=== PATIENT | male | born 1960 | race Caucasian/White ===

== ENCOUNTER 2017-08-15 22:07 | Inpatient (IN) | payer OTHER ==
[~2017-08-15 22:07] MED LIST: ISOVUE-370 76%-LOCM 1 ML ONE
[2017-08-15 22:38] LABS: INR-International Normal Ratio 1.1; PTT 28.3 SEC (22.9-36.1); Prothrombin Time 13.8 SEC (12.0-14.7)
[2017-08-15] MEDS ORDERED: Acetaminophen 500 MG TAB ONE (22:44)
[2017-08-15 22:47] LABS: ALT (SGPT) 49 U/L (8-55); AST (SGOT) 135 U/L (5-34); Albumin 3.3 g/dL (3.5-5.0); Alkaline Phosphatase 126 U/L (40-150); Anion Gap 22 mmol/L (10-20); BUN (Urea Nitrogen) 12 mg/dL (8.4-25.7); Bilirubin, Total 0.9 mg/dL (0.2-1.2); Calc. Creatinine Clearance 0 mL/min (70-130); Calcium 9.4 mg/dL (7.8-10.44); Carbon Dioxide 14 mmol/L (22-29); Chloride 101 mmol/L (98-107); Estimated GFR-MDRD 74; Globulin 3.9 g/dL (2.4-3.5); Glucose 159 mg/dL (70-105); Potassium 3.7 mmol/L (3.5-5.1); Protein, Total 7.2 g/dL (6.0-8.3); Sodium 133 mmol/L (136-145)
[2017-08-15 22:48] LABS: Acetaminophen Less than 6.0 mcg/mL (10.0-30.0); Alcohol 69 mg/dL (Less than 10); CK (CPK) 3646 U/L (30-200); Lipase 37 U/L (8-78); Salicylate Less than 8.0 mg/dL (15.0-30.0)
[2017-08-15 22:50] LABS: Troponin I 0.029 ng/mL (< 0.028)
[2017-08-15 22:57] LABS: CKMB 31.9 ng/mL (0-6.6)
[2017-08-15 22:58] LABS: Band 11 % (5-11); Hemoglobin 13.1 g/dL (14.0-18.0); Lymphocytes 7 % (21-51); MDiff Complete? YES; Mean Corpuscular HGB CONC 32.3 g/dL (32.0-36.0); Mean Corpuscular Hemoglobin 28.6 pg (27.0-31.0); Mean Corpuscular Volume 88.6 fl (80.0-94.0); Mean Platelet Volume 6.9 fL (7.4-10.4); Metamyelocyte 2 % (0-0); Monocytes 8 % (0-10); Neutrophil 71 % (42-75); PLT Morphology Comment Appears Increased; Platelet Count 451 thou/uL (130-400); RBC Morphology Normal; Reactive Lymphocytes 1 % (0-10); Red Blood Cell (RBC) Count 4.59 mill/uL (4.70-6.10); Small Platelets SLIGHT; White Blood Cell (WBC) Count 29.1 thou/uL (4.8-10.8)
--- NOTE | 2017-08-15 23:17 | CT ---
CT HEAD WITHOUT CONTRAST: 08/15/17 Multiple tomograms obtained through the head without IV enhancement. HISTORY: Fall from bridge during suicide attempt. Patient is awake and alert at time of the exam according to technologist. Comparison made to CT of 01/03/17. The ventricles are upper normal size but stable. No evidence of intracranial hemorrhage. No mass, inf arct, or other acute process. No evidence of skull fracture. The sinuses and mastoids are well aerate d. IMPRESSION: No acute findings. POS: [facility]
--- NOTE | 2017-08-15 23:28 | CT ---
CHEST CT SCAN WITH IV CONTRAST ABDOMEN AND PELVIC CT SCAN WITH IV CONTRAST THORACIC SPINE CT SCAN WITH IV CONTRAST LIMITED LUMBAR SPINE CT SCAN WITH IV CONTRAST LIMITED 08/15/17 HISTORY: 57-year-old male with history of fall from trauma. Chest, abdomen and pelvic CT scan demonstrates left pleural effusion. There is no mediastinal hematom a. The aorta is unremarkable. No pericardial effusion. No pneumothorax. In the abdomen, there is evidence for ascites. Comparison is made to a prior 01/09/17 exam which demonstrates left pleural effusion and ascites at th at time. There is a large perisplenic fluid collection measuring approximately 4.4 x 11 cm. Although this was present on the prior 01/09/17 study. There appear to be some vascular coils in the splenic ar halima indicating that he probably had an extensive splenic injury previously which was embolized. The perisplenic region is somewhat more indistinct than on the prior study but the overall size of the co nfined perisplenic or subcapsular fluid collection is not significantly changed. Gallstones are noted in the gallbladder. Liver is intact. Pancreas and adrenal glands and kidneys are unremarkable other than some renal cysts. There is evidence for a comminuted left ilium fracture with associated widenin g of the left SI joint with some hematoma in the left iliopsoas musculature. There are also displaced right and left superior and inferior ischiopubic rami fractures. There is some minimal left sided pe lvic hematoma changes. IMPRESSION: Extensive pelvic fractures including left SI joint dislocation/marked abnormal widening with some hem atoma changes in the left pelvis as well as the left iliopsoas musculature. Markedly abnormal appeari ng spleen with what appears to be a large perisplenic fluid collection although this does not appear to be significantly changed from the 01/09/17 study. Evidence of ascites and left pleural effusion whi ch were present at the time of the prior study as well. I cannot totally exclude the possibility of s ome acute splenic injury in addition to the extensive old splenic injury, particularly given the some what indistinct appearance in the perisplenic area. Correlation with followup H&H levels. If there is clinical concern for acute blood loss or acute splenic injury on top of chronic splenic injury, then a followup CT scan might be of benefit in that regard. Other findings as above. THORACIC SPINE CT SCAN WITH IV CONTRAST LIMITED: IMPRESSION: Thoracic spine spondylosis without acute fracture. LUMBAR SPINE CT SCAN WITH IV CONTRAST LIMITED: IMPRESSION: Multilevel spondylosis. No evidence for acute fracture. Findings were discussed in regards to the chest, abdomen and pelvis CT scan as well as the brain CT s can and the cervical spine CT scan with Dr. Carrillo by phone at 2300 hours. Code CR POS: [facility]
--- NOTE | 2017-08-15 23:30 | CT ---
CERVICAL SPINE CT SCAN WITHOUT IV CONTRAST: 08/15/17 HISTORY: 57-year-old male with history of a fall. Jumped off bridge in a suicide attempt. There are generalized changes of spondylosis with prominent disc osteophytosis particularly at C5-C6. These spondylosis changes have progressed when compared to the prior 01/08/14 study. No evidence for acute fracture or facet dislocation. IMPRESSION: Significant spondylosis most marked at C5-C6. No acute fracture or facet dislocation. POS: [facility]
[2017-08-16] MEDS ORDERED: Morphine 4 MG/ML VIAL ONE (00:15)
[2017-08-16] MEDS ORDERED: Ondansetron HCl/PF 4 MG/2 ML Vial ONE (00:16)
[2017-08-16] MEDS ORDERED: Ondansetron HCl/PF 4 MG/2 ML Vial IVP PRN (00:41)
[2017-08-16] MEDS ORDERED: Ondansetron ODT 4 MG TAB PO PRN (00:41)
[2017-08-16] MEDS ORDERED: Dextrose 5% in Water 1,000 ML IV PRN (00:41)
[2017-08-16] MEDS ORDERED: Dextrose 50% Abboject 50 ML SYRINGE SLOW IVP PRN (00:41)
[2017-08-16 00:55] LABS: Bilirubin Negative (Negative); Blood, Urine Large (Negative); Clarity CLEAR (Clear); Glucose, Urine (Dipstick) Negative (Negative); Leukocyte Negative (Negative); Nitrite Negative (Negative); Protein, Urine (Dipstick) 30 mg/dL (Neg-Trace); pH, Urine 6.5 (5.0-9.0)
[2017-08-16 00:58] LABS: Pathc Cast-AUWi Flag 0.14 (0-2.49)
[2017-08-16 01:00] LABS: Sperm-AUWi Flag 107.7 (0-9.9)
[2017-08-16 01:14] LABS: Squamous Epithelial 0-3 HPF (0-3); WBC/HPF 0-3 HPF (0-3)
[2017-08-16 01:15] LABS: Bacteria/HPF None Seen HPF (None Seen); Hyaline Casts/LPF 0-3 HYALINE CAST LPF (0-3 Hyaline); Sperm/HPF 1+ HPF (None Seen)
[2017-08-16] MEDS: Sodium Chloride 0.9% 1,000 ML IV SCH ×4 (01:58→22:14)
[2017-08-16 02:22] LABS: CKMB 31.9 ng/mL (0-6.6)
[2017-08-16 02:50] LABS: Amphetamine Not Detected (NotDetected); Barbiturates Screen Not Detected (NotDetected); Benzodiazepine Screen Not Detected (NotDetected); Cocaine Metabolite Screen Not Detected (NotDetected); Medtox Control Line Valid? VALID (VALID); Medtox Reader # READER 4; Methadone Not Detected (NotDetected); Methamphetamine Not Detected (NotDetected); Opiate Screen Not Detected (NotDetected); Oxycodone Screen Not Detected (NotDetected); Phencyclidine (PCP) Not Detected (NotDetected); THC/Cannabinoid Screen Not Detected (NotDetected); Tricyclic Screen Not Detected (NotDetected)
[2017-08-16 03:00] VITALS: BMI 20.3
[2017-08-16] MEDS: Acetaminophen 1,000 MG in Premix Bag 1 BAG IVPB SCH ×4 (05:21→23:56)
[2017-08-16] MEDS: Ketorolac Tromethamine 30 MG/ML VIAL IVP SCH ×4 (05:22→23:55)
[2017-08-16] MEDS: Oxazepam 10 MG CAP PO SCH ×3 (05:22→22:14)
[2017-08-16] MEDS: Morphine 4 MG/ML VIAL SLOW IVP PRN ×3 (05:26→18:34)
[2017-08-16 05:33] LABS: Anion Gap 9 mmol/L (10-20); BUN (Urea Nitrogen) 11 mg/dL (8.4-25.7); Calc. Creatinine Clearance 103 mL/min (70-130); Calcium 8.6 mg/dL (7.8-10.44); Carbon Dioxide 24 mmol/L (22-29); Chloride 106 mmol/L (98-107); Estimated GFR-MDRD Greater than 90; Glucose 129 mg/dL (70-105); Potassium 4.1 mmol/L (3.5-5.1); Sodium 135 mmol/L (136-145)
[2017-08-16 05:34] LABS: Troponin I 0.038 ng/mL (< 0.028)
[2017-08-16 05:37] LABS: CKMB 31.4 ng/mL (0-6.6); Critical Call CKMBM RESULT DECREASING
--- NOTE | 2017-08-16 06:23 | HP ---
DATE OF ADMISSION: 08/16/2017 ATTENDING PHYSICIAN: Dr. Castro Richards TRAUMA ACTIVATION: Level 2. HISTORY OF PRESENT ILLNESS: Lamont Welch is a 57-year-old male who presented to [facility] status p ost jumping from a bridge. Per patient, he was feeling above average levels of life stress and decid ed to jump from a bridge after drinking alcohol earlier this evening. The patient has a history of m ultiple suicide attempts in the past and suicidal ideations. Per EMS, the bridge is approximately 50 -60 feet. He underwent evaluation in the emergency room and was found to have multiple pelvic fractu res and a left talar fracture. Upon my evaluation, the patient has a chief complaint of pelvic and l ower back pain. He rates his pain as a 10/10. ALLERGIES: None. HOME MEDICATIONS: The patient is supposed to be taking an unknown antihypertensive, but states he fenton s been able to afford it, so has not been taking it. PAST MEDICAL HISTORY: Hypertension, hepatitis C, glaucoma, chronic alcohol abuse, chronic anemia, to bacco abuse, history of polysubstance abuse, history of hepatic encephalopathy, history of multiple s uicide attempts. PAST SURGICAL HISTORY: Splenic embolization in 04/2016. SOCIAL HISTORY: The patient states he lives alone. He has 2 children. He is currently not employed . He endorses daily alcohol use, approximately 4-5 beers daily. He is a current tobacco user, smoki ng both cigarettes and cigars. He is a half pack per day smoker x40 years. He has a history of hero in use, but denies recent illicit drug use. FAMILY HISTORY: Significant for father and mother who are both from cancer, details unknown . Patient reports having a sister with a history of cancer, details unknown. REVIEW OF SYSTEMS: Ten point review of systems was negative except as indicated in the HPI. PHYSICAL EXAMINATION: VITAL SIGNS: Blood pressure 145/87, pulse 120, respiration 26, temperature 99.6, O2 sat 96% on room air. GENERAL: Well-developed male in no acute distress, resting in bed. HEENT: Head is normocephalic. There are small left frontal hematoma, right periorbital hematoma. E yes; pupils are PERRL. Extraocular movements are intact. NECK: Supple. Trachea is midline. C-collar is in place. There was no reported midline tenderness. CHEST: Chest is atraumatic. There is no tenderness to palpation. Normal work of breathing, symmetr ic rise. LUNGS: Clear to auscultation bilaterally. CARDIOVASCULAR: Tachycardic, no obvious murmurs, rubs or gallops. GASTROINTESTINAL: The abdomen appears atraumatic, is soft. He has tenderness to palpation of the ri ght lower and left lower quadrants, but no guarding, no signs of peritonitis. No rigidity. BACK: Reported as having diffuse tenderness along the spine without any step-offs or deformities. MUSCULOSKELETAL: Bilateral upper extremities within normal limits. Right lower extremity within nor mal limits. Left lower extremity, left ankle appears swollen and range of motion is limited secondar y to pain. Pulses are 2+ bilaterally. NEUROLOGIC: GCS is 15. No focal deficit is noted. Strength 5/5 in all 4 extremities. LABORATORY DATA: WBC 29.1, hemoglobin 13.1, hematocrit 40.7, platelet count 451, 11% bandemia. INR is 1.1. Sodium 133, potassium 3.7, chloride 101, carbon dioxide 14, BUN 12, creatinine 1.03, glucose 159. AST 135, ALT 49. CK 3646, CK-MB 31.9, troponin 0.029. Urinalysis with proteinuria and some h ematuria. Blood alcohol level 69. RADIOGRAPHIC FINDINGS: EKG with sinus tachycardia, no evidence of acute myocardial infarction. CT of the C-spine was negative for acute fracture or dislocation, but did have some cervical spondylo sis at C5 and C6. CT of the brain was negative for acute intracranial abnormality. CT of the chest, abdomen, and pelvis per radiology read showed a left ilium fracture associated with widening and dis location of the SI joint as well as displaced right and left superior and inferior pubic rami fractur es with left iliopsoas hematoma and left-sided pelvic hematoma. There was also evidence of a perispl enic fluid collection which is stable from a previous study in 12/2016. There was evidence of some a scites. T-spine and L-spine were without acute fracture, but did show evidence of spondylosis per ra diology. X-ray of the pelvis, official read is pending, but has been evaluated by Orthopedic Surgery . X-ray of the left foot showed a left talar fracture. X-ray of the left knee, official read is pen ding, but is negative for acute fracture or dislocation per Orthopedic Surgery. X-ray of the right f oot, official read is pending. Negative for acute fracture per radiology read. X-ray of the right k nee is negative for acute fracture per Orthopedic Surgery. Official read is pending. ASSESSMENT: 1. Status post jump from a bridge approximately 50 feet, suicide attempt. 2. Left ilium fracture. 3. Left SI joint dislocation. 4. Bilateral superior and inferior pubic rami fractures. 5. Left pelvic hematoma. 6. Left iliopsoas hematoma. 7. Acute traumatic pain. 8. Hypertension. 9. Left talar fracture. 10. Perisplenic fluid collection, stable, history of splenic rupture, status post splenic artery emb olization. 11. Alcohol abuse with acute ETOH intoxication. 12. History of hepatitis C, cirrhosis, and ascites. 13. Current tobacco user. 14. History of polysubstance abuse. 15. History of multiple suicide attempts. 16. Rhabdomyolysis. 17. Indeterminate range troponin without chest pain or acute EKG changes. PLAN: Admit to Trauma Services. The case has been discussed with ER physician and Orthopedic Surger y. Orthopedic Surgery has seen and evaluated the patient and plan for operative intervention later t yfn. The patient should be n.p.o. IV fluid hydration. Recheck labs in a.m. Follow troponin and CK levels. Withdrawal prophylaxis wit h Serax, IV analgesics at this time. Postoperative PT, OT. Plans for admission were discussed with the patient, who vocalized his understanding. All questions were answered at the time of this dictat ion. Dr. Richards has been notified of admission. Assessment and plan has been discussed with him.
--- NOTE | 2017-08-16 06:43 | RAD ---
AP PELVIS ONE VIEW: HISTORY: A 57-year-old male with a history of trauma, fall. FINDINGS: There are comminuted, markedly displaced fractured of the right and left pubis regions, including the superior and inferior ischiopubic rami and the pubic bones themselves. There is also dislocation of the left SI joint, which extends into the left ilium bone, as a comminuted fracture. There is some left-sided pelvic hematoma, minimally displacing the bladder to the right. IMPRESSION: 1. Very markedly displaced, comminuted right and left pubis and ischiopubic rami fractures, as well as a markedly displaced fracture-dislocation involving the left sacroiliac joint and extending into t he left ilium and iliac crest. 2. Some left-sided pelvic hematoma, displacing the bladder to the right. POS: [facility]
--- NOTE | 2017-08-16 07:47 | HP ---
CHIEF COMPLAINT: Suicide attempt, jumping off a bridge. HISTORY OF PRESENT ILLNESS: The patient is a 57-year-old male who has a history of prior multiple robledo icide attempts and depression who last night jumped off a 50-60 foot bridge in an attempt to commit s uicide. He was found by EMS and brought in. He was awake and alert at the scene. He claims he has been depressed. He is an alcoholic, drinks a lot of beer. He complains of groin pain, leg pain, low er back and sacrum pain. Denies dyspnea, change in vision, numbness or tingling. PAST MEDICAL HISTORY: Hypertension, hepatitis C, alcoholism, hepatic encephalopathy, multiple suicid e attempts, history of DTs, history of glaucoma. PAST SURGICAL HISTORY: He has had a splenic embolization. MEDICATIONS: He takes a medication for hypertension, hepatitis C and anxiety. ALLERGIES: No known drug allergies. SOCIAL HISTORY: He is single. He smokes 1 pack per day. He drinks 4-5 quarts of beer daily. 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 He also reports prior heroin use, but he says he stopped that. FAMILY HISTORY: Noncontributory. PHYSICAL EXAMINATION: VITAL SIGNS: Temperature 98.1, pulse 106, blood pressure 133/80. GENERAL: He is awake, alert, very ill-kempt man. HEENT: He has got some ecchymosis about his right eye. There is no trauma to his scalp or skull. N o soft tissue swelling. NECK: His neck is in a C-collar. It is nontender. Trachea is midline. LUNGS: Clear. HEART: Regular rate and rhythm. ABDOMEN: Soft, nondistended, nontender. Pelvis is angulated. EXTREMITIES: Externally rotated. Sensation intact. LABORATORY AND X-RAY FINDINGS: White count 29.1, H&H 13 and 40, platelet count 451. Electrolytes ar e fine, but elevated glucose of 129, CK-MB elevated at 31, coags are fine. Urinalysis clear. Toxico logy: Alcohol is 69. CT of the cervical spine shows spondylosis at C5-6, no fractures. CT of the b rain is unremarkable. CT chest, abdomen, and pelvis shows extensive pelvic fractures including left SI joint dislocation with abnormal widening and hematoma in the left pelvis, left iliopsoas musculatu re, markedly abnormal spleen with some perisplenic fluid. This has not changed since 12/2016. There is ascites, left pleural effusion. ASSESSMENT: Significant fall with significant pelvic fracture, left ilium fracture, left SI joint di slocation, superior and inferior pubic rami fracture, bilateral pelvic hematoma, hypertension, perisp lenic fluid collection, alcohol abuse with history of hepatitis C, probable cirrhosis. PLAN: Admit on suicide precautions, precautions for delirium tremens with orthopedic consultation.
--- NOTE | 2017-08-16 08:59 | CT ---
PRELIMINARY REPORT/[facility]/EMERGENTY AFTER-HOURS PROCEDURE CT Left Lower Extremity Without Intravenous Contrast, Foot CLINICAL HISTORY: 57 years old, male; Injury or trauma; Fall; Initial encounter; Fracture, traumatic; Closed fracture; Foot; Left; Patient HX: 57 y/o m with presentation of fall. Ems reports that bystanders found him lay ing on the dirt road at the bottom of the bridge and pt informed them that pt had jumped off the bridge (marquita roximately 50-60ft) TECHNIQUE: Axial computed tomography images of the left foot without intravenous contrast. COMPARISON: No relevant prior studies available. FINDINGS: Bones/joints: Acute comminuted fractures of the talus and calcaneus. No dislocation. Soft tissues: Diffuse soft tissue edema. No radiopaque foreign body. IMPRESSION: Acute comminuted fractures of the talus and calcaneus. Thank you for allowing us to participate in the care of your patient. Dictated and Authenticated by: Rj Flores MD 08/16/2017 2:32 AM Central Time ([place] & [place]) FINAL REPORT CT RIGHT ANKLE: FINDINGS/IMPRESSION: I agree with the above-provided preliminary interpretation. There is a heavily comminuted minimally displaced fracture deformity of the talus. There is also fra cture involvement of the lateral aspect of the calcaneus and extending posteriorly. There is associa malorie soft tissue hematoma. POS: [facility]
--- NOTE | 2017-08-16 09:22 | RAD ---
3 VIEW LEFT KNEE: Date: 08/16/17 INDICATION: Jumping injury, pain. FINDINGS: No fracture, dislocation, or joint capsular distention. Enthesophyte formation seen in patella. There are minute osteophytes and vascular calcification present. IMPRESSION: No acute osseous abnormality of the knee. POS: [facility]
--- NOTE | 2017-08-16 09:24 | RAD ---
THREE VIEWS OF THE LEFT ANKLE: COMPARISON: None. HISTORY: Jumped from 50 feet with feet trauma and pain. FINDINGS: Three vies of the left foot show a comminuted fracture of the talus. This appears to extend to the p osterior facet. No calcaneal fracture is seen. Surrounding soft tissue swelling is seen. IMPRESSION: Comminuted fracture of the left talus. POS: OFF
--- NOTE | 2017-08-16 09:28 | RAD ---
4 VIEWS RIGHT KNEE: Date: 08/16/17 COMPARISON: None. HISTORY: Jumped from 50-ft with right knee pain/trauma. FINDINGS: Four views of the right knee show no evidence of acute fracture or dislocation. No knee effusion is s een. No soft tissue swelling is present. IMPRESSION: Unremarkable exam. POS: OFF
[2017-08-16] MEDS ORDERED: CEFAZOLIN/Water 2 GM/20 ML SYRINGE SLOW IVP SCH (09:30)
[2017-08-16] MEDS: Senokot S 8.6-50 MG TAB PO SCH ×2 (09:36→22:15)
[2017-08-16] MEDS: Folic Acid 1 MG TAB PO SCH (09:36)
[2017-08-16] MEDS: Famotidine/PF 20 mg/2ml Vial SLOW IVP SCH (09:37)
[2017-08-16] MEDS: Multivit, Therapeutic 1 TAB PO SCH (09:37)
--- NOTE | 2017-08-16 10:22 | RAD ---
LEFT ANKLE TWO VIEWS: INDICATIONS: Posttraumatic pain related to fall. FINDINGS: The three view series of the left foot and the two view series of the left ankle were concurrently pe rformed, which revealed subtle fracture lucencies and cortical irregularity involving the talus. The re is subtle cortical irregularity seen at the mid to posterior aspect of the calcaneus. There is sl ight asymmetry of the ankle mortise with medial widening. Soft tissue swelling is present. IMPRESSION: Fractures of the hindfoot. Recommend dedicated CT to further evaluate. POS: [facility]
[2017-08-16] MEDS ORDERED: Famotidine 20 MG TAB PO SCH (22:15)
[2017-08-17] MEDS: Sodium Chloride 0.9% 1,000 ML IV SCH ×3 (04:37→17:31)
[2017-08-17] MEDS: Ketorolac Tromethamine 30 MG/ML VIAL IVP SCH ×3 (05:42→17:33)
[2017-08-17] MEDS: Acetaminophen 1,000 MG in Premix Bag 1 BAG IVPB SCH (05:42)
[2017-08-17] MEDS: Oxazepam 10 MG CAP PO SCH ×3 (05:49→22:02)
[2017-08-17 05:52] LABS: #Eosinphils 0.1 thou/uL (0.0-0.7); #Monocytes 0.9 thou/uL (0.11-0.59); #Neutrophils 10.3 thou/uL (1.40-6.50); %Eosinophils 0.6 % (0.0-10.0); %Lymphocytes 14.9 % (21.0-51.0); %Monocytes 6.9 % (0.0-10.0); %Neutrophils 77.5 % (42.0-75.0); Hemoglobin 10.3 g/dL (14.0-18.0); Mean Corpuscular Hemoglobin 28.8 pg (27.0-31.0); Platelet Count 336 thou/uL (130-400); RBC Distribution Width 14.1 % (11.5-14.5); Red Blood Cell (RBC) Count 3.58 mill/uL (4.70-6.10); White Blood Cell (WBC) Count 13.3 thou/uL (4.8-10.8)
[2017-08-17 06:08] LABS: Anion Gap 10 mmol/L (10-20); BUN (Urea Nitrogen) 18 mg/dL (8.4-25.7); Calc. Creatinine Clearance 88 mL/min (70-130); Calcium 8.5 mg/dL (7.8-10.44); Carbon Dioxide 21 mmol/L (22-29); Chloride 111 mmol/L (98-107); Estimated GFR-MDRD 90; Glucose 80 mg/dL (70-105); Magnesium 1.8 mg/dL (1.6-2.6); Potassium 4.5 mmol/L (3.5-5.1); Sodium 137 mmol/L (136-145)
[2017-08-17] MEDS: Morphine 4 MG/ML VIAL SLOW IVP PRN ×2 (06:39→20:11)
[2017-08-17] MEDS ORDERED: CEFAZOLIN/Water 2 GM/20 ML SYRINGE ONE (07:47)
[2017-08-17] MEDS ORDERED: Fentanyl 100 MCG/2 ML VIAL ONE (07:47)
[2017-08-17] MEDS: Famotidine/PF 20 mg/2ml Vial SLOW IVP SCH (07:51)
[2017-08-17] MEDS ORDERED: Fentanyl 250 MCG/5 ML VIAL ONE (08:18)
[2017-08-17] MEDS ORDERED: HYDROmorphone 2 MG/ML VIAL SLOW IVP PRN (10:44)
[2017-08-17] MEDS ORDERED: Promethazine HCl 25 MG/ML VIAL SLOW IVP PRN (10:44)
[2017-08-17] MEDS ORDERED: Promethazine HCl 25 MG/ML VIAL IM PRN (10:44)
[2017-08-17] MEDS ORDERED: Ondansetron HCl/PF 4 MG/2 ML Vial IVP PRN (10:44)
[2017-08-17] MEDS ORDERED: Labetalol HCl 100 MG/20 ML VIAL ONE (10:47)
--- NOTE | 2017-08-17 11:34 | RAD ---
AP PELVIS INTRAOPERATIVE FLUOROSCOPY: Date: 08/17/17 HISTORY: Fracture. FINDINGS/IMPRESSION: Intraoperative fluoroscopy was provided for internal fixation as performed by Dr. Mccullough. Spot flu oroscopic images show long screws transfixing the left sacroiliac joint and sacrum. Fluoro Time: 149 seconds. POS: [facility]
--- NOTE | 2017-08-17 11:38 | RAD ---
RADIOGRAPH LEFT ANKLE 2 VIEWS: Date: 08/17/17 Time: 1014 hours HISTORY: 57-year-old male with left talar fracture. COMPARISON: 08/16/17. FINDINGS: Two small field of view fluoroscopic spot images obtained in OR. Two lag screws have been placed, ent ering from the posterior aspect of the talus, with distal tip embedded within the anterior process of the talus. IMPRESSION: Status post screw fixation of talar fracture. POS: [facility]
--- NOTE | 2017-08-17 12:01 | CON ---
DATE OF CONSULTATION: 08/16/2017 REQUESTING PHYSICIAN: Dr. Castro Richards. HISTORY OF PRESENT ILLNESS: Mr. Welch is a 57-year-old gentleman, who presented to the emergency room after an apparent suicide, jumping from a bridge. By report, it was a height of approximately 50 fe et. The patient presents with complaints of low back pain, sacral pain, and left ankle pain. Workup included CT scan of pelvis as well as plain x-rays of bilateral feet, bilateral knees, and subsequen t CT scan of left ankle. These studies have revealed a vertical shear pelvis fracture with fractures of both left and right rami as well as a fracture of the posterior iliac wing on the left side and c omplete disruption of the sacroiliac joint. The left foot remarkable for a minimally displaced talar body and neck fracture. The patient now admitted to the Trauma Service. PAST MEDICAL HISTORY: Remarkable for hepatitis C, hypertension, chronic alcohol abuse, chronic anemi a, polysubstance abuse, hepatic encephalopathy, and prior suicide attempts. PAST SURGICAL HISTORY: Includes splenic embolization in 04/2016. MEDICATIONS: Patient states that he has not been able to afford his normal medications that include antihypertensive medications. ALLERGIES: None. SOCIAL HISTORY: The patient lives alone. He is unemployed. He uses alcohol approximately 4-5 beers daily and is a smoker of both cigarettes and cigars and has done so for 40 years. He has a past his tory of heroin abuse. FAMILY HISTORY: Noncontributory. REVIEW OF SYSTEMS: Patient denies recent fevers, chills, or sweats. Denies chest pain or shortness of breath. Denies numbness or tingling in lower extremity. PHYSICAL EXAMINATION: VITAL SIGNS: He is found to have a blood pressure of 145/87, pulse 120, respiratory rate of 26, and O2 saturations 96% on room air. GENERAL: He is awake and alert and complaining of pain. HEENT: Atraumatic, normocephalic. HEART: Shows a regular rate and rhythm without murmur. LUNGS: Clear to auscultation bilaterally. CHEST: Chest wall remarkable for no chest wall pain to palpation. BACK: Remarkable for pain at the lumbosacral region and along the sacrum slightly to the left side. PELVIS: He is found to have pain with compression and pain with push pull of the lower legs with thi s pain felt at the left SI region as well as the groin region. EXTREMITIES: Bilateral upper extremities appear atraumatic with supple range of motion of shoulder, elbow, wrist, and hand. He has intact sensation in the radial, median, and ulnar distributions. Low er extremities remarkable for an atraumatic right lower extremity with supple range of motion of hip, knee, and ankle. He has intact subjective sensation distally and is wiggling his toes normally. Wi th hip range of motion, he does feel deep pain in the groin. The left lower extremity is remarkable for again groin pain with hip range of motion consistent with his pelvis injury, but otherwise no fem ur, knee, or foot pain except for pain posteriorly at the talocalcaneal region. With dorsi and plant ar flexion of the foot, he does feel pain in this area, although no crepitation is elicited. He does have swelling. He has a 2+ dorsalis pedis pulse and intact subjective sensation. RADIOGRAPHIC FINDINGS: For pertinent studies, I will refer you to the history and physical. LABORATORY DATA: He was found to have a white count of 29, hematocrit of 40.7, and 450,000 platelets . ASSESSMENT: A 57-year-old gentleman status post suicide attempt by jumping, sustaining a left talar body and neck fracture with minimal displacement and a vertical shear fracture of the pelvis with com plete disruption of left SI joint. By report, the patient had a normal rectal exam with normal recta l tone and normal perianal sensation and he does have a normal distal neurovascular exam today, so I do not believe a lumbosacral plexus is involved, but clearly has an unstable vertical shift of the le ft hemipelvis. PLAN: At this time, patient will be admitted to Trauma Service. We will proceed with a stabilizatio n procedure of the pelvis as soon as patient is felt to be stable and ready for surgery. At the same time, we will proceed with a percutaneous stabilization of the talus. We will discuss with the kourtney ent the risks and benefits of this procedure. Once he is out of the resuscitation room and better ab le to comprehend our discussion.
[2017-08-17] MEDS: Senokot S 8.6-50 MG TAB PO SCH ×2 (12:02→22:03)
[2017-08-17] MEDS: Folic Acid 1 MG TAB PO SCH (12:02)
[2017-08-17] MEDS: Famotidine 20 MG TAB PO SCH ×2 (12:02→22:03)
[2017-08-17] MEDS: Multivit, Therapeutic 1 TAB PO SCH (12:02)
--- NOTE | 2017-08-17 15:02 | CT ---
CT PELVIS NONCONTRAST: Date: 08/17/17 HISTORY: Pelvic fracture with surgery. COMPARISON: 08/15/17. FINDINGS: There has been near complete interval reduction of the posterior displacement of the left iliac bone fracture, now held in place by two long screws. The more inferior screw crosses both SI joints. The m ore superior screw extends to the right side of the sacrum. Less than 1.0 cm posterior displacement o f the lateral left iliac bone fragment remains on the axial images. Comminuted, mildly displaced frac ture of the pubic rami are similar in alignment to the previous exam. Valle catheter decompresses the urinary bladder. Hematoma expansion of the left iliacus muscle has decreased somewhat since the prev ious study. There is stranding throughout the fat of the pelvis. Calcification in the arterial struct ures. IMPRESSION: 1. Interval operative fixation and improved alignment of the left sacroiliac fractures. Pubic rami f ractures are not significantly changed in alignment. 2. Interval decrease in hematoma mass effect of the left pelvic side wall. POS: [facility]
--- NOTE | 2017-08-17 16:08 | OP ---
DATE OF SURGERY: 08/17/2017 PREOPERATIVE DIAGNOSIS: Left talar neck and body fracture, closed. POSTOPERATIVE DIAGNOSIS: Left talar neck and body fracture, closed. SURGICAL PROCEDURE: Open reduction and internal fixation, left talus. ANESTHESIA: General. SURGEON: Munir Zaldivar M.D. PHOTO LAB MANAGER: Chalo Mccullough M.D. TOURNIQUET TIME: Zero. BLOOD LOSS: Less than 20 mL. IMPLANTS: 4.0 mm cannulated screws x2. COMPLICATIONS: None. DRAINS: None. SPECIMEN: None. OUTCOME: Satisfactory. INDICATIONS: The patient is a 57-year-old gentleman status post jump from a bridge landing approxima tely 50 feet below sustaining a vertical shear fracture of the left SI joint with pubic rami and chip c wing fractures in addition to a minimally displaced left talus fracture. This fracture involves th e body as well as neck. After discussion with patient including risks and benefits, we decided to pr oceed with open reduction and internal fixation. Informed consent obtained, all questions answered. PROCEDURE IN DETAIL: After the induction of general anesthesia, the patient had just completed the c losed reduction and percutaneous screw fixation of his SI joint. Patient was repositioned in a right lateral decubitus position and then a sterile prep and drape performed of the left lower extremity. A posterior lateral skin incision was made just to the lateral border of the Achilles tendon at abou t the level of the tip of the lateral malleolus. After a vertical incision was made, dissection was carried down bluntly so as not to harm the sural nerve. The fascial layer was bluntly dissected and then a probe was able to be placed on the posterior aspect of the talus. Next, a 1.25 mm terminally threaded guidewire was passed from the posterior talus at about the level of the posterior process ac ross the body and neck fracture into the talar head. A second wire was then passed in a similar fash ion just slightly lateral to the first. Once the wires were appropriately positioned, two 4.0 mm par tially threaded cancellous screws were passed over these guidewires spanning the fractures and gettin g compression across the fractures. The K-wires were removed and then final AP, lateral C-arm images were obtained that showed acceptable alignment of hardware and fracture. The wound was then irrigat ed and closed in layers with 0 Vicryl deep, 2-0 Vicryl and estevan for the skin. A Xeroform gauze, W ebril, and posterior fiberglass splint was applied to the ankle and then patient was transferred to r ecovery room in stable condition. There were no complications. He tolerated the procedure well.
--- NOTE | 2017-08-17 16:47 | OP ---
DATE OF PROCEDURE: 08/17/2017 OPERATION: Open reduction and internal fixation of unstable vertical shear pelvic fracture. PREOPERATIVE DIAGNOSES: Left-sided vertical shear pelvic fracture with anterior rami fractures bilat erally as well as left sacroiliac dislocation and posterior iliac wing fracture. POSTOPERATIVE DIAGNOSES: Left-sided vertical shear pelvic fracture with anterior rami fractures bila terally as well as left sacroiliac dislocation and posterior iliac wing fracture. COMPLICATIONS: None. ESTIMATED BLOOD LOSS: 100 mL. SURGEON: Chalo Mccullough M.D. PRECISE WINDER: Munir Zaldivar M.D. INDICATIONS: Mr. Welch is a 57-year-old male, who jumped from a bridge. He had multiple injuries inc luding a left talus fracture and an unstable vertical shear pattern pelvic fracture. He was indicate d for reduction and fixation of the pelvis as well as the talus to restore anatomic function and reli cassie pain as well as provide the ability to mobilize and heel with anatomic alignment. Risks have bee n reviewed. These are extensive and do include nerve injury, vascular injury, hardware failure, loos ening, nonunion, malunion, DVT, PE, and others. He is at risk for avascular necrosis of the talus. DESCRIPTION OF PROCEDURE: Mr. Welch was identified in the preoperative holding area. His correct ext remity was marked. He was carried to the operating room. He was positioned supine. General anesthe lon was induced. A multidisciplinary timeout was performed. The left leg and left hip as well as an terior abdomen was prepped and draped in sterile fashion. At this point, we proceeded with intraoperative evaluation using x-ray. We pulled traction on the le ft leg and manipulated the left hip. We were able to reduce the sacroiliac joint vertical shear comp onent with traction. We then compressed the sacroiliac joint using a ball-spike pusher from the late ral side and a small incision. At this point, we placed a K-wire across the sacroiliac joint tempora rily holding our fixation. Next, we used intraoperative x-ray obtained perfect inlet and outlet view s. We then passed a guidewire for a 7.3 screws across the ilium into the sacrum. This was in a safe zone on both views. We overdrilled this. We then placed a 7.3 mm partially threaded cannulated scr ew. This was used with a washer to compress the sacroiliac joint further enhancing our reduction. A gain, x-ray images were taken. Next, we placed a second screw in the S2 segment. A guidewire was pl aced through the ilium into the S2 sacral body. Again, we used inlet and outlet x-rays as well as la teral views to guide this. We overdrilled the wire and placed our 7.3 fully threaded screw. At this point, we evaluated the general stability of the pelvis. The anterior pelvis was well reduced. All x-rays showed reduction and a stable pelvis. We decided to stop at this point on our fixation. We did not proceed with anterior fixation. We took final images. We thoroughly irrigated our wounds. We then closed appropriately and placed a sterile dressing. The talus was then fixed, this was dictated in a separate operative note. IMPLANTS: Two 7.3 mm Synthes screws cannulated were used.
[2017-08-17] MEDS ORDERED: HYDROcodone/Acetaminophen 5/325 mg Tablet PO PRN ×2 (16:54)
[2017-08-17] MEDS: CEFAZOLIN/Water 2 GM/20 ML SYRINGE SLOW IVP SCH (17:02)
[2017-08-17] MEDS ORDERED: Lidocaine 1% PF 5 ML VIAL ONE (17:03)
[2017-08-17] MEDS ORDERED: PROPOFOL 200 MG/20 ML VIAL ONE (17:03)
[2017-08-17] MEDS ORDERED: Succinylcholine Chloride 20 MG/ML 10 ml SYRINGE FS ONE (17:03)
[2017-08-17] MEDS ORDERED: Glycopyrrolate 0.2 MG/ML 5 ML SYRINGE ONE (17:03)
[2017-08-17] MEDS ORDERED: PHENYLEPHRINE-NS 100 MCG/ML 10 ML SYRINGE ONE (17:03)
[2017-08-17] MEDS ORDERED: HYDROcodone/Acetaminophen 7.5/325 mg Tablet PO PRN (20:38)
--- NOTE | 2017-08-17 20:46 | PRG ---
DATE OF SERVICE: 08/17/2017 ATTENDING PHYSICIAN: Dr. Franco. SUBJECTIVE: Mr. Welch is a 57-year-old male who jumped off of a 50-feet bridge, 2 days ago. He was f ound by EMS and brought into the emergency department. He was identified as having a left talar frac ture and pelvic fracture. He was admitted to the surgical floor by Trauma services. Orthopedic cons ult was made. He has remained stable on the surgical floor. He has been to the operating room for f ixation of his pelvis and talar fracture this morning. He is now seen postoperatively. OBJECTIVE: VITAL SIGNS: Temperature 97.8, pulse 90, respirations 22, O2 sat 95% on room air, blood pressure 163 /99. GENERAL: Well-developed male, lying in bed, no acute distress. NECK: Sigourney cervical collar in place. The patient denies neck tenderness; however, wishes to keep c ervical collar in place. CHEST: Bilateral breath sounds, clear to auscultation. Chest movement symmetrical. CARDIOVASCULAR: Regular rate and rhythm. Heart sounds normal. ABDOMEN: Soft, nontender, nondistended. Pelvis surgical dressing in place left side. Pelvis clean, dry, and intact. Pain with palpation to left side pelvis. EXTREMITIES: Moves all extremities well. Splint in place, left lower extremity. Cap refill brisk a ll extremities. NEUROLOGIC: Awake, alert, oriented x3. GCS 15. ASSESSMENT: 1. Status post jump from a bridge and suicide attempt. 2. Pelvic fracture. 3. Left talar fracture. 4. Status post open reduction internal fixation left talar and pelvis. 5. History of alcoholism. 6. History of depression. 7. History of hepatitis C. PLAN: 1. Begin regular diet. 2. Discontinue IV fluids. 3. Continue bedside sitter and suicide precautions. 4. Mobilization with orthopedic restrictions. 5. PT, OT consult. 6. Serax continued. Monitor for alcohol withdrawal. 7. Transition from IV to oral pain medications. 8. Deep venous thrombosis prophylaxis when okay with Orthopedics. 9. Pepcid for gastritis prophylaxis. The patient was reviewed with Dr. Franco who agrees with plan.
--- NOTE | 2017-08-17 23:06 | PRG ---
DATE OF SERVICE: 08/16/2017 SUBJECTIVE: The patient is 2 days status post jump from a 50-foot bridge in which he sustained multi ple pelvic fractures and talar fracture. The patient underwent his orthopedic procedures today, whic h he reportedly tolerated these well. The patient still has a Valle in place, which has pink tinge t o it, otherwise appears to be functioning properly. The patient's chief complaint is pelvis pain at this time. PHYSICAL EXAMINATION: VITAL SIGNS: Temperature is 98.5, heart rate 109, blood pressure 118/69, respirations 18, oxygen sat uration 94% on room air. GENERAL: He is resting in bed. He does appear to be in some discomfort. Otherwise, he is alert and oriented x3 and is appropriate. CHEST: His clear to auscultation bilaterally. HEART: Regular rate and rhythm. ABDOMEN: Soft, flat, nontender with hypoactive bowel sounds. EXTREMITIES: His postop dressings are clean, dry, and intact. ASSESSMENT AND PLAN: 1. Status post suicide attempt, jumped from 50-foot bridge. 2. Multiple pelvic fractures. 3. Status post open reduction internal fixation of unstable vertical shear pelvic fracture. 4. Status post open reduction internal fixation of left talus. Plan will be to continue supportive care. We will adjust his pain medications and hopefully, the patient will begin physical and occupat ional therapy shortly and then placement will have to be discussed.
[2017-08-18] MEDS: Ketorolac Tromethamine 30 MG/ML VIAL IVP SCH ×5 (00:11→23:28)
[2017-08-18] MEDS: HYDROcodone/Acetaminophen 7.5/325 mg Tablet PO PRN ×3 (00:11→23:28)
[2017-08-18] MEDS: CEFAZOLIN/Water 2 GM/20 ML SYRINGE SLOW IVP SCH (00:12)
--- NOTE | 2017-08-18 00:27 | EKG ---
Test Reason : Blood Pressure : / mmHG Vent. Rate : 106 BPM Atrial Rate : 106 BPM P-R Int : 130 ms QRS Dur : 072 ms QT Int : 358 ms P-R-T Axes : 073 068 059 degrees QTc Int : 475 ms Undetermined rhythm Otherwise normal ECG Confirmed by RHEA MARQUEZ ([id number]), publishing editor KYLEE HASSAN ([id number]) on 08/18/2017 12:25:38 AM Referred By: Confirmed By:RHEA MARQUEZ
[2017-08-18] MEDS: Morphine 4 MG/ML VIAL SLOW IVP PRN ×2 (01:51→05:39)
[2017-08-18] MEDS: Oxazepam 10 MG CAP PO SCH ×3 (05:38→21:19)
[2017-08-18] MEDS ORDERED: Sodium Chloride 0.9% 1,000 ML IV SCH (08:45)
[2017-08-18] MEDS: Enoxaparin Sodium 40 MG/0.4 ML SYRINGE SC SCH (09:20)
[2017-08-18] MEDS: Folic Acid 1 MG TAB PO SCH (09:26)
[2017-08-18] MEDS: Senokot S 8.6-50 MG TAB PO SCH ×2 (09:26→21:18)
[2017-08-18] MEDS: Multivit, Therapeutic 1 TAB PO SCH (09:26)
[2017-08-18] MEDS: Famotidine 20 MG TAB PO SCH ×2 (09:26→21:18)
--- NOTE | 2017-08-18 10:20 | PRG ---
DATE OF SERVICE: 08/18/2017 SUBJECTIVE: Mr. Welch is more difficult to arouse this morning and snoring. His pulse is up. He had pelvic repair yesterday by [facility] and Dr. Mccullough. He moans at times, not answering questions. PHYSICAL EXAMINATION: VITAL SIGNS: He is afebrile, pulse is 123, respirations 18, temperature is 92%, blood pressure 130/6 7. Urine output is 450 overnight. GENERAL: He opens eyes to voice and to his name, but not really following commands. ABDOMEN: Soft. HEART: Increased rate. CHEST: Clear. LABORATORY DATA: White cell count is 13, hemoglobin 10, platelet count is 336. Sodium 137, potassiu m 4.5, creatinine 0.87. ASSESSMENT: 1. Postoperative repair of pelvis. 2. More difficult to arouse this morning with tachycardia. PLAN: Hemoglobin normal, creatinine normal. Blood pressure okay. Plan is check a 12-lead EKG hold pain medicine for now.
[2017-08-18] MEDS ORDERED: HYDROcodone/Acetaminophen 10/325 mg Tablet PO SCH (19:45)
[2017-08-18] MEDS ORDERED: traMADol HCl 50 MG TAB PO PRN (20:05)
[2017-08-18] MEDS: traMADol HCl 50 MG TAB PO PRN (21:19)
[2017-08-19] MEDS: Oxazepam 10 MG CAP PO SCH ×4 (07:08→21:53)
[2017-08-19] MEDS: Ketorolac Tromethamine 30 MG/ML VIAL IVP SCH ×3 (07:08→14:33)
[2017-08-19] MEDS: Polyethylene Glycol 3350 17 GM Packet PO SCH (08:52)
[2017-08-19] MEDS: Senokot S 8.6-50 MG TAB PO SCH ×3 (08:54→21:25)
[2017-08-19] MEDS: Folic Acid 1 MG TAB PO SCH (08:54)
[2017-08-19] MEDS: Multivit, Therapeutic 1 TAB PO SCH (08:54)
[2017-08-19] MEDS: Famotidine 20 MG TAB PO SCH ×3 (08:54→21:25)
[2017-08-19] MEDS: Enoxaparin Sodium 40 MG/0.4 ML SYRINGE SC SCH (08:54)
[2017-08-19] MEDS: HYDROcodone/Acetaminophen 7.5/325 mg Tablet PO PRN (13:47)
--- NOTE | 2017-08-19 13:48 | PRG ---
DATE OF SERVICE: 08/19/2017 ATTENDING PHYSICIAN: Sunday Franco M.D. SUBJECTIVE: Mr. Welch is a 57-year-old male who is hospital day #3 status post jump from bridge in [place] icide attempt. He is postoperative day #2, status post repair of pelvis and left talus fracture. He has been stable on the floor. He had episode of tachycardia yesterday which responded to fluid bolu s. Due to his extreme sleepiness yesterday, pain medicines were discontinued during the day. He did have some oral analgesia added back last night when he was awake and requesting analgesia. He was s een this morning. He is noncooperative. He does reports he is not in pain, but states that he wants everyone to leave him alone. OBJECTIVE: VITAL SIGNS: Temperature 97.5, pulse 105, respirations 16, O2 sat 90% room air, blood pressure 121/7 6. HEENT: Atraumatic, normocephalic. PULMONARY: Bilateral breath sounds clear. No respiratory distress. CARDIOVASCULAR: Heart sounds normal, tachycardic at 105. ABDOMEN: Soft, nontender, nondistended. Pain to the left pelvis with palpation and movement. Surgi jerzy dressing in place. Left pelvis is clean, dry, and intact. EXTREMITIES: Cap refill brisk in all extremities. Neurovascularly intact. Splint in place to left lower extremity. NEUROLOGIC: GCS 15. Awake, alert, and oriented x3. ASSESSMENT: 1. Status post jump from bridge. 2. Multiple pelvic fractures. 3. Left talar fracture. 4. Acute traumatic pain. PLAN: 1. Continue physical and occupational therapy. 2. Encourage incentive spirometry and pulmonary toilet. 3. Hydrocodone for oral analgesia. 4. Monitor for alcohol withdrawal. The patient was seen and examined with Dr. Franco who agrees with plan.
[2017-08-20] MEDS: Ketorolac Tromethamine 30 MG/ML VIAL IVP SCH (00:13)
[2017-08-20] MEDS: Oxazepam 10 MG CAP PO SCH ×3 (06:26→22:14)
[2017-08-20] MEDS ORDERED: hydrALAZINE 20 MG/ML VIAL SLOW IVP PRN (07:40)
--- NOTE | 2017-08-20 07:48 | PRG ---
DATE OF SERVICE: 08/19/2017 SUBJECTIVE: The patient is hospital day #3, postop day #2, status post jumping from a bridge in a [place] icide attempt. The patient underwent open reduction and internal fixation of his pelvis and left stephane us fractures. The patient has been on the surgical floor since his procedures. He has begun working with physical and occupational therapy. He had some pain control issues today at the time of my exa mination seemed to be much better. The patient has a history of drug and alcohol abuse, which probab ly compounds getting a good pain control regimen on this gentleman. By report, he is tolerating a di et, but has not had a bowel movement yet. OBJECTIVE: VITAL SIGNS: Temperature is 98.5, heart rate 110, blood pressure 145/88, respirations 16, oxygen sat uration 94% on room air. At the time of my visit, the patient was sleeping and I did not disturb him. By report, the nurse ates that he has been more cooperative this evening than he was this afternoon. By report, he refuse d to allow them to start an IV on him and he was refusing some of his medications, specifically his S erax for alcohol withdrawal prophylaxis. Notify the nurses that if the patient awakens, they should let me know, so I can come up and discuss this with him. ASSESSMENT AND PLAN: 1. Status post suicide attempt by jumping off bridge. 2. Status post open reduction and internal fixation of pelvis fractures. 3. Open reduction and internal fixation of left talus fracture. Plan will be to continue physical and occupational therapy, pain control, and placement.
[2017-08-20] MEDS: Enoxaparin Sodium 40 MG/0.4 ML SYRINGE SC SCH (09:31)
[2017-08-20] MEDS: Polyethylene Glycol 3350 17 GM Packet PO SCH (09:31)
[2017-08-20] MEDS: Senokot S 8.6-50 MG TAB PO SCH ×2 (09:31→22:14)
[2017-08-20] MEDS: Folic Acid 1 MG TAB PO SCH (09:31)
[2017-08-20] MEDS: Multivit, Therapeutic 1 TAB PO SCH (09:31)
[2017-08-20] MEDS: Famotidine 20 MG TAB PO SCH ×2 (09:31→22:17)
--- NOTE | 2017-08-20 11:49 | PRG ---
DATE OF SERVICE: 08/20/2017 Mr. Welch was seen on rounds today. He is hemodynamically stable. He is refusing most medicines. He is refusing to work with physical therapy. I did explain at the bedside today that he needs to part icipate in physical therapy in order to be a candidate for rehab. However, his mental state, does no t appear to be sound and he does not appear to be able to make any decisions and on his own behalf no w. We will have [facility] evaluate him. He certainly likely has a history of some psychiatric disease, b ut we are unsure of any home meds or anything that was taking before.
--- NOTE | 2017-08-20 12:28 | PRG ---
DATE OF SERVICE: 08/20/2017 ATTENDING PHYSICIAN: Dr. Franco. SUBJECTIVE: Mr. Welch is a 57-year-old male who is now hospital day #4 after jumping from a bridge in a suicide attempt. This is reportedly not his first suicide attempt. He is now postop day #3 statu s post repair of his pelvic fracture and left talus fracture. He has been stable on the surgical delon or, but has been uncooperative and frequently agitated and combative. This morning on exam, he was i nitially unwilling to be seen. He was telling providers and staff to "get out." Dr. Franco spoke w ith the patient at bedside and explained that the quickest way to get out was to get to rehab to [facility] the patient responded okay. Patient then continued to say okay over and over and over again and di d not appear to want to continue the conversation. He has reportedly been refusing all of his medica tions today. OBJECTIVE: VITAL SIGNS: Not obtained. The patient refused to have his vital signs checked. GENERAL APPEARANCE: The patient is a middle-aged adult male lying in bed. He is agitated and combat cynthia. HEENT: Normocephalic and atraumatic. PULMONARY: Not obtained. CARDIOVASCULAR: Not obtained. ABDOMEN: Not obtained. EXTREMITIES: The patient was able to move all of his extremities. NEUROLOGIC: GCS 15. The patient is grossly alert and oriented. He has no focal deficits. LABORATORY DATA: Not available for today. Labs were ordered. The patient refused to have them draw n. IMAGING: There are no images to review today. ASSESSMENT: 1. Status post suicide attempt. 2. Unstable pelvic fracture, status post open reduction and internal fixation. 3. Left talar fracture status post open reduction and internal fixation. 4. Acute traumatic pain. 5. Agitation and combativeness. PLAN: 1. Patient has agreed to work with PT and OT today. We will have them work with him to try and mobi lize and get out of bed. 2. [facility] to evaluate. Patient is a good candidate for rehabilitation, but in all likelihood not be a ble to get a rehab until he is cleared by [facility]. 3. We will continue to provide pain control and supportive care measures as needed and as we are abl e. 4. Continue to monitor for signs and symptoms of alcohol withdrawal. This patient was seen and examined along with Dr. Franco who agrees with the assessment and plan.
--- NOTE | 2017-08-20 12:52 | RAD ---
THREE VIEWS OF THE RIGHT FOOT: INDICATION: History of jumping approximately 50 feet with right foot pain. FINDINGS: There is accessory ossicle seen adjacent to cuboid and navicular. No definite acute fracture or subl uxation is evident. There is mild metatarsal primum varus and hallux valgus deformity. Lisfranc ali gnment appears preserved. No radiopaque foreign body is noted. IMPRESSION: No acute osseous abnormality. POS: ARMAAN
[2017-08-20] MEDS: HYDROcodone/Acetaminophen 7.5/325 mg Tablet PO PRN ×2 (13:41→22:14)
[2017-08-20] MEDS: traMADol HCl 50 MG TAB PO PRN (16:22)
[2017-08-21] MEDS: HYDROcodone/Acetaminophen 7.5/325 mg Tablet PO PRN ×4 (05:10→22:41)
[2017-08-21] MEDS: Oxazepam 10 MG CAP PO SCH ×3 (05:11→22:41)
[2017-08-21] MEDS: Multivit, Therapeutic 1 TAB PO SCH (09:34)
[2017-08-21] MEDS: Folic Acid 1 MG TAB PO SCH (09:34)
[2017-08-21] MEDS: Enoxaparin Sodium 40 MG/0.4 ML SYRINGE SC SCH (09:34)
[2017-08-21] MEDS: Famotidine 20 MG TAB PO SCH ×2 (09:34→22:40)
[2017-08-21] MEDS: Senokot S 8.6-50 MG TAB PO SCH ×2 (09:35→22:40)
[2017-08-21] MEDS: Polyethylene Glycol 3350 17 GM Packet PO SCH (09:35)
--- NOTE | 2017-08-21 13:56 | PRG ---
DATE OF SERVICE: 08/21/2017 ATTENDING PHYSICIAN: Sunday Franco M.D. SUBJECTIVE: Mr. Welch is a 57-year-old male who is now hospital day #5 after jumping off of a bridge in a suicide attempt. He is now postop day #4 status post repair of his pelvic fracture and left stephane us fracture. He has been stable, but uncooperative on the floor and unwilling to take most medicatio ns. This morning, he has taken pain control medications and did allow his vital signs to be collecte d, but would not allow labs to be drawn. OBJECTIVE: VITAL SIGNS: BP 171/90, pulse 94, temperature 97.9, respirations 14, O2 sat 94% on room air. GENERAL: Patient is a middle-aged adult male lying in bed. He is in no acute distress. HEENT: Normocephalic and atraumatic. PULMONARY: Not obtained. CARDIOVASCULAR: Not obtained. ABDOMEN: Not obtained. EXTREMITIES: The patient is moving all extremities. NEUROLOGIC: The patient has a GCS of 15. He has no focal deficits. LABORATORY DATA: Not available. Labs were ordered, but the patient refused to have them drawn. IMAGING: There are no images to review today. ASSESSMENT: 1. Status post suicide attempt. 2. Unstable pelvic fracture, status post open reduction and internal fixation. 3. Left patellar fracture status post open reduction and internal fixation. 4. Acute traumatic pain. 5. Agitation and combativeness. PLAN: 1. Patient will again attempt to work with PT and OT today. He was able to get to the edge of the ed yesterday, but then refused to do any further work. 2. Case management is following for help with discharge planning. Patient management reports that [facility] in [place] has on-staff psychiatrist, so this may be a good option. A referra l was sent today. 3. Continue pain control and supportive care measures as needed and is able. This patient was seen along with Dr. Franco who agrees with the assessment and plan.
[2017-08-22] MEDS: HYDROcodone/Acetaminophen 7.5/325 mg Tablet PO PRN ×2 (06:23→10:36)
[2017-08-22] MEDS: Oxazepam 10 MG CAP PO SCH (06:24)
[2017-08-22] MEDS: Enoxaparin Sodium 40 MG/0.4 ML SYRINGE SC SCH ×2 (08:48→11:00)
[2017-08-22] MEDS: Famotidine 20 MG TAB PO SCH ×3 (08:48→21:51)
[2017-08-22] MEDS: Polyethylene Glycol 3350 17 GM Packet PO SCH ×2 (08:48→11:47)
[2017-08-22] MEDS: Multivit, Therapeutic 1 TAB PO SCH ×2 (08:48→11:00)
[2017-08-22] MEDS: Senokot S 8.6-50 MG TAB PO SCH ×3 (08:48→21:51)
[2017-08-22] MEDS: Folic Acid 1 MG TAB PO SCH ×2 (08:48→11:00)
[2017-08-22] MEDS ORDERED: HYDROcodone/Acetaminophen 7.5/325 mg Tablet PO PRN (10:54)
[2017-08-22] MEDS: Acetaminophen 500 MG TAB PO SCH ×2 (11:46→17:35)
[2017-08-22] MEDS: traMADol HCl 50 MG TAB PO SCH ×2 (11:46→17:35)
[2017-08-22] MEDS: cloNIDine 0.2 MG TAB PO SCH ×2 (11:46→17:36)
[2017-08-22] MEDS ORDERED: Acetaminophen 325 MG TAB PO SCH (12:00)
[2017-08-22] MEDS: Ibuprofen 800 MG TAB PO SCH ×2 (14:02→21:56)
--- NOTE | 2017-08-22 15:19 | PRG ---
DATE OF SERVICE: 08/22/2017 SUBJECTIVE: Mr. Welch is a 57-year-old man who is post-injury day #6 today, status post jumped from a 50 foot bridge, sustaining multiple traumas. He reports adequate pain control. He is tolerating general diet, having normal bowel and urinary function. Nursing reports, patient has refused working with physical and occupational therapy. In fact, he is refusing some of his medications including his VTE prophylaxis. The patient was falling asleep during this visit even while talking. He otherwise moves all extremities and follows commands. OBJECTIVE: VITAL SIGNS: Today includes blood pressure 159/100, pulse is 83, respiratory rate is 20. Maximum te mperature in the last 24 hours is 98.2 degrees Fahrenheit. Oxygen saturation is 95%. HEENT: Reveals normocephalic and atraumatic. Pupils are equally round and reactive to light and acc ommodation. Extraocular muscles are intact bilaterally. No scleral icterus present. HEART: Reveals regular rate and rhythm. No murmurs or gallops auscultated. LUNGS: Clear to auscultation bilaterally. Breathing is regular and unlabored. ABDOMEN: Soft, nontender and nondistended. Bowel sounds in all four quadrants appear normoactive. EXTREMITIES: Reveals 2+ radial and pedal pulses bilaterally. No ankle edema is present. NEUROLOGIC: Reveals no focal deficits present. IMPRESSION: 1. Postoperative day #6, status post jumped from a 50 foot bridge. 2. Multiple pelvic fractures. The patient is otherwise hemodynamically stable. PLAN: We will optimize pain management to minimize sedation. We will initiate chemical VTE prophylaxis as the patient is at high risk for VTE. He has agreed to participate with physical and occupational therapy and to work with his nurses with his therapeutic interventions. The patient has expressed gratitude for the care and rendered to him thus far.
[2017-08-22] MEDS: Tamsulosin HCl 0.4 MG CAP PO SCH (21:51)
[2017-08-23] MEDS: Acetaminophen 500 MG TAB PO SCH ×4 (00:08→17:44)
[2017-08-23] MEDS: traMADol HCl 50 MG TAB PO SCH ×4 (00:08→17:42)
[2017-08-23] MEDS: cloNIDine 0.2 MG TAB PO SCH ×4 (00:08→17:45)
[2017-08-23] MEDS: Ibuprofen 800 MG TAB PO SCH ×3 (06:18→21:42)
[2017-08-23] MEDS: Polyethylene Glycol 3350 17 GM Packet PO SCH (09:37)
[2017-08-23] MEDS: Multivit, Therapeutic 1 TAB PO SCH (09:38)
[2017-08-23] MEDS: Folic Acid 1 MG TAB PO SCH (09:38)
[2017-08-23] MEDS: Senokot S 8.6-50 MG TAB PO SCH ×2 (09:38→21:06)
[2017-08-23] MEDS: Famotidine 20 MG TAB PO SCH ×2 (09:38→21:41)
[2017-08-23] MEDS: Enoxaparin Sodium 40 MG/0.4 ML SYRINGE SC SCH (09:41)
--- NOTE | 2017-08-23 11:57 | PRG ---
DATE OF SERVICE: 08/23/2017 SUBJECTIVE: Mr. Welch is a 57-year-old man post-injury day 7 status post a jump from a 50 foot bridge . The patient is awake and alert. The patient has been refusing physical and occupational therapy. In fact, he has refused some of his medications including the chemical VTE prophylaxis. He tolerates diet; however, passing flatus, but has not had any bowel movement in the last 3 days. OBJECTIVE: VITAL SIGNS: Currently includes blood pressure 126/80, pulse 64, respiratory rate is 18, temperature is 97.5 degrees Fahrenheit, oxygen saturation is 98% on room air. HEENT: Reveals normocephalic and atraumatic. The pupils equal, round, reactive to light and accommo dation. HEART: Reveals regular rate and rhythm, no murmurs or gallops auscultated. CHEST: Lungs clear to auscultation bilaterally. Breathing regular and unlabored. EXTREMITIES: Reveals 2+ radial and pedal pulses bilaterally. No ankle edema is present. NEUROLOGIC: Reveals no focal deficits present. IMPRESSION: 1. Postop day #7 status post jump from a bridge with multiple trauma including bilateral pelvic frac tures. 2. The patient is otherwise hemodynamically stable. PLAN: 1. Continue physical and occupational therapy as tolerated. 2. I have discussed with the patient regarding the need to continue with chemical VTE prophylaxis as he is at significant risk for bilateral VTE given his polytrauma. DISPOSITION: Disposition is to [facility] for inpatient rehabilitation with Psychiatry.
[2017-08-23] MEDS: traMADol HCl 50 MG TAB PO PRN ×2 (15:04→21:42)
[2017-08-23] MEDS: Tamsulosin HCl 0.4 MG CAP PO SCH (21:41)
[2017-08-24] MEDS: Acetaminophen 500 MG TAB PO SCH ×4 (00:19→15:50)
[2017-08-24] MEDS: cloNIDine 0.2 MG TAB PO SCH ×4 (00:19→15:52)
[2017-08-24] MEDS: traMADol HCl 50 MG TAB PO SCH ×4 (00:19→15:51)
[2017-08-24] MEDS: traMADol HCl 50 MG TAB PO PRN ×3 (03:17→15:51)
[2017-08-24] MEDS: Ibuprofen 800 MG TAB PO SCH ×3 (05:03→21:47)
[2017-08-24] MEDS: Senokot S 8.6-50 MG TAB PO SCH ×2 (10:08→21:47)
[2017-08-24] MEDS: Multivit, Therapeutic 1 TAB PO SCH (10:09)
[2017-08-24] MEDS: Folic Acid 1 MG TAB PO SCH (10:09)
[2017-08-24] MEDS: Famotidine 20 MG TAB PO SCH ×2 (10:09→21:47)
[2017-08-24] MEDS: Polyethylene Glycol 3350 17 GM Packet PO SCH (10:10)
[2017-08-24] MEDS: Enoxaparin Sodium 40 MG/0.4 ML SYRINGE SC SCH (10:10)
[2017-08-24] MEDS: Bisacodyl 10 MG SUPP PR SCH (10:10)
[2017-08-24] MEDS ORDERED: Nicotine 21 MG PATCH TD SCH (13:15)
[2017-08-24] MEDS ORDERED: Oxazepam 10 MG CAP PO SCH (13:15)
[2017-08-24] MEDS: Oxazepam 10 MG CAP PO SCH (21:47)
[2017-08-24] MEDS: Tamsulosin HCl 0.4 MG CAP PO SCH (21:47)
--- NOTE | 2017-08-24 23:03 | PRG ---
DATE OF SERVICE: 08/24/2017 SUBJECTIVE: Mr. Welch is currently on the surgical floor. He is hospital day #8 status post jump fro m a 50-foot bridge. Patient this morning was working with physical and occupational therapy. He had made probably about 50 feet when he became very agitated and wanted to return to his bed. He was fa iling to follow instructions and became belligerent with the nurses, he was assisted back to his bed where he calmed down after discussion by myself. OBJECTIVE: VITAL SIGNS: Temperature is 97.6, heart rate 62, respirations 16, blood pressure 108/70, oxygen satu ration 97% on room air. GENERAL: The patient is awake and alert. He will respond and follow commands, albeit he is demandin g a cigarette and wants to leave. The patient is very resistant to allow me to examine him, but he d oes not appear to be in any respiratory distress and I witnessed him ambulating. He was against the advice of the therapists and the nurse putting weight on his lower extremity which should not have we ight on it. ASSESSMENT AND PLAN: 1. Status post jump from 50 foot bridge. 2. Status post open reduction internal fixation of sacral fracture. 3. Open reduction internal fixation of right talus fracture. PLAN: Plan will be to continue supportive care. Await placement. From nursing report, we were told that he had been denied tear placement. We will work with the briefcase sewer on Saturday to see if we c an find him another place that has been made difficult due to his suicide attempt, but we will contin ue working on this.
[2017-08-25] MEDS: traMADol HCl 50 MG TAB PO SCH ×5 (01:37→23:49)
[2017-08-25] MEDS: cloNIDine 0.2 MG TAB PO SCH ×5 (01:37→23:50)
[2017-08-25] MEDS: Acetaminophen 500 MG TAB PO SCH ×5 (01:37→23:50)
[2017-08-25] MEDS: traMADol HCl 50 MG TAB PO PRN ×2 (01:38→15:51)
[2017-08-25] MEDS: Ibuprofen 800 MG TAB PO SCH ×3 (05:50→20:40)
[2017-08-25] MEDS: Nicotine 21 MG PATCH TD SCH (09:27)
[2017-08-25] MEDS: Oxazepam 10 MG CAP PO SCH ×2 (09:27→20:36)
[2017-08-25] MEDS: Famotidine 20 MG TAB PO SCH ×2 (09:27→20:40)
[2017-08-25] MEDS: Folic Acid 1 MG TAB PO SCH (09:28)
[2017-08-25] MEDS: Senokot S 8.6-50 MG TAB PO SCH ×2 (09:28→20:36)
[2017-08-25] MEDS: Multivit, Therapeutic 1 TAB PO SCH (09:28)
[2017-08-25] MEDS: Enoxaparin Sodium 40 MG/0.4 ML SYRINGE SC SCH (09:32)
[2017-08-25] MEDS: Bisacodyl 10 MG SUPP PR SCH (09:32)
[2017-08-25] MEDS: Polyethylene Glycol 3350 17 GM Packet PO SCH (09:33)
--- NOTE | 2017-08-25 17:25 | PRG ---
DATE OF SERVICE: 08/25/2017 SUBJECTIVE: Mr. Welch reportedly did better overnight and was more cooperative this morning. He did allow them to fix his splint, though he still has his periods of outbursts and also will refuse vario us medications for various reasons. At the time of my examination, it was reported by the nurses merrick t he is tolerating his diet and has no new issues. OBJECTIVE: VITAL SIGNS: Temperature is 97.7, heart rate 97, respirations 16, blood pressure 109/67 and oxygen s aturation is 98% on room air. GENERAL: The patient is resting comfortably in bed. He is sleeping. Does not appear to be in any d istress. His splint is clean, dry and intact. LABORATORY DATA AND IMAGING DATA: There are no labs or radiographs to review. ASSESSMENT: 1. Status post suicide attempt by jumping from approximately 30-feet bridge. 2. Multiple pelvis fractures. 3. Right talus fracture. 4. Status post open reduction and internal fixation of the pelvis fracture and open reduction and in ternal fixation of talus fracture. PLAN: Will be to continue supportive care. Encourage his medications in cooperation with therapy an d await final placement.
[2017-08-25] MEDS: Tamsulosin HCl 0.4 MG CAP PO SCH (20:36)
[2017-08-26] MEDS: Ibuprofen 800 MG TAB PO SCH ×3 (05:47→21:00)
[2017-08-26] MEDS: Acetaminophen 500 MG TAB PO SCH ×3 (05:47→18:09)
[2017-08-26] MEDS: cloNIDine 0.2 MG TAB PO SCH ×3 (05:48→18:09)
[2017-08-26] MEDS: traMADol HCl 50 MG TAB PO SCH ×3 (05:53→18:09)
[2017-08-26] MEDS: Bisacodyl 10 MG SUPP PR SCH (08:32)
[2017-08-26] MEDS: Senokot S 8.6-50 MG TAB PO SCH ×2 (08:32→19:51)
[2017-08-26] MEDS: Enoxaparin Sodium 40 MG/0.4 ML SYRINGE SC SCH (08:32)
[2017-08-26] MEDS: Nicotine 21 MG PATCH TD SCH (08:34)
[2017-08-26] MEDS: Multivit, Therapeutic 1 TAB PO SCH (08:35)
[2017-08-26] MEDS: Oxazepam 10 MG CAP PO SCH (08:35)
[2017-08-26] MEDS: Folic Acid 1 MG TAB PO SCH (08:35)
[2017-08-26] MEDS: Famotidine 20 MG TAB PO SCH ×2 (08:36→19:51)
[2017-08-26] MEDS: Polyethylene Glycol 3350 17 GM Packet PO SCH (08:37)
--- NOTE | 2017-08-26 08:55 | RAD ---
AP PELVIS 1 VIEW: HISTORY: A 57-year-old male with a history of followup pelvic fracture and internal fixation. COMPARISON: 08/15/17. FINDINGS: Two transverse fixation pins stabilize the left sacroiliac fractures. Again noted are comminuted dis placed right and left superior and inferior ischiopubic rami fractures without significant change in alignment from the prior study. The previously noted dislocated SI joint has been reduced with the p in fixation. IMPRESSION: Pin fixation stabilizing primarily the left sacroiliac joint and left comminuted iliac fractures. St able bilateral pubic fractures. POS: [facility]
--- NOTE | 2017-08-26 12:46 | PRG ---
DATE OF SERVICE: 08/26/2017 SUBJECTIVE: Mr. Welch is a 57-year-old male who has been hospitalized with an unstable pelvic fractur e and left talus fracture that he sustained after jumping off a bridge in a suicide attempt. These i njuries have been fixed surgically. He is stable on the floor, but remains intermittently uncooperat cynthia. He is reportedly tolerating a general diet, but has been refusing his medications this morning. OBJECTIVE: VITAL SIGNS: BP 115/71, pulse 104, temperature 97.7, respirations 16, and O2 sat 97% on room air. GENERAL APPEARANCE: The patient is a middle-aged adult male lying in bed. He is somnolent this morn ing. He does not appear to be in any acute distress. HEENT: Normocephalic and atraumatic. PULMONARY: Breath sounds are clear to auscultation bilaterally. CARDIOVASCULAR: Regular rate and rhythm. No murmurs, gallops or rubs. ABDOMEN: He has positive bowel sounds. His abdomen is soft, nontender, nondistended. EXTREMITIES: Patient is moving all extremities. NEUROLOGIC: The patient was arousable to verbal commands this morning. He has no focal deficits. LABORATORY DATA: None. IMAGING: Pelvis x-ray. Impression: Pin fixation stabilizing primarily to left sacroiliac joint and left comminuted iliac fractures. Stable bilateral pubic fractures. ASSESSMENT AND PLAN: 1. Status post suicide attempt. 2. Unstable pelvic fracture, status post open reduction and internal fixation. 3. Left talar fracture, status post open reduction and internal fixation. 4. Acute traumatic pain. 5. Agitation and combativeness. 6. Tachycardia. PLAN: 1. Continue PT and OT as able. 2. Case management following for discharge planning. The patient was reportedly denied admission to [facility] rehab. Case management working on alternative placement. 3. Patient's tachycardia possibly due to inadequate pain control as the patient has refused his medi cations this morning including pain medications. The patient also recently had his [place] discontinue d, which may be contributing. However, given that the patient has had a high risk for DVT and has on ly taken Lovenox on couple of times over the last several days, this is concerning for possible PE. We will consider lower extremity ultrasound in order to rule out DVT if the patient will tolerate. This patient was seen and examined along with Dr. Paul Betts who agrees with the assessment and pl an.
[2017-08-26] MEDS: traMADol HCl 50 MG TAB PO PRN (19:50)
[2017-08-26] MEDS: Tamsulosin HCl 0.4 MG CAP PO SCH (19:51)
[2017-08-27] MEDS: traMADol HCl 50 MG TAB PO SCH ×5 (00:26→23:21)
[2017-08-27] MEDS: Acetaminophen 500 MG TAB PO SCH ×5 (00:27→23:21)
[2017-08-27] MEDS: cloNIDine 0.2 MG TAB PO SCH ×5 (00:30→23:21)
--- NOTE | 2017-08-27 00:44 | PRG ---
DATE OF SERVICE: 08/26/2017 SUBJECTIVE: The patient is hospital day #16 status post jumping from a bridge in which he sustained multiple pelvic fractures, which have undergone surgical repair and a left talar fracture that has un dergone surgical repair also. The patient currently on the surgical floor. Today, he was noted to b e a very drowsy again and this was presumed to be attributed to his Serax, which has been discontinue d again. Otherwise, the patient is tolerating a diet and will intermittently and reluctantly work [facility] physical and occupational therapy. The patient is currently awaiting placement which has been mad e difficult due to his suicide attempt in the requirement of needing a sitter. OBJECTIVE: VITAL SIGNS: Temperature is 97.6, heart rate 118, blood pressure 110/56, respirations 20, oxygen sat uration 95% on room air. GENERAL: The patient is resting in bed. He is awake and conversant, although sometimes he is bellig erent, which have grown accustomed to. LUNGS: Clear to auscultation. HEART: Regular rate and rhythm. ABDOMEN: Soft with active bowel sounds. EXTREMITIES: Neurovascularly intact and his splint is clean, dry, and intact. ASSESSMENT AND PLAN: 1. Status post suicide attempt by jumping from a bridge. 2. Multiple pelvis fracture, status post open reduction internal fixation. 3. Left talus fracture, status post open reduction internal fixation. Plan will be to continue supportive care and await placement. We will check labs in the morning. Be cause of the patient's intermittent tachycardia, this may just be from his agitation, but we will juventino e sure that it is not from anemia or if he has got electrolyte issues.
[2017-08-27] MEDS: Ibuprofen 800 MG TAB PO SCH ×3 (05:09→21:02)
[2017-08-27 05:57] LABS: Anion Gap 16 mmol/L (10-20); BUN (Urea Nitrogen) 24 mg/dL (8.4-25.7); Calc. Creatinine Clearance 75 mL/min (70-130); Carbon Dioxide 22 mmol/L (22-29); Chloride 105 mmol/L (98-107); Estimated GFR-MDRD 75; Magnesium 1.7 mg/dL (1.6-2.6); Phosphorus 4.4 mg/dL (2.3-4.7); Potassium 3.9 mmol/L (3.5-5.1); Sodium 139 mmol/L (136-145)
[2017-08-27 06:13] LABS: Band 19 % (5-11); Eosinophils 1 % (0-10); Lymphocytes 3 % (21-51); MDiff Complete? YES; Mean Corpuscular HGB CONC 31.6 g/dL (32.0-36.0); Mean Corpuscular Hemoglobin 29.3 pg (27.0-31.0); Mean Corpuscular Volume 92.6 fl (80.0-94.0); Mean Platelet Volume 8.4 fL (7.4-10.4); Monocytes 1 % (0-10); Neutrophil 76 % (42-75); Platelet Count 357 thou/uL (130-400); RBC Distribution Width 17.9 % (11.5-14.5); Red Blood Cell (RBC) Count 3.06 mill/uL (4.70-6.10); White Blood Cell (WBC) Count 30.6 thou/uL (4.8-10.8)
[2017-08-27 06:40] LABS: Calcium 8.8 mg/dL (7.8-10.44)
[2017-08-27 06:44] LABS: Glucose 47 mg/dL (70-105)
[2017-08-27] MEDS: traMADol HCl 50 MG TAB PO PRN ×2 (09:34→18:02)
[2017-08-27] MEDS: Tamsulosin HCl 0.4 MG CAP PO SCH ×2 (09:34→21:02)
[2017-08-27] MEDS: Bisacodyl 10 MG SUPP PR SCH (09:36)
[2017-08-27] MEDS: Famotidine 20 MG TAB PO SCH ×2 (09:37→21:07)
[2017-08-27] MEDS: Enoxaparin Sodium 40 MG/0.4 ML SYRINGE SC SCH (09:37)
[2017-08-27] MEDS: Nicotine 21 MG PATCH TD SCH (09:37)
[2017-08-27] MEDS: Senokot S 8.6-50 MG TAB PO SCH ×2 (09:40→21:02)
[2017-08-27] MEDS: Folic Acid 1 MG TAB PO SCH (09:40)
[2017-08-27] MEDS: Polyethylene Glycol 3350 17 GM Packet PO SCH (09:40)
[2017-08-27] MEDS: Multivit, Therapeutic 1 TAB PO SCH (09:40)
[2017-08-27] MEDS: cefTRIAXone\\ROCEPHIN 2 GM in Sodium Chloride 0.9% 100 ML IVPB SCH (11:18)
--- NOTE | 2017-08-27 12:42 | RAD ---
CHEST ONE VIEW: HISTORY: Pneumonia. COMPARISON: Chest radiograph from 01/03/2017. FINDINGS: Left basilar air space opacity. Layering effusion. Prominence of the right hilum. No pneumothorax. Leftward patient rotation. IMPRESSION: Left basilar opacity and layering effusion, concerning for infection. Follow up recommended. POS: [facility]
--- NOTE | 2017-08-27 16:56 | PRG ---
DATE OF SERVICE: 08/27/2017 SUBJECTIVE: I saw Mr. Welch this morning. He was sleepy but easily awakened. He was intermittently agitated, but easily reoriented. He is tolerating modest amount of oral intake and has had a bowel m ovement this morning. [place] coma scale is noted that E3 M6 V4. He moves all extremities. OBJECTIVE: VITAL SIGNS: This morning includes blood pressure 95/54, pulse is 111, respiratory rate is 22, maxim um temperature in the last 24 hours is 97.7 degrees Fahrenheit, oxygen saturation 96% on room air. HEENT: Reveals normocephalic and atraumatic. Pupils are equal, round, reactive to light and accommo dation. NECK: Supple. No palpable lymphadenopathy or thyromegaly present. He has no jugular venous distent ion noted. HEART: Reveals regular rate with sinus tachycardia. No murmurs or gallops auscultated. LUNGS: Reveals diminished breath sound in the left lung samson. Breathing is tachypneic, otherwise unlabored. ABDOMEN: Soft, nontender, nondistended. Liver and spleen remain nonpalpable below costal margins. EXTREMITIES: Reveals 2+ radial and pedal pulses bilaterally. No ankle edema is present. NEUROLOGIC: Reveals no focal deficits present. LABORATORY DATA: Today includes CBC with rising white blood cell count now at 30,600, hemoglobin and hematocrit stable at 9.0 and 28.3 respectively. Platelet count is also stable at 157,000. Metaboli c profile: Sodium 139, potassium is 3.9, chloride is 105, bicarbonate 22, BUN is 24, creatinine is 1 .02, glucose is 47, received some dextrose and improved to 74. Magnesium 1.7, phosphorus is 4.4. Chest x-ray today is remarkable for left lower lobe pulmonary infiltrates with small left pleural eff usion. No pneumothorax is noted. IMPRESSION: 1. Post-injury day #10, status post jumped from a bridge with bilateral pelvic fractures. 2. Acute metabolic encephalopathy. 3. Acute left lower lobe pneumonia. 4. Acute hypomagnesemia. 5. Acute hypokalemia. PLAN: 1. Correct abnormal electrolytes. 2. Initiate septic workup including a urinalysis and blood cultures. 3. We will initiate empiric antibiotic treatment pending results of the cultures. Continue with [facility] sical and occupational therapy. 4. technical services librarian in the pursuit of rehabilitation transfer post-discharge.
--- NOTE | 2017-08-27 23:19 | PRG ---
DATE OF SERVICE: 08/27/2017 ATTENDING PHYSICIAN: Paul Betts DO SUBJECTIVE: The patient is hospital day #17 status post jumping from a bridge in which he sustained multiple pelvic fractures which have undergone surgical repair and a left talar fracture that has als o undergone surgical repair. He is currently managed on the surgical floor. This morning, he had a white blood cell count of 30.6. He was started on Rocephin IV. Chest x-ray today showed left lower lobe pulmonary infiltrate. OBJECTIVE: VITAL SIGNS: Temperature 97.5, pulse 109, respirations 17, O2 sat 96% room air, blood pressure 111/7 0. GENERAL: Sitting up in chair, in no acute distress. EXTREMITIES: Splint in place in left lower extremity. Cap refill brisk moves all digits. ASSESSMENT: 1. Status post jump from a bridge with bilateral pelvic fractures that have undergone repair and lef t talar fracture that has also undergone repair. 2. Leukocytosis. 3. Left lower lobe pneumonia. PLAN: 1. Continue supportive care and await placement. 2. Continue empiric antibiotics until results of blood cultures are obtained. 3. Continue oral analgesia.
[2017-08-28 00:24] VITALS: TEMP 97.6
[2017-08-28] MEDS: traMADol HCl 50 MG TAB PO PRN ×2 (01:22→08:10)
[2017-08-28] MEDS: traMADol HCl 50 MG TAB PO SCH ×2 (06:47→12:33)
[2017-08-28] MEDS: cloNIDine 0.2 MG TAB PO SCH ×2 (06:47→12:33)
[2017-08-28] MEDS: Acetaminophen 500 MG TAB PO SCH ×2 (06:47→12:33)
[2017-08-28] MEDS: Ibuprofen 800 MG TAB PO SCH ×2 (06:47→15:02)
[2017-08-28 08:05] LABS: Hemoglobin 8.9 g/dL (14.0-18.0); Mean Corpuscular HGB CONC 30.6 g/dL (32.0-36.0); Mean Corpuscular Hemoglobin 28.8 pg (27.0-31.0); Mean Corpuscular Volume 93.9 fl (80.0-94.0); Mean Platelet Volume 8.7 fL (7.4-10.4); Platelet Count 328 thou/uL (130-400); RBC Distribution Width 17.6 % (11.5-14.5); Red Blood Cell (RBC) Count 3.08 mill/uL (4.70-6.10); White Blood Cell (WBC) Count 24.4 thou/uL (4.8-10.8)
[2017-08-28] MEDS: Enoxaparin Sodium 40 MG/0.4 ML SYRINGE SC SCH (08:10)
[2017-08-28] MEDS: Polyethylene Glycol 3350 17 GM Packet PO SCH (08:10)
[2017-08-28] MEDS: Senokot S 8.6-50 MG TAB PO SCH (08:10)
[2017-08-28] MEDS: Tamsulosin HCl 0.4 MG CAP PO SCH (08:11)
[2017-08-28] MEDS: Folic Acid 1 MG TAB PO SCH (08:11)
[2017-08-28] MEDS: Nicotine 21 MG PATCH TD SCH (08:11)
[2017-08-28] MEDS: Multivit, Therapeutic 1 TAB PO SCH (08:11)
[2017-08-28] MEDS: Bisacodyl 10 MG SUPP PR SCH (08:12)
[2017-08-28] MEDS: Famotidine 20 MG TAB PO SCH (08:12)
[2017-08-28 08:23] LABS: Anion Gap 15 mmol/L (10-20); BUN (Urea Nitrogen) 28 mg/dL (8.4-25.7); Calc. Creatinine Clearance 75 mL/min (70-130); Calcium 8.9 mg/dL (7.8-10.44); Carbon Dioxide 22 mmol/L (22-29); Chloride 108 mmol/L (98-107); Estimated GFR-MDRD 75; Phosphorus 4.4 mg/dL (2.3-4.7); Potassium 3.7 mmol/L (3.5-5.1); Sodium 141 mmol/L (136-145)
[2017-08-28 08:27] LABS: Band 16 % (5-11); Crenated RBC SLIGHT = 1-5 cells (100X) (None Seen); Eosinophils 1 % (0-10); Lymphocytes 8 % (21-51); MDiff Complete? YES; Monocytes 12 % (0-10); Neutrophil 63 % (42-75); PLT Morphology Comment Appears Adequate; Target Cells SLIGHT = 2-5 cells (100X) (0-1/hpf); Vacuoles SLIGHT
[2017-08-28 08:28] LABS: Glucose 58 mg/dL (70-105)
[2017-08-28] MEDS: Megestrol Acetate 800 MG/20 ML UDCUP PO ONE ×2 (10:23→10:30)
[2017-08-28] MEDS: cefTRIAXone\\ROCEPHIN 2 GM in Sodium Chloride 0.9% 100 ML IVPB SCH (10:23)
[2017-08-28 12:34] VITALS: BP 128/75
--- NOTE | 2017-08-28 13:11 | PRG ---
DATE OF SERVICE: 08/28/2017 ATTENDING PHYSICIAN: Dr. Betts. SUBJECTIVE: Mr. Welch is a 57-year-old male who was hospitalized with an unstable pelvic fracture and left talus fracture that he sustained after jumping off a bridge in a suicide attempt. He has recen tly begun having episodes of tachycardia and low blood pressure. A chest x-ray was performed yesterd ay, which was suspicious for left lower lobe pneumonia. The patient was started on Rocephin. Blood cultures were drawn, which returned a methicillin susceptible Staph aureus. The patient continues to be agitated and combative. His urine cultures drawn yesterday have so far returned no growth at 24 hours. OBJECTIVE: VITAL SIGNS: Blood pressure 126/75, pulse 118, temperature 97.6, respirations 22, O2 sat 93% on room air. GENERAL APPEARANCE: The patient is a middle-aged adult male lying in bed. He is agitated and combat cynthia. He does not appear to be in any acute distress. HEENT: Normocephalic, atraumatic. PULMONARY: Breath sounds are clear to auscultation bilaterally with normal effort. CARDIOVASCULAR: He has a regular rate and rhythm. No murmurs, gallops or rubs. ABDOMEN: Soft, nontender, nondistended. He has positive bowel sounds. EXTREMITIES: The patient moves all extremities. NEUROLOGIC: The patient has GCS of 15. He has no focal deficits. LABORATORY DATA: Hematology: WBCs 24.4, hemoglobin 8.9, hematocrit 28.9, platelets 328. Chemistry: Sodium 141, potassium 3.7, chloride 108, bicarbonate 22, BUN 28, creatinine 1.02, glucose 58, calci um 8.9, phosphorus 4.4, magnesium 2.0. Microbiology: Blood cultures drawn on 08/27/2017, significan t for methicillin susceptible Staphylococcus aureus. Negative for methicillin-resistant Staphylococc us aureus. Urine cultures no growth to date. IMAGING: There are no images to review this morning. ASSESSMENT: 1. Status post suicide attempt. 2. Unstable pelvic fracture, status post open reduction internal fixation. 3. Left talar fracture status post open reduction internal fixation. 4. Methicillin- susceptible Staphylococcus aureus bacteremia. 5. Left lower lobe pneumonia. 6. Agitation and combativeness. PLAN: 1. Continue IV Rocephin. The patient reportedly pulled his IV out yesterday. This was successfully replaced; however, if he pulls it out again, we will switch to IM Rocephin. 2. Continue PT and OT as able. 3. Case management following for discharge planning. The patient has been medically approved to dis charge to [facility], currently just pending insurance approval. This patient was seen and examined along with Dr. Paul Betts on rounds, who agrees with the assess ment and plan.
[2017-08-29] MEDS ORDERED: Megestrol Acetate 800 MG/20 ML UDCUP PO SCH (09:00)
--- NOTE | 2017-08-29 13:59 | DIS ---
DATE OF ADMISSION: 08/16/2017 DATE OF DISCHARGE: 08/28/2017 ADMITTING PHYSICIAN: Castro Richards M.D. DISCHARGING PHYSICIAN: Paul Betts DO ADMISSION DIAGNOSES: 1. Status post suicide attempt involving fall from approximately 50 feet off of a bridge. 2. Left ilium fracture. 3. Left sacroiliac joint dislocation. 4. Bilateral superior and inferior pubic rami fractures. 5. Left pelvic hematoma. 6. Left iliopsoas hematoma. 7. Acute traumatic pain. 8. Hypertension. 9. Left talar fracture. 10. Perisplenic fluid collection. 11. Alcohol abuse with acute alcohol intoxication. 12. Rhabdomyolysis. DISCHARGE DIAGNOSES: 1. Status post suicide attempt involving fall from approximately 50 feet off a bridge. 2. Left ilium fracture. 3. Left sacroiliac joint dislocation. 4. Bilateral superior and inferior pubic rami fractures. 5. Left pelvic hematoma. 6. Left iliopsoas hematoma. 7. Acute traumatic pain. 8. Hypertension. 9. Left talar fracture. 10. Perisplenic fluid collection. 11. Alcohol abuse with acute alcohol intoxication. 12. Rhabdomyolysis. PROCEDURES PERFORMED: 1. Open reduction and internal fixation of unstable vertical shear pelvic fracture. 2. Open reduction and internal fixation of left talus fracture. HOSPITAL COURSE: Mr. Welch is a 57-year-old male, who presented to the [facility], status post jum ping off of a bridge of approximately 50-60 feet in height. He underwent evaluation in the emergency room and was found to have multiple pelvic fractures and a left talar fracture. He went to the OR o n 08/17/2017 for surgical repair of these fractures. Postoperatively, he was transferred to the [facility] floor where he remained until he discharged on 08/28/2017. In the interim, the patient was ofte n combative and uncooperative. He often refused to have labs drawn, vitals taken. He also refused m ost medications. The patient became tachycardic and began having low blood pressure. A chest x-ray was performed on 08/27/2017, which was suspicious for left lower lobe pneumonia. The patient was sta rted on Rocephin empirically. Blood cultures were drawn, which returned methicillin-susceptible Stap h aureus. The patient was treated with antibiotics for his bacteremia and pneumonia. He continued t o remain somewhat combative and uncooperative with procedures, medications and labs. He was accepted to [facility] and discharged in stable condition on 08/28/2017. DISCHARGE MEDICATIONS: The patient was discharged with all of his inpatient medications. Please see electronic medical record for details. ACTIVITY INSTRUCTIONS: The patient has orthopedic limitations including nonweightbearing on left leg . NOURISHMENT INSTRUCTIONS: Regular diet with supplemental Ensure Enlive 3 times a day. THERAPY INSTRUCTIONS: Physical and occupational therapy. FOLLOWUP INSTRUCTIONS: The patient is to follow up with his primary care doctor in 7 days after disc harge from rehabilitation. The patient also instructed to follow up with Dr. Munir Zaldivar in 4 w eeks.
== END 2017-08-28 15:39 | DRG 503 ==
LOC: ERS 22:07 → SURG A 08-16 01:10
PROVIDERS: ADMIT Surgery; ATTEND Surgery
PROC: 0QS304Z Reposition Left Pelvic Bone with Internal Fixation Device, Open Approach (ICD-10-PCS; principal; 2017-08-19)
PROC: 0QSM04Z Reposition Left Tarsal with Internal Fixation Device, Open Approach (ICD-10-PCS; 2017-08-19)
DX: S32.811A Multiple fractures of pelvis with unstable disruption of pelvic ring, initial encounter for closed fracture (principal); J18.9 Pneumonia, unspecified organism; G93.41 Metabolic encephalopathy; M62.82 Rhabdomyolysis; R78.81 Bacteremia; F10.129 Alcohol abuse with intoxication, unspecified; I10 Essential (primary) hypertension; S33.2XXA Dislocation of sacroiliac and sacrococcygeal joint, initial encounter; S92.122A Displaced fracture of body of left talus, initial encounter for closed fracture; S92.112A Displaced fracture of neck of left talus, initial encounter for closed fracture; B95.61 Methicillin susceptible Staphylococcus aureus infection as the cause of diseases classified elsewhere; E83.42 Hypomagnesemia; E87.6 Hypokalemia; G89.11 Acute pain due to trauma; F17.210 Nicotine dependence, cigarettes, uncomplicated; Y92.89 Other specified places as the place of occurrence of the external cause
CPT/HCPCS: 28430; 36415; 36416; 51702; 70450; 71045; 71260; 72125; 72170; 72192; 74177; 76001; 80048; 80053; 80306; 80307; 81003; 81015; 82550; 82553; 83690; 83735; 83880; 84100; 84443; 84484; 85025; 85610; 85730; 86850; 86900; 86901; 87040; 87077; 87086; 87149; 87186; 93005; 93010; 96361; 96374; 96375; C1713; C1769; G0390; G8978-GP-CM; G8979-GP-CK; G8987-GO-CM; G8988-GO-CJ; J0131; J0696; J1650; J1885; J2001; J2270; J2405; J2704; J3010; J7050; S0028

== ENCOUNTER 2017-09-11 17:04 | Inpatient (IN) | payer OTHER ==
[2017-09-11] MEDS ORDERED: traMADol HCl 50 MG TAB PO PRN ×2 (17:10)
[2017-09-11] MEDS ORDERED: Ondansetron HCl/PF 4 MG/2 ML Vial IVP PRN (17:11)
[2017-09-11] MEDS ORDERED: Ondansetron ODT 4 MG TAB PO PRN (17:11)
[2017-09-11] MEDS ORDERED: Dextrose 5% in Water 1,000 ML IV PRN (17:11)
[2017-09-11] MEDS ORDERED: Dextrose 50% Abboject 50 ML SYRINGE SLOW IVP PRN (17:11)
[2017-09-11] MEDS ORDERED: hydrALAZINE 20 MG/ML VIAL SLOW IVP PRN (17:23)
[2017-09-11 17:39] LABS: #Basophils 0.1 thou/uL (0.0-0.2); #Eosinphils 0.1 thou/uL (0.0-0.7); #Lymphocytes 3.9 thou/uL (1.20-3.40); #Monocytes 1.6 thou/uL (0.11-0.59); #Neutrophils 12.8 thou/uL (1.40-6.50); %Basophils 0.7 % (0.0-1.0); %Eosinophils 0.6 % (0.0-10.0); %Monocytes 8.5 % (0.0-10.0); %Neutrophils 69.2 % (42.0-75.0); Hemoglobin 8.5 g/dL (14.0-18.0); Mean Corpuscular HGB CONC 31.9 g/dL (32.0-36.0); Mean Corpuscular Hemoglobin 30.6 pg (27.0-31.0); Mean Corpuscular Volume 95.9 fl (80.0-94.0); Mean Platelet Volume 8.1 fL (7.4-10.4); Platelet Count 611 thou/uL (130-400); Red Blood Cell (RBC) Count 2.78 mill/uL (4.70-6.10); White Blood Cell (WBC) Count 18.5 thou/uL (4.8-10.8)
[2017-09-11] MEDS ORDERED: Morphine 4 MG/ML VIAL SLOW IVP PRN (17:45)
[2017-09-11 17:48] LABS: Anion Gap 10 mmol/L (10-20); BUN (Urea Nitrogen) 34 mg/dL (8.4-25.7); Calc. Creatinine Clearance 0 mL/min (70-130); Calcium 10.3 mg/dL (7.8-10.44); Carbon Dioxide 20 mmol/L (22-29); Chloride 110 mmol/L (98-107); Estimated GFR-MDRD 80; Glucose 98 mg/dL (70-105); Magnesium 1.8 mg/dL (1.6-2.6); Potassium 4.9 mmol/L (3.5-5.1); Sodium 135 mmol/L (136-145)
[2017-09-11] MEDS: cloNIDine 0.2 MG TAB PO SCH (18:30)
[2017-09-11] MEDS: Sodium Chloride 0.9% 1,000 ML IV SCH (18:31)
[2017-09-11 18:56] LABS: Bilirubin Negative (Negative); Blood, Urine Small (Negative); Clarity CLOUDY (Clear); Glucose, Urine (Dipstick) Negative (Negative); Leukocyte Negative (Negative); Nitrite Negative (Negative); Protein, Urine (Dipstick) 30 mg/dL (Neg-Trace); Specific Gravity, Urine 1.016 (1.002-1.036); pH, Urine 7.5 (5.0-9.0)
[2017-09-11 18:58] LABS: Bacteria/HPF None Seen HPF (None Seen); Hyaline Casts/LPF 0-3 HYALINE CAST LPF (0-3 Hyaline); Pathc Cast-AUWi Flag 0.58 (0-2.49); Squamous Epithelial 0-3 HPF (0-3); WBC/HPF 0-3 HPF (0-3)
--- NOTE | 2017-09-11 19:19 | RAD ---
PORTABLE UPRIGHT FRONTAL CHEST RADIOGRAPH 09/11/17 COMPARISON: 08/27/17 HISTORY: Pneumonia. FINDINGS: There is dense opacity in the medial left lung base with obscuration of the left hemidiaphragm as wel l as blunting of the left costophrenic angle suggesting nonspecific left lower lobe consolidation/col lapse and left pleural fluid. There is a right sided PICC, distal tip overlying the region of the cav oatrial junction. There is a mildly displaced lateral left 7th rib fracture. IMPRESSION: Dense pleural and parenchymal opacity in the left base suggest pleural fluid and infectious pneumonit is/aspiration. Followup to resolution advised. There is a fracture involving the 7th rib laterally on the left. POS: [facility]
--- NOTE | 2017-09-11 19:25 | RAD ---
THREE VIEWS OF THE PELVIS 09/11/17 COMPARISON: 08/26/17 HISTORY: Evaluate pelvis following surgery. FINDINGS: Cutaneous estevan are seen lateral to the left iliac wing. There is a left iliac wing fracture which appears distracted slightly on image 1 of 3. There are two screws traversing the left sacroiliac join t. The inferior screw has extended laterally to the left since the prior examination, no longer trave rsing the right SI joint. There is comminuted fracture deformity involving the bilateral pubic bones extending into the inferior and superior pubic rami. Fracture deformities were better assessed on 08/17/17 CT examination. There is multifocal comminution and displacement of the fracture fragments invol ving the pubic bones bilaterally. On inlet views, there is displacement anteriorly of fractures of th e right superior and inferior pubic rami. There is also bone loss on the left since the prior examin ation, which may signify osteomyelitis. IMPRESSION: Numerous pelvic fractures, which would be better assessed via CT. POS: [facility]
--- NOTE | 2017-09-11 20:23 | CT ---
CT PELVIS 09/11/17 COMPARISON: 08/17/17 HISTORY: Evaluate for abscess, evaluate fractures of the pelvis following surgery. TECHNIQUE: Serial axial CT imaging is obtained at 5 mm intervals from the axial level of the mid poles of the ki dneys through the proximal femora. Coronal and sagittal reformatted imaging obtained. FINDINGS: Bilateral hydroceles are noted, incompletely imaged. There is scrotal wall thickening as well. There is diffuse stranding of the subcutaneous fat suggesting anasarca. The imaged pelvis demonstrates sign ificant new diffuse free fluid within the imaged lower abdomen, the mesentery, and within the pelvis. There is a comminuted and distracted fracture of the left iliac bone, demonstrating significant wors ening in fracture displacement when compared to the 08/17/17 CT examination, especially along the poste rior and superior aspects of the left iliac bone fracture. There are two screws which traverse the sa croiliac joint on the left. Of note, the lateral aspect of the more superior and anterior screw is no t definitely seated within the bone, and may be located between fracture fragments. The location of t his screw appears more medial and anterior than on the prior exam. In addition, the posterior screw h as backed away significantly from the lateral cortex of the left iliac bone. It previously traversed the right sacroiliac joint and now does not traverse the right sacroiliac joint, terminating over the mid portion of the right sacral ala. Prior examination demonstrated comminuted fractures of the pubi c bones, extending into bilateral superior and inferior pubic rami. These fractures are much more dis placed and distracted when compared to the prior examination. There appears to be interval bone loss involving the region of the inferior and superior pubic rami on the left. Insinuating between this ar ea of bone loss is an ill-defined lobulated fluid collection, which extends superior and posterior to the fracture, abutting the inferior aspect of the urinary bladder and then extends inferior to the f racture into the upper adductor musculature. This ill-defined lobulated fluid collection measures at least 7.7 cm in greatest transverse dimension and approximately 7.5 cm in greatest craniocaudal dimen osmar. It insinuates within multiple muscles within the medial upper left thigh and is incompletely im aged. There is an incompletely imaged fluid collection within the gracilis muscle on the left measuri ng up to 2.1 cm. This fluid collection appears to involve the inferior most aspect of the rectus abdo minis muscle anteriorly to the left of midline on image 46 measuring 1.6 cm and there are multiple po ckets of fluid within the region of the left obturator external muscle and pectineus muscle. There is a small fluid collection within the paraspinal musculature posteriorly on the left just infe rior and posterior to the left spinous transverse process of L3 measuring 1.9 cm, which may represent abscess. There is thickening and increased density involving the musculature anterior and posterior to the left iliac bone including the gluteus and iliopsoas musculature on the left suggesting edema w hich could be on the basis of prior trauma and/or infection. IMPRESSION: 1. New diffuse free fluid within the imaged abdomen and pelvis with evidence of anasarca and emiliano ateral hydroceles. 2. The two screws traversing the pelvis have changed in orientation, the posterior most screw ba cking away from the left lateral cortex and the anterior screw not associated with bone anteriorly. T here is resultant marked new distraction of fracture fragments in the region of the left iliac bone a nd there is new widening of the left sacroiliac joint. 3. Ill-defined fluid collection centered at the level of the fractures involving the superior a nd inferior pubic rami on the left extending into the adjacent musculature, incompletely assessed, [place] ggesting abscess. Areas of bone loss suggests associated osteomyelitis. Additional fluid collections are seen in the region of the gracilis muscle on the left, the obturator externa, the pectineus, and possibly the gluteal musculature and iliopsoas musculature on the left. Perhaps pelvic MRI would be b torin suited to evaluate the full extent of infectious change within the pelvic musculature. There is also a probable small abscess within the posterior paraspinal musculature at the L3 level. Code T-Results called to Dr. Zaldivar at the time of interpretation. POS: [facility]
[2017-09-11] MEDS ORDERED: Cefepime 1 GM in Sodium Chloride 0.9% 100 ML IVPB SCH (21:00)
[2017-09-11] MEDS ORDERED: Senokot S 8.6-50 MG TAB PO SCH (21:00)
[2017-09-11] MEDS ORDERED: Famotidine/PF 20 mg/2ml Vial SLOW IVP SCH (21:00)
[2017-09-11] MEDS: Ibuprofen 800 MG TAB PO SCH (21:24)
[2017-09-11] MEDS: Vancomycin HCl 1 GM in Premix Bag 1 BAG IVPB SCH (21:24)
[2017-09-11] MEDS: Tamsulosin HCl 0.4 MG CAP PO SCH (21:25)
[2017-09-11] MEDS: Pantoprazole 40 MG VIAL IVP SCH (21:25)
[2017-09-11] MEDS: Cefepime 1 GM, Admixture Fee 1 EACH in Sterile Water 10 ML SLOW IVP SCH (21:25)
[2017-09-11] MEDS: Senokot S 8.6-50 MG TAB PO SCH (21:25)
--- NOTE | 2017-09-12 00:09 | HP ---
DATE OF ADMISSION: 09/11/2017 ATTENDING PHYSICIAN: Paul Betts D.O. TRAUMA ACTIVATION: Not applicable. HISTORY OF PRESENT ILLNESS: Lamont Welch is a 57-year-old male who presented to [facility] as a dir ect admit from [facility]. Per documentation, patient has been having 2-3 days of sero sanguineous fluid and old blood and clots draining from his left hip wound. Mr. Welch was admitted to us on 08/16/2017 after a suicide attempt that resulted in multiple pelvic fractures. He underwent o perative fixation of those fractures on 08/17/2017. During that hospitalization, he had an episode o f bacteremia and MSSA pneumonia. Since his discharge from the hospital, the patient has had a persis tent elevated white blood cell count per [facility] documentation, but no documented fe vers. His most recent white count was improved to 19,000 after being started on vancomycin and cefep pradeep at the outside facility. Upon arrival here, he has a chief complaint of "pain all over." He is somewhat combative and agitated, oriented to self and place, but not situation or time. ALLERGIES: None. MEDICATIONS FROM THE OUTSIDE FACILITY: Include Tylenol 1 gram q.8 hours, clonidine 0.2 mg q.6 hours, Pepcid 20 mg p.o. b.i.d., folic acid 1 mg p.o. daily, lactulose 30 mL t.i.d., Synthroid 50 mcg p.o. daily, Megace 400 mg b.i.d., melatonin 6 mg at bedtime, multivitamin daily, nicotine patch, Seroquel 100 mg p.o. at bedtime, Flomax 0.8 mg daily, Ultram 50 mg at bedtime, thiamine 100 mg p.o. daily, cef epime 1 gram q.8 hours, Zyprexa 10 mg IM q.8 hours p.r.n., Zofran 4 mg q.6 hours p.r.n., Seroquel 25 mg q.6 hours p.r.n., and vancomycin 1 gram q.24 hours. PAST MEDICAL HISTORY: Multiple suicide attempts, hypertension, hepatitis C, glaucoma, chronic alcoho l abuse, chronic anemia, tobacco abuse, history of polysubstance abuse, and history of hepatic enceph alopathy. PAST SURGICAL HISTORY: Splenic embolization in 04/2016, ORIF of pelvic fractures in 08/2017. SOCIAL HISTORY: The patient reportedly lived alone prior to his previous hospitalization. He does h ave some estranged family members. He is unable to provide the rest of his history at this time. FAMILY HISTORY: Unable to obtain secondary to patient's mental status. REVIEW OF SYSTEMS: Unobtainable. PHYSICAL EXAMINATION: VITAL SIGNS: Blood pressure 164/68, heart rate 107, temperature 98, respirations 18, O2 sat 99% on r oom air. GENERAL: Well-nourished, somewhat disheveled-appearing male in no acute distress, resting in bed. HEAD: Normocephalic, atraumatic. EYES: PERRL. Extraocular movements are intact. NECK: Supple. Trachea is midline. CHEST/PULMONARY: Normal work of breathing, symmetric rise. LUNGS: Clear to auscultation bilaterally. CARDIOVASCULAR: Tachycardic, no obvious murmur, rubs, or gallops. GASTROINTESTINAL: Abdomen is soft, nontender, nondistended. MUSCULOSKELETAL/BACK: Upper back within normal limits. There is some serosanguineous drainage from his incisional wounds on the left. EXTREMITIES: Bilateral upper extremities within normal limits. Left lower extremity has a healed in cisional wound with an ulcer on the left heel. LABORATORY FINDINGS: WBC 18.5, hemoglobin 8.5, hematocrit 26.7, platelet count is 611, there were no bands reported at this time. Sodium 135, potassium 4.9, chloride 110, carbon dioxide 20, BUN 34, cr eatinine 0.96, glucose 98. Ammonia 17. Urinalysis pending. RADIOGRAPHIC FINDINGS: X-ray of the chest shows a persistent left lower lobe haziness/infiltrate sim ilar to previous chest x-ray approximately [address] of the pelvis has been ordered by Ortho pedics and is pending. ASSESSMENT: 1. Serosanguineous wound drainage from status post open reduction and internal fixation in 7. 2. Acute pain. 3. Leukocytosis. 4. Left lower lobe infiltrate, persistent. 5. History of recent suicide attempt. 6. Metabolic encephalopathy. 7. History of hepatitis C with cirrhosis and hepatic encephalopathy. 8. Urinary retention, on Flomax. 9. History of polysubstance abuse. PLAN: Admit to Trauma Services. The patient has been seen and evaluated by Orthopedic Surgery. The y plan for washout of his wound in the morning. We will follow up remaining laboratory studies. IV fluid hydration. Empiric antibiotics. Urine culture, blood cultures, follow up official read on [facility] st x-ray. The patient has been discussed with trauma attending at the time of this dictation.
[2017-09-12] MEDS: cloNIDine 0.2 MG TAB PO SCH ×5 (00:49→23:59)
[2017-09-12] MEDS: Sodium Chloride 0.9% 1,000 ML IV SCH ×4 (01:40→21:09)
[2017-09-12 05:28] LABS: #Basophils 0.1 thou/uL (0.0-0.2); #Eosinphils 0.1 thou/uL (0.0-0.7); #Lymphocytes 3.4 thou/uL (1.20-3.40); #Monocytes 1.2 thou/uL (0.11-0.59); #Neutrophils 7.2 thou/uL (1.40-6.50); %Basophils 0.8 % (0.0-1.0); %Eosinophils 1.2 % (0.0-10.0); %Lymphocytes 28.4 % (21.0-51.0); %Monocytes 9.9 % (0.0-10.0); %Neutrophils 59.7 % (42.0-75.0); Hemoglobin 7.5 g/dL (14.0-18.0); Mean Corpuscular Hemoglobin 29.7 pg (27.0-31.0); Mean Corpuscular Volume 95.9 fl (80.0-94.0); Platelet Count 520 thou/uL (130-400); Red Blood Cell (RBC) Count 2.53 mill/uL (4.70-6.10)
[2017-09-12 05:46] LABS: Anion Gap 9 mmol/L (10-20); BUN (Urea Nitrogen) 35 mg/dL (8.4-25.7); Calc. Creatinine Clearance 86 mL/min (70-130); Calcium 9.6 mg/dL (7.8-10.44); Carbon Dioxide 18 mmol/L (22-29); Chloride 114 mmol/L (98-107); Estimated GFR-MDRD 82; Glucose 85 mg/dL (70-105); Phosphorus 3.7 mg/dL (2.3-4.7); Potassium 4.8 mmol/L (3.5-5.1); Sodium 136 mmol/L (136-145)
[2017-09-12] MEDS: Ibuprofen 800 MG TAB PO SCH ×2 (06:05→15:47)
[2017-09-12] MEDS: Levothyroxine Sodium 50 MCG TAB PO SCH (06:05)
[2017-09-12] MEDS: Cefepime 1 GM, Admixture Fee 1 EACH in Sterile Water 10 ML SLOW IVP SCH (08:17)
[2017-09-12] MEDS: Megestrol Acetate 800 MG/20 ML UDCUP PO SCH (08:18)
[2017-09-12] MEDS: Vancomycin HCl 1 GM in Premix Bag 1 BAG IVPB SCH (08:18)
[2017-09-12] MEDS: Tamsulosin HCl 0.4 MG CAP PO SCH (08:18)
[2017-09-12] MEDS: Polyethylene Glycol 3350 17 GM Packet PO SCH (08:18)
[2017-09-12] MEDS: Folic Acid 1 MG TAB PO SCH (08:18)
[2017-09-12] MEDS: Senokot S 8.6-50 MG TAB PO SCH (08:18)
[2017-09-12] MEDS: Bisacodyl 10 MG SUPP PR SCH (08:18)
[2017-09-12] MEDS: Multivit, Therapeutic 1 TAB PO SCH (08:18)
--- NOTE | 2017-09-12 08:40 | CON ---
DATE OF CONSULTATION: 09/11/2017 REQUESTING PHYSICIAN: Dr. Paul Betts HISTORY OF PRESENT ILLNESS: Mr. Welch is a 57-year-old gentleman who returns to [facility] f or evaluation of serosanguineous drainage from his left sacroiliac screw placement incision. The juhi jiménez was initially admitted on 08/16/2017 following a suicide attempt with a jump from a bridge. The patient had a vertically unstable fracture of his left SI joint as well as multiple rami fractures a nteriorly with some diastasis. The patient underwent stabilization procedure with posterior sacroili ac screws; however, the iliac wing was still mildly posteriorly subluxed following this procedure. T he patient did well following this surgery and then was subsequently transferred to the [facility]. Apparently, approximately 3-4 days ago, the patient began to develop some mild drainage from his SI screw placement site. He was started on antibiotics for this. However, the dr rosa has persisted and he now returns for reevaluation. His most recent white blood cell count is 19,000 and [facility]. Upon arrival at [facility], he is found to be somewhat combative and complains of pain all over. PAST MEDICAL HISTORY: Remarkable for multiple suicide attempts, hypertension, alcohol abuse, tobacco use, and a history of hepatic encephalopathy, and hepatitis C. PAST SURGICAL HISTORY: Includes splenic embolization and open reduction internal fixation of the SI joint, left and open reduction internal fixation of left talar neck fracture. MEDICATIONS: Pepcid, Tylenol, lactulose, Synthroid, melatonin, Seroquel, Flomax, Ultram, and more re cently cefepime and vancomycin. ALLERGIES: None known. SOCIAL HISTORY: The patient does not have family members in the area or any that we have been able t o speak with. He does have a history of alcohol abuse, tobacco use and polysubstance abuse. FAMILY HISTORY: Unable to obtain. REVIEW OF SYSTEMS: Review of systems also unable to obtain due to the patient's mental state at this time and agitation. PHYSICAL EXAMINATION: VITAL SIGNS: Temperature of 98, heart rate of 107, respiratory rate of 18, and blood pressure 164/68 . HEENT: Atraumatic, normocephalic. HEART: Shows a tachycardic rate, but with regular rhythm and no murmurs. LUNGS: Clear to auscultation bilaterally. CHEST: His chest wall is nontender. ABDOMEN: Soft and nontender. PELVIS: His pelvis is remarkable for instability and extreme pain with any type of compression or pu sh/pull. He feels the pain both at the posterior sacroiliac region as well as anteriorly in the groi n. EXTREMITIES: Remarkable for bilateral upper extremities that are atraumatic with intact sensation robledo bjectively. The right lower extremity also without deformity of the hip, knee, ankle or foot. He fenton s intact subjective sensation within the limits of this exam today. The left lower extremity is brenda rkable for pain with any type of hip motion. The knee appears atraumatic. He does have a well heali ng posterior ankle incision from his prior open reduction internal fixation of the talus procedure. LABORATORY: White count of 18.5, hematocrit 26.7 and 611,000 platelets. X-RAYS: CT scan of pelvis and AP pelvis and inlet outlet views are remarkable for complete loss of s tabilization of the posterior ilium and SI joint with screw cut out and now further fracture propagat ion of the iliac wing. There is also a return of diastasis at the anterior pelvis with the left iliu m vertically displaced as well as posteriorly displaced. There was also some fluid both around the S I joint as well as around the symphysis fracture at the right side and tracking down some of the abdu ctor muscles. This is unclear whether this represents infection or just a seroma from this unstable fracture. ASSESSMENT: A 57-year-old gentleman now 1 month posterior pelvis stabilization with SI screws with failed stabilization and a very significant pelvic deformity with gross instability and now with evid ence for at least superficial infection at the left SI region, if not more extensive intrapelvic infe ction. PLAN: At this time, the patient does need to return to the operating room for anticipated removal of hardware and irrigation and debridement. The patient also requires some pelvic stabilization. This cannot be accomplished with external fixation given the fact we have instability, both anteriorly an d posteriorly. As such, we will plan on proceeding with a stabilization procedure at the time of irr igation and debridement in the form of posterior plating and either application of external fixator a nteriorly or proceeding with an anterior plating procedure through a STOPA approach. We will try and attempt to get an informed consent. I do not believe the patient can give an informed consent and w e have had difficulty in the past to finally finding family members. I believe this surgery is absol utely indicated for stabilization of the pelvis and to control his infection which could be life thre atening.
[2017-09-12] MEDS ORDERED: Iopamidol 370 76% 100 ML VIAL ONE (09:58)
[2017-09-12] MEDS ORDERED: Fentanyl 250 MCG/5 ML VIAL ONE (10:33)
[2017-09-12] MEDS ORDERED: Promethazine HCl 25 MG/ML VIAL ONE (10:33)
[2017-09-12] MEDS ORDERED: HYDROmorphone 0.5 MG/0.5 ML SYRINGE ONE ×2 (10:57→12:19)
[2017-09-12] MEDS ORDERED: Ketamine 50 MG/ML VIAL ONE (12:18)
[2017-09-12] MEDS ORDERED: Midazolam HCl 5 mg/5 ml Vial ONE (12:18)
[2017-09-12] MEDS ORDERED: PROPOFOL 200 MG/20 ML VIAL ONE (12:26)
[2017-09-12] MEDS ORDERED: PHENYLEPHRINE-NS 100 MCG/ML 10 ML SYRINGE ONE ×2 (12:26→13:35)
[2017-09-12] MEDS ORDERED: ePHEDrine/0.9% NaCl/PF SYRINGE 50 mg/10 ml ONE (12:26)
[2017-09-12] MEDS ORDERED: Calcium Chloride 1 GM/10 ML Abboject SYRINGE ONE (12:26)
[2017-09-12] MEDS ORDERED: Lidocaine 1% PF 5 ML VIAL ONE (12:26)
[2017-09-12] MEDS ORDERED: Labetalol 100 MG/20 ML MDV ONE (12:26)
[2017-09-12] MEDS ORDERED: Dexamethasone 20 MG/5 ML VIAL ONE (12:26)
[2017-09-12] MEDS ORDERED: EPINEPHrine 1 MG/10 ML Abboject SYRINGE ONE (12:26)
[2017-09-12] MEDS ORDERED: Hydrocortisone Sod Succ/PF 100 mg/2 ml Vial ONE (12:26)
[2017-09-12] MEDS ORDERED: Sodium Bicarb 50 MEQ/50 ML Abboject 8.4% SYRINGE ONE ×5 (12:26→16:22)
--- NOTE | 2017-09-12 13:13 | PQF ---
CLINICAL DOCUMENTATION IMPROVEMENT CLARIFICATION FORM: ICD-10 Updated PLEASE DO AN ADDENDUM TO THE PROGRESS NOTE WITH ANY DOCUMENTATION UPDATES OR ADDITIONS AND CARRY THROUGH TO DC SUMMARY. THANK YOU. DATE: 09/12/17 ATTN: DR. BONILLA Please exercise your independent, professional judgment in responding to the clarification form. Clinical indicators are provided on the bottom of this form for your review Please check appropriate box(s): [ x] Acute blood loss anemia [ ] Post-op anemia related to acute blood loss [ ] Anemia: [ ] Aplastic [ ] Nutritional [ ] Drug induced (specify) ___ [ ] Hemolytic [ ] Hereditary [ ] Acquired [ ] Autoimmune [ ] Non-autoimmune [ ] Enzyme disorder [ ] Chronic Anemia: [ ] Blood loss [ ] Hemolytic [ ] Simple [ ] Due to Vitamin B12 Deficiency [ ] Other [ ] Anemia of Chronic Disease (please specify) [ ] Other diagnosis [ ] Unable to determine In addition, please specify: Present on Admission (POA): [ x ] Yes [ ] No [ ] Unable to determine For continuity of documentation, please document condition throughout progress notes and discharge summary. Thank You. CLINICAL INDICATORS - SIGNS / SYMPTOMS / LABS HGN 09/11: 8.5 HGN 09/12: 7.5 RISKS: RECENT HIP SURGERY WITH DRAINAGE AND BLOOD CLOTS FROM WOUND TREATMENT: PACKED CELLS AND PLATELETS ORDERED SERIAL LABS (This form is maintained as a part of the permanent medical record) 2014 [employer]. All Rights Reserved KATERINA [email or web address] Office: [phone] [facility]PITAL[facility]
[2017-09-12] MEDS ORDERED: ISOVUE-370 76%-LOCM 1 ML ONE (13:28)
[2017-09-12] MEDS ORDERED: Albumin 5% 500 ML ONE (15:19)
[2017-09-12] MEDS ORDERED: Rocuronium Bromide 50 MG/5 ML VIAL ONE (15:23)
[2017-09-12] MEDS ORDERED: Norepinephrine 4 MG/4 ML VIAL ONE (15:23)
[2017-09-12] MEDS ORDERED: Sodium Bicarbonate 2.5 MEQ/5 ML VIAL ONE (16:22)
--- NOTE | 2017-09-12 16:29 | RAD ---
PELVIS MINIMUM 3 VIEWS: Date: 09/12/17 HISTORY: 57-year-old male with history of hardware removal and open reduction and internal fixation pelvis. FINDINGS: Multiple (5) portable fluoroscopic spot films are done intraoperatively. The two previously noted int ernal fixation screws noted through the pelvis have been removed and replaced with a longer fixation screw extending into the right ilium from the left side. There are metal plate and screws stabilizing the left ilium, as well as the right and left superior ischiopubic rami. IMPRESSION: Placement of two internal fixation screws, as well as multiple plate and screws stabilizing comminute d displaced pelvic fractures with improved position and alignment from the prereduction study. POS: OFF
[2017-09-12] MEDS ORDERED: Lidocaine 1% (PF) 30 ML VIAL ONE (16:57)
[2017-09-12] MEDS ORDERED: Midazolam HCl 2 mg/2 ml Vial ONE (17:43)
[2017-09-12] MEDS ORDERED: Fentanyl CADD 250 ML IVPB SCH (19:15)
[2017-09-12 19:44] LABS: #Eosinphils 0.1 thou/uL (0.0-0.7); #Monocytes 0.9 thou/uL (0.11-0.59); #Neutrophils 10.7 thou/uL (1.40-6.50); %Basophils 0.1 % (0.0-1.0); %Eosinophils 0.7 % (0.0-10.0); %Lymphocytes 7.8 % (21.0-51.0); %Monocytes 7.4 % (0.0-10.0); Hemoglobin 11.3 g/dL (14.0-18.0); Mean Corpuscular HGB CONC 34.9 g/dL (32.0-36.0); Mean Corpuscular Hemoglobin 31.5 pg (27.0-31.0); Mean Corpuscular Volume 90.2 fl (80.0-94.0); Mean Platelet Volume 8.1 fL (7.4-10.4); Platelet Count 100 thou/uL (130-400); RBC Distribution Width 13.8 % (11.5-14.5); Red Blood Cell (RBC) Count 3.59 mill/uL (4.70-6.10); White Blood Cell (WBC) Count 12.8 thou/uL (4.8-10.8)
[2017-09-12] MEDS ORDERED: Propofol 1,000 MG/100 ML VIAL IV ONE (19:48)
[2017-09-12 19:50] LABS: INR-International Normal Ratio 1.4; PTT 39.8 SEC (22.9-36.1); Prothrombin Time 17.1 SEC (12.0-14.7)
[2017-09-12] MEDS ORDERED: Vancomycin HCl 1 GM in Premix Bag 1 BAG IVPB SCH (20:00)
[2017-09-12 20:09] LABS: CO2 Tension 28.5 mmHg (35.0-45.0); pH, Arterial 7.47 (7.35-7.45)
[2017-09-12 20:10] LABS: Actual Bicarbonate (HCO3a) 20.2 mEq/L (22-26); Base Excess (BEa) -2.7 mEq/L (0 (+/-) 2.5); Hematocrit-ABG 28.7 % (42.0-52.0); O2 Tension (PaO2) 186.5 mmHg (80.0-100.0)
[2017-09-12 20:11] LABS: Hemoglobin (Hb) 10.4 g/dL (14.0-18.0)
[2017-09-12 20:12] LABS: Calcium, Ionized 1.4 mmol/L (1.12-1.30); Puncture Site ART LINE
--- NOTE | 2017-09-12 20:18 | RAD ---
FRONTAL RADIOGRAPH CHEST 09/12/17 COMPARISON: 09/11/17 HISTORY: Intubated patient. FINDINGS: Study is performed with the patient in the supine position, which limits assessment of the chest for pneumothorax and pleural fluid. There is dense opacity in the medial left base suggesting left lower lobe consolidation/collapse. There is hazy opacity overlying the left hemithorax suggesting left pleu ral effusion. There is a right upper extremity PICC in stable position. There is an endotracheal tube terminating at the level of the clavicles. IMPRESSION: Lines and tubes as above. Dense pleural and parenchymal opacity within the left hemithorax as detaile d above. POS: [facility]
[2017-09-12] MEDS ORDERED: Ventilator Sedation Protocol 1 EACH FS SCH (20:48)
[2017-09-12] MEDS ORDERED: Fentanyl 100 MCG/2 ML VIAL ONE (20:48)
[2017-09-12] MEDS ORDERED: Propofol BOLUS 1,000 MG/100 ML VIAL IV PRN (20:51)
[2017-09-12] MEDS ORDERED: Lorazepam 2 MG/ML VIAL SLOW IVP PRN (20:51)
[2017-09-12] MEDS ORDERED: Propofol 1,000 MG/100 ML VIAL IV PRN (20:51)
[2017-09-12] MEDS ORDERED: DISCONTINUE PREVIOUS NARCOTIC PAIN MEDICATIONS AND BENZODIAZEPINES FS SCH (20:51)
[2017-09-12] MEDS ORDERED: Fentanyl BOLUS 250 ML IVPB PRN (20:51)
[2017-09-12] MEDS ORDERED: Morphine 4 MG/ML VIAL SLOW IVP PRN (20:51)
[2017-09-12] MEDS: fentaNYL Citrate/PF 2,000 MCG in Sodium Chloride 0.9% 60 ML IV SCH (21:07)
[2017-09-12] MEDS: Fentanyl 100 MCG/2 ML VIAL SLOW IVP SCH (21:27)
[2017-09-12 22:05] LABS: Anion Gap 16 mmol/L (10-20); BUN (Urea Nitrogen) 32 mg/dL (8.4-25.7); Calc. Creatinine Clearance 77 mL/min (70-130); Calcium 9.2 mg/dL (7.8-10.44); Carbon Dioxide 19 mmol/L (22-29); Chloride 111 mmol/L (98-107); Estimated GFR-MDRD 73; Glucose 174 mg/dL (70-105); Potassium 5.3 mmol/L (3.5-5.1); Sodium 141 mmol/L (136-145)
--- NOTE | 2017-09-12 22:57 | OP ---
DATE OF OPERATION: 09/12/2017 PREOPERATIVE DIAGNOSES: 1. Unstable pelvic fracture including sacroiliac dislocation, ilium fracture, anterior disruption of the pelvic ring. 2. Wound drainage from left hip wound, possible infection. POSTOPERATIVE DIAGNOSES: 1. Unstable pelvic fracture including sacroiliac dislocation, ilium fracture, anterior disruption of the pelvic ring. 2. Wound drainage from left hip wound, possible infection. IMPLANTS: Multiple Synthes pelvic reconstruction plates were used, a total of 4 plates were used with multiple nonlocking screws as well as a 7.3-mm cannulated screw PROCEDURES: Open reduction and internal fixation of left sacroiliac joint, left ilium fracture, open reduction and internal fixation of anterior pelvic ring disruption, left sacroiliac screw placement, irrigation and debridement of left hip wounds. COSURGEONS: Chalo Mccullough M.D. and Dr. Munir Zaldivar. BLASTING ENTRY SPECIALIST: Edilia Lopez PA-C and Rodrigo Lund PA-C. ESTIMATED BLOOD LOSS: 2000 mL. INDICATIONS: Mr. Welch is a 57-year-old male who jumped from a bridge approximately one month ago. He sustained a severely comminuted and displaced vertical shear pelvic fracture. He underwent an initial pelvic fixation with sacroiliac screws. He went to a rehabilitation facility. Unfortunately, he presented again with wound drainage and increasing pain. Repeat x-rays have shown further displacement and instability of his pelvis. He was indicated for irrigation and debridement of wounds as well as revision of his pelvic fracture fixation. He was deemed to be necessary to provide anterior as well as posterior fixation to stabilize the patient's pelvis. Risks were reviewed including infection, nerve, or vascular injury, DVT, PE, hardware failure, nonunion, malunion, chronic pain, organ injury, bladder, injury, etc. DESCRIPTION OF OPERATION: Mr. Welch was identified in the preoperative holding area. His correct extremity was marked. He was carried to the operating room. He was positioned supine. General anesthesia was induced. A multidisciplinary timeout was performed. He was given intravenous antibiotics. At this point, we began the procedure with a lateral window approach over the iliac wing. An 8-cm incision was made over the iliac wing starting at the ASIS. We dissected down through the subcutaneous tissues through the fascia. We then elevated the iliacus muscle. At this point, we were able to expose the iliac bone. We encountered the posterior wing fracture. This extended from the iliac crest posteriorly down to the sacroiliac joint. We encountered the dislocated and disrupted sacroiliac joint as well. At this point, we were able to remove our sacroiliac screws sequentially. We used intraoperative x-ray to guide this. We thoroughly irrigated the wounds with copious lavage opening the lateral wounds. These were irrigated with a pulse lavage using Betadine irrigation. At this point, we placed multiple reduction clamps as well as pull longitudinal traction on the leg. We were able to reduce the sacroiliac joint back into its anatomic position. He was then held with K-wire fixation. Next, we placed further reduction clamps. Finally, at this point, we started fixation. We placed an anterior sacroiliac joint plate, this was a 5-hole plate. Two screws were placed in the sacrum and 2 screws in the ilium. This helped to reduce our sacroiliac disruption as well. At this point, we placed a more inferior plate in similar fashion. A 5-hole plate was used. Next, we used intraoperative x-ray to guide a sacroiliac screw into the body of S1. This was a fully-threaded long screw. We took inlet and outlet x-rays, multiple planes were used. We took care that we were in appropriate position. Next, after thorough imaging, we moved to the anterior pelvis. We performed a Stoppa approach. We used a midline incision, dissected down through the subcutaneous tissues to the rectus abdominis. The rectus fascia was opened. We then entered the space of Retzius. The bladder was protected with a lap sponge. At this point, we mobilized the rectus abdominis from the insertion. We then were able to work laterally on the superior aspect of the pubic ramus back near the hip joint. Once we had adequate exposure, we applied our 10-hole curved Synthes pelvic recon plate. Three screws were placed laterally on each side and then additional screws were placed in the midline. We took x-ray images confirming hardware placement. At this point, we thoroughly irrigated with copious lavage. We took final x-ray images, we felt we had a stable pelvic ring. At this point, we began wound closure. The anterior wound and lateral wounds were closed appropriately. We placed multiple sutures using PDS suture, 2-0 Vicryl, and estevan for the skin. At this point, we removed the packing from our most lateral sacroiliac wound. We have noticed bleeding from this wound previously and this was still an arterial type of bleeding. We explored this further. We did encounter a bleeding vessel and placed a Hemoclip. Unfortunately, this did not fully stop the bleeding. We at this point consulted Dr. Yoo with vascular surgery. We suspected that the superior gluteal artery was injured. At this point, we closed the wound and the patient was taken to the slab depiler operator. He underwent arterial catheterization for embolization of this vessel. At this point, the patient will be taken to the CCU. He will need ongoing critical care. He required multiple blood products through the surgery. . KAYDEN
--- NOTE | 2017-09-12 23:30 | SPC ---
CYSTOGRAM 09/12/17 COMPARISON: None. HISTORY: Evaluate for bladder leak, gross hematuria following trauma and surgery. FINDINGS: Clinical Audiologist imaging demonstrates extensive postoperative hardware within the pelvis, including hardware ass ociated with the pubic symphysis and bilateral superior pubic rami, the left iliac wing, the left sac roiliac joint, the sacrum, and the right sacroiliac joint. Embolization coils overlie the left hemipe lvis and cutaneous estevan are seen in the lateral left pelvis in the midline frontal pelvis. Contras t media was then instilled in a retrograde fashion through the patient's pre-existing Valle catheter. Once approximately 300 mL of contrast media was in the urinary bladder, there is abnormal extension of contrast outside the urinary bladder on the left. On lateral imaging, this area of leak appears to be located anteriorly and extends into the region of the superior pubic ramus on the left. The patie nt's bladder was then drained and small volume residual contrast media secondary to leak is seen. IMPRESSION: Evidence of bladder leak along the anterior inferior aspect of the urinary bladder on the left. These findings were discussed with Dr. Leonardo and Dr. Zaldivar who were both present during the procedure. POS: [facility]
[2017-09-12] MEDS ORDERED: Sodium Bicarbonate 100 MEQ in Dextrose 5% in Water 1,000 ML IV ONE (23:59)
--- NOTE | 2017-09-13 00:18 | PRG ---
DATE OF SERVICE: 09/12/2017 SUBJECTIVE: Lamont Welch is a 57-year-old gentleman who is hospital day 2, postop day 0 status post re do of complex pelvic fracture repair. Patient was admitted yesterday after his orthopedic wounds wer e noted to be draining serosanguineous fluids. A CT of the pelvis at that time demonstrated multiple fluid collections within the pelvis and evidence of failure of the original repair to his multiple o rthopedic injuries. During his OR course this afternoon, the patient became acutely hypotensive requ iring transfusion of multiple blood products, which includes 13 units of PRBC, 8 units of FFP, 1 pack of platelets. He was taken to the asphalt plant laborer with Dr. Yoo for angio-embolization of his left pelvic artery. He was returned to the ICU, intubated and sedated. Upon my evaluation, the patient is intu bated and sedated and has a RAST of -3 to -4. OBJECTIVE: VITAL SIGNS: Heart rate 119, blood pressure 144/77, O2 sat of 100% on 50% FiO2. GENERAL: Male resting in bed in no acute distress, intubated, sedated. PULMONARY: Symmetric chest rise. LUNGS: Clear to auscultation bilaterally. CARDIOVASCULAR: Tachycardic, no obvious murmurs, rubs, or gallops. GASTROINTESTINAL: Nontender, nondistended. : Approximately 150 mL of grossly bloody urine. He is on a propofol drip and then returned back. MUSCULOSKELETAL: Unchanged from previous. NEUROLOGIC: Sedated. RAST -3 to -4. Ventilator settings, he is currently on a respiratory rate of 12, tidal volume 500, pressure support of 10, FiO2 of 50% with a PEEP of 5. LABORATORY FINDINGS: Postoperative labs include WBC 12.8, hemoglobin 11.3, hematocrit 32.4, platelet count of 100. PT 17.1, INR 1.4, PTT 39.8, fibrinogen 221. ABG: Bicarbonate 20.2, pH 7.47, pCO2 of 28.5, pO2 186.5. Basic segs negative 2.7 and ionized calcium is 1.4. RADIOGRAPHIC FINDINGS: ET tube is in place. He has left-sided haziness with blunting of the left co stophrenic angle, no acute cardiopulmonary processes noted. PICC line is in place. ASSESSMENT: 1. Status post suicide attempt by jumping from bridge. 2. Complex pelvic fractures, status post redo of pelvic fracture repair, postop day 0. 3. Hemorrhagic shock requiring transfusions of multiple blood products. 4. Acute respiratory failure secondary to above. 5. Gross hematuria. 6. Status post pelvic artery embolization. 7. Thrombocytopenia. 8. Acute traumatic pain. PLAN: Follow pending lab results at this time. Radiology has been called, plan for cystogram. Furt her plan for hematuria to be determined at that time. Wean vent as tolerated. IV fluid hydration. Follow urine output as in marker for resuscitation A.m. labs. Follow consultants' recommendations. Assessment and plan has been discussed with Dr. Betts.
[2017-09-13 00:20] LABS: Hemoglobin 9.1 g/dL (14.0-18.0); Platelet Count 111 thou/uL (130-400)
[2017-09-13] MEDS ORDERED: Senokot S 8.6-50 MG TAB PO SCH (01:15)
[2017-09-13] MEDS ORDERED: Pantoprazole 40 MG VIAL IVP SCH (01:15)
[2017-09-13] MEDS ORDERED: Tamsulosin HCl 0.4 MG CAP PO SCH (01:15)
[2017-09-13] MEDS: Ibuprofen 800 MG TAB PO SCH ×2 (01:18→06:19)
[2017-09-13] MEDS ORDERED: Cefepime 1 GM, Admixture Fee 1 EACH in Sterile Water 10 ML SLOW IVP SCH (02:00)
[2017-09-13 04:40] LABS: Anion Gap 15 mmol/L (10-20); BUN (Urea Nitrogen) 37 mg/dL (8.4-25.7); Calc. Creatinine Clearance 57 mL/min (70-130); Calcium 8.6 mg/dL (7.8-10.44); Carbon Dioxide 18 mmol/L (22-29); Chloride 112 mmol/L (98-107); Estimated GFR-MDRD 51; Glucose 189 mg/dL (70-105); Magnesium 1.9 mg/dL (1.6-2.6); Phosphorus 6.1 mg/dL (2.3-4.7); Potassium 5.2 mmol/L (3.5-5.1); Sodium 140 mmol/L (136-145)
[2017-09-13 05:06] LABS: Band 5 % (5-11); Lymphocytes 13 % (21-51); MDiff Complete? YES; Mean Corpuscular HGB CONC 35.1 g/dL (32.0-36.0); Mean Corpuscular Hemoglobin 31.7 pg (27.0-31.0); Mean Corpuscular Volume 90.2 fl (80.0-94.0); Mean Platelet Volume 8.6 fL (7.4-10.4); Metamyelocyte 1 % (0-0); Monocytes 3 % (0-10); Neutrophil 77 % (42-75); PLT Morphology Comment Appears Decreased; Platelet Count 119 thou/uL (130-400); RBC Distribution Width 14.4 % (11.5-14.5); RBC Morphology Normal; Reactive Lymphocytes 1 % (0-10); Red Blood Cell (RBC) Count 2.51 mill/uL (4.70-6.10); White Blood Cell (WBC) Count 21.1 thou/uL (4.8-10.8)
[2017-09-13] MEDS: Senokot S 8.6-50 MG TAB PO SCH ×3 (06:17→21:12)
[2017-09-13] MEDS: Pantoprazole 40 MG VIAL IVP SCH ×2 (06:17→21:17)
[2017-09-13] MEDS: Tamsulosin HCl 0.4 MG CAP PO SCH ×3 (06:17→21:13)
[2017-09-13] MEDS: Vancomycin HCl 1 GM in Premix Bag 1 BAG IVPB SCH ×2 (06:17→10:05)
[2017-09-13] MEDS: cloNIDine 0.2 MG TAB PO SCH ×3 (06:18→17:42)
[2017-09-13] MEDS: Sodium Chloride 0.9% 1,000 ML IV SCH (06:18)
[2017-09-13] MEDS: Levothyroxine Sodium 50 MCG TAB PO SCH (06:19)
[2017-09-13 07:04] LABS: Actual Bicarbonate (HCO3a) 6.9 mEq/L (22-26); Base Excess (BEa) -5.4 mEq/L (0 (+/-) 2.5); CO2 Tension 31.5 mmHg (35.0-45.0); O2 Tension (PaO2) 71.3 mmHg (80.0-100.0)
[2017-09-13 07:05] LABS: Calcium, Ionized 1.3 mmol/L (1.12-1.30); Hemoglobin (Hb) 6.9 g/dL (14.0-18.0); Puncture Site ALINE
[2017-09-13 07:06] LABS: ALV-art Gradient 38.005 (0-20)
[2017-09-13 08:25] LABS: Vancomycin, Trough 31.2 ug/mL
[2017-09-13] MEDS ORDERED: Magnesium 2 GM/NS 0.9% 100 ML 2 GM in Premix Bag 1 BAG IVPB SCH (09:15)
--- NOTE | 2017-09-13 09:43 | OP ---
DATE OF PROCEDURE: 09/12/2017 INDICATIONS: The patient is a 57-year-old gentleman with a pelvic fracture that had previously been treated and failed to heal about 1 month earlier. He required reintervention and during the interven tion, he became hypotensive and required multiple units of blood and blood products. 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 Upon arrival in the cardiac ca th lab, he had bloody urine and was requiring Levophed and tachycardic and hypotensive. PROCEDURE IN DETAIL: He did have a femoral pulse, was prepped and draped and with ultrasound guidanc e, femoral artery was punctured with calcium being visible in the posterior wall. Following this, a right 5-Kosovan sheath was placed over a wire. A Contra catheter was then advanced and contrast angio graphy obtained. There was no obvious evidence of vascular injury or leak with injection in the aort a with bilateral runoff. Catheter was then advanced into the left common iliac artery at its origin with a Bentson wire. However, the Bentson wire was repeatedly going down the internal iliac artery a nd a Glidewire was used to assist advancing into the left common femoral and profunda femoral artery. Following this, a [place]mopolis catheter 5 Kosovan was advanced over the wire and then a selective left exter nal and internal iliac artery injections were obtained. There was no obvious vascular leak; however, based on the surgical findings, it was elected to embolize selectively the left gluteal artery and t hen the internal iliac artery. The left gluteal artery was cannulated with a 0.014 Luge wire and a m icrocatheter was then advanced into the gluteal artery where the interlock 4 x 8 and 3 x 6 coils were advanced. The catheter was then withdrawn and another 3 x 6 interlock coil and then an 0.018 4 x 7 coil was deployed. The patient then had Thermopolis catheter, which was sitting in the hypogastric artery h ad deployment of 3 additional coils using a 7 x 2.3, 7 x 2.3 and 6 x 2.6. At the conclusion of the p rocedure, the gluteal artery had no flow in it. The patient had stabilized considerably and was off his Levophed infusion. Catheters and wires were removed and the sheath was secured in place. During the procedure, the patient had 16-1/2 minutes of fluoroscopy and 38 mL of contrast. He tolerated th e procedure well.
[2017-09-13] MEDS: Cefepime 1 GM, Admixture Fee 1 EACH in Sterile Water 10 ML SLOW IVP SCH (10:06)
[2017-09-13] MEDS: Bisacodyl 10 MG SUPP PR SCH (10:06)
[2017-09-13] MEDS: Multivit, Therapeutic 1 TAB PO SCH (10:08)
[2017-09-13] MEDS: Megestrol Acetate 800 MG/20 ML UDCUP PO SCH (10:08)
[2017-09-13] MEDS: Polyethylene Glycol 3350 17 GM Packet PO SCH (10:08)
[2017-09-13] MEDS: Folic Acid 1 MG TAB PO SCH (10:08)
--- NOTE | 2017-09-13 10:30 | CON ---
DATE OF CONSULTATION: 09/12/2017 HISTORY OF PRESENT ILLNESS: This is a 57-year-old male who I was asked to see this evening by the ag CHAUHAN, because of gross hematuria and concern for possible bladder injury. The patient has an unus ual history. He tried to kill himself by jumping off a bridge earlier this month; I believe on the 0 08/16/2017 and he had multiple pelvic fractures, both anterior and posterior. He had I believe soil sampler ior fixation of those fractures on the . He was in the hospital for I guess a couple of weeks and he has gone to the [facility] since. I looked at his CAT scan of his chest, abdomen, and pelvis from his initial injury, he had it looked like a small cyst in his left kidney, but no benjie dence of any renal lacerations, nothing to suggest a bladder injury or urethral injury. Apparently a t rehabilitation, he has not been always urinating and the PA said that they have been cathing him so me and I know that they have been cathing him consistently. He developed an elevated white count at rehabilitation and he also developed drainage from one of his incisions from his orthopedic procedure and was brought back here. He had a repeat CT scan done that showed fluid collection in the left si de of the pelvis and separation of some of his orthopedic repairs, enough so that he was taken back t o the OR today where he underwent an anterior fixation with screws and a plate. He had problems with bleeding during the procedure and a lot of oozing. He is a patient that has hepatitis C and liver d isease. He received platelets and plasma, as well as blood. His hemoglobin was 11, but at the end o f the case as they were closing, they noticed that his urine had become bloody. In talking with Dr. Zaldivar, they were on the anterior surface of the bladder and there was some scarring on the left si de in between the pelvic fracture and the bladder itself, but there was no obvious injury noted at th e time of the surgery. The fluid that was encountered was really more of a seroma and it was not buddy cribed as pus and cultures of that were done. He did have a urine culture set up when he got here ye sterday that so far has no growth. He did start cefepime and vancomycin before he came yesterday, so that was on board before he got here. None of the dissection during today's procedure was lateral o r posterior to the bladder, it was all anteriorly, kind of working up under the region of the symphys is. He has no known drug allergies. He has been taking some Tylenol, clonidine, Pepcid, lactulose, Synth roid, Megace, Seroquel. We have got him on 0.8 mg of Flomax. He is taking Ultram as mentioned and Z yprexa. He has been taking cefepime and vancomycin just recently. Because of the bleeding that he had intraoperative, Dr. Yoo was consulted postop and did an emboliz ation of one of his pelvic arterial vessels to help with postoperative bleeding. I went ahead and sa w this patient in the ICU. He does have some evidence for anasarca. His CAT scan did show ascites f luid. He has got edema of his lower extremities, some scrotal edema. He has got bilateral hydrocele s. He is circumcised. He has got a small caliber catheter and draining of grossly bloody urine. He does not have any scrotal or perineal hematoma. He has a Pfannenstiel type incision, which is dress ed and had some oozing on the left side. We went ahead and took him down to Interventional Radiology and Dr. Phillips did a cystogram. He will dictate those results. After he has probably 200-250 mL fu ll, there was noted to be a small area of extravasation in the left side of the anterior bladder wall and there is no bony spicule or bone fragment in that region. It did not appear that it was a porti on of the bladder that was trapped between any of the bony pieces. It was extraperitoneal and it was not a large leak at all. It was done with 500 mL and once he was drained, there was not a lot of fl uid left outside of the bladder. I would think that this is probably just a small extraperitoneal bl adder leak that may have occurred just when the bladder was dissected off of this pelvic seroma in or marie for them to get to the anterior pelvic bones to stabilize them. I think at this point, we will g o ahead and just leave a large caliber catheter in and repeat a cystogram in 10-14 days and I have re placed sterilely the catheter they had with a 22-Bulgarian three-way 30 mL with the irrigation port plug ged and we placed 20 mL in the balloon. The irrigation fluid drained was clear until maybe the last 100 mL and then it got bloody again. It would not make much sense that he would have any type of upp er tract bleeding at this point and I think with a small extraperitoneal bladder injury to explain th e gross hematuria, especially considering his liver disease. I talked with his nurse, we will be abl e go ahead and gently irrigate the catheter if it stops draining. I will check with some of the othe r urologists in the morning and if there is any consensus that it would be better to take this patien t back to the OR and close this little area, then we can look at doing that tomorrow. Although I thi nk that I would probably just treat this as an extraperitoneal bladder injury and expect that it woul d heal with catheter drainage. There is nothing to suggest that it would not. PAST MEDICAL HISTORY: Includes multiple suicide attempts, hepatitis C, history of drug use, polysubs tance abuse, glaucoma, hypertension, alcoholism, anemia, and encephalopathy related to his liver dise ase. PAST SURGICAL HISTORY: He had a splenic embolization back in 2016 and then most recently he had ORIF of the pelvic fracture.
--- NOTE | 2017-09-13 12:58 | PRG ---
DATE OF SERVICE: 09/13/2017 SUBJECTIVE: Mr. Welch is a 57-year-old man who attempted suicide by jumping off a bridge sustaining c omplex pelvic fractures, requiring operative fixations. The patient was returned to the operating ro om yesterday for revision. He received a large volume fluid resuscitation including blood and blood products. Postoperatively, hematuria was noted. Cystography revealed an extraperitoneal bladder inj ury. This requires treatment with Valle catheterization. The patient is on full mechanical ventilat or support. He is on no vasopressor or inotropic support at this time. Urinary output has been adeq uate at approximately 80 mL per hour. However, over the last 2 hours, urinary output had dropped off to now at 20 mL per hour. Urinary catheter has been flushed and does not appear to be any evidence of Valle catheter obstruction. The patient awakens with deep voice, moves all extremities and follow s commands. OBJECTIVE: VITAL SIGNS: Currently includes blood pressure 112/62, pulse is 110, respiratory rate is 18, maximum temperature in the last 24 hours is 98.5 degrees Fahrenheit, oxygen saturation currently is 100% on FiO2 of 21%. HEENT: Reveals normocephalic and atraumatic. Pupils equal, round, and reactive to light and accommo dation. HEART: Reveals regular rate with sinus tachycardia. No murmurs or gallops auscultated. LUNGS: Clear to auscultation bilaterally. Breathing regular and unlabored. ABDOMEN: Soft, nondistended. GENITOURINARY: There is an indwelling Valle catheter. There is mild scrotal edema. There is mild g ross hematuria. NEUROLOGIC: Reveals no focal deficits present. EXTREMITIES: 2+ radial and pedal pulses bilaterally. No ankle edema is present. LABORATORY DATA: Today includes a CBC with 21,100 white blood cells, hemoglobin and hematocrit was 8 .0 and 22.6 respectively. Platelet count is 119,000. Differential counts as follows, 77% segmented neutrophils, 5 bands, 13 lymphocytes, and 3 monocytes. Metabolic profile: Sodium 140, potassium is 5.2, chloride is 112, bicarbonate is 18, BUN 37, creatinine is 1.41, glucose is 189, magnesium 1.9, p hosphorus is 6.1. Arterial blood gas pH 7.40, pCO2 of is 32, pO2 of 71, oxygen saturation 98%, base excess negative 5.4, ionized calcium 1.3. IMPRESSION: 1. Postoperative day #1, status post revision, pelvic instrumentation for unstable pelvic fractures. 2. Acute blood loss anemia. 3. Resolving acute metabolic acidosis. 4. Acute kidney injury likely secondary to acute tubular necrosis. 5. Acute respiratory failure. 6. Acute hypomagnesemia. PLAN: 1. Continue with full mechanical ventilator support until the patient is hemodynamically stable. 2. Correct abnormal electrolytes. 3. Monitor urinary output as endpoint of resuscitation. 4. We will obtain bladder scan on 4 hours and exclude any bladder outlet obstruction. Total critical care time is 45 minutes.
[2017-09-13] MEDS: Nafcillin 2 GM in Sodium Chloride 0.9% 100 ML IVPB SCH ×3 (13:15→21:18)
[2017-09-13] MEDS: fentaNYL Citrate/PF 2,000 MCG in Sodium Chloride 0.9% 60 ML IV SCH (16:04)
[2017-09-13 18:28] LABS: Vancomycin, Random 26.7 ug/mL (See Comment)
[2017-09-13] MEDS ORDERED: Vancomycin HCl 1.5 GM in Sodium Chloride 0.9% 250 ML 300 ML IVPB SCH (19:00)
[2017-09-13] MEDS: Fentanyl 100 MCG/2 ML VIAL SLOW IVP SCH (20:01)
[2017-09-13] MEDS ORDERED: Fentanyl 100 MCG/2 ML VIAL SLOW IVP PRN (20:14)
[2017-09-13 20:30] LABS: CO2 Tension 34.6 mmHg (35.0-45.0); pH, Arterial 7.43 (7.35-7.45)
[2017-09-13 20:31] LABS: Actual Bicarbonate (HCO3a) 22.6 mEq/L (22-26); Base Excess (BEa) -1.5 mEq/L (0 (+/-) 2.5); Hematocrit-ABG 15.8 % (42.0-52.0); Hemoglobin (Hb) 5.3 g/dL (14.0-18.0); O2 Tension (PaO2) 311.7 mmHg (80.0-100.0)
[2017-09-13 20:32] LABS: Calcium, Ionized 1.2 mmol/L (1.12-1.30); Puncture Site ART LINE
--- NOTE | 2017-09-13 21:41 | CON ---
DATE OF CONSULTATION: 09/13/2017 REASON FOR CONSULTATION: Bacteremia, pelvic infection. HISTORY OF PRESENT ILLNESS: A 57-year-old patient, who has a history of chronic hepatitis C and alcoholism as well as end-stage liver disease, whom I had seen initially in 04/2016 when he presented after a presumed fall with trauma to the spleen and rupture, hemoperitoneum controlled with splenic artery coiling. At that time, he had a Staphylococcus aureus retrieved from peritoneal fluid aspirate and he was treated for 2 weeks. In 10/2016, he was admitted with hypertensive crisis and polysubstance abuse history including methamphetamines, amphetamines, cocaine, and cannabinoids as well as alcohol abuse. At that time, the patient signed against medical advice and was picked up by the daughter and then this time in August, he was admitted after a suicide attempt after falling from approximately 50 feet from a bridge and sustained various fractures, mostly in the pelvis, but some in the left lower extremity. At that time a perisplenic fluid collection was identified. He had evidence of rhabdomyolysis. He also had evidence of a left pelvic hematoma on the left iliopsoas hematoma. Closer to the end of this last stay, he developed signs of sepsis. Blood cultures were submitted, which revealed a 2/2 sets positive for methicillin susceptible Staphylococcus aureus. He was transferred to [facility] a few days later and it is not clear that he was continued on antimicrobial therapy there. In [facility], patient was having evidence of serosanguineous fluid drainage from his left hip wound and he had a persistently elevated WBC counts without documented fevers and had been started on vancomycin there as well as cefepime at the [facility]. PHYSICAL EXAMINATION: VITAL SIGNS: On arrival here, his BP was 160/60, heart rate 107, temperature 98 , respiratory rate 18, and O2 sat 99%. GENERAL: He appeared disheveled, but in no acute distress. HEART: Pertinent findings on the physical examination included tachycardia, but no murmurs. LUNGS: Clear to auscultation. ABDOMEN: Soft and nontender. Some serosanguineous drainage from the incisional wounds on the left side. EXTREMITIES: The extremities appear to be perfusing well. INITIAL LABORATORY DATA: White cell count of 18,000 with a left shift, hemoglobin 8.5, platelets 611, potassium 4.9, creatinine 0.96, ammonia 17. The patient had haziness in the left lower lobe and the patient had a CT of pelvis completed, which demonstrated diffuse free fluid within the image of the abdomen and pelvis. Bilateral hydroceles and this placed screws that had been placed in the pelvis fracture with change in orientation with loss of attachment to the pelvic bone and distraction of the fracture fragments in the region of the left iliac bone. There was an ill-defined fluid collection centered at the level of the fractures in the superior and inferior pubic rami extending into the adjacent musculature suggesting abscess formation. There were areas of bone loss suggestive of associated osteomyelitis. Additional fluid collection seen in the region of the gracilis muscle in the left side, obturator externus, pectineus and gluteal musculature and iliopsoas musculature on the left. A cystogram demonstrated evidence of bladder leak along the anterior inferior aspect of the urinary bladder. He had a selective embolization of the left gluteal area and internal iliac area because of concern with arterial leak due to hypotension. Yesterday, he underwent wound drainage from the left hip wound with open reduction internal fixation left sacroiliac joint, left ilium fracture, open reduction internal fixation of anterior pelvic ring disruption, left sacroiliac screw placement, irrigation and debridement of left hip wounds. Currently, Mr. Welch is intubated and sedated in the CCU, miotic eyes, the nurse says that he has had no stool output. He has not been fed yet at the moment. PAST MEDICAL HISTORY: Includes hypertension, chronic hepatitis C with end- stage renal disease with no prior treatments, episodes of pancreatitis in the past, alcoholism, chronic smoking. Polysubstance abuse, including methamphetamine and cocaine. Glaucoma, prior injuries with a splenic rupture, which required arterial embolization. Prior episode of peritonitis secondary to methicillin-susceptible Staphylococcus aureus in 2016, treated for 2 weeks, and now this recent events were he had a suicidal attempt with fall and fractures in the pelvis and left lower extremity. Patient had a Staphylococcus aureus and methicillin-sensitive staphylococcus aureus bacteremia and then was transferred to [facility] and then readmitted with this syndrome. ALLERGIES: None. CURRENT MEDICATIONS: Include Dulcolax, Catapres, dextrose, fentanyl, folic acid , glucagon, hydralazine, lactulose, levothyroxine, lorazepam, Megace, morphine sulfate, nafcillin has been started, Zofran, pantoprazole, MiraLax, Diprivan, sodium bicarbonate, tamsulosin, and thiamine. FAMILY HISTORY: Noncontributory. REVIEW OF SYSTEMS: His T-max 99, currently 98.2. Blood pressure 111/62, pulse of 111, heart rate 109, and O2 sats 98%. I believe 40 and 5 of settings. SKIN: Shows area of heel pressure injury, deep tissue injury on the right side. There is a right upper extremity PICC line in stable position. It is not clear when this PICC line was inserted. It looks like he had one done in , but this was present in the left upper extremity. It is possible that this line was inserted at the [facility] since I do not see the procedure note in reference to placement of a PICC line during this admission from [facility]. The patient has a Valle catheter. The output has been 1200 over the past 24 hours. Orotracheal tube with an oral gastric tube in place, and I do not see any drains. HEENT: His sclerae white. Pupils are equal. Maybe a little bit of icterus in the scleral area. Oral cavity dry. No jugular vein distention. LUNGS: Symmetric air entry and no obvious murmurs. ABDOMEN: Not distended, no ascites. EXTREMITIES: Pulses are 1+ dorsalis pedis. NEURO: I could not test his movements or cognitive function. LABORATORY AND X-RAY FINDINGS: White cell count is up from 18-21,000, hemoglobin is stable at 8, MCV 90, platelets down from 611 to 119, neutrophil percentage 77. Bands are 5. Sodium 140, creatinine 1.41, which is up from admission and phosphorus at 6.1, glucose 196. Urinalysis with 0-3 wbc's. Vancomycin trough 31. Two sets of blood cultures from 08/27/2017 with Staph aureus. Urine culture no growth at 24 hours. I do not see any sets of blood cultures done this time, although that may have been done just recently and we have 2 samples from the pelvis area and hip with pending results. The Gram stain showed no organisms and few WBCs seen. ASSESSMENT AND PLAN: 1. Alcoholism with chronic hepatitis C, not treated with end-stage liver disease or advanced liver disease with evidence of portal hypertension in the past. 2. Suicidal ideation with attempt and pelvic fractures. 3. Recent interventions with then development of Staphylococcus aureus, methicillin-sensitive staphylococcus aureus bacteremia. He also had a previous episode of methicillin-sensitive staphylococcus aureus infection in the perineal area in 2016, it is not clear the connection between both episodes. 4. Infected pelvic collections including evidence of abscess formation and pyomyositis within the pelvic musculature. These areas of involvement are quite extensive. Further assessment of those areas of involvement may be achieved with an MRI down the road if necessary. A spine involvement would be another concern in view of the involvement of the iliopsoas muscle, but it is more likely that the iliopsoas is involved at the level of the pelvis. 5. Possible line colonization specifically the PICC line is not clear that the PICC line was inserted here and may have been colonized. 6. Some degree of renal insufficiency from the sepsis. DISCUSSION: The patient should have received a longer course of therapy for the bacteremia that was detected in August and the readmission is very likely a result of the recrudescence of inflammatory process after transfer to the [facility]. He may have colonization of the catheter if that was placed in the neuro rehabilitation. I will go ahead and sample blood from the PICC line if positive, then I would recommend replacement of the PICC line. Clearly he does have the pelvic musculature in the pelvic area with formation of abscess as the most likely source. He had a surgical debridement and will require protracted antimicrobial therapy. We will switch him to nafcillin for the time being, but eventually transitioned to cefazolin. The duration of therapy will be probably at least until sometime in mid October. Other areas of involvement including possibility of endocardial involvement need to be considered and I believe that his last echocardiogram was done in 04/2016. We will go ahead and repeat that. KAYDEN
[2017-09-14] MEDS: cloNIDine 0.2 MG TAB PO SCH ×4 (01:06→17:03)
[2017-09-14] MEDS: Fentanyl 100 MCG/2 ML VIAL SLOW IVP PRN ×3 (01:07→13:35)
[2017-09-14] MEDS: Nafcillin 2 GM in Sodium Chloride 0.9% 100 ML IVPB SCH ×6 (01:10→20:58)
[2017-09-14] MEDS: Sodium Bicarbonate 100 MEQ in Dextrose 5% in Water 1,000 ML IV SCH ×2 (05:19→13:33)
[2017-09-14] MEDS: Levothyroxine Sodium 50 MCG TAB PO SCH (05:20)
[2017-09-14 06:27] LABS: #Basophils 0.1 thou/uL (0.0-0.2); #Eosinphils 0.1 thou/uL (0.0-0.7); #Lymphocytes 3.4 thou/uL (1.20-3.40); #Monocytes 1.8 thou/uL (0.11-0.59); #Neutrophils 13.4 thou/uL (1.40-6.50); %Basophils 0.4 % (0.0-1.0); %Eosinophils 0.3 % (0.0-10.0); %Lymphocytes 18.2 % (21.0-51.0); %Monocytes 9.5 % (0.0-10.0); %Neutrophils 71.6 % (42.0-75.0); Hemoglobin 5.5 g/dL (14.0-18.0); Mean Corpuscular Hemoglobin 32.9 pg (27.0-31.0); Mean Corpuscular Volume 94.1 fl (80.0-94.0); Mean Platelet Volume 8.5 fL (7.4-10.4); Platelet Count 174 thou/uL (130-400); RBC Distribution Width 15.5 % (11.5-14.5); Red Blood Cell (RBC) Count 1.66 mill/uL (4.70-6.10); White Blood Cell (WBC) Count 18.7 thou/uL (4.8-10.8)
[2017-09-14 07:00] LABS: Anion Gap 9 mmol/L (10-20); BUN (Urea Nitrogen) 47 mg/dL (8.4-25.7); Calc. Creatinine Clearance 40 mL/min (70-130); Calcium 7.9 mg/dL (7.8-10.44); Carbon Dioxide 24 mmol/L (22-29); Chloride 108 mmol/L (98-107); Estimated GFR-MDRD 34; Glucose 101 mg/dL (70-105); Potassium 4.1 mmol/L (3.5-5.1); Sodium 137 mmol/L (136-145)
[2017-09-14] MEDS: Bisacodyl 10 MG SUPP PR SCH (07:59)
[2017-09-14] MEDS: Folic Acid 1 MG TAB PO SCH (08:00)
[2017-09-14] MEDS: Tamsulosin HCl 0.4 MG CAP PO SCH ×2 (08:00→20:59)
[2017-09-14] MEDS: Polyethylene Glycol 3350 17 GM Packet PO SCH (08:02)
[2017-09-14] MEDS: Senokot S 8.6-50 MG TAB PO SCH ×2 (08:02→20:59)
[2017-09-14] MEDS: Multivit, Therapeutic 1 TAB PO SCH (08:02)
[2017-09-14] MEDS: Megestrol Acetate 800 MG/20 ML UDCUP PO SCH (08:03)
--- NOTE | 2017-09-14 12:53 | PRG ---
DATE OF SERVICE: 09/14/2017 ATTENDING PHYSICIAN: Dr. Paul Betts. SUBJECTIVE: Mr. Welch is a 57-year-old man who attempted suicide by jumping off a bridge sustaining c omplex pelvic fractures requiring operative fixations. He is now postoperative day #2, status post r evision of a pelvic fracture repair. In the initial postoperative period, he required large volume f luid resuscitation including blood and blood products. He was then managed in the surgical ICU where he remained intubated on mechanical ventilator support. Vasopressors were able to be weaned off. H e subsequently self extubated last p.m. Blood gas and a clinical exam did not identify a need for re intubation at that time. He remained stable on room air, last p.m. He continues to be seen by [facility] who is managing an extraperitoneal bladder injury. Urine output was somewhat decreased yesterday, but has improved overnight and today. Hemoglobin is 5.5 this morning, down from 8.0 yesterday. OBJECTIVE: VITAL SIGNS: Temperature 98.2, heart rate 115, respirations 24, O2 sat 96% on room air, blood pressu re 115/50. GENERAL: Chronically ill-appearing male lying in bed, in no acute distress. HEENT: Atraumatic, normocephalic. CARDIOVASCULAR: Sinus tachycardia. Heart sounds normal. PULMONARY: Respirations even and unlabored. No respiratory distress. Bilateral breath sounds clear . ABDOMEN: Soft, nondistended. Surgical incisions in left hip with serous fluid draining on dressing. GENITOURINARY: Valle catheter in place with hematuria, moderate scrotal edema. NEUROLOGIC: The patient is awake, follows commands, confused. GCS 14. EXTREMITIES: Moves all extremities well. Cap refill brisk. A 2+ pulses in all extremities. LABORATORY DATA: Hematology: WBC 18.7 down from 21.1 yesterday, RBC 1.66, hemoglobin 5.5, hematocri t 15.7, platelets 174. Chemistry: Sodium 137, potassium 4.1, chloride 108, carbon dioxide 24, BUN 4 7 from 37 yesterday, creatinine 2.03 up from 1.41 yesterday. ASSESSMENT: 1. Status post blunt trauma after jump from a bridge. 2. Postoperative day #2, status post revision, pelvic instrumentation for unstable pelvic fractures. 3. Acute blood loss anemia. 4. Acute kidney injury. 5. Acute respiratory failure, resolved. PLAN: 1. Continue sodium bicarbonate, IV fluid administration. 2. Two units of PRBC to be administered today. 3. Continue to monitor urinary output. 4. Monitor serum BUN and creatinine. 5. Urology continuing to follow. The patient was reviewed with Dr. Betts who agrees with the plan.
[2017-09-14] MEDS: Micafungin 100 MG in Sodium Chloride 0.9% 100 ML IVPB SCH (13:33)
--- NOTE | 2017-09-14 13:36 | PRG ---
DATE OF SERVICE: 09/14/2017 SUBJECTIVE: No new events overnight. The patient has no complaints. OBJECTIVE: His vitals have been stable, but he has had increased respiratory rate and tachycardia noted. Urine output has picked up recently and is now closer to 50mL/h and is tea-colored. His creatinine elevated to 2.03 from 1.41 while the creatinine in the fluid that was tested from drainage is only 1.84 consistent with serum and not urine. His antibiotics are per ID. His scrotum is significantly edematous and penis therefore buried. Valle catheter did appear to be somewhat on tension, so this was pushed back in and secured appropriately, his scrotum was elevated. Hemoglobin and hematocrit are down from 8 to 5.5 and 22 to 15.7. Platelets have gone up from 119 to 174 and his white count has gone down to 18.7. ASSESSMENT AND PLAN: We have a 57-year-old male with multiple injuries and issues including hepatitis C, cirrhosis with clotting issues and anasarca, but his urine is improving and the Valle catheter needs to remain indwelling given his small extraperitoneal bladder perforation that was noted recently. Continue Valle; hand irrigation only with small amounts under low pressure if catheter clots/necessary. Monitor for now from a urologic standpoint at this time. TALITAD
[2017-09-14 17:15] LABS: #Eosinphils 0.1 thou/uL (0.0-0.7); #Lymphocytes 4.3 thou/uL (1.20-3.40); #Monocytes 1.8 thou/uL (0.11-0.59); #Neutrophils 12.7 thou/uL (1.40-6.50); %Basophils 0.2 % (0.0-1.0); %Eosinophils 0.3 % (0.0-10.0); %Lymphocytes 22.6 % (21.0-51.0); %Monocytes 9.4 % (0.0-10.0); %Neutrophils 67.5 % (42.0-75.0); Hemoglobin 8.1 g/dL (14.0-18.0); Mean Corpuscular HGB CONC 34.5 g/dL (32.0-36.0); Mean Corpuscular Hemoglobin 30.8 pg (27.0-31.0); Mean Corpuscular Volume 89.1 fl (80.0-94.0); Platelet Count 169 thou/uL (130-400); RBC Distribution Width 14.5 % (11.5-14.5); Red Blood Cell (RBC) Count 2.63 mill/uL (4.70-6.10); White Blood Cell (WBC) Count 18.9 thou/uL (4.8-10.8)
[2017-09-14] MEDS: Pantoprazole 40 MG VIAL IVP SCH (21:00)
[2017-09-14] MEDS: Dextrose 5 %-0.45 % NaCl 1,000 ML IV SCH (21:21)
[2017-09-15] MEDS: cloNIDine 0.2 MG TAB PO SCH ×5 (00:21→23:40)
[2017-09-15] MEDS: Nafcillin 2 GM in Sodium Chloride 0.9% 100 ML IVPB SCH ×6 (00:25→20:00)
[2017-09-15 06:02] LABS: #Basophils 0.1 thou/uL (0.0-0.2); #Eosinphils 0.1 thou/uL (0.0-0.7); #Lymphocytes 3.1 thou/uL (1.20-3.40); #Monocytes 1.5 thou/uL (0.11-0.59); #Neutrophils 11.6 thou/uL (1.40-6.50); %Basophils 0.3 % (0.0-1.0); %Eosinophils 0.4 % (0.0-10.0); %Lymphocytes 19.1 % (21.0-51.0); %Monocytes 9.2 % (0.0-10.0); Hemoglobin 8.5 g/dL (14.0-18.0); Mean Corpuscular HGB CONC 34.3 g/dL (32.0-36.0); Mean Corpuscular Hemoglobin 30.9 pg (27.0-31.0); Mean Corpuscular Volume 90.1 fl (80.0-94.0); Mean Platelet Volume 7.4 fL (7.4-10.4); Platelet Count 194 thou/uL (130-400); RBC Distribution Width 14.8 % (11.5-14.5); Red Blood Cell (RBC) Count 2.76 mill/uL (4.70-6.10); White Blood Cell (WBC) Count 16.3 thou/uL (4.8-10.8)
[2017-09-15] MEDS: Levothyroxine Sodium 50 MCG TAB PO SCH (06:13)
[2017-09-15 06:17] LABS: Anion Gap 13 mmol/L (10-20); BUN (Urea Nitrogen) 38 mg/dL (8.4-25.7); Calc. Creatinine Clearance 42 mL/min (70-130); Calcium 7.9 mg/dL (7.8-10.44); Carbon Dioxide 23 mmol/L (22-29); Chloride 107 mmol/L (98-107); Estimated GFR-MDRD 36; Glucose 115 mg/dL (70-105); Phosphorus 3.3 mg/dL (2.3-4.7); Potassium 3.1 mmol/L (3.5-5.1); Sodium 140 mmol/L (136-145)
[2017-09-15] MEDS ORDERED: Potassium Chloride 40 MEQ in Premix Bag 1 BAG IVPB SCH (07:15)
[2017-09-15] MEDS: Dextrose 5 %-0.45 % NaCl 1,000 ML IV SCH ×2 (09:20→19:45)
[2017-09-15] MEDS: Tamsulosin HCl 0.4 MG CAP PO SCH ×2 (09:24→19:59)
[2017-09-15] MEDS: Megestrol Acetate 800 MG/20 ML UDCUP PO SCH (09:24)
[2017-09-15] MEDS: Folic Acid 1 MG TAB PO SCH (09:24)
[2017-09-15] MEDS: Multivit, Therapeutic 1 TAB PO SCH (09:24)
[2017-09-15] MEDS: Polyethylene Glycol 3350 17 GM Packet PO SCH (09:25)
[2017-09-15] MEDS: Senokot S 8.6-50 MG TAB PO SCH ×2 (09:26→20:00)
[2017-09-15] MEDS: Potassium Chloride 20 MEQ in Premix Bag 1 BAG IVPB SCH ×2 (11:33→14:07)
[2017-09-15] MEDS: Bisacodyl 10 MG SUPP PR SCH (12:16)
[2017-09-15] MEDS: Morphine 4 MG/ML VIAL SLOW IVP PRN ×3 (12:39→23:40)
[2017-09-15] MEDS: Micafungin 100 MG in Sodium Chloride 0.9% 100 ML IVPB SCH (14:17)
--- NOTE | 2017-09-15 14:36 | PRG ---
DATE OF SERVICE: 09/15/2017 S: The patient had no new events overnight other than persistent leakage or drainage from multiple sites. He has no complaints. O: He has been afebrile and still has some borderline tachycardia and increased respiratory rate. He still has scrotal edema, although it is slightly improved from the day prior and appropriately elevated. His catheter does appear to be secured appropriately and not contributing to any pressure changes related to the scrotum. It is draining in the bag pink-tinged urine, but from the tubing yellow urine. LABORATORY DATA: His creatinine is improving at 1.91 and his H and H is better at 8.5 and 24.9. ASSESSMENT/PLAN: We have a 57-year-old male with multiple issues including an extraperitoneal bladder perforation with Valle catheter draining appropriately at this time. Continue current management. MTDD
--- NOTE | 2017-09-15 19:06 | PRG ---
DATE OF SERVICE: 09/15/2017 ATTENDING PHYSICIAN: Paul Betts D.O. SUBJECTIVE: Mr. Welch is a 57-year-old man who attempted suicide by jumping off a bridge sustaining c omplex pelvic fractures requiring operative fixation. He is now postoperative day #3 status post rev ision of a pelvic fracture repair. In the initial postoperative period, he required a large volume o f fluid resuscitation including blood and blood products. He was then managed in the surgical ICU wh ere he remained intubated on mechanical ventilator support. Vasopressors were able to be weaned off and he subsequently self extubated. He has remained hemodynamically stable since that time. He has not required any further respiratory support. He is currently on room air. He continues to have epi sodes of confusion, but is cooperative with questioning. Hemoglobin today is stable at 8.5 from 8.1 yesterday. Creatinine today is improving. Creatinine is 1.91 down from 2.03 yesterday. OBJECTIVE: VITAL SIGNS: Temperature 98.6, pulse 83, respirations 22, O2 sat 99% on room air, blood pressure 137 /77. CONSTITUTIONAL: Chronically ill-appearing male, lying in bed, in no acute distress. HEENT: Atraumatic, normocephalic. CARDIOVASCULAR: Sinus tachycardia. Heart sounds normal. PULMONARY: Respirations even and unlabored. No respiratory distress. Bilateral breath sounds clear . ABDOMEN: Soft, nondistended. Surgical incisions in left hip with serous fluid draining. GENITOURINARY: Valle catheter in place with hematuria, moderate scrotal edema. NEUROLOGIC: The patient is awake, follows commands, confused. GCS is 14. EXTREMITIES: Moves all extremities well. Cap refill brisk, 2+ pulses in all extremities. LABORATORY DATA: Hematology: WBC 16.3, RBC 2.76, hemoglobin 8.5, hematocrit 24.9, platelets 194. C hemistry: Sodium 140, potassium 3.1, chloride 107, carbon dioxide 23, BUN 38, creatinine 1.91. ASSESSMENT: 1. Status post blunt trauma after jump from bridge. 2. Postoperative day #3, status post revision, pelvic instrumentation for stable pelvic fracture. 3. Acute blood loss anemia requiring transfusion. 4. Acute kidney injury. 5. Acute respiratory failure, resolved. 6. Hypokalemia. PLAN: 1. Continue to monitor urinary output. 2. Continue to monitor hemoglobin and hematocrit and transfuse as indicated. 3. Creatinine trending down. Continue to monitor and continue IV fluids. 4. Add Ensure for supplementation. 5. Start Lovenox 30 mg q. day. The patient was seen and examined with Dr. Betts, who agrees with plan.
[2017-09-15] MEDS: Pantoprazole 40 MG VIAL IVP SCH (19:57)
[2017-09-15] MEDS: Enoxaparin Sodium 30 MG/0.3 ML SYRINGE SC SCH (19:59)
[2017-09-16] MEDS: Nafcillin 2 GM in Sodium Chloride 0.9% 100 ML IVPB SCH ×6 (01:22→21:26)
[2017-09-16] MEDS: Levothyroxine Sodium 50 MCG TAB PO SCH (05:19)
[2017-09-16] MEDS: cloNIDine 0.2 MG TAB PO SCH ×4 (05:19→23:22)
[2017-09-16] MEDS: Dextrose 5 %-0.45 % NaCl 1,000 ML IV SCH ×2 (06:26→14:39)
[2017-09-16 07:48] LABS: #Basophils 0.1 thou/uL (0.0-0.2); #Eosinphils 0.1 thou/uL (0.0-0.7); #Lymphocytes 2.3 thou/uL (1.20-3.40); #Monocytes 1.5 thou/uL (0.11-0.59); #Neutrophils 10.1 thou/uL (1.40-6.50); %Basophils 0.4 % (0.0-1.0); %Eosinophils 0.7 % (0.0-10.0); %Lymphocytes 16.2 % (21.0-51.0); %Monocytes 10.8 % (0.0-10.0); %Neutrophils 71.9 % (42.0-75.0); Hemoglobin 8.7 g/dL (14.0-18.0); Mean Corpuscular HGB CONC 33.1 g/dL (32.0-36.0); Mean Corpuscular Volume 93.7 fl (80.0-94.0); Mean Platelet Volume 7.6 fL (7.4-10.4); Platelet Count 277 thou/uL (130-400); RBC Distribution Width 15.5 % (11.5-14.5); Red Blood Cell (RBC) Count 2.81 mill/uL (4.70-6.10)
[2017-09-16] MEDS ORDERED: Potassium Chloride 20 MEQ TAB PO SCH (08:00)
[2017-09-16 08:04] LABS: Anion Gap 12 mmol/L (10-20); BUN (Urea Nitrogen) 30 mg/dL (8.4-25.7); Calc. Creatinine Clearance 60 mL/min (70-130); Calcium 7.6 mg/dL (7.8-10.44); Carbon Dioxide 23 mmol/L (22-29); Chloride 108 mmol/L (98-107); Estimated GFR-MDRD 42; Glucose 119 mg/dL (70-105); Magnesium 1.7 mg/dL (1.6-2.6); Phosphorus 3.2 mg/dL (2.3-4.7); Sodium 140 mmol/L (136-145)
[2017-09-16] MEDS: Folic Acid 1 MG TAB PO SCH (10:19)
[2017-09-16] MEDS: Bisacodyl 10 MG SUPP PR SCH (10:19)
[2017-09-16] MEDS: Megestrol Acetate 800 MG/20 ML UDCUP PO SCH (10:20)
[2017-09-16] MEDS: Multivit, Therapeutic 1 TAB PO SCH (10:20)
[2017-09-16] MEDS: Polyethylene Glycol 3350 17 GM Packet PO SCH (10:21)
[2017-09-16] MEDS: Senokot S 8.6-50 MG TAB PO SCH ×2 (10:22→21:28)
[2017-09-16] MEDS: Tamsulosin HCl 0.4 MG CAP PO SCH ×2 (10:22→21:28)
[2017-09-16] MEDS ORDERED: Magnesium 2 GM/NS 0.9% 100 ML 2 GM in Premix Bag 1 BAG IVPB SCH (12:15)
[2017-09-16] MEDS: Micafungin 100 MG in Sodium Chloride 0.9% 100 ML IVPB SCH (12:25)
--- NOTE | 2017-09-16 18:01 | PRG ---
DATE OF SERVICE: 09/16/2017 SUBJECTIVE: Mr. Welch is a 57-year-old man status post attempted suicide by jumping off a bridge. Th e patient sustained complex pelvic fractures which required operative fixation. He was readmitted wi th drainage from incisional wound. He since has undergone incision and drainage of the wound with a revision of the operative fixation. Currently, the patient is awake and alert. He is occasionally agitated and confused, but easily reor iented. He reports adequate pain control. He moves all extremities and follows commands. He tolera kip oral intake. He is having normal bowel and urinary function. OBJECTIVE: VITAL SIGNS: Currently includes blood pressure 162/86, pulse is 85, respirations 22, temperature is 98.4 degrees Fahrenheit, and oxygen saturation is 97% on room air. HEENT: Pupils equal, round, and reactive to light and accommodation. HEART: Reveals regular rate and rhythm, no murmurs or gallops auscultated. CHEST: Lungs are clear to auscultation bilaterally. Breathing regular and unlabored. ABDOMEN: Soft, nontender, nondistended. EXTREMITIES: Reveals 2+ radial and pedal pulses bilaterally. There is residual left ankle edema pre sent. Left groin and left lateral proximal thigh wound draining serous fluid. Wound VAC dressing wa s reapplied this morning. NEUROLOGIC: Reveals no focal deficits present. PERTINENT LABORATORY DATA: Today includes a CBC with 14,000 white blood cells, hemoglobin and hemato crit stable at 8.7 and 26.4 respectively. Platelet count is 277,000. Metabolic profile: Sodium 140 , potassium is 3.0, chloride is 108, bicarbonate is 23, BUN is 30, creatinine is 1.67, glucose is 119 , magnesium 1.7, and phosphorus is 3.2. IMPRESSION: 1. Status post revision of pelvic fracture repair. 2. Acute hypokalemia. 3. Acute hypomagnesemia. 4. Acute kidney injury, resolving. 5. Acute metabolic encephalopathy, improving. PLAN: 1. Continue physical and occupational therapy. 2. Correct abnormal electrolytes. 3. We will ask case management to initiate evaluation in consideration for placement either to rehab or back to inpatient psychiatric unit once the patient is more hemodynamically stable.
--- NOTE | 2017-09-16 20:31 | PRG ---
DATE OF SERVICE: 09/16/2017 SUBJECTIVE: The patient is delusional and having hallucinations and some psychomotor agitation. He denies any pain, but again his personal account is not reliable. His T-max 98.7, blood pressure 150/ 80, pulse 85-103, O2 sat 97%. Area of incision in the suprapubic area with estevan in place and some bruising around it and the lateral hip incision as well left side. OBJECTIVE: GENERAL: Awake, somewhat agitated, establishes eye contact. LUNGS: Symmetric air entry. HEART: S1, S2, regular rate. ABDOMEN: Slightly distended. LABORATORY: White cell count 14,000, hemoglobin 8.7, platelets 277. Sodium 140, creatinine 1.67, wh ich is improved from past few days. Pelvic swab culture with yeast species. Two sets of blood cultu res, no growth thus far. Hip swab culture with no anaerobes isolated. The previous cultures from with Staphylococcus aureus. ASSESSMENT AND DISCUSSION: Alcoholism and chronic hepatitis C, not treated, with end-stage liver dis ease and suicidal ideation with attempt and pelvic fractures, recent intervention and then Staphyloco ccus aureus, methicillin-sensitive Staph aureus bacteremia with infected pelvic collections and pyomy ositis in multiple muscles in the pelvic area and evidence of delirium right now, currently on nafcil valery, eventually we will transition him to cefazolin for continuation of therapy. The end date of the rapy will be probably in another 6 weeks, probably sometime around October 22.
[2017-09-16] MEDS: Pantoprazole 40 MG VIAL IVP SCH (21:26)
[2017-09-16] MEDS: Enoxaparin Sodium 30 MG/0.3 ML SYRINGE SC SCH (21:27)
[2017-09-17] MEDS: Nafcillin 2 GM in Sodium Chloride 0.9% 100 ML IVPB SCH ×5 (01:26→17:00)
[2017-09-17 04:53] LABS: Anion Gap 12 mmol/L (10-20); BUN (Urea Nitrogen) 27 mg/dL (8.4-25.7); Calc. Creatinine Clearance 73 mL/min (70-130); Calcium 7.7 mg/dL (7.8-10.44); Carbon Dioxide 23 mmol/L (22-29); Chloride 108 mmol/L (98-107); Estimated GFR-MDRD 53; Glucose 118 mg/dL (70-105); Phosphorus 2.8 mg/dL (2.3-4.7); Potassium 3.2 mmol/L (3.5-5.1); Sodium 140 mmol/L (136-145)
[2017-09-17] MEDS: Levothyroxine Sodium 50 MCG TAB PO SCH (05:19)
[2017-09-17] MEDS: cloNIDine 0.2 MG TAB PO SCH ×4 (05:19→23:37)
[2017-09-17] MEDS: Dextrose 5 %-0.45 % NaCl 1,000 ML IV SCH (05:19)
[2017-09-17] MEDS ORDERED: Potassium Chloride 40 MEQ in Premix Bag 1 BAG IVPB SCH (07:30)
[2017-09-17] MEDS ORDERED: Potassium Chloride 40 MEQ in Sodium Chloride 0.9% 250 ML 250 ML IVPB SCH (08:15)
[2017-09-17] MEDS: Bisacodyl 10 MG SUPP PR SCH (09:44)
[2017-09-17] MEDS: Senokot S 8.6-50 MG TAB PO SCH ×2 (10:26→21:13)
[2017-09-17] MEDS: Furosemide 20 MG/2 ML VIAL SLOW IVP SCH ×2 (10:27→21:14)
[2017-09-17] MEDS: Tamsulosin HCl 0.4 MG CAP PO SCH ×2 (10:27→21:11)
[2017-09-17] MEDS: Megestrol Acetate 800 MG/20 ML UDCUP PO SCH (10:28)
[2017-09-17] MEDS: Folic Acid 1 MG TAB PO SCH (10:28)
[2017-09-17] MEDS: Polyethylene Glycol 3350 17 GM Packet PO SCH (10:28)
[2017-09-17] MEDS: Multivit, Therapeutic 1 TAB PO SCH (10:28)
[2017-09-17] MEDS: Albumin 25% 25 GM/100 ML BOT IVPB SCH ×2 (10:29→21:14)
[2017-09-17] MEDS: Micafungin 100 MG in Sodium Chloride 0.9% 100 ML IVPB SCH (13:55)
--- NOTE | 2017-09-17 14:04 | PRG ---
DATE OF SERVICE: 09/17/2017 SUBJECTIVE: Mr. Welch is a 57-year-old gentleman with a history of psychiatric disorder. The patient attempted suicide by jumping off a bridge several weeks ago. He is status post revision repair for the pelvic fractures. Currently, he is in the Intermediate Care Unit. He is impulsive, but less agitated today. He is confused at baseline. He is tolerating oral intake and having normal bowel habits. Urine today is with gross hematuria. Apparently, the patient was pulling on his indw elling Valle catheter earlier today. At this time, he denies any abdominal pain or dyspnea. OBJECTIVE: VITAL SIGNS: Today includes blood pressure 147/83, pulse 86, respiratory 16, temperature 99.8 degree s Fahrenheit. Oxygen saturation is 99% on room air. HEENT: Reveals normocephalic and atraumatic. Pupils are equal, round, and reactive to light and acc ommodation. Extraocular muscles are intact bilaterally. HEART: Reveals regular rate and rhythm, no murmurs or gallops auscultated. CHEST: Clear to auscultation bilaterally. Breathing is regular and unlabored. ABDOMEN: Soft and nondistended and nontender to palpation. EXTREMITIES: Reveal 2+ radial and pedal pulses bilaterally. He has a resolving large scrotal edema. NEUROLOGIC: Reveals no focal deficits present. LABORATORY DATA: Today includes metabolic profile: Sodium 140, potassium 3.2, chloride is 108, bica rbonate 23, BUN 27, creatinine is 1.38, glucose is 118, magnesium 2.0, phosphorus 2.8. BNP is 528.6. IMPRESSION: 1. Postop day #5, status post revision pelvic fracture repair. 2. Extraperitoneal bladder injury. Valle catheter remains in place. 3. Acute metabolic encephalopathy. 4. Resolving acute kidney injury. 5. Acute hypokalemia. PLAN: 1. Correct abnormal electrolytes. 2. Continue with physical and occupational therapy. 3. Valle catheter remains in place with bladder irrigation will consider repeat cystography if the g ross hematuria persists. The above findings and plan discussed with the patient.
[2017-09-17] MEDS: CEFAZOLIN/Water 2 GM/20 ML SYRINGE SLOW IVP SCH (18:04)
[2017-09-17] MEDS: Pantoprazole 40 MG VIAL IVP SCH (21:13)
[2017-09-17] MEDS: Enoxaparin Sodium 30 MG/0.3 ML SYRINGE SC SCH (21:14)
[2017-09-17] MEDS ORDERED: traMADol HCl 50 MG TAB PO PRN (23:14)
[2017-09-17] MEDS: traMADol HCl 50 MG TAB PO PRN (23:37)
[2017-09-18] MEDS: CEFAZOLIN/Water 2 GM/20 ML SYRINGE SLOW IVP SCH ×3 (02:49→17:09)
[2017-09-18 04:08] LABS: #Basophils 0.1 thou/uL (0.0-0.2); #Eosinphils 0.2 thou/uL (0.0-0.7); #Lymphocytes 4.9 thou/uL (1.20-3.40); #Monocytes 1.9 thou/uL (0.11-0.59); #Neutrophils 10.6 thou/uL (1.40-6.50); %Basophils 0.4 % (0.0-1.0); %Monocytes 10.9 % (0.0-10.0); %Neutrophils 59.7 % (42.0-75.0); Hemoglobin 8.4 g/dL (14.0-18.0); Mean Corpuscular HGB CONC 32.2 g/dL (32.0-36.0); Mean Corpuscular Hemoglobin 30.8 pg (27.0-31.0); Mean Corpuscular Volume 95.6 fl (80.0-94.0); Mean Platelet Volume 7.3 fL (7.4-10.4); Platelet Count 430 thou/uL (130-400); RBC Distribution Width 15.6 % (11.5-14.5); Red Blood Cell (RBC) Count 2.72 mill/uL (4.70-6.10); White Blood Cell (WBC) Count 17.7 thou/uL (4.8-10.8)
[2017-09-18 04:25] LABS: Anion Gap 10 mmol/L (10-20); BUN (Urea Nitrogen) 22 mg/dL (8.4-25.7); Calc. Creatinine Clearance 92 mL/min (70-130); Calcium 7.9 mg/dL (7.8-10.44); Carbon Dioxide 23 mmol/L (22-29); Chloride 110 mmol/L (98-107); Estimated GFR-MDRD 69; Glucose 88 mg/dL (70-105); Magnesium 1.8 mg/dL (1.6-2.6); Phosphorus 2.7 mg/dL (2.3-4.7); Sodium 140 mmol/L (136-145)
[2017-09-18] MEDS: Levothyroxine Sodium 50 MCG TAB PO SCH (05:42)
[2017-09-18] MEDS: cloNIDine 0.2 MG TAB PO SCH ×3 (05:42→17:09)
[2017-09-18] MEDS: traMADol HCl 50 MG TAB PO PRN ×3 (05:53→20:29)
[2017-09-18] MEDS: Bisacodyl 10 MG SUPP PR SCH (07:50)
[2017-09-18] MEDS: Megestrol Acetate 800 MG/20 ML UDCUP PO SCH (07:51)
[2017-09-18] MEDS: Senokot S 8.6-50 MG TAB PO SCH ×2 (07:51→20:29)
[2017-09-18] MEDS: Polyethylene Glycol 3350 17 GM Packet PO SCH (07:51)
[2017-09-18] MEDS: Furosemide 20 MG/2 ML VIAL SLOW IVP SCH ×2 (08:49→21:45)
[2017-09-18] MEDS: Tamsulosin HCl 0.4 MG CAP PO SCH ×2 (08:50→20:30)
[2017-09-18] MEDS: Albumin 25% 25 GM/100 ML BOT IVPB SCH ×2 (08:50→20:28)
[2017-09-18] MEDS: Multivit, Therapeutic 1 TAB PO SCH (08:50)
[2017-09-18] MEDS: Folic Acid 1 MG TAB PO SCH (08:50)
[2017-09-18] MEDS ORDERED: Potassium Chloride 40 MEQ, Magnesium Sulfate 2 GM in Sodium Chloride 0.9% 250 ML 250 ML IVPB SCH (09:00)
[2017-09-18] MEDS: Ferrous Sulfate 325 MG TAB PO SCH ×2 (10:38→17:08)
[2017-09-18] MEDS: Ascorbic Acid 500 mg Chewable Tablet PO SCH ×2 (10:38→17:08)
[2017-09-18] MEDS: Micafungin 100 MG in Sodium Chloride 0.9% 100 ML IVPB SCH (12:43)
[2017-09-18] MEDS: Pantoprazole 40 MG VIAL IVP SCH (20:28)
[2017-09-18] MEDS: Enoxaparin Sodium 30 MG/0.3 ML SYRINGE SC SCH (20:32)
[2017-09-19] MEDS: cloNIDine 0.2 MG TAB PO SCH ×5 (00:37→23:34)
[2017-09-19] MEDS: HYDROcodone/Acetaminophen 5/325 mg Tablet PO PRN ×4 (00:38→23:35)
[2017-09-19] MEDS: CEFAZOLIN/Water 2 GM/20 ML SYRINGE SLOW IVP SCH ×3 (02:12→17:57)
[2017-09-19 05:12] LABS: #Basophils 0.1 thou/uL (0.0-0.2); #Eosinphils 0.3 thou/uL (0.0-0.7); #Lymphocytes 4.1 thou/uL (1.20-3.40); #Monocytes 1.8 thou/uL (0.11-0.59); #Neutrophils 11.1 thou/uL (1.40-6.50); %Basophils 0.7 % (0.0-1.0); %Eosinophils 1.6 % (0.0-10.0); %Lymphocytes 23.4 % (21.0-51.0); %Monocytes 10.5 % (0.0-10.0); %Neutrophils 63.9 % (42.0-75.0); Hemoglobin 8.4 g/dL (14.0-18.0); Mean Corpuscular HGB CONC 32.1 g/dL (32.0-36.0); Mean Corpuscular Hemoglobin 31.1 pg (27.0-31.0); Mean Platelet Volume 7.7 fL (7.4-10.4); Platelet Count 472 thou/uL (130-400); RBC Distribution Width 15.6 % (11.5-14.5); Red Blood Cell (RBC) Count 2.71 mill/uL (4.70-6.10); White Blood Cell (WBC) Count 17.5 thou/uL (4.8-10.8)
[2017-09-19 05:29] LABS: Anion Gap 8 mmol/L (10-20); BUN (Urea Nitrogen) 16 mg/dL (8.4-25.7); Calc. Creatinine Clearance 119 mL/min (70-130); Carbon Dioxide 23 mmol/L (22-29); Chloride 109 mmol/L (98-107); Estimated GFR-MDRD Greater than 90; Glucose 85 mg/dL (70-105); Magnesium 1.9 mg/dL (1.6-2.6); Phosphorus 2.5 mg/dL (2.3-4.7); Potassium 3.1 mmol/L (3.5-5.1); Sodium 137 mmol/L (136-145)
[2017-09-19] MEDS: Levothyroxine Sodium 50 MCG TAB PO SCH (05:42)
[2017-09-19] MEDS: Multivit, Therapeutic 1 TAB PO SCH (09:35)
[2017-09-19] MEDS: Folic Acid 1 MG TAB PO SCH (09:35)
[2017-09-19] MEDS: Senokot S 8.6-50 MG TAB PO SCH ×2 (09:35→21:26)
[2017-09-19] MEDS: Megestrol Acetate 800 MG/20 ML UDCUP PO SCH (09:35)
[2017-09-19] MEDS: Ascorbic Acid 500 mg Chewable Tablet PO SCH ×2 (09:35→17:56)
[2017-09-19] MEDS: Ferrous Sulfate 325 MG TAB PO SCH ×2 (09:36→17:56)
[2017-09-19] MEDS: Tamsulosin HCl 0.4 MG CAP PO SCH ×2 (09:37→21:26)
[2017-09-19] MEDS: Potassium Chloride 20 MEQ TAB PO SCH (09:39)
[2017-09-19] MEDS: Magnesium Oxide 400 MG TAB PO SCH ×2 (09:39→21:26)
[2017-09-19] MEDS: Micafungin 100 MG in Sodium Chloride 0.9% 100 ML IVPB SCH (13:20)
--- NOTE | 2017-09-19 17:07 | PRG ---
DATE OF SERVICE: 09/19/2017 SUBJECTIVE: Mr. Welch is currently still on the IMCU. According to nurses, he had a much better even ing and morning so far, far or less agitated than previous days. He is status post a suicide attempt after jumping off a bridge several weeks ago. He returned to our facility for revision of the pelvi c fracture, open reduction and internal fixation. PHYSICAL EXAMINATION: VITAL SIGNS: Temperature is 98.8, heart rate 97, blood pressure 147/70, respirations 18, oxygen satu ration 100% on room air. GENERAL: The patient is definitely less agitated today, will answer questions and appears appropriat e. HEENT: Unremarkable. LUNGS: Clear to auscultation with good inspiratory and expiratory effort. HEART: Regular rate and rhythm. ABDOMEN: Soft, flat, and nontender with active bowel sounds. EXTREMITIES: Neurovascularly intact x4. LABORATORY DATA AND IMAGING DATA: White blood cell count 17.5, hemoglobin 8.4, hematocrit. 26.3, saurabh telets 472. Sodium 137, potassium 3.1, chloride 109, CO2 23, BUN 16, creatinine 0.84, glucose 85, ph osphorus 2.5, magnesium 1.9. There are no radiographs to review this morning. ASSESSMENT AND PLAN: 1. Status post suicide attempt, jumping from a bridge. 2. Status post revision of open reduction and internal fixation of pelvis fracture. 3. Extraperitoneal bladder injury. 4. Encephalopathy. 5. Acute kidney injury, resolved. Plan will be to continue supportive care. We will maintain his antibiotic coverage per Infectious Di sease and transfer the patient to the surgical floor today. Begin physical and occupational therapy as soon as possible and begin the placement process again once the patient is medically able which sh ould be in the next couple of days.
--- NOTE | 2017-09-19 18:22 | PRG ---
DATE OF SERVICE: 09/19/2017 SUBJECTIVE: Mr. Welch is awake, is more oriented, follows commands, having some nausea intermittently . No headaches, no chest pain, no dyspnea, no abdominal pain. OBJECTIVE: VITAL SIGNS: Temperature max 98.8, blood pressure 160/82, pulse 71, respirations 18-24. GENERAL: Chronically ill appearing. No distress. HEENT: Ocular movements conjugate. Pupils are equal and reactive. Oral cavity moist. LUNGS: With symmetric air entry. ABDOMEN: Distended and tympanitic. Question of ascites, no organomegaly, no bladder distention. Fo margaux catheter in place. There is a 3+ in the edema lower extremities. He is able to move all extremi ties with some limitations. LABORATORY DATA: White cell count 17.5, hemoglobin 8.4, platelets 472, sodium 137, creatinine 0.84. ASSESSMENT AND DISCUSSION: Patient is currently on cefazolin q.8 hours, to be continued, I believe u ntil first 2 weeks of antifungal can be transitioned to oral Diflucan for another two weeks.
[2017-09-19] MEDS: Pantoprazole 40 MG VIAL IVP SCH (21:26)
[2017-09-19] MEDS: Enoxaparin Sodium 30 MG/0.3 ML SYRINGE SC SCH (21:26)
[2017-09-20] MEDS: traMADol HCl 50 MG TAB PO PRN ×3 (02:00→15:47)
[2017-09-20] MEDS: CEFAZOLIN/Water 2 GM/20 ML SYRINGE SLOW IVP SCH ×3 (02:01→17:35)
[2017-09-20] MEDS: HYDROcodone/Acetaminophen 5/325 mg Tablet PO PRN ×3 (05:26→17:45)
[2017-09-20] MEDS: cloNIDine 0.2 MG TAB PO SCH ×3 (05:26→17:35)
[2017-09-20] MEDS: Levothyroxine Sodium 50 MCG TAB PO SCH (05:26)
[2017-09-20] MEDS: Multivit, Therapeutic 1 TAB PO SCH (08:58)
[2017-09-20] MEDS: Ascorbic Acid 500 mg Chewable Tablet PO SCH ×2 (08:58→17:35)
[2017-09-20] MEDS: Megestrol Acetate 800 MG/20 ML UDCUP PO SCH (08:58)
[2017-09-20] MEDS: Fluconazole 100 MG TAB PO SCH (08:58)
[2017-09-20] MEDS: Tamsulosin HCl 0.4 MG CAP PO SCH ×2 (08:58→20:19)
[2017-09-20] MEDS: Potassium Chloride 20 MEQ TAB PO SCH (08:58)
[2017-09-20] MEDS: Magnesium Oxide 400 MG TAB PO SCH ×2 (08:58→20:19)
[2017-09-20] MEDS: Folic Acid 1 MG TAB PO SCH (08:59)
[2017-09-20] MEDS: Senokot S 8.6-50 MG TAB PO SCH ×2 (08:59→20:19)
[2017-09-20] MEDS: Ferrous Sulfate 325 MG TAB PO SCH ×2 (08:59→17:35)
[2017-09-20] MEDS ORDERED: Fluconazole 100 MG TAB PO SCH (09:00)
[2017-09-20 10:09] LABS: Anion Gap 10 mmol/L (10-20); BUN (Urea Nitrogen) 16 mg/dL (8.4-25.7); Calc. Creatinine Clearance 0 mL/min (70-130); Calcium 7.5 mg/dL (7.8-10.44); Carbon Dioxide 21 mmol/L (22-29); Chloride 107 mmol/L (98-107); Estimated GFR-MDRD Greater than 90; Glucose 122 mg/dL (70-105); Magnesium 1.6 mg/dL (1.6-2.6); Phosphorus 2.2 mg/dL (2.3-4.7); Potassium 3.5 mmol/L (3.5-5.1); Sodium 134 mmol/L (136-145)
[2017-09-20] MEDS ORDERED: K-Phos Neutral 250 MG TAB PO SCH (11:00)
[2017-09-20] MEDS ORDERED: Furosemide 20 MG/2 ML VIAL SLOW IVP SCH (15:30)
--- NOTE | 2017-09-20 15:48 | PRG ---
DATE OF SERVICE: 09/20/2017 SUBJECTIVE: Mr. Welch is a 57-year-old male status post suicide attempt by jumping off a bridge that resulted in complex pelvic fractures. He is now status post revision/open reduction and internal fix ation of his pelvic fractures. He continues to have a Valle secondary to his extraperitoneal bladder injury. This morning, he is sitting in a neuro chair, out of bed. Nursing staff reports that his m ental status is improving. OBJECTIVE: VITAL SIGNS: Temperature 98.6, pulse 84, respirations 20, O2 sat 99% on room air, blood pressure 145 /84. GENERAL: Sitting in a chair, out of bed, cooperative and asking questions. HEENT: Unremarkable. PULMONARY: Normal work of breathing, symmetric rise. Clear to auscultation bilaterally. CARDIOVASCULAR: Regular rate and rhythm. GASTROINTESTINAL: Abdomen is soft, nontender, and nondistended. EXTREMITIES: Bilateral lower extremity pitting edema. Bilateral upper extremities within normal arizmendi its. Wound VAC in place. GENITOURINARY: Valle in place. Patient reports significant scrotal swelling. LABORATORY DATA: Sodium 134, potassium 3.5, chloride 107, carbon dioxide 21, BUN 16, creatinine 0.83 , calcium 7.5, phosphorus 2.2, and magnesium 1.6. ASSESSMENT: 1. Status post suicide attempt/jumping from a bridge resulting in complex pelvic fractures. 2. Status post revision of open reduction and internal fixation of above injuries. 3. Extraperitoneal bladder injury. 4. Osteomyelitis. 5. Metabolic encephalopathy, improving. 6. Likely volume overload. 7. Electrolyte abnormalities. 8. Acute kidney injury, resolved. PLAN: Continue antibiotics per Infectious Disease recommendations. Follow Urology recommendations. Repeat cystogram approximately postop day #10. Discussed with Orthopedic Surgery regarding disposit ion of injuries. Discussed with case management. The patient's insurance has approved, return to [facility] once medically cleared. Check lower extremity duplex given bilateral lower extremity swelling and edema. Gentle diuresis. Patient discussed with trauma attending.
--- NOTE | 2017-09-20 19:21 | ULT ---
DOPPLER VENOUS ULTRASOUND BOTH LOWER EXTREMITIES: 09/20/17 INDICATION: Bilateral lower extremity edema. TECHNIQUE: Batista scale, color doppler and vascular duplex with spectral analysis was performed of the deep venous structures of both lower extremity. Common femoral vein, superficial femoral vein, popliteal vein, p osterior tibial vein, proximal greater saphenous and profunda veins were assessed. FINDINGS: Normal compression, flow, and augmentation seen within the deep venous structures of both lower extre mities. IMPRESSION: No evidence of DVT within both lower extremity. POS: [facility]
[2017-09-20] MEDS: Pantoprazole 40 MG VIAL IVP SCH (20:20)
[2017-09-20] MEDS: Enoxaparin Sodium 30 MG/0.3 ML SYRINGE SC SCH (20:20)
[2017-09-21] MEDS: cloNIDine 0.2 MG TAB PO SCH ×4 (00:24→17:15)
[2017-09-21] MEDS: traMADol HCl 50 MG TAB PO PRN ×3 (00:25→17:57)
[2017-09-21] MEDS: CEFAZOLIN/Water 2 GM/20 ML SYRINGE SLOW IVP SCH ×3 (02:19→17:16)
[2017-09-21 05:25] LABS: #Basophils 0.2 thou/uL (0.0-0.2); #Eosinphils 0.2 thou/uL (0.0-0.7); #Lymphocytes 3.6 thou/uL (1.20-3.40); #Monocytes 1.5 thou/uL (0.11-0.59); #Neutrophils 9.1 thou/uL (1.40-6.50); %Eosinophils 1.1 % (0.0-10.0); %Lymphocytes 24.8 % (21.0-51.0); %Monocytes 10.1 % (0.0-10.0); Hemoglobin 7.6 g/dL (14.0-18.0); Mean Corpuscular HGB CONC 32.9 g/dL (32.0-36.0); Mean Corpuscular Hemoglobin 31.5 pg (27.0-31.0); Mean Corpuscular Volume 95.6 fl (80.0-94.0); Mean Platelet Volume 7.1 fL (7.4-10.4); Platelet Count 553 thou/uL (130-400); RBC Distribution Width 16.4 % (11.5-14.5); Red Blood Cell (RBC) Count 2.41 mill/uL (4.70-6.10); White Blood Cell (WBC) Count 14.5 thou/uL (4.8-10.8)
[2017-09-21] MEDS: Levothyroxine Sodium 50 MCG TAB PO SCH (05:30)
[2017-09-21 05:43] LABS: Magnesium 1.6 mg/dL (1.6-2.6); Phosphorus 2.7 mg/dL (2.3-4.7)
[2017-09-21] MEDS: Fluconazole 100 MG TAB PO SCH (08:16)
[2017-09-21] MEDS: Tamsulosin HCl 0.4 MG CAP PO SCH ×2 (08:16→20:36)
[2017-09-21] MEDS: Magnesium Oxide 400 MG TAB PO SCH ×2 (08:17→20:36)
[2017-09-21] MEDS: Multivit, Therapeutic 1 TAB PO SCH (08:17)
[2017-09-21] MEDS: Senokot S 8.6-50 MG TAB PO SCH ×2 (08:17→20:36)
[2017-09-21] MEDS: Ascorbic Acid 500 mg Chewable Tablet PO SCH ×2 (08:17→17:15)
[2017-09-21] MEDS: Ferrous Sulfate 325 MG TAB PO SCH ×2 (08:17→17:15)
[2017-09-21] MEDS: Folic Acid 1 MG TAB PO SCH (08:17)
[2017-09-21] MEDS: Megestrol Acetate 800 MG/20 ML UDCUP PO SCH (08:17)
[2017-09-21] MEDS: Potassium Chloride 20 MEQ TAB PO SCH (08:17)
[2017-09-21] MEDS: Furosemide 20 MG/2 ML VIAL SLOW IVP SCH (08:18)
--- NOTE | 2017-09-21 16:33 | PRG ---
DATE OF SERVICE: 09/21/2017 SUBJECTIVE: Mr. Welch is a 57-year-old male status post suicide attempt by jumping off a bridge resul ting in complex pelvic fracture in early 08/2017. The patient underwent operative revision of his in juries and was discharged to inpatient rehabilitation. He was readmitted after his wound had evidenc e of increasing drainage. He was readmitted to [facility] with concern for osteomyelitis an d the need for revision of his pelvic fracture repair. He is now status post revision, postop day 9. He continues to have a Valle secondary to his extraperitoneal bladder injury. This morning he is s itting in bed with no complaints. OBJECTIVE: VITAL SIGNS: Temperature 98.8, pulse 82, respirations 16, O2 sat 96% on room air, blood pressure 118 /75. GENERAL: Sitting in bed, calm, and cooperative. PULMONARY: Normal work of breathing, symmetric rise. Clear to auscultation bilaterally. CARDIOVASCULAR: Regular rate and rhythm. GASTROINTESTINAL: Abdomen is soft, nontender, nondistended. EXTREMITIES: Moves all extremities x4. Wound VAC is in place. GENITOURINARY: Valle is in place. LABORATORY DATA: WBC 14.5, hemoglobin 7.6, hematocrit 23.1, platelet count 553. RADIOGRAPHIC FINDINGS. A venogram on 09/20/2017, no evidence of DVT. ASSESSMENT: 1. Status post suicide attempt, resulting in complex pelvic fractures. 2. Status post revision of open reduction internal fixation of his above injuries. 3. Extraperitoneal bladder injury. 4. Osteomyelitis. 5. Metabolic encephalopathy, improving. 6. Volume overload, improving. 7. Acute kidney injury, resolved. PLAN: Continue antibiotics per Infectious Disease recommendations. Follow Urology recommendations. Continue gentle diuresis. A.m. labs. The patient will be postop day 10 tomorrow. We will discuss cystogram with Urology and Orthopedic Surgery. Once cleared by Urology, the patient will likely be r eaccepted to his previous inpatient rehabilitation facility. The patient was discussed with trauma a briana.
[2017-09-21] MEDS: Pantoprazole 40 MG VIAL IVP SCH (20:35)
[2017-09-21] MEDS: Enoxaparin Sodium 30 MG/0.3 ML SYRINGE SC SCH (20:35)
[2017-09-22] MEDS: cloNIDine 0.2 MG TAB PO SCH ×5 (00:38→23:25)
[2017-09-22] MEDS: CEFAZOLIN/Water 2 GM/20 ML SYRINGE SLOW IVP SCH ×3 (00:39→16:53)
[2017-09-22] MEDS: Levothyroxine Sodium 50 MCG TAB PO SCH (05:17)
[2017-09-22 05:58] LABS: Anion Gap 9 mmol/L (10-20); BUN (Urea Nitrogen) 21 mg/dL (8.4-25.7); Calc. Creatinine Clearance 101 mL/min (70-130); Carbon Dioxide 22 mmol/L (22-29); Chloride 108 mmol/L (98-107); Estimated GFR-MDRD 79; Glucose 91 mg/dL (70-105); Magnesium 1.6 mg/dL (1.6-2.6); Phosphorus 2.5 mg/dL (2.3-4.7); Sodium 135 mmol/L (136-145)
[2017-09-22] MEDS: Potassium Chloride 20 MEQ TAB PO SCH (09:32)
[2017-09-22] MEDS: Tamsulosin HCl 0.4 MG CAP PO SCH ×2 (09:32→20:03)
[2017-09-22] MEDS: Folic Acid 1 MG TAB PO SCH (09:32)
[2017-09-22] MEDS: Ascorbic Acid 500 mg Chewable Tablet PO SCH ×2 (09:32→16:53)
[2017-09-22] MEDS: Fluconazole 100 MG TAB PO SCH (09:32)
[2017-09-22] MEDS: Senokot S 8.6-50 MG TAB PO SCH ×2 (09:32→20:03)
[2017-09-22] MEDS: Megestrol Acetate 800 MG/20 ML UDCUP PO SCH (09:33)
[2017-09-22] MEDS: Furosemide 20 MG/2 ML VIAL SLOW IVP SCH (09:33)
[2017-09-22] MEDS: Ferrous Sulfate 325 MG TAB PO SCH ×2 (09:33→16:53)
[2017-09-22] MEDS: Magnesium Oxide 400 MG TAB PO SCH ×2 (09:33→20:03)
[2017-09-22] MEDS: Multivit, Therapeutic 1 TAB PO SCH (09:33)
--- NOTE | 2017-09-22 15:46 | PRG ---
DATE OF SERVICE: 09/22/2017. SUBJECTIVE: Mr. Lamont Welch is a 57-year-old male status post suicide attempt by jumping off a bridge resulting in complex pelvic fracture on 08/2017. The patient underwent operative intervention to hi s injuries and was discharged to inpatient rehabilitation; however, he was readmitted after his wound had evidence of increasing drainage on 09/11/2017. He was found to have concern for osteomyelitis a nd his pelvic fracture needed revision/repair. He is now status post revision postop day #10. He co ntinues to have a Valle secondary to extraperitoneal bladder injury. This morning, his urine does ap pear to be somewhat darker. He has pulled off part of his wound VAC, which was removed and a dressin g was placed. Orthopedic surgery has been notified of this and will be discussing with wound care. OBJECTIVE: VITAL SIGNS: Temperature 98.4, pulse 89, respirations 16, O2 sat 98% on room air, blood pressure 109 /65. GENERAL: Well-developed male in no acute distress, resting in bed. PULMONARY: Normal work of breathing. Symmetric rise. LUNGS: Clear to auscultation bilaterally. CARDIOVASCULAR: Regular rate and rhythm. GASTROINTESTINAL: Abdomen is soft, nontender, nondistended. EXTREMITIES: Moves all extremities x4. Lower extremity pitting edema to the level of the knee. The re is a dressing over the left ankle pressure wound. GENITOURINARY: Valle is in place. LABORATORY DATA: Sodium 135, potassium 4.0, chloride 108, carbon dioxide 22, BUN 21, creatinine 0.97 , glucose 91, phosphorus 2.5, magnesium 1.6. ASSESSMENT: 1. Status post suicide attempt, resulting in complex pelvic fracture. 2. Status post revision of open reduction internal fixation of above injuries postop day #10. 3. Extraperitoneal bladder injury with intermittent hematuria. 4. Osteomyelitis followed by Infectious Disease, on IV antibiotics. 5. Metabolic encephalopathy, stable. 6. Lower extremity edema. 7. Acute kidney injury, resolved. PLAN: Continue antibiotics per Infectious Disease. Wound care per Wound Care team and Orthopedic Deng rgery. Dr. Calderón from Urology was called and recommended waiting for cystogram until a.m. I have discussed this case with Orthopedic Surgery who recommends waiting until pelvic wounds are free from wound VAC and dry before returning the patient to his inpatient rehabilitation facility. Continue deng pportive care as ordered. Continue therapy as ordered. The patient was discussed with trauma attend ing.
[2017-09-22] MEDS: traMADol HCl 50 MG TAB PO PRN ×2 (16:25→23:31)
[2017-09-22] MEDS: Enoxaparin Sodium 30 MG/0.3 ML SYRINGE SC SCH (20:03)
[2017-09-23] MEDS: CEFAZOLIN/Water 2 GM/20 ML SYRINGE SLOW IVP SCH ×3 (03:04→17:28)
[2017-09-23 03:37] LABS: #Basophils 0.1 thou/uL (0.0-0.2); #Eosinphils 0.1 thou/uL (0.0-0.7); #Lymphocytes 4.8 thou/uL (1.20-3.40); #Monocytes 1.3 thou/uL (0.11-0.59); #Neutrophils 8.6 thou/uL (1.40-6.50); %Basophils 0.7 % (0.0-1.0); %Eosinophils 0.6 % (0.0-10.0); %Lymphocytes 31.9 % (21.0-51.0); %Monocytes 8.8 % (0.0-10.0); %Neutrophils 58.1 % (42.0-75.0); Hemoglobin 7.5 g/dL (14.0-18.0); Mean Corpuscular HGB CONC 33.2 g/dL (32.0-36.0); Mean Corpuscular Hemoglobin 32.3 pg (27.0-31.0); Mean Corpuscular Volume 97.3 fl (80.0-94.0); Mean Platelet Volume 7.4 fL (7.4-10.4); Platelet Count 579 thou/uL (130-400); RBC Distribution Width 17.6 % (11.5-14.5); Red Blood Cell (RBC) Count 2.33 mill/uL (4.70-6.10); White Blood Cell (WBC) Count 14.9 thou/uL (4.8-10.8)
[2017-09-23 04:00] LABS: Anion Gap 10 mmol/L (10-20); BUN (Urea Nitrogen) 19 mg/dL (8.4-25.7); Calc. Creatinine Clearance 95 mL/min (70-130); Calcium 7.9 mg/dL (7.8-10.44); Carbon Dioxide 20 mmol/L (22-29); Chloride 109 mmol/L (98-107); Estimated GFR-MDRD 73; Glucose 90 mg/dL (70-105); Potassium 4.5 mmol/L (3.5-5.1); Sodium 134 mmol/L (136-145)
[2017-09-23] MEDS: Levothyroxine Sodium 50 MCG TAB PO SCH (05:40)
[2017-09-23] MEDS: cloNIDine 0.2 MG TAB PO SCH ×3 (05:40→17:28)
[2017-09-23] MEDS: traMADol HCl 50 MG TAB PO PRN ×2 (05:40→21:18)
[2017-09-23] MEDS: Fluconazole 100 MG TAB PO SCH (09:10)
[2017-09-23] MEDS: Tamsulosin HCl 0.4 MG CAP PO SCH ×2 (09:11→21:19)
[2017-09-23] MEDS: Magnesium Oxide 400 MG TAB PO SCH ×2 (09:11→21:19)
[2017-09-23] MEDS: Senokot S 8.6-50 MG TAB PO SCH ×2 (09:11→21:20)
[2017-09-23] MEDS: Ascorbic Acid 500 mg Chewable Tablet PO SCH ×2 (09:11→17:28)
[2017-09-23] MEDS: Folic Acid 1 MG TAB PO SCH (09:11)
[2017-09-23] MEDS: Multivit, Therapeutic 1 TAB PO SCH (09:11)
[2017-09-23] MEDS: Ferrous Sulfate 325 MG TAB PO SCH ×2 (09:11→17:28)
[2017-09-23] MEDS: Potassium Chloride 20 MEQ TAB PO SCH (09:11)
[2017-09-23] MEDS: Megestrol Acetate 800 MG/20 ML UDCUP PO SCH (09:11)
--- NOTE | 2017-09-23 10:59 | RAD ---
CYSTOGRAM: Date: 09/23/17 HISTORY: Urinary bladder injury. Evaluate for leak. COMPARISON: 09/12/17. FINDINGS: Outside [employer] image demonstrates Valle catheter in place. Multiple postsurgical changes of the pelvis are aga in seen with embolization coils overlying the left hemipelvis. Nonionic contrast was instilled into the urinary bladder in a retrograde fashion. Intermittent fluoro scopy was performed. At approximately 75 mL, there was evidence of extravasation of contrast from the urinary bladder, although the exact site of injury is difficult to determine given patient's current immobility. The patient was rotated, again definite site of injury could not be evaluated on this ex am. The urinary bladder was much more distended on prior exam on 09/12/17 upon initiation of the extr avasation and evidence of the urinary bladder leak, which only occurred with 75 mL of contrast on tod tasia's exam. The procedure was terminated at this point. Dr. Cox was available at this point of the examination and findings were reviewed with Dr. Cox. IMPRESSION: 1. Extravasation of contrast from the urinary bladder suggesting urinary bladder leak. 2. Extensive postoperative changes of the pelvis. POS: [facility]
[2017-09-23] MEDS ORDERED: ISOVUE-370 76%-LOCM 1 ML ONE (13:07)
--- NOTE | 2017-09-23 19:36 | PRG ---
DATE OF SERVICE: 09/23/2017 SUBJECTIVE: Lamont Welch is a 57-year-old male, status post suicide attempt by jumping off a bridge re sulting in complex pelvic fractures early in 08/2017. The patient underwent operative intervention t o his injuries. At that time, he was discharged to inpatient rehabilitation facility; however, he wa s readmitted on 09/11/2017 for increasing drainage from his wounds. He was evaluated and found to fenton ve concern for osteomyelitis as well as the need for revision and repair of his pelvic fracture. He is now status post revision postop day #11. He continues to have a Valle secondary to extraperitonea l bladder injury. Upon my evaluation today, the patient is calm and cooperative. The wound VAC has been removed and he is receiving dressing changes per nursing and Orthopedic Surgery recommendations. OBJECTIVE: VITAL SIGNS: Temperature 98.1, pulse 84, respirations 18, O2 sat 98% on room air, blood pressure 116 /77. GENERAL: Well-developed male in no acute distress, resting in bed. PULMONARY: Normal work of breathing. Symmetric rise. LUNGS: Clear to auscultation bilaterally. CARDIOVASCULAR: Regular rate and rhythm. GASTROINTESTINAL: Abdomen is soft, nontender, nondistended. MUSCULOSKELETAL: Moves all extremities x4. Lower extremity pitting edema to the level of the knee. There is a dressing over the left ankle wound. Surgical dressings are intact. GENITOURINARY: Fole y is in place. LABORATORY FINDINGS: WBC 14.9, hemoglobin 7.5, hematocrit 22.6, platelet count 579. Sodium 134, pot assium 4.5, chloride 109, carbon dioxide 20, BUN 19, creatinine 1.04, glucose 90. Ammonia level is 2 8. RADIOGRAPHIC FINDINGS: Cystogram on 09/23/2017, there was extravasation of contrast from the bladder suggesting persistent urinary bladder leak. Dr. Cox was available and findings were reviewed [facility] and him. ASSESSMENT: 1. Status post suicide attempt, resulting in complex fracture. 2. Status post revision of open reduction and internal fixation of the above injuries, postoperative day #11. 3. Extraperitoneal bladder injury. 4. Osteomyelitis, followed by Infectious Disease, on antibiotics. 5. Metabolic encephalopathy, stable. 6. Bilateral lower extremity edema. 7. Acute kidney injury, resolved. PLAN: Continue antibiotics per Infectious Disease. Wound care per Orthopedic Surgery and Wound Care team. Per my discussion with Orthopedic Surgery, they did not recommend transfer the patient from ospital until wounds have healed further. Continue Valle per Dr. Cox's recommendations. Otherwis e, continue supportive care as ordered. Continue physical therapy and occupational therapy. The juhi jiménez discussed with trauma attending.
[2017-09-23] MEDS: Enoxaparin Sodium 30 MG/0.3 ML SYRINGE SC SCH (21:19)
[2017-09-24] MEDS: cloNIDine 0.2 MG TAB PO SCH ×4 (01:25→18:01)
[2017-09-24] MEDS: CEFAZOLIN/Water 2 GM/20 ML SYRINGE SLOW IVP SCH ×3 (01:41→18:30)
[2017-09-24] MEDS: traMADol HCl 50 MG TAB PO PRN ×2 (03:15→14:29)
[2017-09-24] MEDS: Levothyroxine Sodium 50 MCG TAB PO SCH (06:41)
[2017-09-24 08:01] LABS: #Basophils 0.1 thou/uL (0.0-0.2); #Eosinphils 0.1 thou/uL (0.0-0.7); #Lymphocytes 4.3 thou/uL (1.20-3.40); #Monocytes 1.3 thou/uL (0.11-0.59); #Neutrophils 7.3 thou/uL (1.40-6.50); %Basophils 0.5 % (0.0-1.0); %Eosinophils 0.7 % (0.0-10.0); %Lymphocytes 32.9 % (21.0-51.0); %Monocytes 10.2 % (0.0-10.0); %Neutrophils 55.7 % (42.0-75.0); Hemoglobin 7.6 g/dL (14.0-18.0); Mean Corpuscular HGB CONC 31.6 g/dL (32.0-36.0); Mean Corpuscular Hemoglobin 31.5 pg (27.0-31.0); Mean Corpuscular Volume 99.6 fl (80.0-94.0); Mean Platelet Volume 7.2 fL (7.4-10.4); Platelet Count 547 thou/uL (130-400); RBC Distribution Width 17.8 % (11.5-14.5); White Blood Cell (WBC) Count 13.1 thou/uL (4.8-10.8)
[2017-09-24 08:19] LABS: Anion Gap 11 mmol/L (10-20); BUN (Urea Nitrogen) 16 mg/dL (8.4-25.7); Calc. Creatinine Clearance 124 mL/min (70-130); Calcium 7.9 mg/dL (7.8-10.44); Carbon Dioxide 18 mmol/L (22-29); Chloride 109 mmol/L (98-107); Estimated GFR-MDRD Greater than 90; Glucose 90 mg/dL (70-105); Magnesium 1.6 mg/dL (1.6-2.6); Potassium 4.7 mmol/L (3.5-5.1); Sodium 133 mmol/L (136-145)
[2017-09-24] MEDS: Tamsulosin HCl 0.4 MG CAP PO SCH ×2 (08:22→20:05)
[2017-09-24] MEDS: Ferrous Sulfate 325 MG TAB PO SCH ×2 (08:22→18:01)
[2017-09-24] MEDS: Ascorbic Acid 500 mg Chewable Tablet PO SCH ×2 (08:23→18:01)
[2017-09-24] MEDS: Fluconazole 100 MG TAB PO SCH (08:23)
[2017-09-24] MEDS: Senokot S 8.6-50 MG TAB PO SCH ×2 (08:23→20:06)
[2017-09-24] MEDS: Potassium Chloride 20 MEQ TAB PO SCH (08:23)
[2017-09-24] MEDS: Magnesium Oxide 400 MG TAB PO SCH ×2 (08:23→20:06)
[2017-09-24] MEDS: Folic Acid 1 MG TAB PO SCH (08:24)
[2017-09-24] MEDS: Multivit, Therapeutic 1 TAB PO SCH (08:24)
[2017-09-24] MEDS: Megestrol Acetate 800 MG/20 ML UDCUP PO SCH ×2 (08:24→08:32)
[2017-09-24] MEDS ORDERED: Magnesium 2 GM/NS 0.9% 100 ML 2 GM in Premix Bag 1 BAG IVPB SCH (11:30)
--- NOTE | 2017-09-24 11:45 | PRG ---
DATE OF SERVICE: 09/24/2017 ATTENDING PHYSICIAN: Dr. Sunday Franco SUBJECTIVE: Mr. Welch is a 57-year-old male status post suicide attempt by jumping off a bridge resul ting in complex pelvic fractures in 08/2017. He underwent an operative intervention for repair of hi s injuries. At that time he was then discharged to an inpatient psychiatric facility. He was readmi tted on 09/11/2017 for increasing drainage from his surgical wounds. He was evaluated and found to h ave concern for osteomyelitis as well as a need for revision and repair of his pelvic fractures. He is now status post revision postop day #12. He continues to have Valle catheter secondary to extrape ritoneal bladder injury. He is on the surgical floor. He is calm and cooperative. Pain has been we ll controlled. He receives dressing changes per Orthopedic Surgery recommendations. OBJECTIVE: VITAL SIGNS: Temperature 98.5, pulse 78, blood pressure 114/72, respirations 16, O2 sat 98% on room air. GENERAL: A 57-year-old male lying in bed in no acute distress, well-developed, nontoxic appearing. PULMONARY: Bilateral breath sounds clear to auscultation. Symmetrical rise and fall of chest. CARDIOVASCULAR: Regular rate and rhythm, normal heart sounds. ABDOMEN: Soft, nontender, nondistended. MUSCULOSKELETAL: Moves all extremities x4. Cap refill brisk all extremities. Neurovascularly intac t. GENITOURINARY: Valle in place with reddish tinted urine. NEUROLOGIC: GCS 15, awake, alert, oriented x3. LABORATORY DATA: Hematology; WBC 13.1, RBC 2.40, hemoglobin 7.6, hematocrit 24.0, platelets 547. Ch emistry: Sodium 133, potassium 4.7, chloride 109, carbon dioxide 18, BUN 16, creatinine 0.79, glucos e 90, calcium 7.9, phosphorus 3.0, magnesium 1.6. ASSESSMENT: 1. Status post multiple suicide attempts, most recently by jumping off a bridge resulting in complex pelvic fractures. 2. Status post revision of open reduction and internal fixation of the above injuries, postoperative day #12. 3. Extraperitoneal bladder injury. 4. Osteomyelitis. The patient is followed by Infectious Disease and currently on IV antibiotics. 5. Bilateral lower extremity edema. 6. Acute kidney injury, resolved. PLAN: 1. Continue antibiotics per Infectious Disease. 2. Continue dressing changes and wound evaluation by Wound Care, Ostomy nurses and Orthopedic Surger y. 3. Per yesterday's progress note, Orthopedic Surgery does not recommend transfer of the patient from the hospital until wounds have further healed. 4. Continue Valle catheter per Urology recommendations. 5. Continue physical and occupational therapy. The patient was seen and examined with Dr. Franco who agrees with the plan.
--- NOTE | 2017-09-24 11:48 | PRG ---
DATE OF SERVICE: 09/23/2017 HISTORY: Mr. Welhc was transferred to the floor. He is awake and alert, feeling better overall, stil l having problems with pain control and nausea intermittently, probably secondary to the opioid medic ation use. Denies any dyspnea. No abdominal pain, maybe mild to moderate abdominal pain. The patie nt still has an indwelling Valle catheter, has a negative pressure dressing. PHYSICAL EXAMINATION: VITAL SIGNS: Essentially normal temperature for many days now. Other vital signs are normal and O2 sat 98% room air. GENERAL: Appears in no distress. HEENT: Ocular movements conjugate. Pupils are equal and reactive. NECK: Supple. LUNGS: Symmetric air entry. HEART: S1, S2. No S3, no murmurs. ABDOMEN: Soft with mild tenderness in the lower abdominal area. The negative pressure dressing in p lace. EXTREMITIES: He is able to move lower extremities. NEURO: His cognitive function is improved. He establishes eye contact, he is not agitated anymore. LABORATORY: The white cell count is at 13,000, hemoglobin 7.6, platelets 547 with 55% neutrophils. Chemistry with a sodium of 134, creatinine 1.04, ammonia 28. Microbiology with 2 sets of blood cultu res from 09/13/2017 no growth. CURRENT MEDICATIONS: Include cefazolin and oral Diflucan. There is a venogram from 09/20/2017 with no evidence of deep vein thrombosis. There is an echocardio gram report from 09/14/2017 with normal ejection fraction and mild diastolic dysfunction. ASSESSMENT AND DISCUSSION: Alcoholism with chronic hepatitis C, untreated yet, end-stage liver disea se with suicidal attempt with multiple pelvic fractures and interventions. Subsequent development of Staphylococcus aureus bacteremia, transferred to neuro rehab and then readmission for decompensation of the previously noted inflammatory pelvic process. The patient has required reintervention and no w we will continue on protracted IV Rocephin or cefazolin. The duration of therapy is until 10/23/19 or 10/23/2017 with weekly labs. Follow up imaging studies to verify resolution of the collections .
[2017-09-24] MEDS: Enoxaparin Sodium 30 MG/0.3 ML SYRINGE SC SCH (20:06)
[2017-09-25] MEDS: cloNIDine 0.2 MG TAB PO SCH ×5 (00:01→23:45)
[2017-09-25] MEDS: CEFAZOLIN/Water 2 GM/20 ML SYRINGE SLOW IVP SCH ×3 (02:45→18:38)
[2017-09-25] MEDS: Levothyroxine Sodium 50 MCG TAB PO SCH (06:29)
[2017-09-25] MEDS: traMADol HCl 50 MG TAB PO PRN ×2 (06:29→23:42)
[2017-09-25 07:39] LABS: #Basophils 0.1 thou/uL (0.0-0.2); #Eosinphils 0.1 thou/uL (0.0-0.7); #Lymphocytes 3.8 thou/uL (1.20-3.40); #Monocytes 1.1 thou/uL (0.11-0.59); #Neutrophils 6.6 thou/uL (1.40-6.50); %Basophils 0.8 % (0.0-1.0); %Eosinophils 0.8 % (0.0-10.0); %Lymphocytes 32.8 % (21.0-51.0); %Monocytes 9.4 % (0.0-10.0); %Neutrophils 56.1 % (42.0-75.0); Mean Corpuscular HGB CONC 32.7 g/dL (32.0-36.0); Mean Corpuscular Hemoglobin 32.5 pg (27.0-31.0); Mean Corpuscular Volume 99.3 fl (80.0-94.0); Mean Platelet Volume 6.9 fL (7.4-10.4); Platelet Count 541 thou/uL (130-400); RBC Distribution Width 17.2 % (11.5-14.5); Red Blood Cell (RBC) Count 2.45 mill/uL (4.70-6.10); White Blood Cell (WBC) Count 11.7 thou/uL (4.8-10.8)
[2017-09-25 07:59] LABS: Anion Gap 8 mmol/L (10-20); BUN (Urea Nitrogen) 16 mg/dL (8.4-25.7); Calc. Creatinine Clearance 99 mL/min (70-130); Calcium 8.2 mg/dL (7.8-10.44); Carbon Dioxide 22 mmol/L (22-29); Chloride 108 mmol/L (98-107); Estimated GFR-MDRD 85; Glucose 88 mg/dL (70-105); Magnesium 1.8 mg/dL (1.6-2.6); Phosphorus 3.2 mg/dL (2.3-4.7); Potassium 4.8 mmol/L (3.5-5.1); Sodium 133 mmol/L (136-145)
[2017-09-25] MEDS: Fluconazole 100 MG TAB PO SCH (08:54)
[2017-09-25] MEDS: Ferrous Sulfate 325 MG TAB PO SCH ×2 (08:54→17:21)
[2017-09-25] MEDS: Potassium Chloride 20 MEQ TAB PO SCH (08:54)
[2017-09-25] MEDS: Megestrol Acetate 800 MG/20 ML UDCUP PO SCH (08:54)
[2017-09-25] MEDS: Ascorbic Acid 500 mg Chewable Tablet PO SCH ×2 (08:54→17:21)
[2017-09-25] MEDS: Senokot S 8.6-50 MG TAB PO SCH ×2 (08:55→22:12)
[2017-09-25] MEDS: Magnesium Oxide 400 MG TAB PO SCH ×2 (08:55→22:12)
[2017-09-25] MEDS: Tamsulosin HCl 0.4 MG CAP PO SCH ×2 (08:55→22:12)
[2017-09-25] MEDS: Multivit, Therapeutic 1 TAB PO SCH (08:55)
[2017-09-25] MEDS: Folic Acid 1 MG TAB PO SCH (08:56)
[2017-09-25] MEDS: HYDROcodone/Acetaminophen 5/325 mg Tablet PO PRN ×2 (08:58→22:22)
--- NOTE | 2017-09-25 15:12 | PRG ---
DATE OF SERVICE: 09/25/2017 ATTENDING PHYSICIAN: Sunday Franco M.D. SUBJECTIVE: Mr. Welch is a 57-year-old male status post suicide attempt by jumping off a bridge resul ting in complex pelvic fractures in 08/2017. He underwent operative intervention for repair of his i njuries. At that time, he was then discharged to inpatient psychiatric facility. He was readmitted on 09/11/2017 for increasing drainage from his surgical wounds. He was evaluated and found to have c oncern for osteomyelitis as well as a need for revision and repair of his pelvic fractures. He is no w status post revision, postoperative day #13. He continues to have Valle catheter secondary to extr aperitoneal bladder injury. Urology continues to follow. He is on the surgical floor and is calm an d cooperative today. Pain is well controlled. He is receiving dressing changes per Orthopedic Surge ry recommendations and wound care nurses. He is currently being followed by Dr. Flores, Jun Mcdermott. He is continuing on IV antibiotics. OBJECTIVE: VITAL SIGNS: Temperature 98.6, pulse 80, respirations 16, O2 sat 98% on room air, blood pressure 116 /72. GENERAL: A 57-year-old male sitting up in bed in no acute distress. Well-developed, nontoxic appear ance. PULMONARY: Bilateral breath sounds clear to auscultation. Symmetrical rise and fall of chest. CARDIOVASCULAR: Regular rate and rhythm. Normal heart sounds. ABDOMEN: Soft, nontender, nondistended. Surgical dressings in place across the lower pelvis clean, dry, and intact. MUSCULOSKELETAL: Moves all extremities x4. Cap refill brisk in all extremities. NEUROVASCULAR: Intact. GENITOURINARY: A Valle in place with reddish tinge urine. NEUROLOGIC: GCS 15. Awake, alert, oriented x3. LABORATORY DATA: WBC 11.7 down from 13.1 yesterday, RBC 2.45, hemoglobin 8.0 from 7.6 yesterday, hem atocrit 24.4, platelets 541. Chemistry: Sodium 133, potassium 4.8, chloride 108, carbon dioxide 22, BUN 8, creatinine 0.91, glucose 88. ASSESSMENT: 1. Status post multiple suicide attempts, most recently by jumping off a bridge resulting in complex pelvic fractures. 2. Status post revision of open reduction and internal fixation of the above injuries. Postoperativ e day #13. 3. Extraperitoneal bladder injury. 4. Osteomyelitis. The patient is followed by Infectious Disease and currently on IV antibiotics. T he duration of therapy per Dr. Flores note, is until 10/22 or 10/23 with weekly labs. Followup imagin g studies will be needed to verify resolution of the collection. PLAN: 1. Continue antibiotics per Dr. Flores' recommendations. 2. Continue dressing changes and wound evaluation by wound care ostomy nurses and Orthopedic Surgery . 3. Plan for transition to outpatient rehabilitation facility once cleared by Orthopedic Service. 4. Continue Valle catheter per Urology recommendations. 5. Continue physical and occupational therapy as ordered. Patient was reviewed with Dr. Franco who agrees with plan.
[2017-09-25] MEDS: Enoxaparin Sodium 30 MG/0.3 ML SYRINGE SC SCH (22:11)
[2017-09-26] MEDS: CEFAZOLIN/Water 2 GM/20 ML SYRINGE SLOW IVP SCH ×2 (01:43→11:05)
[2017-09-26] MEDS: cloNIDine 0.2 MG TAB PO SCH ×3 (05:57→17:39)
[2017-09-26] MEDS: Levothyroxine Sodium 50 MCG TAB PO SCH (05:58)
[2017-09-26] MEDS: traMADol HCl 50 MG TAB PO PRN ×2 (06:01→14:56)
[2017-09-26] MEDS: Fluconazole 100 MG TAB PO SCH (07:52)
[2017-09-26] MEDS: Multivit, Therapeutic 1 TAB PO SCH (07:53)
[2017-09-26] MEDS: Senokot S 8.6-50 MG TAB PO SCH (07:53)
[2017-09-26] MEDS: Ferrous Sulfate 325 MG TAB PO SCH ×2 (07:53→17:39)
[2017-09-26] MEDS: Tamsulosin HCl 0.4 MG CAP PO SCH (07:53)
[2017-09-26] MEDS: Ascorbic Acid 500 mg Chewable Tablet PO SCH ×2 (07:53→17:39)
[2017-09-26] MEDS: Megestrol Acetate 800 MG/20 ML UDCUP PO SCH (07:53)
[2017-09-26] MEDS: Potassium Chloride 20 MEQ TAB PO SCH (07:53)
[2017-09-26] MEDS: Magnesium Oxide 400 MG TAB PO SCH (07:54)
[2017-09-26] MEDS: Folic Acid 1 MG TAB PO SCH (07:54)
[2017-09-26 14:50] VITALS: BMI 23.1
[2017-09-26 15:57] VITALS: BP 116/71; TEMP 98.7
== END 2017-09-26 19:00 | DRG 515 ==
LOC: SURG A 17:04 → CCU 09-12 17:42 → IMCU/EMU 09-15 18:05 → SURG A 09-19 21:14
PROVIDERS: ADMIT Surgery; ATTEND Surgery
PROC: 0SP804Z Removal of Internal Fixation Device from Left Sacroiliac Joint, Open Approach (ICD-10-PCS; principal; 2017-09-12)
PROC: 0QS304Z Reposition Left Pelvic Bone with Internal Fixation Device, Open Approach (ICD-10-PCS; 2017-09-12)
PROC: 0SP704Z Removal of Internal Fixation Device from Right Sacroiliac Joint, Open Approach (ICD-10-PCS; 2017-09-12)
PROC: 0QS204Z Reposition Right Pelvic Bone with Internal Fixation Device, Open Approach (ICD-10-PCS; 2017-09-12)
PROC: 5A1945Z Respiratory Ventilation, 24-96 Consecutive Hours (ICD-10-PCS; 2017-09-12)
PROC: 0BH17EZ Insertion of Endotracheal Airway into Trachea, Via Natural or Artificial Opening (ICD-10-PCS; 2017-09-12)
PROC: 04VF3DZ Restriction of Left Internal Iliac Artery with Intraluminal Device, Percutaneous Approach (ICD-10-PCS; 2017-09-13)
PROC: B41C1ZZ Fluoroscopy of Pelvic Arteries using Low Osmolar Contrast (ICD-10-PCS; 2017-09-13)
PROC: 30233N1 Transfusion of Nonautologous Red Blood Cells into Peripheral Vein, Percutaneous Approach (ICD-10-PCS; 2017-09-13)
PROC: 30233N1 Transfusion of Nonautologous Red Blood Cells into Peripheral Vein, Percutaneous Approach (ICD-10-PCS; 2017-09-14)
DX: T84.69XA Infection and inflammatory reaction due to internal fixation device of other site, initial encounter (principal); R57.8 Other shock; J96.00 Acute respiratory failure, unspecified whether with hypoxia or hypercapnia; N17.0 Acute kidney failure with tubular necrosis; D62 Acute posthemorrhagic anemia; E87.2 Acidosis; M86.9 Osteomyelitis, unspecified; S32.8 Fracture of other parts of pelvis; I72.3 Aneurysm of iliac artery; N43.3 Hydrocele, unspecified; N50.89 Other specified disorders of the male genital organs; Z91.5 Personal history of self-harm; B19.20 Unspecified viral hepatitis C without hepatic coma; H40.9 Unspecified glaucoma; F10.20 Alcohol dependence, uncomplicated; F19.10 Other psychoactive substance abuse, uncomplicated; G89.11 Acute pain due to trauma; R31.0 Gross hematuria; D69.6 Thrombocytopenia, unspecified; K70.30 Alcoholic cirrhosis of liver without ascites; E83.42 Hypomagnesemia; F17.210 Nicotine dependence, cigarettes, uncomplicated; N39.498 Other specified urinary incontinence; K72.90 Hepatic failure, unspecified without coma; I10 Essential (primary) hypertension; S37.29XD Other injury of bladder, subsequent encounter
CPT/HCPCS: 36415; 36416; 36430; 37244; 51600; 71045; 72190; 72193; 74430; 76001; 76942; 80048; 80202; 81001; 82140; 82570; 82805; 83735; 83880; 84100; 85025; 85384; 85610; 85730; 86850; 86900; 86901; 87040; 87070; 87086; 87205; 93306; 93970; 94002; 94003; A4216; C1713; C1769; C9113; G8978-GP-CN; G8979-GP-CL; G8979-GP-CN; J0171; J0692; J1100; J1170; J1644; J1650; J1720; J1940; J2001; J2248; J2250; J2270; J2550; J2597; J2704; J3010; J3370; J3475; J3480; J7050; J7070; P9016; P9035; P9045; P9059; S0028; S0032

== ENCOUNTER 2018-02-14 07:46 | Day surgery (SDC) | payer BC ==
[2018-02-13 16:12] VITALS: BMI 17.1
[2018-02-14 08:50] LABS: #Basophils 0.1 thou/uL (0.0-0.2); #Eosinphils 0.3 thou/uL (0.0-0.7); #Lymphocytes 3.4 thou/uL (1.20-3.40); #Neutrophils 5.8 thou/uL (1.40-6.50); %Basophils 0.7 % (0.0-1.0); %Eosinophils 2.9 % (0.0-10.0); %Monocytes 9.5 % (0.0-10.0); %Neutrophils 54.8 % (42.0-75.0); Mean Corpuscular HGB CONC 31.4 g/dL (32.0-36.0); Mean Corpuscular Hemoglobin 28.6 pg (27.0-31.0); Mean Platelet Volume 7.6 fL (7.4-10.4); Platelet Count 500 thou/uL (130-400); RBC Distribution Width 13.2 % (11.5-14.5); Red Blood Cell (RBC) Count 4.55 mill/uL (4.70-6.10); White Blood Cell (WBC) Count 10.5 thou/uL (4.8-10.8)
[2018-02-14 08:57] LABS: PTT 35.3 SEC (22.9-36.1); Prothrombin Time 13.1 SEC (12.0-14.7)
[2018-02-14 09:10] LABS: ALT (SGPT) 17 U/L (8-55); AST (SGOT) 37 U/L (5-34); Albumin 3.2 g/dL (3.5-5.0); Alkaline Phosphatase 272 U/L (40-150); Bilirubin, Direct 0.5 mg/dL (0.1-0.3); Bilirubin, Total 0.7 mg/dL (0.2-1.2); Protein, Total 6.8 g/dL (6.0-8.3)
--- NOTE | 2018-02-16 21:11 | EKG ---
Test Reason : PREOP Blood Pressure : / mmHG Vent. Rate : 072 BPM Atrial Rate : 072 BPM P-R Int : 146 ms QRS Dur : 080 ms QT Int : 420 ms P-R-T Axes : 075 070 054 degrees QTc Int : 459 ms Normal sinus rhythm Normal ECG When compared with ECG of 18-AUG-2017 08:43, Vent. rate has decreased BY 58 BPM Confirmed by Kwame CAMPBELL ([id number]) on 02/16/2018 9:10:53 PM Referred By: MARLEN Confirmed By:Kwame CAMPBELL
== END 2018-02-14 11:00 | disposition home or self-care (01) ==
LOC: SDC 07:46
PROVIDERS: ATTEND Orthopaedic Surgery
DX: T84.84XA Pain due to internal orthopedic prosthetic devices, implants and grafts, initial encounter (principal); S32.82XA Multiple fractures of pelvis without disruption of pelvic ring, initial encounter for closed fracture; F32.9 Major depressive disorder, single episode, unspecified; F17.200 Nicotine dependence, unspecified, uncomplicated; Z53.29 Procedure and treatment not carried out because of patient's decision for other reasons; Z79.899 Other long term (current) drug therapy; Z98.890 Other specified postprocedural states; W13.1XXA Fall from, out of or through bridge, initial encounter
CPT/HCPCS: 80076; 85025; 85610; 85730; 93005; 93010; J3370

== ENCOUNTER 2018-04-10 18:05 | Inpatient (IN) | payer BC ==
[2018-04-10] MEDS ORDERED: Piperacillin/Tazobactam 4.5 GM VIAL ONE (19:17)
[2018-04-10] MEDS ORDERED: HYDROcodone/Acetaminophen 5/325 mg Tablet ONE (19:47)
[2018-04-10] MEDS ORDERED: Acetaminophen 650 MG Suppository PR PRN (20:53)
[2018-04-10] MEDS ORDERED: Ondansetron PF 4 MG/2 ML Vial IVP PRN (20:53)
[2018-04-10] MEDS ORDERED: Ondansetron ODT 4 MG TAB PO PRN (20:53)
[2018-04-10] MEDS ORDERED: HYDROcodone/Acetaminophen 5/325 mg Tablet PO PRN (20:56)
[2018-04-10] MEDS: cloNIDine 0.2 MG TAB PO SCH (22:03)
[2018-04-10] MEDS: traMADol HCl 50 MG TAB PO PRN (22:11)
[2018-04-10] MEDS: Famotidine/PF 20 mg/2ml Vial SLOW IVP SCH (22:11)
[2018-04-10] MEDS: Mirtazapine 15 MG TAB PO SCH (22:11)
[2018-04-10] MEDS: Nicotine 14 MG PATCH TD SCH (22:12)
[2018-04-10] MEDS: Famotidine 20 MG TAB PO SCH (22:55)
[2018-04-10] MEDS: Sodium Chloride 0.9% 1,000 ML IV SCH (22:55)
[2018-04-10] MEDS: Senokot S 8.6-50 MG TAB PO SCH (22:55)
[2018-04-11 00:56] LABS: Anion Gap 12 mmol/L (10-20); BUN (Urea Nitrogen) 14 mg/dL (8.4-25.7); Calc. Creatinine Clearance 93 mL/min (70-130); Carbon Dioxide 24 mmol/L (22-29); Chloride 104 mmol/L (98-107); Estimated GFR-MDRD Greater than 90; Glucose 69 mg/dL (70-105); Sodium 137 mmol/L (136-145)
[2018-04-11 01:03] LABS: Potassium 2.6 mmol/L (3.5-5.1)
[2018-04-11] MEDS: Lorazepam 1 MG TAB PO PRN (01:33)
[2018-04-11] MEDS: Piperacillin/Tazobactam 3.375 GM in Sodium Chloride 0.9% 100 ML IVPB SCH ×4 (01:35→20:27)
[2018-04-11] MEDS ORDERED: Potassium Chloride 40 MEQ in Sodium Chloride 0.9% 500 ML IVPB SCH (02:30)
[2018-04-11] MEDS: Vancomycin HCl 1 GM in Premix Bag 1 BAG IVPB SCH ×2 (04:28→17:34)
[2018-04-11] MEDS: Sodium Chloride 0.9% 1,000 ML IV SCH ×2 (05:37→15:08)
[2018-04-11] MEDS: Levothyroxine Sodium 50 MCG TAB PO SCH (05:37)
[2018-04-11 05:41] LABS: Amphetamine Not Detected (NotDetected); Barbiturates Screen Not Detected (NotDetected); Benzodiazepine Screen Not Detected (NotDetected); Cocaine Metabolite Screen Not Detected (NotDetected); Medtox Control Line Valid? VALID (VALID); Medtox Reader # READER 1; Methadone Not Detected (NotDetected); Methamphetamine Not Detected (NotDetected); Opiate Screen Detected (NotDetected); Oxycodone Screen Not Detected (NotDetected); Phencyclidine (PCP) Not Detected (NotDetected); THC/Cannabinoid Screen Not Detected (NotDetected); Tricyclic Screen Detected (NotDetected)
--- NOTE | 2018-04-11 06:06 | HP ---
CHIEF COMPLAINT: Evaluation for left and right hip pain. HISTORY OF PRESENT ILLNESS: This is a 57-year-old male with past medical history of hepatitis C, hyperlipidemia, hypertriglyceridemia, hypertension, CVA in 1999, glaucoma, and history of DVTs, presenting with left hip pain. Per medical record, the patient was transferred from [facility] to rule out septic arthritis of the left hip. The patient has been complaining of left hip and left leg pain that is radiating down his leg. The patient states that the onset was between 4 to 5 days prior to the day of admission. In the past, the patient had a left leg surgery due to a suicidal attempt. Per sign out from medical staff, the patient jumped from a bridge injuring his left leg, requiring surgery. Currently, the patient states that he is in severe pain with palpation at the left and right hip bilaterally. The patient states that the pain is intense. The patient denies any fever, nausea, vomiting, palpitations, chest pain, abdominal pain, dysuria, hematuria, hematochezia, or melena. REVIEW OF SYSTEMS: Left hip pain and right hip pain. Otherwise as documented in the HPI, all other systems are reviewed and are negative. PAST MEDICAL HISTORY: Hyperlipidemia, hypertension, hepatitis C, pancreatitis, CVA in 1999, glaucoma, and DVT. FAMILY HISTORY: Reviewed and noncontributory. PAST SURGICAL HISTORY: The patient had a splenectomy, pancreatic surgery, hip/pelvic repair in August 2015. PSYCHIATRIC HISTORY: Depression, suicide attempt in the past. SOCIAL HISTORY: The patient lives at home. Uses tobacco, smokes cigarettes daily, the patient smokes half a pack per day. ALLERGIES: NO KNOWN DRUG ALLERGIES. CURRENT MEDICATIONS: The patient takes Abilify 5 mg. PHYSICAL EXAMINATION: VITAL SIGNS: Blood pressure 132/71, pulse 109, respiratory rate of 20, O2 saturation of 97%. GENERAL: The patient is lying in bed. The patient appears confused. The patient is in pain with touch. The patient looks as if he is withdrawing from some sort of drug reaction. HEENT: Normocephalic and atraumatic. Pupils are equal, round, and reactive to light. Extraocular movements are intact. No scleral icterus. Mucous membranes are moist. NECK: Trachea is midline. No JVD. Full range of motion. Supple. LUNGS: Clear to auscultation bilaterally. No wheezing, no rales, no rhonchi is appreciated. CARDIAC: Positive S1 and S2. Regular rate and rhythm. No murmurs, no gallops, no rubs appreciated. ABDOMEN: Soft, nontender, and nondistended. Positive bowel sounds in all quadrants. EXTREMITIES: Good range of motion of the upper extremities, good pulses bilaterally. Lower extremities, the patient has 10/10 tenderness with touch at the hip bilaterally, especially the left hip. The patient has good pulses bilaterally at the lower extremities. Lower extremities are warm. The patient is able to move the extremity with some restriction of range of motion of the hips. NEUROLOGIC: Cranial nerves II through XII are grossly intact. No neurological deficits noted. SKIN: The patient does have a lot of tattoos on his body, especially on the arms. PSYCHIATRIC: The patient's affect is not normal. The patient looks as if he is withdrawing from some substance, likely alcohol. LABORATORY DATA: WBC 21,000, hemoglobin 12.3, hematocrit 38, platelet count is 489. Sodium is at 137, potassium is 2.6, chloride is 104, carbon dioxide 24, anion gap of 12, BUN is 14, creatinine is 0.76, glucose is 59, lactic acid is 0.9. IMAGING: Imaging that was done at [facility] shows that the patient has possible hip osteomyelitis. ASSESSMENT AND PLAN: This is a 57-year-old male being admitted for: 1. Left septic joint. At this point, the patient has been started on antibiotics. We will continue antibiotics. We have consulted Infectious Diseases regarding the patient's medical management. We have also consulted Orthopedics since the patient's pain is out of proportion with his presentation. The patient is in severe 10/10 pain at this time. We will continue antibiotics. We will give the patient p.r.n. pain medication to help with his pain. We will consider getting MRI of the hip since CT of the hip from [facility] states that the patient might have osteomyelitis of the hip. We will continue broad-spectrum antibiotics at this time. 2. Hypertension, currently controlled. We will continue the patient on current management. We will monitor the patient's blood pressure. 3. Hyperlipidemia. We will continue the patient on his current medication regimen. 4. History of hepatitis C. We will continue the patient on current management. 5. Deep venous thrombosis and gastrointestinal prophylaxis. Job ID: [id number]
[2018-04-11 06:10] LABS: #Eosinphils 0.1 thou/uL (0.0-0.7); #Lymphocytes 1.4 thou/uL (1.20-3.40); #Monocytes 1.7 thou/uL (0.11-0.59); #Neutrophils 16.4 thou/uL (1.40-6.50); %Basophils 0.1 % (0.0-1.0); %Eosinophils 0.4 % (0.0-10.0); %Lymphocytes 7.2 % (21.0-51.0); %Monocytes 8.7 % (0.0-10.0); %Neutrophils 83.6 % (42.0-75.0); Hemoglobin 11.3 g/dL (14.0-18.0); Mean Corpuscular HGB CONC 31.9 g/dL (32.0-36.0); Mean Corpuscular Hemoglobin 28.6 pg (27.0-31.0); Mean Corpuscular Volume 89.7 fL (78.0-98.0); Mean Platelet Volume 7.8 fL (7.4-10.4); Platelet Count 556 thou/uL (130-400); RBC Distribution Width 15.1 % (11.5-14.5); Red Blood Cell (RBC) Count 3.96 mill/uL (4.70-6.10); White Blood Cell (WBC) Count 19.6 thou/uL (4.8-10.8)
[2018-04-11 06:20] LABS: Anion Gap 13 mmol/L (10-20); BUN (Urea Nitrogen) 14 mg/dL (8.4-25.7); Calc. Creatinine Clearance 90 mL/min (70-130); Calcium 9.1 mg/dL (7.8-10.44); Carbon Dioxide 23 mmol/L (22-29); Chloride 106 mmol/L (98-107); Estimated GFR-MDRD Greater than 90; Glucose 78 mg/dL (70-105); Sodium 139 mmol/L (136-145)
[2018-04-11] MEDS ORDERED: Prevnar 13-Val Conj/PF 0.5 ML SYRINGE IM ONE (09:00)
--- NOTE | 2018-04-11 09:21 | CT ---
CT OF HEAD NONCONTRAST: CLINICAL HISTORY: History of brain injury. COMPARISON: Reference is made to 08/15/2017 exam. FINDINGS: The ventricular system is stable, mildly prominent. There is mild periventricular white matter ische vern disease similar-appearing. No intracranial hemorrhage, mass effect, or midline shift. IMPRESSION: No evidence of acute intracranial abnormality. POS: TPC
--- NOTE | 2018-04-11 13:26 | PQF ---
CLINICAL DOCUMENTATION IMPROVEMENT CLARIFICATION FORM: ICD-10 Updated PLEASE DO AN ADDENDUM TO THE PROGRESS NOTE WITH ANY DOCUMENTATION UPDATES OR ADDITIONS AND CARRY THROUGH TO DC SUMMARY. THANK YOU. DATE: 04/11/18 ATTN: DR. RODRIGUES Please exercise your independent, professional judgment in responding to the clarification form. Clinical indicators are provided on the bottom of this form for your review Please check appropriate box(s) to clarify if the following diagnosis has been ruled in or ruled out: SEPSIS [x ] Ruled in diagnosis [ ] Continue to treat [ ] Resolved [ ] Ruled out diagnosis [ ] Cannot rule out diagnosis [ ] Other diagnosis [ ] Unable to determine In addition, please specify: Present on Admission (POA): [ x] Yes [ ] No [ ] Unable to determine For continuity of documentation, please document condition throughout progress notes and discharge summary. Thank You. CLINICAL INDICATORS - SIGNS / SYMPTOMS / LABS ER NOTE: "SEPSIS" WBC 21 @ [facility] WBC 19.6 C-REACTIVE PROTEIN 8.42 PULSE 123 RR 22 RISKS: LEFT HIP SEPTIC JOINT TREATMENT: IV ZOSYN (ER-PRESENT) IV VANCOMYCIN (STARTED 04/11) IV FLUIDS (ER-PRESENT)) ID CONSULT BLOOD CULTURES JOINT ASPIRATION AND CULTURE (This form is maintained as a part of the permanent medical record) 2014 [employer], [employer]. All Rights Reserved KATERINA [email or web address] Office: [phone] PIL[facility] PSYCHIATRIC CENTERHilda
[2018-04-11 13:32] LABS: BF Color Colorless; Clarity Clear (Clear); Tube # EDTA
[2018-04-11 13:34] LABS: BF RBC Count - Manual 182 /cumm; BF WBC/Nonhematics Ct. - Manua 21 /cumm
[2018-04-11 14:17] LABS: BF Segmented Neutrophils 11 %; Cell Count Non Hematic 66 %; Lymphocytes 23 %
--- NOTE | 2018-04-11 14:54 | RAD ---
FLUOROSCOPIC GUIDED LEFT HIP ASPIRATION: Date: 04/11/18 INDICATION: Concern for left hip septic arthritis. TECHNIQUE: Informed consent was obtained. Preprocedure home care scheduler images were performed of the left hip. Site overlyi ng the left hip was marked. Site was prepped and draped in the usual sterile fashion. Buffered 1% lid ocaine was administered to overlying subcutaneous tissues. Under fluoroscopic guidance, an 18 gauge s emma needle was guided down into the hip joint. Four separate attempts were made to aspirate fluid, but proved to be unsuccessful. Following this, 10 mL of sterile saline was administered into the hip joint. There was aspiration of 2.5 mL of yellow-tinged saline solution. This solution was sent to juhi juarez for further evaluation. The patient tolerated the aspiration without difficulty. Total fluoroscopic time was 0.3 minutes. Total exposure was 17.1 mGy*m^2. IMPRESSION: Successful left hip joint aspiration under fluoroscopy. POS: STACY
[2018-04-11] MEDS: Senokot S 8.6-50 MG TAB PO SCH ×3 (15:04→20:36)
[2018-04-11] MEDS: Tamsulosin HCl 0.4 MG CAP PO SCH (15:04)
[2018-04-11] MEDS: Amlodipine 10 MG TAB PO SCH ×2 (15:04→15:25)
[2018-04-11] MEDS: Famotidine 20 MG TAB PO SCH ×2 (15:05→20:36)
[2018-04-11] MEDS: cloNIDine 0.2 MG TAB PO SCH ×3 (15:05→20:43)
[2018-04-11] MEDS: Folic Acid 1 MG TAB PO SCH (15:06)
[2018-04-11] MEDS: Famotidine/PF 20 mg/2ml Vial SLOW IVP SCH ×2 (15:06→20:44)
[2018-04-11] MEDS: Enoxaparin Sodium 40 MG/0.4 ML SYRINGE SC SCH (15:07)
[2018-04-11] MEDS: Multivit, Therapeutic 1 TAB PO SCH (15:25)
[2018-04-11] MEDS: Potassium Chloride 20 MEQ TAB PO SCH ×2 (15:57→16:01)
[2018-04-11] MEDS ORDERED: Potassium Chloride 20 MEQ TAB PO SCH (16:00)
[2018-04-11 17:02] LABS: Bilirubin Negative (Negative); Blood, Urine Large (Negative); Clarity CLOUDY (Clear); Glucose, Urine (Dipstick) Negative (Negative); Leukocyte Large (Negative); Nitrite Negative (Negative); Protein, Urine (Dipstick) 30 mg/dL (Neg-Trace); Specific Gravity, Urine 1.016 (1.002-1.036)
[2018-04-11 17:05] LABS: Hyaline Casts/LPF 0-3 HYALINE CAST LPF (0-3 Hyaline); Pathc Cast-AUWi Flag 0.43 (0-2.49); Squamous Epithelial None Seen HPF (0-3)
[2018-04-11 17:09] LABS: Yeast-AUWi Flag 145.6 (0-25.0)
[2018-04-11 17:21] LABS: Bacteria/HPF 2+ HPF (None Seen); Yeast-All Forms 1+ HPF (None Seen)
--- NOTE | 2018-04-11 17:44 | CON ---
DATE OF CONSULTATION: DICTATED FOR: Munir Zaldivar MD. HISTORY OF PRESENT ILLNESS: We were asked by Medicine to see the patient. The patient is well known to our staff. He has been here multiple times. His last visit was to repair pelvis from jumping off the bridge. He has currently been in rehab skilled to recuperate. He presented back from [place] with increasing left hip pain. The patient currently is arousable, but fairly somnolent and not making a whole lot of sense when he is talking. After moving his leg around, he winces in pain. He is able to draw his leg up on his own, but any movement that I make to an internal/external rotation, straightening it out causes him a good deal of pain. I asked the patient if he is able to feel his feet and he shakes his head yes. PAST MEDICAL HISTORY: Cholesterol, hypertension, hep C, pancreatitis, CVA, glaucoma, and DVT. PAST SURGICAL HISTORY: Splenectomy, pancreatic surgery, pelvis and hip repair. PSYCHIATRIC HISTORY: Depression and suicide attempts in the past. SOCIAL HISTORY: I believe the patient still resides in a facility in [place]. Continues to smoke. No nicotine or other drugs noted. ALLERGIES: NONE. FAMILY HISTORY: Noncontributory. CURRENT MEDICATIONS: 1. Lactulose. 2. Amlodipine. 3. Abilify. 4. Clonidine. 5. Folic acid. 6. Low-dose Reliance. 7. Levothyroxine. 8. Remeron. 9. Theragran. 10. Protonix. 11. Senokot. 12. Sertraline. 13. Flomax. 14. Thiamine. 15. Ultram. REVIEW OF SYSTEMS: The patient has obvious pain noted on physical exam in the left hip. Otherwise, he is somnolent, moaning in pain, and not making sense. Speech is almost gibberish, but occasionally understandable. Rest of review of systems is negative. PHYSICAL EXAMINATION: GENERAL: A well-nourished appearing male, in moderate distress. Speech is not clear. He is able to answer very few questions appropriately. HEENT: Face is symmetric. Tongue midline. NECK: Supple. Trachea midline. RESPIRATORY: No apparent distress. EXTREMITIES: Upper extremities; equal size, shape, symmetry, normal bulk and tone. Moving these well. Lower extremities also appeared to be in normal size, shape, symmetry, normal bulk and tone. Palpation of the left hip causes him good deal of pain, but does not feel grossly harder than the right hip area. Any movement of the left hip causes him entire amount of pain. He is able to draw it up on his own. DP and PT pulses intact. ASSESSMENT: 1. Multiple health issues. 2. Left hip pain, unknown origin. Imaging studies; a little fluid in the hip. LABORATORY DATA: WBC 19.6, hemoglobin 11.3, hematocrit 35.5, and platelets 556. He has had blood cultures drawn. Chemistry; his potassium is 3.0 and low. Rest of chemistry is normal. IMAGING STUDIES: I did look at his pelvis and his hip CT and as stated above, he has a little fluid in the hip. He has definitely degenerative changes and fairly significant amount of hardware in the pelvis. PLAN: We will get him worked up for a septic hip. Dr. Flores is already on the case, as is his hospitalist. We will get a C-reactive protein. Blood cultures have been drawn. He has imaging studies. We will also get him set up for a CT- guided aspirate; if this is positive, we will leave the CT-guided drain. This has been ordered, as has the C-reactive protein. I spoke with the patient about the plan. I am not quite sure he understands the plan, but we will get him moving. Hopefully, we can get his drugs normalized via the hospitalist and maybe get him a little more coherent as time goes by. We have seen this incoherence in the past, and that has been due to his medications being off. Then hopefully, this can get changed and get him back to his normal self. I will let Dr. Zaldivar know the plan. We have discussed the plan. We will get it implemented. Job ID: [id number] [facility]
[2018-04-11] MEDS: Mirtazapine 15 MG TAB PO SCH (20:36)
[2018-04-11] MEDS: Aripiprazole 10 MG TAB PO SCH (20:38)
[2018-04-11] MEDS: Nicotine 14 MG PATCH TD SCH (20:43)
--- NOTE | 2018-04-11 21:31 | PDOC.PN ---
- Subjective Encounter Start Date: 04/11/18 Encounter Start Time: 10:30 Subjective: pt up in bed appears drowsy and complaining of pain all over - Objective Resuscitation Status - Order Detail: 04/10/18 20:53 Resuscitation Status Routine Resuscitation Status: FULL: Full Resuscitation Vital Signs & Weight: Vital Signs (12 hours) Temp Pulse Resp BP Pulse Ox 04/11/18 20:00 98.2 F 112 H 16 123/71 93 L 04/11/18 16:22 98.2 F 117 H 16 123/71 93 L 04/11/18 10:20 98.1 F 132 H 24 H 132/76 93 L Weight Weight 144 lb 8 oz I&O: 04/10/18 04/11/18 04/12/18 06:59 06:59 06:59 Intake Total 1620 2400 Output Total 1300 500 Balance 320 1900 Result Diagrams: 04/11/18 05:23 04/11/18 05:23 Phys Exam - Physical Examination Neck: no nodes, no JVD, supple, full ROM Respiratory: no wheezing, no rales, no rhonchi, wheezing present, clear to auscultation bilateral Cardiovascular: RRR, no significant murmur, no rub, gallop, irregular Gastrointestinal: soft, non-tender, no distention, positive bowel sounds left hip incision intact pt oriented to self Dx/Plan (1) Sepsis Code(s): A41.9 - SEPSIS, UNSPECIFIED ORGANISM Status: Acute (2) Left hip prosthetic joint infection Code(s): T84.52XA - INFECT/INFLM REACTION DUE TO INTERNAL LEFT HIP PROSTH, INIT Status: Acute (3) Bacteremia Code(s): R78.81 - BACTEREMIA Status: Acute - Plan pt underwent fluoroscopy guided aspiration -: will continue abx for now -: will replace K and check bmp in am * . Review of Systems - Review of Systems Other: unable to obtain - Medications/Allergies Allergies/Adverse Reactions: Allergies Allergy/AdvReac Type Severity Reaction Status Date / Time No Known Allergies Allergy Verified 04/10/18 21:56 Medications: Current Medications Acetaminophen (Tylenol) 650 mg PO Q4H PRN PRN Reason: Headache/Fever/Mild Pain (1-3) Acetaminophen (Tylenol) 650 mg ID Q4H PRN PRN Reason: Headache/Fever/Mild Pain (1-3) Hydrocodone Bitart/Acetaminophen ([place] 5/325) 1 tab PO Q4H PRN PRN Reason: Breakthrough Pain Amlodipine Besylate (Norvasc) 10 mg PO DAILY [facility] Last Admin: 04/11/18 15:25 Dose: Not Given Aripiprazole (Abilify) 5 mg PO HS [facility] Last Admin: 04/11/18 20:38 Dose: 5 mg Clonidine (Catapres) 0.3 mg PO TID [facility] Last Admin: 04/11/18 20:43 Dose: Not Given Enoxaparin Sodium (Lovenox) 40 mg SC 0900 [facility] Last Admin: 04/11/18 15:07 Dose: 40 mg Famotidine (Pepcid) 20 mg SLOW IVP Q12HR [facility] Last Admin: 04/11/18 20:44 Dose: Not Given Famotidine (Pepcid) 20 mg PO BID [facility] Last Admin: 04/11/18 20:36 Dose: 20 mg Folic Acid (Folvite) 1 mg PO DAILY [facility] Last Admin: 04/11/18 15:06 Dose: 1 mg Sodium Chloride (Normal Saline 0.9%) 1,000 mls @ 100 mls/hr IV .Q10H [facility] Last Admin: 04/11/18 15:08 Dose: 1,000 mls Vancomycin HCl 1 gm/ Device 200 mls @ 200 mls/hr IVPB 0400,1600 [facility] Last Admin: 04/11/18 17:34 Dose: 200 mls Piperacillin Sod/Tazobactam (Sod 3.375 gm/ Sodium Chloride) 100 mls @ 200 mls/ hr IVPB 0200,0800,1400,2000 [facility] Last Admin: 04/11/18 20:27 Dose: 100 mls Levothyroxine Sodium (Synthroid) 50 mcg PO 0600 [facility] Last Admin: 04/11/18 05:37 Dose: Not Given Lorazepam (Ativan) 2 mg PO Q2H PRN PRN Reason: Agitation Last Admin: 04/11/18 01:33 Dose: 2 mg Mirtazapine (Remeron) 15 mg PO HS [facility] Last Admin: 04/11/18 20:36 Dose: 15 mg Miscellaneous Medication (Pharmacy To Dose) 1 each IVPB PRN PRN PRN Reason: Pharmacy to dose Multivitamins (Theragran) 1 tab PO DAILY [facility] Last Admin: 04/11/18 15:25 Dose: Not Given Nicotine (Nicoderm Patch) 14 mg TD Q24HR [facility] Last Admin: 04/11/18 20:43 Dose: 14 mg Ondansetron HCl (Zofran Odt) 4 mg PO Q6H PRN PRN Reason: Nausea/Vomiting Ondansetron HCl (Zofran) 4 mg IVP Q6H PRN PRN Reason: Nausea/Vomiting Pantoprazole Sodium (Protonix) 40 mg PO QAM [facility] Last Admin: 04/11/18 15:04 Dose: 40 mg Senna/Docusate Sodium (Senokot S) 2 tab PO BID [facility] Last Admin: 04/11/18 20:36 Dose: 2 tab Sertraline HCl (Zoloft) 50 mg PO DAILY [facility] Last Admin: 04/11/18 15:05 Dose: 50 mg Sodium Chloride (Flush - Normal Saline) 10 ml IVF Q12HR PRN PRN Reason: Saline Flush Sodium Chloride (Flush - Normal Saline) 10 ml IVF PRN PRN PRN Reason: Saline Flush Tamsulosin HCl (Flomax) 0.4 mg PO QAM [facility] Last Admin: 04/11/18 15:04 Dose: 0.4 mg Thiamine HCl (Thiamine) 100 mg PO DAILY [facility] Last Admin: 04/11/18 15:06 Dose: 100 mg Tramadol HCl (Ultram) 50 mg PO Q6H PRN PRN Reason: Moderate Pain (4-6) Last Admin: 04/10/18 22:11 Dose: 50 mg
[2018-04-11 23:07] LABS: Band 5 % (5-11); Hemoglobin 11.2 g/dL (14.0-18.0); Lymphocytes 9 % (21-51); MDiff Complete? YES; Mean Corpuscular HGB CONC 33.8 g/dL (32.0-36.0); Mean Corpuscular Hemoglobin 30.2 pg (27.0-31.0); Mean Corpuscular Volume 89.5 fL (78.0-98.0); Mean Platelet Volume 7.4 fL (7.4-10.4); Monocytes 13 % (0-10); Neutrophil 73 % (42-75); Platelet Count 588 thou/uL (130-400); Platelet Morphology Comment Appears Increased; RBC Distribution Width 15.1 % (11.5-14.5); White Blood Cell (WBC) Count 23.1 thou/uL (4.8-10.8)
[2018-04-12] MEDS: Piperacillin/Tazobactam 3.375 GM in Sodium Chloride 0.9% 100 ML IVPB SCH ×4 (02:03→20:43)
[2018-04-12] MEDS: Sodium Chloride 0.9% 1,000 ML IV SCH ×3 (02:03→21:05)
[2018-04-12] MEDS: Acetaminophen 325 MG TAB PO PRN (02:07)
[2018-04-12 03:54] LABS: Anion Gap 11 mmol/L (10-20); BUN (Urea Nitrogen) 12 mg/dL (8.4-25.7); Calc. Creatinine Clearance 101 mL/min (70-130); Calcium 9.1 mg/dL (7.8-10.44); Carbon Dioxide 23 mmol/L (22-29); Chloride 109 mmol/L (98-107); Estimated GFR-MDRD Greater than 90; Glucose 114 mg/dL (70-105); Sodium 140 mmol/L (136-145); Vancomycin, Trough 11.9 ug/mL
[2018-04-12 04:00] LABS: Potassium 2.9 mmol/L (3.5-5.1)
[2018-04-12] MEDS: Vancomycin HCl 1 GM in Premix Bag 1 BAG IVPB SCH (04:13)
[2018-04-12] MEDS ORDERED: Vancomycin HCl 1.25 GM in Sodium Chloride 0.9% 250 ML 250 ML IVPB SCH (04:15)
[2018-04-12] MEDS: Potassium Chloride 10 MEQ in Premix Bag 1 BAG IVPB SCH ×3 (05:54→08:12)
[2018-04-12] MEDS: Levothyroxine Sodium 50 MCG TAB PO SCH (05:55)
[2018-04-12] MEDS: Famotidine 20 MG TAB PO SCH ×2 (08:14→20:46)
[2018-04-12] MEDS: Multivit, Therapeutic 1 TAB PO SCH (08:14)
[2018-04-12] MEDS: Folic Acid 1 MG TAB PO SCH (08:14)
[2018-04-12] MEDS: Tamsulosin HCl 0.4 MG CAP PO SCH (08:14)
[2018-04-12] MEDS: Enoxaparin Sodium 40 MG/0.4 ML SYRINGE SC SCH (08:14)
[2018-04-12] MEDS: Amlodipine 10 MG TAB PO SCH (08:15)
[2018-04-12] MEDS: Senokot S 8.6-50 MG TAB PO SCH ×2 (08:15→20:47)
[2018-04-12] MEDS: cloNIDine 0.2 MG TAB PO SCH ×3 (08:15→20:45)
[2018-04-12] MEDS: Famotidine/PF 20 mg/2ml Vial SLOW IVP SCH ×2 (08:16→20:46)
[2018-04-12] MEDS: traMADol HCl 50 MG TAB PO PRN ×2 (10:10→17:27)
[2018-04-12 10:44] LABS: Potassium 3.1 mmol/L (3.5-5.1)
--- NOTE | 2018-04-12 11:26 | PRG ---
DATE OF SERVICE: 04/12/2018 SUBJECTIVE: The patient was seen and examined at the bedside. He is sleeping during my visit, but he is arousable, and he answers my questions properly. OBJECTIVE: VITAL SIGNS: Blood pressure is 144/76, pulse is 111, temperature is 97.5, O2 saturation is 91% on room air, respiratory rate is 16. HEENT: His head is atraumatic, normocephalic. Eyes are PERRLA. Sclerae nonicteric. Oral mucosa is moist. NECK: Supple. LUNGS: Clear. HEART: S1 and S2, tachycardia. No S3. No S4. ABDOMEN: Soft, nontender. Bowel sounds are present. No organomegaly. MUSCULOSKELETAL: The left hip area is tender to touch, the patient did not let me to examine this part. NEUROLOGIC: He is somewhat comatose, but arousable. He follows commands. LABORATORY DATA: Sodium of 140, potassium of 2.9, chloride 109, CO2 is 23, BUN is 12, creatinine is 0.73, glucose is 114, magnesium is 1.7. Microbiology; urine culture 10,000 to 25,000 of mixed skin evelio, most likely contamination. Preliminary synovial fluid Gram stain showed rare wbc's, no organisms. Culture is pending. Blood culture is negative so far. IMPRESSION: 1. Sepsis. 2. Left hip prosthesis joint infection. 3. Bacteremia. 4. Hypokalemia. 5. Normocytic anemia, most likely related to his acute infection. 6. Thrombocytosis, most likely related to his current infection. PLAN: I plan to give him additional 40 of KCl now, then we are going to check his potassium. Orthopedic surgeon is on the case, and Dr. Flores, Infectious Disease Service, to see the patient. Job ID: [id number]
[2018-04-12] MEDS: Vancomycin HCl 1.25 GM in Sodium Chloride 0.9% 250 ML 250 ML IVPB SCH (16:30)
[2018-04-12] MEDS: Potassium Chloride 20 MEQ TAB PO SCH ×2 (16:30→20:44)
[2018-04-12] MEDS ORDERED: Nystatin 500,000 UNITS/5 ML UDCUP PO SCH (17:00)
[2018-04-12] MEDS: Aripiprazole 10 MG TAB PO SCH (20:44)
[2018-04-12] MEDS: Mirtazapine 15 MG TAB PO SCH (20:46)
[2018-04-12] MEDS: Nicotine 14 MG PATCH TD SCH (20:48)
[2018-04-13] MEDS: Lorazepam 1 MG TAB PO PRN
[2018-04-13] MEDS: Piperacillin/Tazobactam 3.375 GM in Sodium Chloride 0.9% 100 ML IVPB SCH ×2 (02:37→09:31)
[2018-04-13] MEDS: Vancomycin HCl 1.25 GM in Sodium Chloride 0.9% 250 ML 250 ML IVPB SCH (04:33)
[2018-04-13] MEDS: Levothyroxine Sodium 50 MCG TAB PO SCH (05:57)
[2018-04-13 06:11] LABS: #Basophils 0.1 thou/uL (0.0-0.2); #Eosinphils 0.3 thou/uL (0.0-0.7); #Lymphocytes 3.5 thou/uL (1.20-3.40); #Monocytes 1.6 thou/uL (0.11-0.59); #Neutrophils 15.7 thou/uL (1.40-6.50); %Basophils 0.3 % (0.0-1.0); %Eosinophils 1.2 % (0.0-10.0); %Lymphocytes 16.7 % (21.0-51.0); %Monocytes 7.4 % (0.0-10.0); %Neutrophils 74.4 % (42.0-75.0); Hemoglobin 10.8 g/dL (14.0-18.0); Mean Corpuscular HGB CONC 33.4 g/dL (32.0-36.0); Mean Corpuscular Hemoglobin 29.9 pg (27.0-31.0); Mean Corpuscular Volume 89.7 fL (78.0-98.0); Mean Platelet Volume 7.5 fL (7.4-10.4); Platelet Count 612 thou/uL (130-400); RBC Distribution Width 15.4 % (11.5-14.5); Red Blood Cell (RBC) Count 3.61 mill/uL (4.70-6.10); White Blood Cell (WBC) Count 21.1 thou/uL (4.8-10.8)
[2018-04-13 06:23] LABS: Anion Gap 10 mmol/L (10-20); BUN (Urea Nitrogen) 10 mg/dL (8.4-25.7); Calc. Creatinine Clearance 110 mL/min (70-130); Calcium 8.4 mg/dL (7.8-10.44); Carbon Dioxide 21 mmol/L (22-29); Chloride 108 mmol/L (98-107); Estimated GFR-MDRD Greater than 90; Glucose 97 mg/dL (70-105); Potassium 3.4 mmol/L (3.5-5.1); Sodium 136 mmol/L (136-145)
[2018-04-13] MEDS: Multivit, Therapeutic 1 TAB PO SCH (09:34)
[2018-04-13] MEDS: Amlodipine 10 MG TAB PO SCH (09:34)
[2018-04-13] MEDS: cloNIDine 0.2 MG TAB PO SCH (09:37)
[2018-04-13] MEDS: Famotidine 20 MG TAB PO SCH (09:37)
[2018-04-13] MEDS: Folic Acid 1 MG TAB PO SCH (09:37)
[2018-04-13] MEDS: Tamsulosin HCl 0.4 MG CAP PO SCH (09:37)
[2018-04-13] MEDS: Enoxaparin Sodium 40 MG/0.4 ML SYRINGE SC SCH (09:38)
[2018-04-13] MEDS: Senokot S 8.6-50 MG TAB PO SCH (09:39)
[2018-04-13] MEDS: Famotidine/PF 20 mg/2ml Vial SLOW IVP SCH ×2 (09:44→20:44)
[2018-04-13] MEDS: Sodium Chloride 0.9% 1,000 ML IV SCH ×2 (09:53→20:44)
[2018-04-13 11:20] LABS: Actual Bicarbonate (HCO3a) 21.5 mEq/L (22-28); CO2 Tension 32.2 mmHg (35.0-45.0); Calcium, Ionized 1.17 mmol/L (1.12-1.30); Carboxyhemoglobin (COHb) 0.5 gm% (0.0-3.0); Hemoglobin (Hb) 11.2 g/dL (14.0-18.0); O2 Tension (PaO2) 55.9 mmHg (80.0-100.0); Potassium - ABG Lab 3.52 mmol/L (3.70-5.30); pH, Arterial 7.44 (7.35-7.45)
[2018-04-13 11:21] LABS: Puncture Site RRA
--- NOTE | 2018-04-13 11:29 | RAD ---
CHEST ONE VIEW: INDICATIONS: History of tachypnea. COMPARISON: 04/10/2018 FINDINGS: There is diffuse air space opacity involving the right lung and left lower lobe, suspicious for multi focal pneumonia. No pleural effusion or pneumothorax is evident. No acute osseous abnormality is ev ident. IMPRESSION: Findings suspicious for multifocal pneumonia. POS: [facility]
[2018-04-13] MEDS ORDERED: Potassium Chloride 20 MEQ TAB PO SCH (12:00)
[2018-04-13] MEDS ORDERED: Propofol 1,000 MG/100 ML VIAL IV ONE (13:20)
[2018-04-13] MEDS ORDERED: Lorazepam 2 MG/ML VIAL ONE (13:30)
[2018-04-13] MEDS ORDERED: Ventilator Sedation Protocol 1 EACH FS SCH (13:41)
[2018-04-13] MEDS ORDERED: CCU Electrolyte Replacement 1 EACH FS ONE (13:41)
[2018-04-13] MEDS ORDERED: Fentanyl BOLUS 250 ML IVPB PRN (13:46)
[2018-04-13] MEDS ORDERED: DISCONTINUE PREVIOUS NARCOTIC PAIN MEDICATIONS AND BENZODIAZEPINES FS SCH (13:46)
[2018-04-13] MEDS ORDERED: Morphine 2 MG/ML SYRINGE SLOW IVP PRN (13:46)
[2018-04-13] MEDS ORDERED: Propofol BOLUS 1,000 MG/100 ML VIAL IV PRN (13:46)
[2018-04-13] MEDS ORDERED: Magnesium 2 GM/NS 0.9% 100 ML 2 GM in Premix Bag 1 BAG IVPB PRN (13:52)
[2018-04-13] MEDS ORDERED: Potassium Chloride 20 MEQ TAB PO PRN (13:52)
[2018-04-13] MEDS ORDERED: Potassium Phosphate 12 MMOL in Sodium Chloride 0.9% 250 ML 250 ML IV PRN (13:52)
[2018-04-13] MEDS ORDERED: Potassium Phosphate 15 MMOL in Sodium Chloride 0.9% 250 ML 250 ML IV PRN (13:52)
[2018-04-13] MEDS ORDERED: Magnesium Oxide 400 MG TAB PO PRN ×2 (13:52)
[2018-04-13] MEDS ORDERED: Potassium Chloride 40 MEQ in Premix Bag 1 BAG IVPB PRN (13:52)
[2018-04-13] MEDS ORDERED: Potassium Chloride 40 MEQ in Sodium Chloride 0.9% 250 ML 250 ML IVPB PRN (13:52)
[2018-04-13] MEDS ORDERED: CCU ELECTROLYTE REPLACEMENT PROTOCOL FS PRN (13:52)
[2018-04-13] MEDS ORDERED: Potassium Phosphate 9 MMOL in Sodium Chloride 0.9% 100 ML IVPB PRN (13:52)
[2018-04-13] MEDS ORDERED: MEROPENEM 1 GM/50 ML 1 GM in Premix Bag 1 BAG IVPB SCH (14:00)
[2018-04-13] MEDS ORDERED: Hydrocortisone Sod Succ/PF 100 mg/2 ml Vial IVP SCH (14:00)
[2018-04-13] MEDS ORDERED: MEROPENEM 1 GM/50 ML 1 GM in Sodium Chloride 0.9% 100 ML IVPB SCH (14:00)
[2018-04-13] MEDS: Multivitamins, Adult 10 ML, Folic Acid 1 MG, Thiamine HCl 100 MG in Dextrose 5 %-0.45 %... IV SCH (14:11)
[2018-04-13] MEDS: fentaNYL Citrate/PF 2,000 MCG in Sodium Chloride 0.9% 60 ML IV SCH (14:13)
[2018-04-13 14:54] LABS: Actual Bicarbonate (HCO3a) 23.3 mEq/L (22-28); Base Excess (BEa) -0.6 mEq/L (-2.0 to +3.0); CO2 Tension 35.4 mmHg (35.0-45.0); Calcium, Ionized 1.17 mmol/L (1.12-1.30); Carboxyhemoglobin (COHb) 0.3 gm% (0.0-3.0); Hemoglobin (Hb) 10.8 g/dL (14.0-18.0); O2 Tension (PaO2) 178.6 mmHg (80.0-100.0); Potassium - ABG Lab 3.32 mmol/L (3.70-5.30); pH, Arterial 7.44 (7.35-7.45)
[2018-04-13 14:56] LABS: Puncture Site RRA
[2018-04-13 15:43] LABS: Vancomycin, Trough 17.9 ug/mL
[2018-04-13] MEDS: Oxacillin 2 GM in Sodium Chloride 0.9% 100 ML IVPB SCH ×3 (16:40→23:52)
[2018-04-13] MEDS ORDERED: Hydrocortisone Sod Succ/PF 250 mg/2 ml Vial SLOW IVP SCH (18:00)
[2018-04-13] MEDS: Propofol 1,000 MG/100 ML VIAL IV PRN (18:21)
[2018-04-13] MEDS: Hydrocortisone Sod Succ/PF 100 mg/2 ml Vial IVP SCH ×2 (18:21→23:51)
[2018-04-13] MEDS: Nicotine 14 MG PATCH TD SCH (20:45)
[2018-04-13] MEDS ORDERED: Aripiprazole 2 MG TAB PO SCH (21:00)
[2018-04-13] MEDS: MEROPENEM 1 GM/50 ML 1 GM in Premix Bag 1 BAG IVPB SCH (21:46)
[2018-04-14] MEDS: Propofol 1,000 MG/100 ML VIAL IV PRN ×2 (03:25→16:47)
[2018-04-14] MEDS: Oxacillin 2 GM in Sodium Chloride 0.9% 100 ML IVPB SCH ×6 (04:03→23:01)
[2018-04-14 05:04] LABS: Anion Gap 11 mmol/L (10-20); BUN (Urea Nitrogen) 12 mg/dL (8.4-25.7); Calc. Creatinine Clearance 110 mL/min (70-130); Calcium 8.4 mg/dL (7.8-10.44); Carbon Dioxide 22 mmol/L (22-29); Chloride 110 mmol/L (98-107); Estimated GFR-MDRD Greater than 90; Glucose 161 mg/dL (70-105); Potassium 3.6 mmol/L (3.5-5.1); Sodium 139 mmol/L (136-145)
[2018-04-14 05:08] LABS: Magnesium 1.9 mg/dL (1.6-2.6); Phosphorus 3.6 mg/dL (2.3-4.7)
[2018-04-14] MEDS: Hydrocortisone Sod Succ/PF 100 mg/2 ml Vial IVP SCH ×3 (05:11→20:45)
[2018-04-14] MEDS: MEROPENEM 1 GM/50 ML 1 GM in Premix Bag 1 BAG IVPB SCH ×2 (05:11→13:32)
[2018-04-14 05:17] LABS: Band 9 % (5-11); Lymphocytes 9 % (21-51); MDiff Complete? YES; Mean Corpuscular HGB CONC 33.2 g/dL (32.0-36.0); Mean Corpuscular Hemoglobin 30.1 pg (27.0-31.0); Mean Corpuscular Volume 90.7 fL (78.0-98.0); Mean Platelet Volume 7.7 fL (7.4-10.4); Monocytes 2 % (0-10); Neutrophil 80 % (42-75); Platelet Count 611 thou/uL (130-400); Platelet Morphology Comment Appears Increased; RBC Distribution Width 15.5 % (11.5-14.5); Red Blood Cell (RBC) Count 3.66 mill/uL (4.70-6.10); White Blood Cell (WBC) Count 19.8 thou/uL (4.8-10.8)
[2018-04-14] MEDS: Levothyroxine Sodium 200 MCG VIAL IVP SCH (05:27)
[2018-04-14] MEDS: Sodium Chloride 0.9% 1,000 ML IV SCH ×2 (06:24→17:24)
[2018-04-14 07:17] LABS: Actual Bicarbonate (HCO3a) 22.9 mEq/L (22-28); Base Excess (BEa) -2.8 mEq/L (-2.0 to +3.0); CO2 Tension 43.7 mmHg (35.0-45.0); Calcium, Ionized 1.21 mmol/L (1.12-1.30); Hemoglobin (Hb) 11.5 g/dL (14.0-18.0); O2 Tension (PaO2) 232.9 mmHg (80.0-100.0); Potassium - ABG Lab 3.57 mmol/L (3.70-5.30); pH, Arterial 7.34 (7.35-7.45)
[2018-04-14 07:23] LABS: ALV-art Gradient 140.275 (0-20); Puncture Site RRA
--- NOTE | 2018-04-14 07:48 | CON ---
DATE OF CONSULTATION: 04/11/2018 REASON FOR CONSULTATION: Possible left hip infection, bacteremia. HISTORY OF PRESENT ILLNESS: 57-year-old, known to us from recent evaluation in September 2017, when he presented with a history of chronic hepatitis C, alcoholism, and end-stage liver disease, who had attempted suicide by jumping from a bridge and sustained a number of injuries including rupture of the spleen with splenic artery coiling. This visit actually occurred in April 2016 . At that time, he had Staphylococcus aureus from peritoneal fluid aspirate and he was treated for 2 weeks with IV antimicrobials. In October 2016, he presented with hypertensive crisis and polysubstance abuse including methamphetamines, cocaine, and cannabinoids. At that time, he signed against medical advice and in August he was admitted for a suicide attempt after jumping from a bridge and sustaining various fractures, mostly in the pelvis and then in September, he developed sepsis associated with Staphylococcus aureus bacteremia, which was methicillin sensitive. He, this time, had a numerous infected pelvic collections identified with pyomyositis in the pelvic musculature. The patient was prescribed a protracted course of intravenous Rocephin and he was transferred to a [facility] for that. I have not had a chance of following this patient after discharge and now he presents with pain in the left hip area from being transferred from a fci in [place]. This pain was radiating down to his left lower extremity and the patient keeps the left lower extremity in an antalgic position and flexion. The initial exam showed the BP 130s/70, the temperature was 98.3 and 99.2 at the emergency room. The patient has dysarthric speech. His lungs were normal to auscultation. The abdomen was soft. There was marked limitation of range of motion of the left lower extremity because of left hip pain. PAST MEDICAL HISTORY: Includes hyperlipidemia, hypertension, chronic hep C, untreated pancreatitis, advanced liver disease, CVA, glaucoma, DVT, suicidal attempt with multiple fractures in the pelvis and pyomyositis of multiple pelvic muscles secondary to methicillin-sensitive Staphylococcus aureus with bacteremia, treated for protracted period of time with IV Rocephin. ALLERGIES: NONE. SOCIAL HISTORY: Polysubstance abuse in the past including methamphetamine, cocaine, also chronic smoker and has a history of alcoholism as well. He was brought from a local fci. SURGICAL HISTORY: Includes splenectomy and pelvis repair in 2015. CURRENT MEDICATIONS: 1. Tylenol. 2. [place]. 3. Norvasc. 4. Abilify. 5. Catapres. 6. Lovenox. 7. Pepcid. 8. Folvite. 9. Synthroid. 10. Ativan. 11. Remeron. 12. Theragran. 13. Nicoderm. 14. Zofran. 15. Zosyn. 16. Zoloft. 17. Vancomycin. PHYSICAL EXAMINATION: VITAL SIGNS: T-max 98.1, blood pressure 130/70, pulse is 132, respirations 20 to 24, O2 saturation 93% to 95%. SKIN: Exam shows no areas of skin breakdown. The patient has peripheral IV access and voiding spontaneously. No lymphadenopathy. GENERAL: Awake and does not appear in distress. HEENT: Ocular movements are conjugate. Pupils are equal. Oral cavity normal. NECK: Supple. LUNGS: Symmetric. Clear breath sounds. HEART: S1, S2 without murmurs. No S3 or S4. Heart sounds are markedly diminished in intensity. ABDOMEN: Soft, not distended or tender. No ascites. There maybe some bladder distention. No organomegaly noted. EXTREMITIES: Marked limitation of range of motion of left lower extremity from pain in the left hip or the pelvic musculature. No other joint inflammatory process noted. Pulses are 1+ in dorsalis pedis. He seems to be able to move extremities with limitations imposed by the pain in the left hip area. NEURO: He is awake, oriented, has quite significant dysarthria, but he replies to questions, and seems to understand well and follows commands. LABORATORY DATA: Toxic screen with opiates and tricyclics detected. The white cell count 19.6, hemoglobin 11, and platelets 556. Sodium 137, creatinine 0.79, and CRP is 8.42. Lactic acid 0.9. Calcium 9.0. Ammonia 39. MICROBIOLOGY: We have 2/2 sets of blood cultures positive for gram-positive cocci in clusters, yet to be identified and susceptibility tested. IMAGING: Brain CT with no evidence of acute intracranial abnormality. Lower extremity CT was completed, but not read yet and there was a pelvis CT from April 10, which demonstrated extensive pelvic fractures, widening of the right SI joint. Possibility of osteomyelitis of the SI area is considered, although a noninfectious disorder is more likely. This was a with-contrast study, so seems like all the prior abscesses have resolved. ASSESSMENT: 1. Prior suicidal attempt with multiple fractures in the pelvis. 2. Pelvic pyomyositis with methicillin-susceptible Staph aureus bacteremia, treated in August 2017. 3. Worsening pain in the left hip region, status post an aspirate. The report of the aspiration is not available yet. DISCUSSION: The differential diagnosis includes septic arthritis or sacroiliac joint infection with osteomyelitis of the SI joint area. All the prior areas of pyomyositis have resolved according to the latest CT scan. Endocarditis needs to be considered and a repeat echocardiogram performed. Other areas of involvement are not apparent at this point in time, but we will have to keep monitoring other joints. There is no evidence of spine involvement at this time. Job ID: [id number]
--- NOTE | 2018-04-14 07:50 | PRG ---
DATE OF SERVICE: 04/13/2018 SUBJECTIVE: The patient is seen and examined at the bedside. He is comatose. He is tachypneic. He is arousable, but he does not follow much of my commands. OBJECTIVE: VITAL SIGNS: Blood pressure is 123/69, pulse is 104, respiratory rate is 41, O2 saturation is 91% on 3 L by nasal cannula. HEENT: His head is atraumatic and normocephalic. Eyes, not examined. He is keeping his eyes closed. He does not want to open his mouth when he is asked to do that. LUNGS: Breath sounds are significantly diminished over the right lung. There are some rales present over the right lung. HEART: S1 and S2, tachycardic. No S3. No S4. ABDOMEN: Soft, nontender. EXTREMITIES: He has significant pain in his left hip area on palpation. He does not allow me to touch this area. NEUROLOGICAL: He is quite comatose. He is able to move his all 4 extremities. He follows short commands. LABORATORY DATA: White count of 21.1, hemoglobin of 10.8, hematocrit of 32.4, platelet count 612. Sodium of 136, potassium 3.4, chloride 108, CO2 is 21, BUN 10, creatinine 0.67, glucose 97, BNP 146.8. IMPRESSION: 1. Sepsis. 2. Left hip most likely septic arthritis. 3. Deterioration of his general status with hypoxia and respiratory failure with tachypnea. We will obtain chest x-ray. We will obtain ABGs. We will move him to IMCU/ICU. 4. Normocytic anemia. 5. Thrombocytosis. 6. Hypokalemia. PLAN: Plan is to obtain those above-mentioned tests and move him to the unit. Most likely, he will need to be intubated if this is getting worse. Job ID: [id number]
--- NOTE | 2018-04-14 07:50 | PRG ---
DATE OF SERVICE: 04/13/2018 SUBJECTIVE: Mr. Welch developed respiratory distress. He had a chest x-ray, which showed multifocal area of space opacities in both right and left lungs. Dr. Tucker brought him to the ICU and he just finished intubating him. OBJECTIVE: LUNGS: Bilateral coarse breath sounds. CARDIAC: S1, S2. ABDOMEN: Soft. : Valle catheter in place. VITAL SIGNS: T-max 99.4, blood pressure 120/69, pulse 104, O2 sats 100%. LABORATORY DATA: Showed white cell count 21,000, hemoglobin 10, platelets 612, 000, 74% neutrophils. Sodium 136, creatinine 0.67 with the previous blood cultures with methicillin-sensitive Staphylococcus aureus. ASSESSMENT AND DISCUSSION: History of chronic hepatitis C, untreated; alcoholism; end-stage liver disease; Staphylococcus aureus methicillin-susceptible bacteremia with a previous infection in the perineal area in 2016 and then pyomyositis in the pelvic muscle region, which was treated with protracted IV antimicrobial therapy. Now, the patient presents with recrudescence of bacteremia in the left pelvis/ left hip pain. The patient has developed a worsening ventilatory compromise with hypoxemia with a possibility of pulmonary edema versus septic pulmonary involvement by the staphylococcal infection. Possibility of endocarditis has been considered. The patient is currently on meropenem and we will transition him to cefazolin. Continue supportive care. The patient has not had the echocardiogram performed just yet, may need a JEWE[facility] down the road. A CT scan of the chest might be helpful to determine the presence of septic pulmonary involvement with areas of cavitation. The pelvis CT scan showed healed pelvic fractures and widening of the right SI joint. Possibility of pelvis, specifically sacroiliac joint infectious arthritis with osteomyelitis is considered as well. Job ID: [id number] [facility]
--- NOTE | 2018-04-14 07:50 | OP ---
DATE OF PROCEDURE: 04/13/2018 PROCEDURE PERFORMED: Fiberoptic bronchoscopy. PREOPERATIVE DIAGNOSIS: Bilateral pneumonia. POSTOPERATIVE DIAGNOSIS: Bilateral pneumonia. ANESTHESIA: The patient received etomidate for intubation prior to this procedure. DESCRIPTION OF PROCEDURE: This was done on an emergent basis to get a specimen to determine type of pneumonia this patient has. Using an Ambu disposable bronchoscope, a 2.2 scope was placed through an adapter while the patient was on volume ventilation. The trachea was sharp in appearance. Left upper lobe, left lower lobe was normal in appearance. The right middle lobe, right upper lobe, and right lower lobe were normal in appearance. Bronchoalveolar lavage was performed in the right middle lobe. Approximately, 100 mL of saline was used and most of it returned. Bloody secretions were noted. He tolerated the procedure well. Job ID: [id number]
--- NOTE | 2018-04-14 07:51 | CON ---
DATE OF CONSULTATION: 04/13/2018 REASON FOR CONSULTATION: Acute respiratory failure. Following encompassed 70 minutes time of that time, greater than 50% was spent directly at the patient's bedside performing critical care. HISTORY OF PRESENT ILLNESS: A 57-year-old male, who was transferred by the hospitalist group to the [facility] earlier today. I was asked to see the patient in the computer. Upon my arrival in the room, which was approximately 5 minutes, that the patient was transferred down. It was noted the patient was in respiratory distress on BiPAP and I requested that the patient be moved to the ICU for endotracheal intubation. His previous hospital course includes admission on 04/11/2018 to the hospitalist group for evaluation of left and right hip pain. This patient was admitted on the 11 of April. He had been hospitalized in the Trauma Service last spring after a suicide attempt, attempting to jump from a bridge. During his hospitalization, he has become progressively more short of breath. He is being evaluated for a septic left hip. PAST MEDICAL HISTORY: 1. Hyperlipidemia. 2. Hypertension. 3. Hepatitis C. 4. Pancreatitis. 5. Stroke. 6. Glaucoma. 7. DVT. PAST SURGICAL HISTORY: 1. Splenectomy. 2. Pancreatic surgery. 3. Hip and pelvic repair in August 2015. SOCIAL HISTORY: Apparently smokes daily. Lives at home. ALLERGIES: NONE. MEDICATIONS: Prior to admission; 1. Abilify 5 mg daily. 2. Tramadol 50 mg every 6 hours as needed. 3. Clonidine 0.3 mg t.i.d. 4. Thiamine 100 mg daily. 5. Tamsulosin 0.4 mg daily. 6. Sertraline 50 mg daily. 7. Senokot 2 tablets b.i.d. 8. Protonix 40 mg daily. 9. Multivitamin one daily. 10. Remeron 15 mg nightly. 11. Levothyroxine 50 mcg daily. 12. Lactulose . 13. [place] 1 tablet every 4 hours as needed. 14. Folvite 1 mg daily. 15. Norvasc 10 mg daily. ALLERGIES: NONE. REVIEW OF SYSTEMS: Cannot be obtained, as the patient is currently intubated. PHYSICAL EXAMINATION: VITAL SIGNS: Heart rate 110, blood pressure 114/78, respiratory rate in the high 30s to low 40s, O2 saturation currently 100%. The patient was in full respiratory distress with an elevated minute ventilation. HEENT: Pupils are reactive. Sclerae anicteric. Oropharynx is clear. NECK: No adenopathy. No JVD. LUNGS: Using neck accessory muscles and abdominal accessory muscle of respiration. He has coarse rhonchi bilaterally. CARDIOVASCULAR: S1, S2. Slightly tachycardic. ABDOMEN: Soft, nontender, nondistended. EXTREMITIES: No clubbing, cyanosis or edema. Previous surgical site in the left hip is noted. LABORATORY DATA: Sodium 136, potassium 3.4, chloride 108, CO2 of 21, BUN 10, creatinine 0.7, glucose 97. PH 7.44, pCO2 of 32, PO2 of 56, that was on 3 L nasal cannula. White blood cell count 21, hematocrit 32.4, platelet count 612. His x-ray shows diffuse infiltrative changes, right greater than left, and this is much worse than at the time that he was admitted 2 days ago. ASSESSMENT: 1. Suspected septic emboli. 2. Acute respiratory failure requiring mechanical ventilation. 3. Probable septic arthritis of the left hip. PLAN: 1. The patient has been intubated because BiPAP was not going to work in this situation. 2. Broad-spectrum IV antibiotics. Dr. Flores has been consulted and will provide an opinion. 3. Follow serial ABGs. 4. Follow serial labs. 5. Bronchoalveolar lavage has been sent. 6. IV fluids, IV normal saline. Interspersed with a banana bag once daily. 7. Pepcid for GI prophylaxis. 8. Enoxaparin for DVT prophylaxis. Low threshold to discontinue, if he develops more bloody secretions. Job ID: [id number]
--- NOTE | 2018-04-14 07:51 | OP ---
DATE OF PROCEDURE: 04/13/2018 PROCEDURE PERFORMED: Endotracheal intubation. PREOPERATIVE DIAGNOSES: Acute respiratory failure with hypoxemia. POSTOPERATIVE DIAGNOSES: Acute respiratory failure with hypoxemia. ANESTHESIA: He was given a total of 20 mg of etomidate IV x1. DESCRIPTION OF PROCEDURE: This was done on an emergent basis for hypoxic respiratory failure with failure to improve on BiPAP. The patient was placed in the supine position. He was first preoxygenated with 100% oxygen through BiPAP and then placed on bag mask ventilation. Using a Glidescope, a 7.5 endotracheal tube was placed in his trachea orally on the first attempt without difficulty. Tube position was confirmed by bronchoscopy. Job ID: [id number]
[2018-04-14] MEDS: Famotidine/PF 20 mg/2ml Vial SLOW IVP SCH ×2 (08:03→20:45)
[2018-04-14] MEDS: Enoxaparin Sodium 40 MG/0.4 ML SYRINGE SC SCH (08:03)
--- NOTE | 2018-04-14 09:20 | PRG ---
DATE OF SERVICE: 04/14/2018 TIME SPENT: 35 minutes of critical care time. SUBJECTIVE: Mr. Welch remains intubated on mechanical ventilation. There have been no changes overnight. OBJECTIVE: VITAL SIGNS: On exam, his temperature is . He is on currently on propofol drip and a fentanyl drip. A 24-hour intake 2243 output 1743. HEENT: Unremarkable. NECK: No JVD. LUNGS: Coarse breath sounds. CARDIAC: S1 and S2. Regular. ABDOMEN: Soft, nontender. Liver and spleen palpable to right costal margin. EXTREMITIES: No edema. LABORATORY DATA: White blood cell count 19.8, hematocrit 33.2, and platelet count 611. The pH 7.34, pCO2 of 43, PO2 of 232, on SIMV rate 14, tidal volume 500, PEEP 5, pressure support 10, and FiO2 of 60%. Sodium 139, potassium 3.6, chloride 110, CO2 of 22, BUN 12, creatinine 0.6, and glucose 161. IMAGING STUDIES: Chest x-ray shows slight improvement in the bilateral infiltrates. ASSESSMENT: 1. Probable some sort of septic pulmonary emboli. 2. Acute respiratory failure, requiring mechanical ventilation. PLAN: I spoke with Ortho, they do not think that this is the result of the hardware, but it warrants being followed closely. Dr. Flores has started the patient on oxacillin. He also continues on meropenem. I will go ahead and get a CT of the chest to look for the classic changes of septic pulmonary emboli. I will decrease the hydrocortisone. We will start enteral tube feeds. Job ID: [id number]
--- NOTE | 2018-04-14 09:25 | RAD ---
PORTABLE UPRIGHT FRONTAL CHEST RADIOGRAPH: DATE: 04/14/2018. COMPARISON: 04/10/2018. HISTORY: Ventilated patient. COMPARISON: 04/13/2018. FINDINGS: New endotracheal tube terminates just above the level of the clavicular heads. New nasogastric tube extends into left upper quadrant. There is interstitial and alveolar opacity in the right perihilar region and throughout the right hem ithorax, slightly worsened. New small bilateral pleural effusions are suspected. IMPRESSION: Lines and tubes as above. Small bilateral pleural effusions with nonspecific interstitial and alveol ar opacity throughout the right hemithorax. Followup to resolution advised. POS: [facility]
--- NOTE | 2018-04-14 10:30 | PDOC.PN ---
- Subjective Encounter Start Date: 04/14/18 Encounter Start Time: 10:27 Subjective: intubated, unresponsive - Objective Resuscitation Status - Order Detail: 04/10/18 20:53 Resuscitation Status Routine Resuscitation Status: FULL: Full Resuscitation Vital Signs & Weight: Vital Signs (12 hours) Temp Pulse Resp BP 04/14/18 10:23 74 04/14/18 10:00 16 04/14/18 08:00 19 04/14/18 07:28 73 115/76 04/14/18 07:00 96.6 F L 04/14/18 05:00 97.6 F 04/14/18 04:00 16 04/14/18 03:45 60 99/63 04/14/18 02:00 14 04/14/18 00:00 97.6 F 14 04/13/18 22:41 93 Weight Admit Weight 158 lb 11.725 oz Weight 144 lb 8 oz Most Recent Monitor Data Heart Rate from ECG 72 NIBP 96/65 NIBP BP-Mean 75 Respiration from ECG 14 SpO2 100 I&O: 04/13/18 04/14/18 04/15/18 06:59 06:59 06:59 Intake Total 2940 2243 372 Output Total 1400 1743 135 Balance 1540 500 237 Result Diagrams: 04/14/18 04:05 04/14/18 04:05 Radiology Reviewed by me: Yes (cxr-R sided infiltrates) Phys Exam - Physical Examination Neck: no JVD clear anterior Cardiovascular: RRR, no significant murmur Gastrointestinal: soft, positive bowel sounds Musculoskeletal: no edema Dx/Plan (1) Acute respiratory failure with hypoxia Code(s): J96.01 - ACUTE RESPIRATORY FAILURE WITH HYPOXIA Status: Acute (2) PNA (pneumonia) Code(s): J18.9 - PNEUMONIA, UNSPECIFIED ORGANISM Status: Acute Qualifiers: Pneumonia type: due to unspecified organism Laterality: right Lung location: lower lobe of lung Qualified Code(s): J18.1 - Lobar pneumonia, unspecified organism (3) Hepatitis C Code(s): B19.20 - UNSPECIFIED VIRAL HEPATITIS C WITHOUT HEPATIC COMA Status: Acute Qualifiers: Viral hepatitis chronicity: chronic (4) Cirrhosis of liver Code(s): K74.60 - UNSPECIFIED CIRRHOSIS OF LIVER Status: Acute Qualifiers: Hepatic cirrhosis type: unspecified hepatic cirrhosis - Plan cont vent support -: cont antibx -: nutrtion -: check PT/PTT. hepatic profile -: discuss with conveyancer * .
--- NOTE | 2018-04-14 10:52 | CT ---
CT OF THE CHEST WITHOUT CONTRAST: COMPARISON: None. HISTORY: Septic emboli. TECHNIQUE: Multiple contiguous axial images were obtained in a CT of the chest without contrast. Coronal reform ats were performed. FINDINGS: There are multifocal areas of airspace opacity scattered about the lungs. These are more prominent i n the right upper lobe. There are small bilateral pleural effusions and adjacent atelectasis. No mas s-like opacities are seen on this exam within the lung parenchyma, but evaluation is limited given th e multifocal infiltrates. The heart is normal in size. Calcifications are seen in the coronary arteries. No hilar or mediasti nal lymphadenopathy are appreciated on this limited noncontrast examination. An NG tube is seen in the stomach. A small knot of loculated fluid seen in the left upper quadrant o f the abdomen adjacent to the spleen. This collection measures 6.9 x 6.6 x 3.4 cm in size. Degenerative changes are seen in the spine. An endotracheal tube is seen with its tip above the sheryl na. IMPRESSION: 1. Multifocal infiltrates. 2. Bilateral pleural effusions. 3. Small fluid collection beneath the left hemidiaphragm adjacent to the spleen. POS: [facility]
[2018-04-14 11:49] LABS: INR-International Normal Ratio 1.1; Prothrombin Time 14.2 SEC (12.0-14.7)
[2018-04-14 11:50] LABS: PTT 35.8 SEC (22.9-36.1)
[2018-04-14 12:05] LABS: ALT (SGPT) 26 U/L (8-55); AST (SGOT) 39 U/L (5-34); Albumin 2.4 g/dL (3.5-5.0); Alkaline Phosphatase 164 U/L (40-150); Protein, Total 5.3 g/dL (6.0-8.3)
[2018-04-14] MEDS: Multivitamins, Adult 10 ML, Folic Acid 1 MG, Thiamine HCl 100 MG in Dextrose 5 %-0.45 %... IV SCH (13:32)
[2018-04-14] MEDS: fentaNYL Citrate/PF 2,000 MCG in Sodium Chloride 0.9% 60 ML IV SCH (19:23)
[2018-04-14] MEDS: Nicotine 14 MG PATCH TD SCH (20:45)
[2018-04-14] MEDS: Lorazepam 2 MG/ML VIAL SLOW IVP PRN (23:00)
[2018-04-15] MEDS: Sodium Chloride 0.9% 1,000 ML IV SCH (03:02)
[2018-04-15] MEDS: Propofol 1,000 MG/100 ML VIAL IV PRN ×3 (03:02→22:19)
[2018-04-15] MEDS: Oxacillin 2 GM in Sodium Chloride 0.9% 100 ML IVPB SCH ×5 (03:03→20:51)
[2018-04-15 05:33] LABS: Anion Gap 9 mmol/L (10-20); BUN (Urea Nitrogen) 18 mg/dL (8.4-25.7); Calc. Creatinine Clearance 108 mL/min (70-130); Calcium 8.3 mg/dL (7.8-10.44); Carbon Dioxide 23 mmol/L (22-29); Chloride 113 mmol/L (98-107); Estimated GFR-MDRD Greater than 90; Glucose 146 mg/dL (70-105); Potassium 3.4 mmol/L (3.5-5.1); Sodium 142 mmol/L (136-145)
[2018-04-15 05:37] LABS: Band 2 % (5-11); Hemoglobin 10.7 g/dL (14.0-18.0); Hypochromia SLIGHT = 6-15 cells (100X) (0-5/hpf); Lymphocytes 3 % (21-51); MDiff Complete? YES; Mean Corpuscular HGB CONC 32.2 g/dL (32.0-36.0); Mean Corpuscular Hemoglobin 29.4 pg (27.0-31.0); Mean Platelet Volume 7.8 fL (7.4-10.4); Neutrophil 94 % (42-75); Platelet Count 683 thou/uL (130-400); Platelet Morphology Comment Appears Increased; RBC Distribution Width 15.7 % (11.5-14.5); Reactive Lymphocytes 1 % (0-10); Red Blood Cell (RBC) Count 3.63 mill/uL (4.70-6.10); White Blood Cell (WBC) Count 25.2 thou/uL (4.8-10.8)
[2018-04-15] MEDS: Levothyroxine Sodium 200 MCG VIAL IVP SCH (05:48)
[2018-04-15 06:38] LABS: Actual Bicarbonate (HCO3a) 22.4 mEq/L (22-28); Base Excess (BEa) -2.5 mEq/L (-2.0 to +3.0); CO2 Tension 38.8 mmHg (35.0-45.0); Carboxyhemoglobin (COHb) 0.1 gm% (0.0-3.0); Hemoglobin (Hb) 11.2 g/dL (14.0-18.0); O2 Tension (PaO2) 81.7 mmHg (80.0-100.0); Potassium - ABG Lab 4.09 mmol/L (3.70-5.30); pH, Arterial 7.38 (7.35-7.45)
[2018-04-15 06:39] LABS: Puncture Site RRA
[2018-04-15] MEDS ORDERED: Furosemide 40 MG/4 ML VIAL SLOW IVP SCH (07:45)
--- NOTE | 2018-04-15 08:57 | RAD ---
SINGLE VIEW OF THE CHEST: COMPARISON: 04/14/2018. HISTORY: Ventilated patient with respiratory failure. FINDINGS: A single view of the chest shows a normal size cardiomediastinal silhouette. Endotracheal tube and N G tube are unchanged in position. There are multifocal infiltrates in the lungs, right greater than left. IMPRESSION: Stable exam. POS: [facility]
--- NOTE | 2018-04-15 09:00 | PRG ---
DATE OF SERVICE: 04/15/2018 TIME SPENT: 35 minutes critical care time. SUBJECTIVE: The patient remains intubated on mechanical ventilation. He is sedated on propofol. OBJECTIVE: VITAL SIGNS: On exam, his temperature is 98.5, he has had no fever overnight, pulse 83, blood pressure 113/69. A 24-hour intake 4190, output 1005. HEENT: Unremarkable. NECK: No JVD. LUNGS: Coarse breath sounds. CARDIAC: S1 and S2, regular. ABDOMEN: Soft, nontender to palpation. EXTREMITIES: Trace edema. LABORATORY DATA: Sodium potassium 3.4, chloride 113, CO2 of 23, BUN 18, creatinine 0.6, glucose 146. PH 7.38, pCO2 of 38, pO2 of 81, on SIMV rate 14, tidal volume 500, PEEP 5, pressure support 10, FiO2 of 40%. White blood cell count 25.2, hematocrit 33.1, and platelet count 683. Bronch washings are growing out no organisms at this time. CT showed bilateral pneumonia. There also is an area of fluid collection beneath the left diaphragm adjacent to the spleen measuring 6.9 x 6.6 x 3.4. ASSESSMENT: 1. Pneumonia. 2. Acute respiratory failure requiring mechanical ventilation. 3. Mild . PLAN: 1. Decrease vent rate. 2. Decrease IV fluids. 3. Continue IV antibiotics. At some point, he may need drainage of this collection beneath the diaphragm on the left if his clinical course dictates. I think it would be reasonable to continue with antibiotics for the time being. 4. Stop IV steroids. Job ID: [id number]
--- NOTE | 2018-04-15 09:16 | PDOC.PN ---
- Subjective Encounter Start Date: 04/15/18 Encounter Start Time: 09:14 Subjective: intubated, sedated - Objective Resuscitation Status - Order Detail: 04/10/18 20:53 Resuscitation Status Routine Resuscitation Status: FULL: Full Resuscitation MAR Reviewed: Yes Vital Signs & Weight: Vital Signs (12 hours) Temp Pulse Resp BP Pulse Ox 04/15/18 07:47 80 102/68 04/15/18 06:00 14 04/15/18 04:00 98.5 F 16 04/15/18 02:31 92 114/69 04/15/18 02:29 91 15 99 04/15/18 02:00 24 H 04/15/18 00:00 98.3 F 22 H 04/14/18 22:19 116 H 136/77 04/14/18 22:16 108 H 19 99 04/14/18 22:00 20 Weight Admit Weight 144 lb 8 oz Weight 144 lb 8 oz Most Recent Monitor Data Heart Rate from ECG 88 NIBP 95/57 NIBP BP-Mean 69 Respiration from ECG 10 SpO2 100 I&O: 04/14/18 04/15/18 04/16/18 06:59 06:59 06:59 Intake Total 2243 4190.2 Output Total 1743 1005 Balance 500 3185.2 Result Diagrams: 04/15/18 05:00 04/15/18 05:00 Radiology Reviewed by me: Yes (cxr- diffuse infiltrates R>>L, ET tube good position) Phys Exam - Physical Examination Neck: no JVD clear on L, rhonchi ,rales on R Cardiovascular: RRR, no significant murmur Gastrointestinal: soft, positive bowel sounds Musculoskeletal: no edema Neurological: non-focal Dx/Plan (1) Acute respiratory failure with hypoxia Code(s): J96.01 - ACUTE RESPIRATORY FAILURE WITH HYPOXIA Status: Acute (2) PNA (pneumonia) Code(s): J18.9 - PNEUMONIA, UNSPECIFIED ORGANISM Status: Acute Qualifiers: Pneumonia type: due to unspecified organism Laterality: right Lung location: lower lobe of lung Qualified Code(s): J18.1 - Lobar pneumonia, unspecified organism (3) Hepatitis C Code(s): B19.20 - UNSPECIFIED VIRAL HEPATITIS C WITHOUT HEPATIC COMA Status: Acute Qualifiers: Viral hepatitis chronicity: chronic (4) Cirrhosis of liver Code(s): K74.60 - UNSPECIFIED CIRRHOSIS OF LIVER Status: Acute Qualifiers: Hepatic cirrhosis type: unspecified hepatic cirrhosis - Plan cont vent -: cont iv antibx -: cont nutrition -: discuss with mule operator * .
[2018-04-15] MEDS: Famotidine/PF 20 mg/2ml Vial SLOW IVP SCH ×2 (09:34→20:50)
[2018-04-15] MEDS: Enoxaparin Sodium 40 MG/0.4 ML SYRINGE SC SCH (09:34)
--- NOTE | 2018-04-15 11:38 | PRG ---
DATE OF SERVICE: 04/14/2018 SUBJECTIVE: Mr. Welch has been transferred to the ICU. He is intubated and sedated at this point in time. OBJECTIVE: VITAL SIGNS: T-max 97.6, blood pressure 95/57, pulse 80, and O2 saturation 100%. HEENT: Orotracheal intubation. LUNGS: Symmetric air entry. HEART: S1 and S2. Regular rate. ABDOMEN: Soft. Valle catheter in place. I's and O's have been positive for the past many days, anywhere from 300 to 1500. Urine output from 1000 to 1800. LABORATORY DATA: White cell count 19.8, hemoglobin 11, platelets 611, and 80% neutrophils. Chemistry with creatinine 0.67. AST is 39, alkaline phosphatase 164, albumin 2.4. Microbiology with methicillin-sensitive Staph aureus, 2/2 sets of blood cultures. Chest x-ray with diffuse bilateral alveolar opacities through the right hemithorax. An echocardiogram from one day ago with limited visualization, EF 65%. No major valvular abnormalities noted. ASSESSMENT AND DISCUSSION: Chronic hep C, untreated; alcoholism; end-stage liver disease; Methicillin-susceptible Staphylococcus aureus bacteremia with pyomyositis in the pelvic muscle region, which has improved over treatment, now presents with a left pelvic/left hip pain and then a worsening ventilatory compromise with hypoxemia, respiratory failure requiring mechanical intubation and mechanical ventilation. Endocarditis is a major concern here and will have to be treated. As if he did have it, may need a JEWELL down the road since the echocardiogram was technically of limited quality. Switch the patient to oxacillin intravenously. Job ID: [id number]
[2018-04-15] MEDS: Multivitamins, Adult 10 ML, Folic Acid 1 MG, Thiamine HCl 100 MG in Dextrose 5 %-0.45 %... IV SCH (16:16)
[2018-04-15] MEDS: fentaNYL Citrate/PF 2,000 MCG in Sodium Chloride 0.9% 60 ML IV SCH (20:38)
[2018-04-15] MEDS: Nicotine 14 MG PATCH TD SCH (21:08)
[2018-04-16] MEDS: Oxacillin 2 GM in Sodium Chloride 0.9% 100 ML IVPB SCH ×7 (01:29→23:43)
[2018-04-16] MEDS: Lorazepam 2 MG/ML VIAL SLOW IVP PRN (02:44)
[2018-04-16] MEDS: Acetaminophen 325 MG TAB PO PRN (03:03)
[2018-04-16 05:13] LABS: #Eosinphils 0.3 thou/uL (0.0-0.7); #Lymphocytes 3.1 thou/uL (1.20-3.40); #Monocytes 1.7 thou/uL (0.11-0.59); #Neutrophils 16.1 thou/uL (1.40-6.50); %Basophils 0.1 % (0.0-1.0); %Eosinophils 1.4 % (0.0-10.0); %Lymphocytes 14.5 % (21.0-51.0); %Monocytes 8.1 % (0.0-10.0); Hemoglobin 10.9 g/dL (14.0-18.0); Mean Corpuscular HGB CONC 32.6 g/dL (32.0-36.0); Mean Corpuscular Hemoglobin 29.8 pg (27.0-31.0); Mean Corpuscular Volume 91.4 fL (78.0-98.0); Mean Platelet Volume 7.8 fL (7.4-10.4); Platelet Count 652 thou/uL (130-400); RBC Distribution Width 16.3 % (11.5-14.5); Red Blood Cell (RBC) Count 3.64 mill/uL (4.70-6.10); White Blood Cell (WBC) Count 21.2 thou/uL (4.8-10.8)
[2018-04-16 05:35] LABS: Anion Gap 9 mmol/L (10-20); BUN (Urea Nitrogen) 15 mg/dL (8.4-25.7); Calc. Creatinine Clearance 124 mL/min (70-130); Calcium 8.2 mg/dL (7.8-10.44); Carbon Dioxide 25 mmol/L (22-29); Chloride 114 mmol/L (98-107); Estimated GFR-MDRD Greater than 90; Glucose 122 mg/dL (70-105); Phosphorus 3.2 mg/dL (2.3-4.7); Potassium 3.7 mmol/L (3.5-5.1); Sodium 144 mmol/L (136-145)
[2018-04-16] MEDS: Levothyroxine Sodium 200 MCG VIAL IVP SCH (05:49)
[2018-04-16 07:07] LABS: Actual Bicarbonate (HCO3a) 23.9 mEq/L (22-28); Base Excess (BEa) -0.3 mEq/L (-2.0 to +3.0); CO2 Tension 37.4 mmHg (35.0-45.0); Calcium, Ionized 1.16 mmol/L (1.12-1.30); Carboxyhemoglobin (COHb) 0.5 gm% (0.0-3.0); Hemoglobin (Hb) 11.5 g/dL (14.0-18.0); O2 Tension (PaO2) 61.4 mmHg (80.0-100.0); Potassium - ABG Lab 3.57 mmol/L (3.70-5.30); Puncture Site RRA; pH, Arterial 7.42 (7.35-7.45)
[2018-04-16] MEDS: Propofol 1,000 MG/100 ML VIAL IV PRN ×2 (07:41→17:00)
[2018-04-16] MEDS: Famotidine/PF 20 mg/2ml Vial SLOW IVP SCH ×2 (07:41→21:04)
[2018-04-16] MEDS: Enoxaparin Sodium 40 MG/0.4 ML SYRINGE SC SCH (07:42)
--- NOTE | 2018-04-16 08:02 | PDOC.PN ---
- Subjective Encounter Start Date: 04/16/18 Encounter Start Time: 08:01 - Objective Resuscitation Status - Order Detail: 04/10/18 20:53 Resuscitation Status Routine Resuscitation Status: FULL: Full Resuscitation MAR Reviewed: Yes Vital Signs & Weight: Vital Signs (12 hours) Temp Pulse Resp BP Pulse Ox 04/16/18 07:56 95 04/16/18 05:00 98.6 F 04/16/18 04:00 21 H 04/16/18 03:00 99.4 F 04/16/18 02:38 129 H 130/70 04/16/18 02:36 131 H 22 H 94 L 04/16/18 02:00 24 H 04/16/18 00:00 98.6 F 17 04/15/18 22:24 115 H 19 121/76 99 04/15/18 22:00 17 04/15/18 20:31 15 Weight Admit Weight 144 lb 8 oz Weight 164 lb 14.492 oz Most Recent Monitor Data Heart Rate from ECG 100 NIBP 116/74 NIBP BP-Mean 88 Respiration from ECG 19 SpO2 99 I&O: 04/15/18 04/16/18 04/17/18 06:59 06:59 06:59 Intake Total 4190.2 4536.7 Output Total 1005 3740 Balance 3185.2 796.7 Result Diagrams: 04/16/18 04:56 04/16/18 04:56 Radiology Reviewed by me: Yes (cxr- confluent infiltrate on R, increased on L) Phys Exam - Physical Examination Neck: no JVD diffuse rhonchi Cardiovascular: RRR, no significant murmur Gastrointestinal: soft distended anasarca Dx/Plan (1) Acute respiratory failure with hypoxia Code(s): J96.01 - ACUTE RESPIRATORY FAILURE WITH HYPOXIA Status: Acute (2) PNA (pneumonia) Code(s): J18.9 - PNEUMONIA, UNSPECIFIED ORGANISM Status: Acute Qualifiers: Pneumonia type: due to unspecified organism Laterality: right Lung location: lower lobe of lung Qualified Code(s): J18.1 - Lobar pneumonia, unspecified organism (3) Hepatitis C Code(s): B19.20 - UNSPECIFIED VIRAL HEPATITIS C WITHOUT HEPATIC COMA Status: Acute Qualifiers: Viral hepatitis chronicity: chronic (4) Cirrhosis of liver Code(s): K74.60 - UNSPECIFIED CIRRHOSIS OF LIVER Status: Acute Qualifiers: Hepatic cirrhosis type: unspecified hepatic cirrhosis (5) Anasarca Code(s): R60.1 - GENERALIZED EDEMA Status: Acute - Plan vent dependent -: cont antibx iv, appreciate ID input -: I>>O- start iv lasix 40 q12h -: start lactulose 20 bid per tube * .
--- NOTE | 2018-04-16 08:29 | RAD ---
PORTABLE AP CHEST RADIOGRAPH: Date: 04-16-18 History: On ventilator. Follow up evaluation. Comparison: 04-15-18 FINDINGS: Endotracheal tube and nasogastric tubes remain in place. There are increased interstitial and alveola r opacities seen throughout the right lung with developing consolidation in the right midlung zone. M inimal patchy densities are also seen in the region of the lingula and possibly in the retrocardiac r egion left lung base. Cardiac silhouette and pulmonary vasculature are within normal limits. Vascular calcifications are seen in the thoracic aorta. No other interval change. IMPRESSION: Persistent interstitial and alveolar opacities involving the majority of the right hemithorax with pa tchy densities left lung base. Findings could be related to pneumonia and atypical pneumonia is a pos sibility. POS: [facility]
[2018-04-16] MEDS ORDERED: Furosemide 40 MG/4 ML VIAL SLOW IVP SCH (08:30)
--- NOTE | 2018-04-16 09:10 | PRG ---
DATE OF SERVICE: 04/16/2018 TIME SPENT: 35 minutes critical care time. SUBJECTIVE: The patient remains intubated on mechanical ventilation, but no acute changes overnight. He is heavily sedated. OBJECTIVE: VITAL SIGNS: On exam, temperature 98.6 with a T-max of 99.4, pulse 100, blood pressure 116/74, and O2 saturation 99%. Intake for 24 hours 4536 and output 3740. Weight is 164 pounds. HEENT: Unremarkable. NECK: No JVD. LUNGS: Coarse breath sounds. CARDIAC: S1 and S2 regular. ABDOMEN: Soft and nontender. EXTREMITIES: No edema. LABORATORY DATA: Sodium 144, potassium 3.7, chloride 114, CO2 of 25, BUN 15, creatinine 0.6, glucose 122, phosphorus 3.2. PH of 7.42, pCO2 of 37, pO2 of 62, on SIMV rate 10, tidal volume 500, PEEP 5, pressure support 10, and FiO2 of 40%. White blood cell count 21.2, hematocrit 33.3, and platelet count 652. ASSESSMENT: 1. Disseminated staphylococcal infection-source not quite clear. 2. Acute respiratory failure requiring mechanical ventilation, not weanable yet. PLAN: 1. Continue support with mechanical ventilation, tube feeds, and antibiotics. 2. He will be given diuretics and lactulose. 3. PICC line will be placed. Job ID: [id number]
[2018-04-16] MEDS: Furosemide 40 MG/4 ML VIAL SLOW IVP SCH (14:43)
[2018-04-16] MEDS: Multivitamins, Adult 10 ML, Folic Acid 1 MG, Thiamine HCl 100 MG in Dextrose 5 %-0.45 %... IV SCH (14:51)
--- NOTE | 2018-04-16 17:17 | SPC ---
RIGHT UPPER EXTREMITY PICC PLACEMENT: 04/16/18 HISTORY: Hepatitis. Need for detention antibiotics. FINDINGS: After explaining the procedure and answering all questions, the right upper extremity was prepped and draped in the usual sterile fashion. Sterile technique was then used to put a thin wire into the rig ht upper extremity midline. Standard technique was then used to place the tip of a 5 Lao dual lume n PICC so that the tip lies at the level of the superior vena cava. The catheter was flushed and secu red externally. Final image shows the tip of the catheter to be coiled at the superior vena cava. Cat heter was flushed and secured externally. Patient tolerated the procedure well. IMPRESSION: Technically successful right upper extremity PICC placement. Catheter is now ready for use. POS: [facility]
[2018-04-16] MEDS: Nicotine 14 MG PATCH TD SCH (21:04)
[2018-04-17] MEDS: Propofol 1,000 MG/100 ML VIAL IV PRN ×3 (01:18→20:31)
[2018-04-17 03:39] LABS: Anion Gap 8 mmol/L (10-20); BUN (Urea Nitrogen) 15 mg/dL (8.4-25.7); Calc. Creatinine Clearance 131 mL/min (70-130); Carbon Dioxide 30 mmol/L (22-29); Chloride 108 mmol/L (98-107); Estimated GFR-MDRD Greater than 90; Glucose 134 mg/dL (70-105); Potassium 3.3 mmol/L (3.5-5.1); Sodium 143 mmol/L (136-145)
[2018-04-17] MEDS: fentaNYL Citrate/PF 2,000 MCG in Sodium Chloride 0.9% 60 ML IV SCH (03:41)
[2018-04-17] MEDS: Oxacillin 2 GM in Sodium Chloride 0.9% 100 ML IVPB SCH ×5 (03:47→20:27)
[2018-04-17 03:51] LABS: Band 2 % (5-11); Eosinophils 2 % (0-10); Hemoglobin 11.3 g/dL (14.0-18.0); Lymphocytes 13 % (21-51); MDiff Complete? YES; Mean Corpuscular HGB CONC 33.1 g/dL (32.0-36.0); Mean Corpuscular Hemoglobin 30.1 pg (27.0-31.0); Mean Corpuscular Volume 91.1 fL (78.0-98.0); Monocytes 4 % (0-10); Neutrophil 78 % (42-75); Platelet Count 643 thou/uL (130-400); Platelet Morphology Comment Appears Increased; RBC Distribution Width 16.1 % (11.5-14.5); Reactive Lymphocytes 1 % (0-10); Red Blood Cell (RBC) Count 3.75 mill/uL (4.70-6.10); White Blood Cell (WBC) Count 25.5 thou/uL (4.8-10.8)
[2018-04-17] MEDS: Furosemide 40 MG/4 ML VIAL SLOW IVP SCH ×2 (05:34→13:18)
[2018-04-17] MEDS ORDERED: Levothyroxine 100 MCG SDV IVP SCH (06:00)
[2018-04-17 06:30] LABS: Actual Bicarbonate (HCO3a) 30.9 mEq/L (22-28); Base Excess (BEa) 5.9 mEq/L (-2.0 to +3.0); CO2 Tension 46.4 mmHg (35.0-45.0); Calcium, Ionized 1.07 mmol/L (1.12-1.30); Carboxyhemoglobin (COHb) 0.5 gm% (0.0-3.0); Hemoglobin (Hb) 12.1 g/dL (14.0-18.0); O2 Tension (PaO2) 85.4 mmHg (80.0-100.0); Potassium - ABG Lab 3.54 mmol/L (3.70-5.30); Puncture Site RRA; pH, Arterial 7.44 (7.35-7.45)
[2018-04-17] MEDS ORDERED: Haloperidol Lactate 5 MG/ML VIAL ONE (07:51)
--- NOTE | 2018-04-17 08:21 | PDOC.PN ---
- Subjective Encounter Start Date: 04/17/18 Encounter Start Time: 08:20 Subjective: intubated, sedated - Objective Resuscitation Status - Order Detail: 04/10/18 20:53 Resuscitation Status Routine Resuscitation Status: FULL: Full Resuscitation MAR Reviewed: Yes Vital Signs & Weight: Vital Signs (12 hours) Temp Pulse Resp BP Pulse Ox 04/17/18 07:00 99.1 F 04/17/18 06:16 107 H 146/86 H 04/17/18 06:15 108 H 16 98 04/17/18 06:00 19 04/17/18 04:00 98.6 F 20 04/17/18 02:19 102 H 149/89 H 04/17/18 02:00 16 04/17/18 00:00 98.4 F 14 04/16/18 22:39 99 145/85 H 04/16/18 22:00 16 Weight Admit Weight 144 lb 8 oz Weight 156 lb 11.979 oz Most Recent Monitor Data Heart Rate from ECG 115 NIBP 162/89 NIBP BP-Mean 113 Respiration from ECG 34 SpO2 98 I&O: 04/16/18 04/17/18 04/18/18 06:59 06:59 06:59 Intake Total 4536.7 3553.9 Output Total 3830 6690 65 Balance 706.7 -3136.1 -65 Result Diagrams: 04/17/18 03:00 04/17/18 03:00 Radiology Reviewed by me: Yes (cxr-bilat infiltrates R>L) Dx/Plan (1) Acute respiratory failure with hypoxia Code(s): J96.01 - ACUTE RESPIRATORY FAILURE WITH HYPOXIA Status: Acute (2) PNA (pneumonia) Code(s): J18.9 - PNEUMONIA, UNSPECIFIED ORGANISM Status: Acute Qualifiers: Pneumonia type: due to unspecified organism Laterality: right Lung location: lower lobe of lung Qualified Code(s): J18.1 - Lobar pneumonia, unspecified organism (3) Hepatitis C Code(s): B19.20 - UNSPECIFIED VIRAL HEPATITIS C WITHOUT HEPATIC COMA Status: Acute Qualifiers: Viral hepatitis chronicity: chronic (4) Cirrhosis of liver Code(s): K74.60 - UNSPECIFIED CIRRHOSIS OF LIVER Status: Acute Qualifiers: Hepatic cirrhosis type: unspecified hepatic cirrhosis (5) Anasarca Code(s): R60.1 - GENERALIZED EDEMA Status: Acute - Plan * .
--- NOTE | 2018-04-17 08:26 | RAD ---
PORTABLE AP CHEST XRAY: DATE: 04/17/2018. HISTORY: On ventilator. COMPARISON: 04/16/2018. FINDINGS: Persistent increased interstitial and alveolar opacities again seen within the right lung greatest in the right perihilar location with dense area of consolidation which is present at the left lung base . This may be related to multifocal pneumonia. Atypical pneumonia is a possibility. Right-sided PI CC line is noted in place. Endotracheal tube and nasogastric tubes remain stable in position. Cardi ac silhouette is magnified by projection. There are . IMPRESSION: 1. Persistent interstitial and alveolar opacity involving the majority of the right hemithorax with dense area of consolidation present at the left lung base. Findings may be related to multifocal pne umonia, and atypical pneumonia is a possibility. 2. Lines and tubes in place as described above. POS: [facility]
--- NOTE | 2018-04-17 09:26 | PRG ---
DATE OF SERVICE: TIME SPENT: 35 minutes critical care time. SUBJECTIVE: The patient remains intubated on mechanical ventilation. There have been no acute changes overnight. OBJECTIVE: VITAL SIGNS: Temperature is 99.1, pulse 115, blood pressure 160/89, 24-hour intake 3553, output is 6690. HEENT: Unremarkable. NECK: No JVD. LUNGS: Coarse breath sounds. CARDIAC: S1 and S2 regular. ABDOMEN: Soft, nontender. EXTREMITIES: No clubbing, cyanosis, edema. LABORATORY DATA: White blood cell count 25.5, hematocrit 34.1, platelet count 643. Sodium 143, potassium 3.3, chloride 108, CO2 of 30, BUN 15, creatinine 0.6, glucose 134. ABGs, pH 7.44, pCO2 of 46, PO2 of 85. X-rays continue to show dense right-sided infiltrate and an infiltrate in the left lower lobe. ASSESSMENT: 1. Acute respiratory failure requiring mechanical ventilation. 2. Disseminated staphylococcal infection. 3. Likely endocarditis. 4. Hypokalemia. PLAN: 1. Replace potassium. 2. Give another dose of diuretics. 3. Continue enteral tube feeds. 4. Based on his appearance today, I do not think that he is imminently weanable from mechanical ventilation. We will try to lighten sedation and see what his neurologic status appears to be. Job ID: [id number]
[2018-04-17] MEDS: Enoxaparin Sodium 40 MG/0.4 ML SYRINGE SC SCH (09:29)
[2018-04-17] MEDS: Famotidine/PF 20 mg/2ml Vial SLOW IVP SCH ×2 (09:29→20:28)
[2018-04-17] MEDS ORDERED: Multivitamins, Adult 10 ML, Folic Acid 1 MG, Thiamine HCl 100 MG in Dextrose 5 %-0.45 %... IV SCH (17:00)
[2018-04-17] MEDS: Nicotine 14 MG PATCH TD SCH (20:54)
[2018-04-18] MEDS: Oxacillin 2 GM in Sodium Chloride 0.9% 100 ML IVPB SCH ×7 (01:57→23:37)
[2018-04-18 06:09] LABS: Hemoglobin 11.8 g/dL (14.0-18.0); Mean Corpuscular HGB CONC 32.1 g/dL (32.0-36.0); Mean Corpuscular Hemoglobin 29.2 pg (27.0-31.0); Mean Corpuscular Volume 91.1 fL (78.0-98.0); Mean Platelet Volume 8.1 fL (7.4-10.4); Platelet Count 624 thou/uL (130-400); Red Blood Cell (RBC) Count 4.03 mill/uL (4.70-6.10); White Blood Cell (WBC) Count 26.3 thou/uL (4.8-10.8)
[2018-04-18] MEDS: fentaNYL Citrate/PF 2,000 MCG in Sodium Chloride 0.9% 60 ML IV SCH (06:09)
[2018-04-18] MEDS: Furosemide 40 MG/4 ML VIAL SLOW IVP SCH ×2 (06:11→13:56)
[2018-04-18 06:12] LABS: Phosphorus 4.3 mg/dL (2.3-4.7)
[2018-04-18] MEDS: Levothyroxine Sodium 50 MCG TAB PER TUBE SCH (06:12)
[2018-04-18 06:17] LABS: Anion Gap 12 mmol/L (10-20); BUN (Urea Nitrogen) 17 mg/dL (8.4-25.7); Calc. Creatinine Clearance 121 mL/min (70-130); Calcium 8.3 mg/dL (7.8-10.44); Carbon Dioxide 32 mmol/L (22-29); Chloride 105 mmol/L (98-107); Estimated GFR-MDRD Greater than 90; Glucose 99 mg/dL (70-105); Potassium 3.5 mmol/L (3.5-5.1); Sodium 145 mmol/L (136-145)
[2018-04-18 06:49] LABS: Actual Bicarbonate (HCO3a) 32.8 mEq/L (22-28); Base Excess (BEa) 7.7 mEq/L (-2.0 to +3.0); Calcium, Ionized 1.09 mmol/L (1.12-1.30); Carboxyhemoglobin (COHb) 0.7 gm% (0.0-3.0); Hemoglobin (Hb) 12.3 g/dL (14.0-18.0); O2 Tension (PaO2) 75.3 mmHg (80.0-100.0); Potassium - ABG Lab 3.38 mmol/L (3.70-5.30); pH, Arterial 7.45 (7.35-7.45)
[2018-04-18 06:54] LABS: Puncture Site RRA
[2018-04-18 07:01] LABS: Band 12 % (5-11); Eosinophils 1 % (0-10); Lymphocytes 13 % (21-51); MDiff Complete? YES; Monocytes 10 % (0-10); Neutrophil 64 % (42-75)
--- NOTE | 2018-04-18 08:45 | PRG ---
DATE OF SERVICE: 04/18/2018 TYPE OF REPORT: Pulmonary Critical Care progress note. SUBJECTIVE: Mr. Weclh remains intubated on mechanical ventilation. He is on fairly minimal sedation and we can give him withdrawal of pain, but he does not wake up or follow commands. The nurses have not completely stopped his sedation until I told them to this morning. OBJECTIVE: VITAL SIGNS: Temperature is 98.1, pulse is 106, and blood pressure is 133/79. Intake for 24 hours 1465, output 3915. HEENT: Unremarkable. NECK: No JVD. LUNGS: Fairly clear anteriorly. CARDIAC: S1, S2, slightly tachycardic. ABDOMEN: Soft. EXTREMITIES: No edema. LABORATORY AND RADIOLOGY FINDINGS: White blood cell count 26.3, hemoglobin 11.8, hematocrit 36.7, and platelet count 624. PH of 7.45, pCO2 of 48, PO2 of 75 on SIMV rate 10, tidal volume 500, PEEP 5, pressure support 5, and FiO2 of 50%. Sodium 145, potassium 3.5, chloride 105, CO2 of 32, BUN 17, creatinine 0.6, and glucose 99. Chest x-ray shows some clearing on the right side. ASSESSMENT: 1. Disseminated staphylococcal infection, which could be from infected hardware in the pelvic region. He also could have endocarditis, although the transthoracic echo did not support that. 2. Acute respiratory failure, requiring mechanical ventilation. 3. Encephalopathy. PLAN: 1. Try to hold sedation. 2. He is to the point where he can probably be extubated, if we get his mental status better. 3. I have adjusted his ventilator rate. 4. Continue antibiotics as per Dr. Flores. He is currently being treated with oxacillin. 5. I have never seen family at the bedside, so I am not sure he was making medical decisions for him at the current time. Job ID: [id number]
--- NOTE | 2018-04-18 08:52 | RAD ---
CHEST 1 IEW: HISTORY: Dyspnea. Followup. COMPARISON: 04/17/2018. FINDINGS: Cardiac silhouette is magnified by projection. Pulmonary vasculature remains engorged with dense emiliano ateral infiltrates. Relative sparing left upper lobe. Infiltrates are less dense than on the most r ecent exam. Lines and tubes appear unchanged in position. Mediastinum is midline. IMPRESSION: Persistent pulmonary edema with slightly improved aeration of the lungs since the most recent exam. POS: [facility]
[2018-04-18] MEDS: Famotidine/PF 20 mg/2ml Vial SLOW IVP SCH ×2 (09:11→20:57)
[2018-04-18] MEDS: Enoxaparin Sodium 40 MG/0.4 ML SYRINGE SC SCH (09:12)
[2018-04-18] MEDS: Folic Acid 1 MG TAB PER TUBE SCH (09:15)
--- NOTE | 2018-04-18 10:59 | PDOC.PN ---
- Subjective Encounter Start Date: 04/18/18 Encounter Start Time: 10:45 Intubated, sedated. - Objective Resuscitation Status - Order Detail: 04/10/18 20:53 Resuscitation Status Routine Resuscitation Status: FULL: Full Resuscitation MAR Reviewed: Yes Vital Signs & Weight: Vital Signs (12 hours) Temp Pulse Resp BP Pulse Ox 04/18/18 10:13 127 H 170/109 H 04/18/18 10:11 126 H 25 H 98 04/18/18 07:40 15 98 04/18/18 06:40 103 H 147/87 H 04/18/18 06:36 105 H 15 98 04/18/18 06:00 14 04/18/18 04:00 98.1 F 15 04/18/18 02:33 98 135/84 04/18/18 02:00 17 04/18/18 00:00 98.8 F 17 Weight Admit Weight 144 lb 8 oz Weight 151 lb 0.266 oz Most Recent Monitor Data Heart Rate from ECG 132 NIBP 170/109 NIBP BP-Mean 129 Respiration from ECG 15 SpO2 96 I&O: 04/17/18 04/18/18 04/19/18 06:59 06:59 06:59 Intake Total 3553.9 1465 Output Total 6690 3915 Balance -3136.1 -2450 Result Diagrams: 04/18/18 05:30 04/18/18 05:30 Phys Exam - Physical Examination Constitutional: NAD Intubated, not responsive to verbal stim. Modest movement with physical stim. Respiratory: no wheezing, no rhonchi Modest scattered rales. Cardiovascular: RRR, no significant murmur, no rub Tachy Gastrointestinal: soft, no distention, positive bowel sounds Some edema of the feet. Some sarcopenia of LE's that looks like atrophy from debility. Skin: no rash, normal turgor Dx/Plan (1) Acute respiratory failure with hypoxia Code(s): J96.01 - ACUTE RESPIRATORY FAILURE WITH HYPOXIA Status: Acute Comment: Secondary to pneumonia. Pulmonology following. (2) UTI (urinary tract infection) Status: Acute Comment: Staph aureus on culture. (3) Staph aureus infection Code(s): A49.01 - METHICILLIN SUSCEP STAPH INFECTION, UNSP SITE Status: Acute (4) PNA (pneumonia) Code(s): J18.9 - PNEUMONIA, UNSPECIFIED ORGANISM Status: Acute Qualifiers: Pneumonia type: due to unspecified organism Laterality: right Lung location: lower lobe of lung Qualified Code(s): J18.1 - Lobar pneumonia, unspecified organism Comment: Right lung. Greater infiltrate on RLL. (5) Cirrhosis of liver Code(s): K74.60 - UNSPECIFIED CIRRHOSIS OF LIVER Status: Chronic Qualifiers: Hepatic cirrhosis type: unspecified hepatic cirrhosis (6) Hepatitis C Code(s): B19.20 - UNSPECIFIED VIRAL HEPATITIS C WITHOUT HEPATIC COMA Status: Chronic Qualifiers: Viral hepatitis chronicity: chronic (7) Sepsis Code(s): A41.9 - SEPSIS, UNSPECIFIED ORGANISM Status: Acute Comment: Due to pneumonia and staph uti. (8) Bacteremia due to methicillin susceptible Staphylococcus aureus (MSSA) Code(s): R78.81 - BACTEREMIA Status: Acute Comment: Concern for endocarditis. Dr. Flores following. On Oxacillin. (9) Hypothyroidism Code(s): E03.9 - HYPOTHYROIDISM, UNSPECIFIED Status: Chronic - Plan * Sedation stopped. Allowing him wake so extubation can be considered. * Continue IV Oxacillin. * Consider JEWELL when more stable.
[2018-04-18] MEDS ORDERED: Heparin 1,000 UNITS/ML VIAL ONE (11:11)
[2018-04-18] MEDS: Labetalol HCl 100 MG/20 ML VIAL SLOW IVP PRN (19:21)
[2018-04-18] MEDS: Nicotine 14 MG PATCH TD SCH (21:11)
[2018-04-19] MEDS: Oxacillin 2 GM in Sodium Chloride 0.9% 100 ML IVPB SCH ×6 (04:31→23:01)
[2018-04-19] MEDS: Propofol 1,000 MG/100 ML VIAL IV PRN (04:32)
[2018-04-19 04:56] LABS: Band 5 % (5-11); Hemoglobin 13.1 g/dL (14.0-18.0); Lymphocytes 10 % (21-51); MDiff Complete? YES; Mean Corpuscular HGB CONC 32.9 g/dL (32.0-36.0); Mean Corpuscular Hemoglobin 29.8 pg (27.0-31.0); Mean Corpuscular Volume 90.6 fL (78.0-98.0); Mean Platelet Volume 8.2 fL (7.4-10.4); Monocytes 4 % (0-10); Neutrophil 79 % (42-75); Platelet Count 690 thou/uL (130-400); Platelet Morphology Comment Appears Increased; Polychromasia SLIGHT = 2-3 cells (100X) (0-2/hpf); RBC Distribution Width 15.9 % (11.5-14.5); Reactive Lymphocytes 2 % (0-10); Red Blood Cell (RBC) Count 4.41 mill/uL (4.70-6.10); White Blood Cell (WBC) Count 31.1 thou/uL (4.8-10.8)
[2018-04-19 05:07] LABS: Phosphorus 4.3 mg/dL (2.3-4.7)
[2018-04-19] MEDS: Furosemide 40 MG/4 ML VIAL SLOW IVP SCH ×2 (05:49→14:42)
[2018-04-19] MEDS: Levothyroxine Sodium 50 MCG TAB PER TUBE SCH (05:49)
[2018-04-19 06:49] LABS: Anion Gap 14 mmol/L (10-20); BUN (Urea Nitrogen) 23 mg/dL (8.4-25.7); Calc. Creatinine Clearance 99 mL/min (70-130); Calcium 8.9 mg/dL (7.8-10.44); Carbon Dioxide 31 mmol/L (22-29); Chloride 104 mmol/L (98-107); Estimated GFR-MDRD Greater than 90; Glucose 170 mg/dL (70-105); Potassium 3.2 mmol/L (3.5-5.1); Sodium 146 mmol/L (136-145)
[2018-04-19 06:51] LABS: Actual Bicarbonate (HCO3a) 34.7 mEq/L (22-28); Base Excess (BEa) 9.6 mEq/L (-2.0 to +3.0); CO2 Tension 48.8 mmHg (35.0-45.0); Calcium, Ionized 1.09 mmol/L (1.12-1.30); Carboxyhemoglobin (COHb) 0.8 gm% (0.0-3.0); Hemoglobin (Hb) 13.1 g/dL (14.0-18.0); Potassium - ABG Lab 2.88 mmol/L (3.70-5.30); pH, Arterial 7.47 (7.35-7.45)
[2018-04-19 06:52] LABS: O2 Tension (PaO2) 57.3 mmHg (80.0-100.0)
[2018-04-19 06:53] LABS: Puncture Site RRA
--- NOTE | 2018-04-19 08:13 | RAD ---
PORTABLE CHEST: DATE: 04/19/2018. PROVIDED CLINICAL HISTORY: Respiratory insufficiency. FINDINGS: Comparison 04/18/2018. Improved aeration at the right lung base and right parahilar region. Diminish ed conspicuity to the pulmonary interstitium. Additional interval significant change with respect to the prior examination is not apparent. IMPRESSION: As above. POS: [facility]
[2018-04-19] MEDS: Labetalol HCl 100 MG/20 ML VIAL SLOW IVP PRN ×3 (09:21→21:11)
[2018-04-19] MEDS: Enoxaparin Sodium 40 MG/0.4 ML SYRINGE SC SCH (09:23)
[2018-04-19] MEDS: Folic Acid 1 MG TAB PER TUBE SCH (09:24)
[2018-04-19] MEDS: Famotidine/PF 20 mg/2ml Vial SLOW IVP SCH ×2 (09:24→20:50)
[2018-04-19] MEDS ORDERED: diphenhydrAMINE 50 MG/ML VIAL IVP SCH (13:00)
[2018-04-19] MEDS: Dextrose 5% in Water 1,000 ML IV SCH (13:09)
--- NOTE | 2018-04-19 13:46 | PRG ---
DATE OF SERVICE: 04/19/2018 SERVICE: Pulmonary Medicine INTERVAL HISTORY: The patient is doing really well from respiratory standpoint. He is breathing comfortably. That being said, he still remains a little bit goofy. He ended up getting put back on sedation overnight. He is still coming out of his system today. There are no reports that he was actually following any commands , but he got a little bit agitated. As such, he was restarted. He cannot provide any additional elements of the history. There were no significant other overnight events. OBJECTIVE: VITAL SIGNS: Afebrile, pulse 93, blood pressure 185/108, respirations 22, and saturation 99% on pressure support ventilation at 5/5. HEENT: Normocephalic and atraumatic. Sclerae white. Conjunctivae pink. Oral mucosa is moist without lesions. LUNGS: Decent air entry. Minimal rhonchi are present, which are a little bit worse on the left. He does not cough. There is no prolonged expiratory phase or wheezing present. HEART: Normal rate, regular. ABDOMEN: Soft, nontender, and nondistended. Bowel sounds are positive. MUSCULOSKELETAL: No cyanosis or clubbing. There is diffuse 2+ pitting throughout. : Valle catheter in place. NEUROLOGIC: Grossly nonfocal. He does grimace with noxious stimuli to the bilateral upper and lower extremities and has some degree of withdrawal. LABORATORY DATA: WBC 31.1, hemoglobin 13.1, platelets 690,000. Band count is 5 %, and neutrophils 79. PH 7.47, pCO2 of 48, PO2 of 57, corresponding to a saturation of 89%. Sodium 146 and potassium 3.2. Basic metabolic profile is otherwise unremarkable. Phosphorus 4.3. Urine culture is growing MSSA. Body fluid culture in the hip aspirate, blood cultures x2 are negative. IMAGING: Chest x-ray demonstrates endotracheal tube is in decent position roughly 4 to 5 cm above the denise. There is enteric catheter coursing below the level of the diaphragm. A left basilar infiltrate is likely present. Otherwise, there is no acute cardiopulmonary abnormality. The right subclavian central venous catheter terminates in a good position. ASSESSMENT: 1. Acute hypoxic respiratory failure. 2. Encephalopathy, unknown source. 3. Disseminated infection with MSSA including infected hardware and urinary tract infection. DISCUSSION AND PLAN: The patient at this point is not weanable because of his encephalopathy. He certainly not following any commands. I will give him a single dose of Benadryl. All centrally acting medications will be interrupted. We will continue on Lasix. I will need to initiate little free water, as he is starting to get hypernatremic. Potassium will be replaced today. Pulmonary Critical Care will continue to follow along. Critical care time: 30 minutes. Job ID: [id number] MTDD
--- NOTE | 2018-04-19 13:52 | PDOC.PN ---
- Subjective Encounter Start Date: 04/19/18 Encounter Start Time: 11:40 Intubated. Non-verbal. - Objective Resuscitation Status - Order Detail: 04/10/18 20:53 Resuscitation Status Routine Resuscitation Status: FULL: Full Resuscitation Vital Signs & Weight: Vital Signs (12 hours) Temp Pulse Resp BP Pulse Ox 04/19/18 10:36 93 185/108 H 04/19/18 10:35 93 22 H 99 04/19/18 10:23 96 185/108 H 04/19/18 09:21 119 H 192/115 H 04/19/18 06:41 109 H 150/91 H 04/19/18 06:39 105 H 19 94 L 04/19/18 06:00 18 04/19/18 04:00 99.0 F 16 04/19/18 02:24 112 H 187/109 H 04/19/18 02:00 21 H Weight Admit Weight 144 lb 8 oz Weight 149 lb 11.102 oz Most Recent Monitor Data Heart Rate from ECG 106 NIBP 150/91 NIBP BP-Mean 110 Respiration from ECG 19 SpO2 95 I&O: 04/18/18 04/19/18 04/20/18 06:59 06:59 06:59 Intake Total 1465 1609.4 Output Total 3915 3980 Balance -2450 -2370.6 Result Diagrams: 04/19/18 04:20 04/19/18 04:20 Phys Exam - Physical Examination Constitutional: NAD Intubated. Responds with modest withdrawal to noxious stim. Rare eye contact. HEENT: PERRLA Respiratory: no wheezing, no rales, no rhonchi Cardiovascular: RRR, no significant murmur Gastrointestinal: soft, no distention, positive bowel sounds Edema of the feet. Skin: normal turgor Dx/Plan (1) Acute respiratory failure with hypoxia Code(s): J96.01 - ACUTE RESPIRATORY FAILURE WITH HYPOXIA Status: Acute Comment: Secondary to pneumonia. Pulmonology following. Sedation held to assess for extubation. (2) UTI (urinary tract infection) Status: Acute Comment: MSSA on culture. On Oxacillin. MSSA in blood as well. (3) Staph aureus infection Code(s): A49.01 - METHICILLIN SUSCEP STAPH INFECTION, UNSP SITE Status: Acute Comment: Appears disseminated. In blood and urine. ID following. On Oxacillin. (4) PNA (pneumonia) Code(s): J18.9 - PNEUMONIA, UNSPECIFIED ORGANISM Status: Acute Qualifiers: Pneumonia type: due to unspecified organism Laterality: right Lung location: lower lobe of lung Qualified Code(s): J18.1 - Lobar pneumonia, unspecified organism Comment: Right lung. Greater infiltrate on RLL. Presumed MSSA. (5) Cirrhosis of liver Code(s): K74.60 - UNSPECIFIED CIRRHOSIS OF LIVER Status: Chronic Qualifiers: Hepatic cirrhosis type: unspecified hepatic cirrhosis (6) Hepatitis C Code(s): B19.20 - UNSPECIFIED VIRAL HEPATITIS C WITHOUT HEPATIC COMA Status: Chronic Qualifiers: Viral hepatitis chronicity: chronic (7) Sepsis Code(s): A41.9 - SEPSIS, UNSPECIFIED ORGANISM Status: Acute Comment: Due to pneumonia and staph uti. (8) Bacteremia due to methicillin susceptible Staphylococcus aureus (MSSA) Code(s): R78.81 - BACTEREMIA Status: Acute Comment: Concern for endocarditis. Dr. Flores following. On Oxacillin. (9) Hypothyroidism Code(s): E03.9 - HYPOTHYROIDISM, UNSPECIFIED Status: Chronic (10) Hypertension Code(s): I10 - ESSENTIAL (PRIMARY) HYPERTENSION Status: Acute Comment: On Norvasc and Catapress as outpatient. BP running intermittently high here. PRN's ordered. 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 - Plan * Case discussed with Dr. Joyce. * Attempting to completely remove sedation and see if he will wake up. * If he does not, may need to reassess [employer].
[2018-04-20] MEDS: Labetalol HCl 100 MG/20 ML VIAL SLOW IVP PRN ×3 (00:17→09:14)
[2018-04-20] MEDS: Oxacillin 2 GM in Sodium Chloride 0.9% 100 ML IVPB SCH ×6 (03:30→23:40)
[2018-04-20] MEDS: Dextrose 5% in Water 1,000 ML IV SCH ×3 (03:35→20:03)
[2018-04-20 04:58] LABS: #Basophils 0.1 thou/uL (0.0-0.2); #Eosinphils 0.1 thou/uL (0.0-0.7); #Lymphocytes 4.3 thou/uL (1.20-3.40); #Monocytes 2.1 thou/uL (0.11-0.59); #Neutrophils 18.2 thou/uL (1.40-6.50); %Basophils 0.3 % (0.0-1.0); %Eosinophils 0.5 % (0.0-10.0); %Lymphocytes 17.2 % (21.0-51.0); %Monocytes 8.6 % (0.0-10.0); %Neutrophils 73.4 % (42.0-75.0); Hemoglobin 12.5 g/dL (14.0-18.0); Mean Corpuscular HGB CONC 32.7 g/dL (32.0-36.0); Mean Corpuscular Hemoglobin 29.7 pg (27.0-31.0); Mean Corpuscular Volume 90.6 fL (78.0-98.0); Mean Platelet Volume 8.4 fL (7.4-10.4); Platelet Count 589 thou/uL (130-400); RBC Distribution Width 15.8 % (11.5-14.5); Red Blood Cell (RBC) Count 4.21 mill/uL (4.70-6.10); White Blood Cell (WBC) Count 24.8 thou/uL (4.8-10.8)
[2018-04-20 05:12] LABS: Anion Gap 13 mmol/L (10-20); BUN (Urea Nitrogen) 26 mg/dL (8.4-25.7); Calc. Creatinine Clearance 94 mL/min (70-130); Calcium 8.7 mg/dL (7.8-10.44); Carbon Dioxide 29 mmol/L (22-29); Chloride 108 mmol/L (98-107); Estimated GFR-MDRD Greater than 90; Glucose 158 mg/dL (70-105); Magnesium 2.4 mg/dL (1.6-2.6); Potassium 3.2 mmol/L (3.5-5.1); Sodium 147 mmol/L (136-145)
[2018-04-20 05:50] LABS: Phosphorus 3.2 mg/dL (2.3-4.7)
[2018-04-20] MEDS: Furosemide 40 MG/4 ML VIAL SLOW IVP SCH ×2 (06:00→13:41)
[2018-04-20] MEDS: Levothyroxine Sodium 50 MCG TAB PER TUBE SCH (06:00)
[2018-04-20 06:46] LABS: Actual Bicarbonate (HCO3a) 30.5 mEq/L (22-28); Base Excess (BEa) 8.3 mEq/L (-2.0 to +3.0); CO2 Tension 34.2 mmHg (35.0-45.0); Calcium, Ionized 1.14 mmol/L (1.12-1.30); Carboxyhemoglobin (COHb) 0.8 gm% (0.0-3.0); Hemoglobin (Hb) 13.1 g/dL (14.0-18.0); O2 Tension (PaO2) 46.6 mmHg (80.0-100.0); Potassium - ABG Lab 3.01 mmol/L (3.70-5.30); pH, Arterial 7.57 (7.35-7.45)
[2018-04-20 06:47] LABS: Puncture Site RRA
[2018-04-20] MEDS: Enoxaparin Sodium 40 MG/0.4 ML SYRINGE SC SCH (08:38)
[2018-04-20] MEDS: Famotidine/PF 20 mg/2ml Vial SLOW IVP SCH ×2 (08:39→20:05)
[2018-04-20] MEDS: Folic Acid 1 MG TAB PER TUBE SCH (08:39)
--- NOTE | 2018-04-20 13:43 | PRG ---
DATE OF SERVICE: 04/20/2018 SERVICE: Pulmonary Medicine. INTERVAL HISTORY: The patient is doing really well from mentation standpoint. Today, after being off sedation for over 24 hours, he is awake and conversive. He cannot provide me with any additional elements of the history because he is intubated. That being said, his oxygen requirements are starting to slowly improve. Nursing reports no significant overnight events. PHYSICAL EXAMINATION: VITAL SIGNS: Afebrile, pulse is 85, blood pressure 127/73, respirations 21, saturation 100% on 40% FiO2 and a PEEP of 5 GENERAL: The patient is intubated. HEENT: Normocephalic and atraumatic. Sclerae white. Conjunctivae pink. Oral mucosa is moist without lesions. LUNGS: Rhonchi are present. There is a prolonged expiratory phase. I do not appreciate any wheezing. No crackles are identified. HEART: Normal rate, regular. ABDOMEN: Soft, nontender, and nondistended. Bowel sounds are positive. MUSCULOSKELETAL: No cyanosis or clubbing. Trace pitting is present in the bilateral lower extremities. NEUROLOGIC: Grossly nonfocal. LABORATORY DATA: WBC 24.8 and downtrending, hemoglobin 12.5, and platelets 589,000. Has pH 7.57, pCO2 of 34, pO2 of 46 corresponding to a saturation of 86%. This is when he was breathing 21% FiO2 on pressure support ventilation. Sodium 147, potassium 3.2. Basic metabolic profile is otherwise unremarkable. Magnesium 2.4, phosphorus 3.2. Ammonia is gently up trending to 48. TSH falls within the normal limits. Staph aureus is growing in the urine, which is pansensitive. Body fluid culture, and blood culture and respiratory culture are all unremarkable. ASSESSMENT: 1. Acute hypoxic respiratory failure. 2. Encephalopathy, resolving. 3. Disseminated infection with Methicillin-susceptible Staphylococcus aureus including urinary tract infection, and possible infected hardware. 4. Hypokalemia. 5. Hypernatremia. DISCUSSION AND PLAN: We will replace the free water. I will replace the potassium. We will put him on a spontaneous breathing trial. If he meets criteria, extubation will be considered. Pulmonary Critical Care will continue to follow along. CRITICAL CARE TIME: 30 minutes. Job ID: [id number]
--- NOTE | 2018-04-20 14:55 | PRG ---
DATE OF SERVICE: 04/20/2018 SUBJECTIVE: The patient was seen early this morning. He is still intubated. At that time, the patient was having a bit more spontaneous movements, but was still not making significant eye contact; apparently, has improved somewhat since that time. OBJECTIVE: VITAL SIGNS: Temperature is 99.4, pulse 82, blood pressure 132/81, O2 saturation 100% on the vent, and respirations 21 to 26. GENERAL APPEARANCE: The patient is generally cachectic, has a fair amount of muscle wasting in the face, and is generally very thin. HEART: Regular without murmurs. LUNGS: Fairly clear throughout. ABDOMEN: Soft and nondistended. Positive bowel sounds. EXTREMITIES: Edema in his feet seems to be largely resolved. LABORATORY DATA: White count 24.8, hemoglobin 12.5, and platelets 589. Sodium 147, potassium 3.2, chloride 108, BUN 26, and creatinine 0.81. Ammonia is 48. TSH 1.27. Magnesium 2.4, phosphorus 3.2. IMPRESSION AND PLAN: 1. Acute respiratory failure. The patient is still on the ventilator, followed by Pulmonary/Critical Care, attempting to try to wean him as soon as he is capable. On my exam, the patient was still fairly encephalopathic, but apparently that is improving. 2. Disseminated methicillin-susceptible Staphylococcus aureus. As we do not have blood cultures and urine cultures, no apparent source as of yet. Certainly, still concerning for possible endocarditis, although surface echo was negative. 3. Hypokalemia, replete. 4. Hypernatremia, receiving some free water boluses. Job ID: [id number]
--- NOTE | 2018-04-20 17:57 | RAD ---
PORTABLE SUPINE AP ABDOMINAL RADIOGRAPH: 04/20/2018 HISTORY: Dobhoff feeding tube placement. FINDINGS: A Dobhoff feeding tube is noted in place, with the tip overlying the right upper quadrant and probabl y overlying the region of the distal portion of the pylorus or first portion of the duodenum. There is a tiny metallic density seen overlying the medial aspect of the left upper quadrant, which is diff icult to further localize and is of uncertain etiology. This measures approximately 5 mm. The bowel gas pattern, where visualized, is nonspecific. There are alveolar opacities seen in the lung bases bilaterally, which may be related to either pulmonary edema or an infectious process. There is parti al visualization of a central venous catheter overlying the distal SVC and region of the cavoatrial j unction. IMPRESSION: 1. Dobhoff feeding tube noted in place with the tip overlying either the distal portion of the pylor us or the first portion of the duodenum. 2. Metallic density overlying the left upper quadrant, adjacent to the Dobhoff feeding tube, which c annot be further localized on this examination. This could be artifactual. 3. Interstitial and alveolar opacities at each lung base, which may be related to either pulmonary e kalli or an infectious process. POS: STACY
[2018-04-20] MEDS: Acetaminophen 325 MG TAB PO PRN (18:17)
[2018-04-21] MEDS: Acetaminophen 325 MG TAB PO PRN (03:03)
[2018-04-21] MEDS: Oxacillin 2 GM in Sodium Chloride 0.9% 100 ML IVPB SCH ×6 (03:04→23:42)
[2018-04-21] MEDS: Levothyroxine Sodium 50 MCG TAB PER TUBE SCH (05:36)
[2018-04-21] MEDS: Furosemide 40 MG/4 ML VIAL SLOW IVP SCH (05:36)
[2018-04-21 05:58] LABS: #Basophils 0.2 thou/uL (0.0-0.2); #Eosinphils 0.2 thou/uL (0.0-0.7); #Lymphocytes 4.4 thou/uL (1.20-3.40); #Monocytes 2.5 thou/uL (0.11-0.59); #Neutrophils 21.9 thou/uL (1.40-6.50); %Basophils 0.5 % (0.0-1.0); %Eosinophils 0.6 % (0.0-10.0); %Lymphocytes 15.2 % (21.0-51.0); %Monocytes 8.6 % (0.0-10.0); %Neutrophils 75.1 % (42.0-75.0); Hemoglobin 12.4 g/dL (14.0-18.0); Mean Corpuscular HGB CONC 32.3 g/dL (32.0-36.0); Mean Corpuscular Hemoglobin 28.9 pg (27.0-31.0); Mean Corpuscular Volume 89.5 fL (78.0-98.0); Mean Platelet Volume 8.8 fL (7.4-10.4); Platelet Count 559 thou/uL (130-400); RBC Distribution Width 15.7 % (11.5-14.5); Red Blood Cell (RBC) Count 4.29 mill/uL (4.70-6.10); White Blood Cell (WBC) Count 29.2 thou/uL (4.8-10.8)
[2018-04-21] MEDS: Dextrose 5% in Water 1,000 ML IV SCH ×2 (06:39→18:14)
[2018-04-21 06:45] LABS: Anion Gap 15 mmol/L (10-20); BUN (Urea Nitrogen) 24 mg/dL (8.4-25.7); Calc. Creatinine Clearance 78 mL/min (70-130); Calcium 9.1 mg/dL (7.8-10.44); Carbon Dioxide 24 mmol/L (22-29); Chloride 108 mmol/L (98-107); Estimated GFR-MDRD 82; Glucose 121 mg/dL (70-105); Potassium 3.1 mmol/L (3.5-5.1); Sodium 144 mmol/L (136-145)
--- NOTE | 2018-04-21 08:47 | PRG ---
DATE OF SERVICE: 04/21/2018 SUBJECTIVE: He was extubated over the weekend. Some of his speech is garbled and not understandable. However, he does indicate that he is thirsty. OBJECTIVE: VITAL SIGNS: On exam, his temperature is 99.0 with T-max of 99.6, pulse 104, blood pressure 172/108, O2 saturation 100%. He is currently on a D5 drip at 100 mL/h. HEENT: Unremarkable. NECK: No JVD. LUNGS: Clear without wheezing or rhonchi. CARDIAC: S1 and S2, regular. ABDOMEN: Soft. EXTREMITIES: No edema. LABORATORY DATA: Sodium 144, potassium 3.1, chloride 108, CO2 24, BUN 24, creatinine 0.9, glucose 121. White blood cell count 29.2, hematocrit 38.4, platelet count 559. ASSESSMENT: 1. Sepsis syndrome secondary to Staphylococcus bacteremia. 2. Status post prolonged intubation for acute respiratory failure. 3. Mild hyponatremia. 4. Hypothyroidism. 5. Hypertension. PLAN: 1. Up in a chair as tolerated. 2. Swallowing evaluation. 3. Add Catapres patch for his hypertension. 4. Stop the Lasix for the time being. 5. Leave in the ICU for the time being. Job ID: [id number]
[2018-04-21] MEDS ORDERED: cloNIDine 0.3mg/24 Hour PATCH TD SCH (09:00)
[2018-04-21] MEDS: Enoxaparin Sodium 40 MG/0.4 ML SYRINGE SC SCH (09:15)
[2018-04-21] MEDS: Famotidine/PF 20 mg/2ml Vial SLOW IVP SCH ×2 (09:15→20:22)
[2018-04-21] MEDS: Folic Acid 1 MG TAB PER TUBE SCH (09:18)
--- NOTE | 2018-04-21 21:39 | PDOC.PN ---
- Subjective Encounter Start Date: 04/21/18 Encounter Start Time: 08:40 Extubated. Talkative and pleasant, but difficult to understand and confused. - Objective Resuscitation Status - Order Detail: 04/10/18 20:53 Resuscitation Status Routine Resuscitation Status: FULL: Full Resuscitation Vital Signs & Weight: Vital Signs (12 hours) Temp Pulse Resp Pulse Ox 04/21/18 18:36 97 25 H 100 04/21/18 16:00 97.6 F 04/21/18 14:08 107 H 24 H 100 04/21/18 12:00 98.7 F 04/21/18 10:15 90 20 100 Weight Admit Weight 144 lb 8 oz Weight 144 lb 6.444 oz Most Recent Monitor Data Heart Rate from ECG 90 NIBP 144/87 NIBP BP-Mean 106 Respiration from ECG 23 SpO2 97 I&O: 04/20/18 04/21/18 04/22/18 06:59 06:59 06:59 Intake Total 3525 4261 1919 Output Total 3390 3995 1835 Balance 135 266 84 Result Diagrams: 04/21/18 04:50 04/21/18 04:50 Phys Exam - Physical Examination Constitutional: NAD Intermittent tachypnea, with abrupt return to normal. Scattered rales throughout. Fair air exchange. Cardiovascular: RRR, no significant murmur Gastrointestinal: soft, non-tender, no distention, positive bowel sounds Musculoskeletal: no edema Deviation from normal: Confused. Dx/Plan (1) Acute respiratory failure with hypoxia Code(s): J96.01 - ACUTE RESPIRATORY FAILURE WITH HYPOXIA Status: Acute Comment: Secondary to pneumonia. Pulmonology following. Extubated. (2) UTI (urinary tract infection) Status: Acute Comment: MSSA on culture. On Oxacillin. MSSA in blood as well. (3) Staph aureus infection Code(s): A49.01 - METHICILLIN SUSCEP STAPH INFECTION, UNSP SITE Status: Acute Comment: Appears disseminated. In blood and urine. ID following. On Oxacillin. (4) PNA (pneumonia) Code(s): J18.9 - PNEUMONIA, UNSPECIFIED ORGANISM Status: Acute Qualifiers: Pneumonia type: due to unspecified organism Laterality: right Lung location: lower lobe of lung Qualified Code(s): J18.1 - Lobar pneumonia, unspecified organism Comment: Right lung. Greater infiltrate on RLL. Presumed MSSA. (5) Cirrhosis of liver Code(s): K74.60 - UNSPECIFIED CIRRHOSIS OF LIVER Status: Chronic Qualifiers: Hepatic cirrhosis type: unspecified hepatic cirrhosis (6) Hepatitis C Code(s): B19.20 - UNSPECIFIED VIRAL HEPATITIS C WITHOUT HEPATIC COMA Status: Chronic Qualifiers: Viral hepatitis chronicity: chronic (7) Sepsis Code(s): A41.9 - SEPSIS, UNSPECIFIED ORGANISM Status: Acute Comment: Due to pneumonia and staph uti. (8) Bacteremia due to methicillin susceptible Staphylococcus aureus (MSSA) Code(s): R78.81 - BACTEREMIA Status: Acute Comment: Concern for endocarditis. Dr. Flores following. On Oxacillin. (9) Hypothyroidism Code(s): E03.9 - HYPOTHYROIDISM, UNSPECIFIED Status: Chronic (10) Hypertension Code(s): I10 - ESSENTIAL (PRIMARY) HYPERTENSION Status: Acute Comment: On Norvasc and Catapress as outpatient. BP running intermittently high here. PRN's ordered. Catapress patch ordered until swallow eval done. 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 - Plan * Continue abx to cover possible endocarditis with MSSA bacteremia, UTI and pneumonia.
[2018-04-22] MEDS: Oxacillin 2 GM in Sodium Chloride 0.9% 100 ML IVPB SCH ×5 (05:15→20:50)
[2018-04-22 06:11] LABS: #Basophils 0.1 thou/uL (0.0-0.2); #Eosinphils 0.4 thou/uL (0.0-0.7); #Lymphocytes 2.6 thou/uL (1.20-3.40); #Monocytes 1.6 thou/uL (0.11-0.59); #Neutrophils 15.2 thou/uL (1.40-6.50); %Basophils 0.6 % (0.0-1.0); %Eosinophils 2.2 % (0.0-10.0); %Lymphocytes 13.3 % (21.0-51.0); %Monocytes 7.9 % (0.0-10.0); %Neutrophils 76.1 % (42.0-75.0); Hemoglobin 11.1 g/dL (14.0-18.0); Mean Corpuscular HGB CONC 30.9 g/dL (32.0-36.0); Mean Corpuscular Volume 90.8 fL (78.0-98.0); Mean Platelet Volume 8.7 fL (7.4-10.4); Platelet Count 517 thou/uL (130-400); RBC Distribution Width 15.7 % (11.5-14.5); Red Blood Cell (RBC) Count 3.95 mill/uL (4.70-6.10); White Blood Cell (WBC) Count 19.9 thou/uL (4.8-10.8)
[2018-04-22 06:13] LABS: Anion Gap 9 mmol/L (10-20); BUN (Urea Nitrogen) 20 mg/dL (8.4-25.7); Calc. Creatinine Clearance 102 mL/min (70-130); Calcium 8.3 mg/dL (7.8-10.44); Carbon Dioxide 26 mmol/L (22-29); Chloride 107 mmol/L (98-107); Estimated GFR-MDRD Greater than 90; Glucose 148 mg/dL (70-105); Potassium 3.1 mmol/L (3.5-5.1); Sodium 139 mmol/L (136-145)
[2018-04-22] MEDS: Dextrose 5% in Water 1,000 ML IV SCH ×2 (06:35→18:14)
[2018-04-22] MEDS: Levothyroxine Sodium 50 MCG TAB PER TUBE SCH (06:36)
--- NOTE | 2018-04-22 10:16 | PRG ---
DATE OF SERVICE: 04/22/2018 SUBJECTIVE: The patient is much more coherent and conversant today. He got up into a chair yesterday. He did not get cleared with swallowing. OBJECTIVE: VITAL SIGNS: On exam, temperature 97.8, pulse 85, respiratory rate 21, blood pressure 147/84, O2 saturation 100%. Intake for 24 hours 4008 and output 2435. HEENT: Unremarkable. NECK: No JVD. CHEST: Clear. CARDIAC: S1 and S2, regular. ABDOMEN: Soft without tenderness. EXTREMITIES: No edema. LABORATORY DATA: White blood cell count is down to 19.9, hematocrit 35.9, and platelet count 517. Sodium 139, potassium 3.1, chloride 107, CO2 of 26, BUN 20, creatinine 0.7, and glucose 148. ASSESSMENT: 1. Improved staphylococcal sepsis. 2. Status post prolonged intubation for acute respiratory failure. 3. Mild hypokalemia. 4. Hypothyroidism. 5. Hypertension. PLAN: 1. Up into a chair. 2. Continue Catapres patch for hypertension. 3. Continue oxacillin for staphylococcal coverage. 4. Replace potassium. Job ID: [id number]
[2018-04-22] MEDS: Famotidine/PF 20 mg/2ml Vial SLOW IVP SCH (10:37)
[2018-04-22] MEDS: Folic Acid 1 MG TAB PER TUBE SCH (10:44)
[2018-04-22] MEDS: Enoxaparin Sodium 40 MG/0.4 ML SYRINGE SC SCH (10:44)
[2018-04-22] MEDS: Acetaminophen 325 MG TAB PO PRN (13:42)
--- NOTE | 2018-04-22 19:35 | PDOC.PN ---
- Subjective Encounter Start Date: 04/22/18 Encounter Start Time: 10:00 Up in chair. Denies pain or SOB. - Objective Resuscitation Status - Order Detail: 04/10/18 20:53 Resuscitation Status Routine Resuscitation Status: FULL: Full Resuscitation Vital Signs & Weight: Vital Signs (12 hours) Temp Pulse Resp Pulse Ox 04/22/18 18:35 76 20 100 04/22/18 16:00 98.4 F 04/22/18 15:14 85 22 H 100 04/22/18 12:00 97.9 F 04/22/18 10:20 85 22 H 100 04/22/18 08:00 100 Weight Admit Weight 144 lb 8 oz Weight 145 lb 11.609 oz Most Recent Monitor Data Heart Rate from ECG 91 NIBP 120/68 NIBP BP-Mean 85 Respiration from ECG 27 SpO2 99 I&O: 04/21/18 04/22/18 04/23/18 06:59 06:59 06:59 Intake Total 4261 4008 1764 Output Total 3995 2435 740 Balance 266 1573 1024 Result Diagrams: 04/22/18 05:20 04/22/18 05:20 Phys Exam - Physical Examination Constitutional: NAD Very verbal, but confused. Respiratory: no wheezing Scattered rales. Cardiovascular: RRR, no significant murmur Gastrointestinal: soft, non-tender, positive bowel sounds Musculoskeletal: no edema Deviation from normal: Confused. Dx/Plan (1) Acute respiratory failure with hypoxia Code(s): J96.01 - ACUTE RESPIRATORY FAILURE WITH HYPOXIA Status: Acute Comment: Secondary to pneumonia. Pulmonology following. Extubated. Doing fairly well. Continue oxygen. (2) UTI (urinary tract infection) Status: Acute Comment: MSSA on culture. On Oxacillin. MSSA in blood as well. (3) Staph aureus infection Code(s): A49.01 - METHICILLIN SUSCEP STAPH INFECTION, UNSP SITE Status: Acute Comment: Appears disseminated. In blood and urine. ID following. On Oxacillin. (4) PNA (pneumonia) Code(s): J18.9 - PNEUMONIA, UNSPECIFIED ORGANISM Status: Acute Qualifiers: Pneumonia type: due to unspecified organism Laterality: right Lung location: lower lobe of lung Qualified Code(s): J18.1 - Lobar pneumonia, unspecified organism Comment: Right lung. Greater infiltrate on RLL. Presumed MSSA. (5) Cirrhosis of liver Code(s): K74.60 - UNSPECIFIED CIRRHOSIS OF LIVER Status: Chronic Qualifiers: Hepatic cirrhosis type: unspecified hepatic cirrhosis (6) Hepatitis C Code(s): B19.20 - UNSPECIFIED VIRAL HEPATITIS C WITHOUT HEPATIC COMA Status: Chronic Qualifiers: Viral hepatitis chronicity: chronic (7) Sepsis Code(s): A41.9 - SEPSIS, UNSPECIFIED ORGANISM Status: Acute Comment: Due to pneumonia and staph uti. (8) Bacteremia due to methicillin susceptible Staphylococcus aureus (MSSA) Code(s): R78.81 - BACTEREMIA Status: Acute Comment: Concern for endocarditis. Dr. Flores following. On Oxacillin. (9) Hypothyroidism Code(s): E03.9 - HYPOTHYROIDISM, UNSPECIFIED Status: Chronic Comment: Resume synthroid when cleared for PO. (10) Hypertension Code(s): I10 - ESSENTIAL (PRIMARY) HYPERTENSION Status: Acute Comment: On Norvasc and Catapress as outpatient. BP running intermittently high here. PRN's ordered. Catapress patch ordered until swallow eval done. 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 - Plan * Continue to assess swallow. * PT. * Pulmonology following.
[2018-04-23] MEDS: Oxacillin 2 GM in Sodium Chloride 0.9% 100 ML IVPB SCH ×6 (00:18→20:19)
[2018-04-23] MEDS: Dextrose 5% in Water 1,000 ML IV SCH ×2 (04:14→11:00)
[2018-04-23 04:44] LABS: #Basophils 0.1 thou/uL (0.0-0.2); #Eosinphils 0.5 thou/uL (0.0-0.7); #Lymphocytes 3.1 thou/uL (1.20-3.40); #Neutrophils 11.1 thou/uL (1.40-6.50); %Basophils 0.7 % (0.0-1.0); %Eosinophils 3.1 % (0.0-10.0); %Lymphocytes 19.6 % (21.0-51.0); %Monocytes 6.5 % (0.0-10.0); %Neutrophils 70.1 % (42.0-75.0); Hemoglobin 11.4 g/dL (14.0-18.0); Mean Corpuscular HGB CONC 32.5 g/dL (32.0-36.0); Mean Corpuscular Hemoglobin 29.5 pg (27.0-31.0); Mean Corpuscular Volume 90.8 fL (78.0-98.0); Mean Platelet Volume 8.4 fL (7.4-10.4); Platelet Count 521 thou/uL (130-400); Red Blood Cell (RBC) Count 3.87 mill/uL (4.70-6.10); White Blood Cell (WBC) Count 15.9 thou/uL (4.8-10.8)
[2018-04-23 04:59] LABS: Anion Gap 10 mmol/L (10-20); BUN (Urea Nitrogen) 16 mg/dL (8.4-25.7); Calc. Creatinine Clearance 108 mL/min (70-130); Calcium 8.3 mg/dL (7.8-10.44); Carbon Dioxide 24 mmol/L (22-29); Chloride 105 mmol/L (98-107); Estimated GFR-MDRD Greater than 90; Glucose 103 mg/dL (70-105); Potassium 3.5 mmol/L (3.5-5.1); Sodium 135 mmol/L (136-145)
[2018-04-23] MEDS: Levothyroxine Sodium 50 MCG TAB PER TUBE SCH (08:23)
[2018-04-23] MEDS: Enoxaparin Sodium 40 MG/0.4 ML SYRINGE SC SCH (08:54)
[2018-04-23] MEDS: Folic Acid 1 MG TAB PER TUBE SCH (10:10)
--- NOTE | 2018-04-23 10:27 | PRG ---
DATE OF SERVICE: 04/23/2018 SUBJECTIVE: He is clambering to be fed. It is not clear to me if he has passed his speech evaluation yet. OBJECTIVE: VITAL SIGNS: On exam, his temperature is 98.5, pulse 77, respirations 16, O2 saturation 100%, and blood pressure 119/78. HEENT: Unremarkable. NECK: No JVD. CHEST: Clear without wheezing. CARDIAC: S1 and S2. Regular. ABDOMEN: Soft. EXTREMITIES: No edema. LABORATORY DATA: Sodium 135, potassium 3.5, chloride 105, CO2 of 24, BUN 16, creatinine 0.6, and glucose 103. White blood cell count 15.9, hematocrit 35.1, and platelet count 521. ASSESSMENT: 1. Rapidly improving staphylococcal sepsis. 2. Status post acute respiratory failure requiring mechanical ventilation. 3. Extreme deconditioning. PLAN: 1. Hopefully, he will be able to resume oral intake today. It appears that he has probably pulled his Dobbhoff tube out. 2. We need to check with Dr. Flores as to what the duration of IV antibiotics needs to be. He probably needs to be sent to some type of correction to administer these antibiotics, because I do not think he is trustworthy to come back for therapy otherwise. Job ID: [id number]
--- NOTE | 2018-04-23 13:34 | PDOC.PN ---
- Subjective Encounter Start Date: 04/23/18 Encounter Start Time: 11:00 Subjective: awake, responds well to verbal questions -: has been cleared by speech for eating - Objective Resuscitation Status - Order Detail: 04/10/18 20:53 Resuscitation Status Routine Resuscitation Status: FULL: Full Resuscitation MAR Reviewed: Yes Vital Signs & Weight: Vital Signs (12 hours) Temp Pulse Resp BP Pulse Ox 04/23/18 13:30 78 16 100 04/23/18 11:04 98.3 F 79 18 123/75 100 04/23/18 08:00 100 04/23/18 07:30 98.5 F 77 16 119/78 100 04/23/18 07:20 100 04/23/18 07:19 78 18 99 04/23/18 03:52 98.4 F 79 12 135/78 100 04/23/18 02:10 82 16 100 Weight Admit Weight 144 lb 8 oz Weight 141 lb 3 oz Most Recent Monitor Data Heart Rate from ECG 91 NIBP 120/68 NIBP BP-Mean 85 Respiration from ECG 27 SpO2 99 I&O: 04/22/18 04/23/18 04/24/18 06:59 06:59 06:59 Intake Total 4008 1794 Output Total 2435 1390 Balance 1573 404 Result Diagrams: 04/23/18 04:10 04/23/18 04:10 Phys Exam - Physical Examination HEENT: PERRLA, moist MMs Neck: no JVD, supple Respiratory: no wheezing, no rales Cardiovascular: RRR, no significant murmur Gastrointestinal: soft, non-tender, positive bowel sounds Musculoskeletal: no edema, pulses present Neurological: non-focal, moves all 4 limbs Dx/Plan (1) Bacteremia due to methicillin susceptible Staphylococcus aureus (MSSA) Code(s): R78.81 - BACTEREMIA Status: Acute Comment: On Oxacillin. (2) PNA (pneumonia) Code(s): J18.9 - PNEUMONIA, UNSPECIFIED ORGANISM Status: Acute Qualifiers: Pneumonia type: due to unspecified organism Laterality: right Lung location: lower lobe of lung Qualified Code(s): J18.1 - Lobar pneumonia, unspecified organism Comment: Presumed MSSA. (3) Sepsis Code(s): A41.9 - SEPSIS, UNSPECIFIED ORGANISM Status: Acute Comment: Due to pneumonia and staph uti. (4) Hypertension Code(s): I10 - ESSENTIAL (PRIMARY) HYPERTENSION Status: Chronic Qualifiers: Hypertension type: essential hypertension Qualified Code(s): I10 - Essential (primary) hypertension (5) UTI (urinary tract infection) Status: Acute Qualifiers: Urinary tract infection type: acute cystitis Hematuria presence: without hematuria Qualified Code(s): N30.00 - Acute cystitis without hematuria Comment: MSSA on culture. On Oxacillin. MSSA in blood as well. (6) Cirrhosis of liver Code(s): K74.60 - UNSPECIFIED CIRRHOSIS OF LIVER Status: Chronic Qualifiers: Hepatic cirrhosis type: unspecified hepatic cirrhosis (7) Hepatitis C Code(s): B19.20 - UNSPECIFIED VIRAL HEPATITIS C WITHOUT HEPATIC COMA Status: Chronic Qualifiers: Viral hepatitis chronicity: chronic (8) Hypothyroidism Code(s): E03.9 - HYPOTHYROIDISM, UNSPECIFIED Status: Chronic Qualifiers: Hypothyroidism type: unspecified Qualified Code(s): E03.9 - Hypothyroidism , unspecified - Plan is on oxacillin 2g q4h -: may tx to med floor if ok with other specialists -: PT to mobilize as tolerated -: will need placement -: is deconditioned, may remove restraints, d/w RN * . Review of Systems - Medications/Allergies Allergies/Adverse Reactions: Allergies Allergy/AdvReac Type Severity Reaction Status Date / Time No Known Allergies Allergy Verified 04/10/18 21:56 Medications: Current Medications Acetaminophen (Tylenol) 650 mg PO Q4H PRN PRN Reason: Headache/Fever/Mild Pain (1-3) Last Admin: 04/22/18 13:42 Dose: 650 mg Acetaminophen (Tylenol) 650 mg [place] Q4H PRN PRN Reason: Headache/Fever/Mild Pain (1-3) Albuterol/Ipratropium (Duoneb) 3 ml NEB [id number] [facility] Last Admin: 04/23/18 13:30 Dose: 3 ml Clonidine (Pyhmywbj-Jhs-2) 0.3 mg TD Q7DAYS [facility] Last Admin: 04/21/18 08:34 Dose: 0.3 mg Enoxaparin Sodium (Lovenox) 40 mg SC 0900 [facility] Last Admin: 04/23/18 08:54 Dose: 40 mg Folic Acid (Folvite) 1 mg PER TUBE DAILY [facility] Last Admin: 04/23/18 10:10 Dose: 1 mg Potassium Chloride 40 meq/ (Sodium Chloride) 270 mls @ 135 mls/hr IVPB ASDIR PRN PRN Reason: FOR SERUM K+ 2.5 - 3.5 Last Admin: 04/15/18 16:56 Dose: 270 mls Potassium Chloride 40 meq/ (Device) 100 mls @ 50 mls/hr IVPB ASDIR PRN PRN Reason: FOR SERUM K+ 2.5 - 3.5 Last Admin: 04/17/18 05:34 Dose: 100 mls Magnesium Sulfate 1 gm/ Sodium (Chloride) 102 mls @ 102 mls/hr IV PRN PRN PRN Reason: MAG LEVEL 1.4 - 2.0 Last Admin: 04/14/18 08:32 Dose: 102 mls Magnesium Sulfate 2 gm/ Device 100 mls @ 100 mls/hr IVPB ASDIR PRN PRN Reason: MAGNESIUM < 1.4 Potassium Phosphate 9 mmol/ (Sodium Chloride) 103 mls @ 25.75 mls/hr IVPB ASDIR PRN PRN Reason: Phosphate 1.0-1.8 Potassium Phosphate 12 mmol/ (Sodium Chloride) 254 mls @ 63.5 mls/hr IV ASDIR PRN PRN Reason: Serum phosphate 0.5-0.9 Potassium Phosphate 15 mmol/ (Sodium Chloride) 255 mls @ 63.75 mls/hr IV ASDIR PRN PRN Reason: Serum Phos < 0.5 Oxacillin Sodium 2 gm/ Sodium (Chloride) 100 mls @ 200 mls/hr IVPB Q4H [facility] Last Admin: 04/23/18 13:33 Dose: 100 mls Dextrose/Water (D5w) 1,000 mls @ 100 mls/hr IV .Q10H [facility] Last Admin: 04/23/18 04:14 Dose: 1,000 mls Labetalol HCl (Normodyne) 20 mg SLOW IVP Q15MIN PRN PRN Reason: FOR SBP>180 IF HR>=70 Last Admin: 04/20/18 09:14 Dose: 20 mg Lactulose (Lactulose) 20 gm PER TUBE TID [facility] Last Admin: 04/23/18 10:10 Dose: Not Given Levothyroxine Sodium (Synthroid) 50 mcg PER TUBE 0600 [facility] Last Admin: 04/23/18 08:23 Dose: Not Given Magnesium Oxide (Magnesium Oxide) 400 mg PO BIDPRN PRN PRN Reason: FOR SERUM MAG 1.4 - 2.0 Magnesium Oxide (Magnesium Oxide) 800 mg PO PRN PRN PRN Reason: FOR SERUM MAG < 1.4 Miscellaneous Medication (Phos-Nak) 1 pkt PO TIDPRN PRN PRN Reason: FOR PHOS LEVEL 1.0 - 1.8 Miscellaneous Medication (Phos-Nak) 2 pkt PO TIDPRN PRN PRN Reason: FOR PHOS LEVEL 0.5 - 1.0 Discontinue Previous Narcotic Pain Medications And Benzodiazepines 1 each FS .ONE [facility] Stop: 05/13/18 13:46 Ccu Electrolyte (Replacement Protocol) 0 each FS PRN PRN PRN Reason: FOR ELECTROLYTE REPLACEMENT Potassium Chloride (K-Dur) 40 meq PO ASDIR PRN PRN Reason: FOR SERUM K+ 2.5 - 3.5 Potassium Chloride (Klor-Con) 40 meq PER TUBE ASDIR PRN PRN Reason: FOR SERUM K+ 2.5-3.5 Last Admin: 04/21/18 08:01 Dose: 40 meq Sertraline HCl (Zoloft) 50 mg PER TUBE DAILY [facility] Last Admin: 04/23/18 10:09 Dose: 50 mg Sodium Chloride (Flush - Normal Saline) 10 ml IVF Q12HR [facility] Last Admin: 04/23/18 08:55 Dose: 10 ml Sodium Chloride (Flush - Normal Saline) 10 ml IVF PRN PRN PRN Reason: Saline Flush Thiamine HCl (Thiamine) 100 mg PER TUBE DAILY [facility] Last Admin: 04/23/18 10:10 Dose: 100 mg
[2018-04-24] MEDS: Oxacillin 2 GM in Sodium Chloride 0.9% 100 ML IVPB SCH ×7 (00:24→23:28)
[2018-04-24] MEDS: Dextrose 5% in Water 1,000 ML IV SCH ×2 (00:25→11:52)
[2018-04-24] MEDS: Levothyroxine Sodium 50 MCG TAB PER TUBE SCH (06:04)
[2018-04-24] MEDS: Folic Acid 1 MG TAB PER TUBE SCH (08:38)
[2018-04-24] MEDS: Enoxaparin Sodium 40 MG/0.4 ML SYRINGE SC SCH (08:46)
--- NOTE | 2018-04-24 10:35 | PRG ---
DATE OF SERVICE: 04/24/2018 SUBJECTIVE: He is awake and alert. He is very happy because he has been cleared to eat. OBJECTIVE: VITAL SIGNS: Temperature is 98.3, pulse 71, respirations 15, O2 saturation 100% on room air, and blood pressure 138/77. HEENT: Unremarkable. NECK: No JVD. LUNGS: Clear. CARDIAC: S1 and S2. Regular. ABDOMEN: Soft. EXTREMITIES: No edema. ASSESSMENT: 1. Improved sepsis syndrome. 2. Status post respiratory failure, requiring mechanical ventilation. PLAN: 1. Transfer to the floor. 2. Discontinue Valle. 3. Increase activity as tolerated. Job ID: [id number]
--- NOTE | 2018-04-24 12:43 | PDOC.PN ---
- Subjective Encounter Start Date: 04/24/18 Encounter Start Time: 09:30 Subjective: awake, feels better - Objective Resuscitation Status - Order Detail: 04/10/18 20:53 Resuscitation Status Routine Resuscitation Status: FULL: Full Resuscitation MAR Reviewed: Yes Vital Signs & Weight: Vital Signs (12 hours) Temp Pulse Resp BP Pulse Ox 04/24/18 11:46 98.2 F 81 29 H 130/74 100 04/24/18 10:40 71 04/24/18 08:00 100 04/24/18 07:50 98.3 F 71 15 138/77 98 04/24/18 07:29 72 16 99 04/24/18 04:00 98.6 F 72 16 146/86 H 100 Weight Admit Weight 144 lb 8 oz Weight 139 lb 7 oz Most Recent Monitor Data Heart Rate from ECG 91 NIBP 120/68 NIBP BP-Mean 85 Respiration from ECG 27 SpO2 99 I&O: 04/23/18 04/24/18 04/25/18 06:59 06:59 06:59 Intake Total 3344 1950 Output Total 1840 1825 800 Balance 1504 125 -800 Result Diagrams: 04/23/18 04:10 04/23/18 04:10 Phys Exam - Physical Examination HEENT: PERRLA, moist MMs Neck: no JVD, supple Respiratory: no wheezing, no rales Cardiovascular: RRR, no significant murmur Gastrointestinal: soft, non-tender, positive bowel sounds Musculoskeletal: no edema, pulses present Neurological: non-focal, moves all 4 limbs Psychiatric: A&O x 3 Dx/Plan (1) Bacteremia due to methicillin susceptible Staphylococcus aureus (MSSA) Code(s): R78.81 - BACTEREMIA Status: Acute Comment: On Oxacillin. (2) PNA (pneumonia) Code(s): J18.9 - PNEUMONIA, UNSPECIFIED ORGANISM Status: Acute Qualifiers: Pneumonia type: due to unspecified organism Laterality: right Lung location: lower lobe of lung Qualified Code(s): J18.1 - Lobar pneumonia, unspecified organism Comment: Presumed MSSA. (3) Sepsis Code(s): A41.9 - SEPSIS, UNSPECIFIED ORGANISM Status: Acute Comment: Due to pneumonia and staph uti. (4) Hypertension Code(s): I10 - ESSENTIAL (PRIMARY) HYPERTENSION Status: Chronic Qualifiers: Hypertension type: essential hypertension Qualified Code(s): I10 - Essential (primary) hypertension (5) UTI (urinary tract infection) Status: Acute Qualifiers: Urinary tract infection type: acute cystitis Hematuria presence: without hematuria Qualified Code(s): N30.00 - Acute cystitis without hematuria Comment: MSSA on culture. On Oxacillin. MSSA in blood as well. (6) Cirrhosis of liver Code(s): K74.60 - UNSPECIFIED CIRRHOSIS OF LIVER Status: Chronic Qualifiers: Hepatic cirrhosis type: unspecified hepatic cirrhosis (7) Hepatitis C Code(s): B19.20 - UNSPECIFIED VIRAL HEPATITIS C WITHOUT HEPATIC COMA Status: Chronic Qualifiers: Viral hepatitis chronicity: chronic (8) Hypothyroidism Code(s): E03.9 - HYPOTHYROIDISM, UNSPECIFIED Status: Chronic Qualifiers: Hypothyroidism type: unspecified Qualified Code(s): E03.9 - Hypothyroidism , unspecified - Plan is on oxacillin 2g q4h -: may advance diet as tolerated -: tx to med floor, continue lactulose, synthroid and clonidine -: awaiting placement -: is deconditioned, PT to mobilize as tolerated * . Review of Systems - Medications/Allergies Allergies/Adverse Reactions: Allergies Allergy/AdvReac Type Severity Reaction Status Date / Time No Known Allergies Allergy Verified 04/10/18 21:56 Medications: Current Medications Acetaminophen (Tylenol) 650 mg PO Q4H PRN PRN Reason: Headache/Fever/Mild Pain (1-3) Last Admin: 04/22/18 13:42 Dose: 650 mg Acetaminophen (Tylenol) 650 mg [place] Q4H PRN PRN Reason: Headache/Fever/Mild Pain (1-3) Albuterol/Ipratropium (Duoneb) 3 ml NEB [id number] [facility] Last Admin: 04/24/18 10:40 Dose: 3 ml Clonidine (Zherlihz-Wwd-9) 0.3 mg TD Q7DAYS [facility] Last Admin: 04/21/18 08:34 Dose: 0.3 mg Enoxaparin Sodium (Lovenox) 40 mg SC 0900 [facility] Last Admin: 04/24/18 08:46 Dose: 40 mg Folic Acid (Folvite) 1 mg PER TUBE DAILY [facility] Last Admin: 04/24/18 08:38 Dose: 1 mg Oxacillin Sodium 2 gm/ Sodium (Chloride) 100 mls @ 200 mls/hr IVPB Q4H [facility] Last Admin: 04/24/18 11:48 Dose: 100 mls Labetalol HCl (Normodyne) 20 mg SLOW IVP Q15MIN PRN PRN Reason: FOR SBP>180 IF HR>=70 Last Admin: 04/20/18 09:14 Dose: 20 mg Lactulose (Lactulose) 20 gm PER TUBE TID [facility] Last Admin: 04/24/18 08:38 Dose: 20 gm Levothyroxine Sodium (Synthroid) 50 mcg PER TUBE 0600 [facility] Last Admin: 04/24/18 06:04 Dose: 50 mcg Discontinue Previous Narcotic Pain Medications And Benzodiazepines 1 each FS .ONE [facility] Stop: 05/13/18 13:46 Ccu Electrolyte (Replacement Protocol) 0 each FS PRN PRN PRN Reason: FOR ELECTROLYTE REPLACEMENT Sertraline HCl (Zoloft) 50 mg PER TUBE DAILY [facility] Last Admin: 04/24/18 08:34 Dose: 50 mg Thiamine HCl (Thiamine) 100 mg PER TUBE DAILY [facility] Last Admin: 04/24/18 08:38 Dose: 100 mg
[2018-04-24] MEDS: Acetaminophen 325 MG TAB PO PRN (20:17)
[2018-04-25] MEDS: Oxacillin 2 GM in Sodium Chloride 0.9% 100 ML IVPB SCH ×4 (03:23→17:09)
[2018-04-25] MEDS: Levothyroxine Sodium 50 MCG TAB PER TUBE SCH (06:08)
[2018-04-25 08:19] LABS: #Basophils 0.2 thou/uL (0.0-0.2); #Eosinphils 0.4 thou/uL (0.0-0.7); #Lymphocytes 2.7 thou/uL (1.20-3.40); #Monocytes 1.1 thou/uL (0.11-0.59); #Neutrophils 8.8 thou/uL (1.40-6.50); %Basophils 1.2 % (0.0-1.0); %Lymphocytes 20.4 % (21.0-51.0); %Monocytes 8.5 % (0.0-10.0); Hemoglobin 12.9 g/dL (14.0-18.0); Mean Corpuscular HGB CONC 31.7 g/dL (32.0-36.0); Mean Corpuscular Hemoglobin 28.4 pg (27.0-31.0); Mean Corpuscular Volume 89.8 fL (78.0-98.0); Mean Platelet Volume 8.6 fL (7.4-10.4); Platelet Count 570 thou/uL (130-400); RBC Distribution Width 16.5 % (11.5-14.5); Red Blood Cell (RBC) Count 4.55 mill/uL (4.70-6.10); White Blood Cell (WBC) Count 13.1 thou/uL (4.8-10.8)
[2018-04-25 08:30] LABS: ALT (SGPT) 28 U/L (8-55); AST (SGOT) 63 U/L (5-34); Albumin 2.4 g/dL (3.5-5.0); Alkaline Phosphatase 197 U/L (40-150); Anion Gap 12 mmol/L (10-20); BUN (Urea Nitrogen) 12 mg/dL (8.4-25.7); Bilirubin, Total 1.1 mg/dL (0.2-1.2); Calc. Creatinine Clearance 104 mL/min (70-130); Calcium 8.7 mg/dL (7.8-10.44); Carbon Dioxide 21 mmol/L (22-29); Chloride 111 mmol/L (98-107); Estimated GFR-MDRD Greater than 90; Globulin 3.3 g/dL (2.4-3.5); Glucose 96 mg/dL (70-105); Potassium 3.8 mmol/L (3.5-5.1); Protein, Total 5.7 g/dL (6.0-8.3); Sodium 140 mmol/L (136-145)
[2018-04-25] MEDS: Enoxaparin Sodium 40 MG/0.4 ML SYRINGE SC SCH (09:34)
[2018-04-25] MEDS: Folic Acid 1 MG TAB PER TUBE SCH (09:34)
--- NOTE | 2018-04-25 10:16 | PRG ---
DATE OF SERVICE: 04/25/2018 SUBJECTIVE: The patient is doing well, has no complaints. OBJECTIVE: VITAL SIGNS: On exam, temperature 96.9, pulse 78, respirations 18, O2 saturation 97%, and blood pressure 156/91. HEENT: Unremarkable. NECK: No JVD. CHEST: Clear without wheezing or rhonchi. CARDIAC: S1 and S2, regular. ABDOMEN: Soft. EXTREMITIES: No edema. LABORATORY DATA: White count 13.1, hematocrit 40, and platelet count 570. Sodium 140, potassium 3.8, chloride 111, CO2 of 21, BUN 12, creatinine 0.6, glucose 96, AST 63, ALT 28, and alkaline phosphatase 197. ASSESSMENT: 1. Status post respiratory failure related to sepsis syndrome. 2. Possibly infected hardware. PLAN: We will need a disposition from Infectious Disease in terms of how long the patient is going to need antibiotics. His pulmonary status remains stable. In my opinion, this has become a real rehabilitative issue. I believe that he is stable for transfer to the next level of care. Job ID: [id number]
[2018-04-25 11:31] VITALS: BMI 18.5
--- NOTE | 2018-04-25 15:43 | PDOC.PN ---
- Subjective Encounter Start Date: 04/25/18 Encounter Start Time: 11:20 Subjective: feels better, no overnight agitation or confusion -: eating better, no cough or pain - Objective Resuscitation Status - Order Detail: 04/10/18 20:53 Resuscitation Status Routine Resuscitation Status: FULL: Full Resuscitation MAR Reviewed: Yes Vital Signs & Weight: Vital Signs (12 hours) Temp Pulse Resp BP Pulse Ox 04/25/18 13:36 78 16 04/25/18 12:05 97.5 F L 75 18 147/86 H 98 04/25/18 08:30 96.9 F L 78 18 156/91 H 97 04/25/18 08:00 97 Weight Admit Weight 144 lb 8 oz Weight 136 lb 9.6 oz Most Recent Monitor Data Heart Rate from ECG 91 NIBP 120/68 NIBP BP-Mean 85 Respiration from ECG 27 SpO2 99 I&O: 04/24/18 04/25/18 04/26/18 06:59 06:59 06:59 Intake Total 3750 2430 Output Total 3275 2825 Balance 475 -395 Result Diagrams: 04/25/18 07:54 04/25/18 07:54 Phys Exam - Physical Examination HEENT: PERRLA, sclera anicteric Neck: no JVD, supple Respiratory: no wheezing, no rales Cardiovascular: RRR, no significant murmur Gastrointestinal: soft, non-tender, positive bowel sounds Musculoskeletal: no edema, pulses present Neurological: non-focal, moves all 4 limbs Psychiatric: A&O x 3 Dx/Plan (1) Bacteremia due to methicillin susceptible Staphylococcus aureus (MSSA) Code(s): R78.81 - BACTEREMIA Status: Acute Comment: On Oxacillin. (2) PNA (pneumonia) Code(s): J18.9 - PNEUMONIA, UNSPECIFIED ORGANISM Status: Acute Qualifiers: Pneumonia type: due to unspecified organism Laterality: right Lung location: lower lobe of lung Qualified Code(s): J18.1 - Lobar pneumonia, unspecified organism Comment: Presumed MSSA. (3) Sepsis Code(s): A41.9 - SEPSIS, UNSPECIFIED ORGANISM Status: Acute Comment: Due to pneumonia and staph uti. (4) Hypertension Code(s): I10 - ESSENTIAL (PRIMARY) HYPERTENSION Status: Chronic Qualifiers: Hypertension type: essential hypertension Qualified Code(s): I10 - Essential (primary) hypertension (5) UTI (urinary tract infection) Status: Acute Qualifiers: Urinary tract infection type: acute cystitis Hematuria presence: without hematuria Qualified Code(s): N30.00 - Acute cystitis without hematuria Comment: MSSA on culture. On Oxacillin. MSSA in blood as well. (6) Cirrhosis of liver Code(s): K74.60 - UNSPECIFIED CIRRHOSIS OF LIVER Status: Chronic Qualifiers: Hepatic cirrhosis type: unspecified hepatic cirrhosis (7) Hepatitis C Code(s): B19.20 - UNSPECIFIED VIRAL HEPATITIS C WITHOUT HEPATIC COMA Status: Chronic Qualifiers: Viral hepatitis chronicity: chronic (8) Hypothyroidism Code(s): E03.9 - HYPOTHYROIDISM, UNSPECIFIED Status: Chronic Qualifiers: Hypothyroidism type: unspecified Qualified Code(s): E03.9 - Hypothyroidism , unspecified - Plan dc plan in am to [facility] -: to start ancef 2g q8h till Jun -: hemostable -: to amb as tolerated with PT -: continue synthroid and clonidine * . Review of Systems - Medications/Allergies Allergies/Adverse Reactions: Allergies Allergy/AdvReac Type Severity Reaction Status Date / Time No Known Allergies Allergy Verified 04/10/18 21:56 Medications: Current Medications Acetaminophen (Tylenol) 650 mg PO Q4H PRN PRN Reason: Headache/Fever/Mild Pain (1-3) Last Admin: 04/24/18 20:17 Dose: 650 mg Acetaminophen (Tylenol) 650 mg [place] Q4H PRN PRN Reason: Headache/Fever/Mild Pain (1-3) Albuterol/Ipratropium (Duoneb) 3 ml NEB [id number] [facility] Last Admin: 04/25/18 14:50 Dose: Not Given Clonidine (Ogsfaeke-Fyb-9) 0.3 mg TD Q7DAYS [facility] Last Admin: 04/21/18 08:34 Dose: 0.3 mg Enoxaparin Sodium (Lovenox) 40 mg SC 0900 [facility] Last Admin: 04/25/18 09:34 Dose: 40 mg Folic Acid (Folvite) 1 mg PER TUBE DAILY [facility] Last Admin: 04/25/18 09:34 Dose: 1 mg Oxacillin Sodium 2 gm/ Sodium (Chloride) 100 mls @ 200 mls/hr IVPB Q4H [facility] Last Admin: 04/25/18 12:21 Dose: 100 mls Labetalol HCl (Normodyne) 20 mg SLOW IVP Q15MIN PRN PRN Reason: FOR SBP>180 IF HR>=70 Last Admin: 04/20/18 09:14 Dose: 20 mg Lactulose (Lactulose) 20 gm PER TUBE TID [facility] Last Admin: 04/25/18 15:15 Dose: Not Given Levothyroxine Sodium (Synthroid) 50 mcg PER TUBE 0600 [facility] Last Admin: 04/25/18 06:08 Dose: 50 mcg Discontinue Previous Narcotic Pain Medications And Benzodiazepines 1 each FS .ONE [facility] Stop: 05/13/18 13:46 Ccu Electrolyte (Replacement Protocol) 0 each FS PRN PRN PRN Reason: FOR ELECTROLYTE REPLACEMENT Sertraline HCl (Zoloft) 50 mg PER TUBE DAILY [facility] Last Admin: 04/25/18 09:34 Dose: 50 mg Thiamine HCl (Thiamine) 100 mg PER TUBE DAILY [facility] Last Admin: 04/25/18 09:35 Dose: 100 mg
[2018-04-25] MEDS: CEFAZOLIN 2 GM/50 ML BAG IVPB SCH (17:48)
[2018-04-25] MEDS: Acetaminophen 325 MG TAB PO PRN ×2 (17:50→21:49)
[2018-04-26] MEDS: CEFAZOLIN 2 GM/50 ML BAG IVPB SCH ×2 (02:07→10:44)
[2018-04-26] MEDS: Levothyroxine Sodium 50 MCG TAB PER TUBE SCH (05:49)
[2018-04-26] MEDS: Enoxaparin Sodium 40 MG/0.4 ML SYRINGE SC SCH (08:13)
[2018-04-26] MEDS: Folic Acid 1 MG TAB PER TUBE SCH (08:14)
[2018-04-26 08:24] VITALS: TEMP 97.6
[2018-04-26 08:25] VITALS: BP 161/86
--- NOTE | 2018-04-26 11:02 | PDOC.PN ---
- Subjective Encounter Start Date: 04/26/18 Encounter Start Time: 09:00 Subjective: no sob, feels better - Objective Resuscitation Status - Order Detail: 04/10/18 20:53 Resuscitation Status Routine Resuscitation Status: FULL: Full Resuscitation MAR Reviewed: Yes Vital Signs & Weight: Vital Signs (12 hours) Temp Pulse Resp BP BP Pulse Ox 04/26/18 08:18 97.6 F 69 18 161/86 H 97 04/26/18 08:00 97 04/26/18 04:00 97.5 F L 69 12 158/84 H 96 04/25/18 23:41 97.8 F 65 12 167/91 H 96 Weight Admit Weight 144 lb 8 oz Weight 136 lb 9.6 oz Most Recent Monitor Data Heart Rate from ECG 91 NIBP 120/68 NIBP BP-Mean 85 Respiration from ECG 27 SpO2 99 I&O: 04/25/18 04/26/18 04/27/18 06:59 06:59 06:59 Intake Total 2430 1900 Output Total 2825 1950 Balance -395 -50 Result Diagrams: 04/25/18 07:54 04/25/18 07:54 Phys Exam - Physical Examination HEENT: PERRLA, moist MMs Neck: no JVD, supple Respiratory: no wheezing, no rales Cardiovascular: RRR, no significant murmur Gastrointestinal: soft, non-tender, positive bowel sounds Musculoskeletal: no edema, pulses present Neurological: non-focal, moves all 4 limbs Dx/Plan (1) Bacteremia due to methicillin susceptible Staphylococcus aureus (MSSA) Code(s): R78.81 - BACTEREMIA Status: Acute Comment: On ancef (2) PNA (pneumonia) Code(s): J18.9 - PNEUMONIA, UNSPECIFIED ORGANISM Status: Acute Qualifiers: Pneumonia type: due to unspecified organism Laterality: right Lung location: lower lobe of lung Qualified Code(s): J18.1 - Lobar pneumonia, unspecified organism Comment: Presumed MSSA. (3) Sepsis Code(s): A41.9 - SEPSIS, UNSPECIFIED ORGANISM Status: Acute Qualifiers: Sepsis type: methicillin susceptible Staphylococcus aureus Qualified Code(s ): A41.01 - Sepsis due to Methicillin susceptible Staphylococcus aureus Comment: Due to pneumonia and staph uti. (4) Hypertension Code(s): I10 - ESSENTIAL (PRIMARY) HYPERTENSION Status: Chronic Qualifiers: Hypertension type: essential hypertension Qualified Code(s): I10 - Essential (primary) hypertension (5) UTI (urinary tract infection) Status: Acute Qualifiers: Urinary tract infection type: acute cystitis Hematuria presence: without hematuria Qualified Code(s): N30.00 - Acute cystitis without hematuria Comment: MSSA on culture. On ancef. MSSA in blood as well. (6) Cirrhosis of liver Code(s): K74.60 - UNSPECIFIED CIRRHOSIS OF LIVER Status: Chronic Qualifiers: Hepatic cirrhosis type: unspecified hepatic cirrhosis (7) Hepatitis C Code(s): B19.20 - UNSPECIFIED VIRAL HEPATITIS C WITHOUT HEPATIC COMA Status: Chronic Qualifiers: Viral hepatitis chronicity: chronic (8) Hypothyroidism Code(s): E03.9 - HYPOTHYROIDISM, UNSPECIFIED Status: Chronic Qualifiers: Hypothyroidism type: unspecified Qualified Code(s): E03.9 - Hypothyroidism , unspecified - Plan hemostable -: ancef till Jun -: september dc to [facility] * . Review of Systems - Medications/Allergies Allergies/Adverse Reactions: Allergies Allergy/AdvReac Type Severity Reaction Status Date / Time No Known Allergies Allergy Verified 04/10/18 21:56 Medications: Current Medications Acetaminophen (Tylenol) 650 mg PO Q4H PRN PRN Reason: Headache/Fever/Mild Pain (1-3) Last Admin: 04/25/18 21:49 Dose: 650 mg Acetaminophen (Tylenol) 650 mg [place] Q4H PRN PRN Reason: Headache/Fever/Mild Pain (1-3) Albuterol/Ipratropium (Duoneb) 3 ml NEB [id number] [facility] Last Admin: 04/26/18 10:35 Dose: Not Given Cefazolin Sodium/Dextrose (Ancef 2 Gm/50 Ml) 2 gm IVPB 0200,1000,1800 [facility] Last Admin: 04/26/18 10:44 Dose: 2 gm Clonidine (Mqnlxnzg-Djs-4) 0.3 mg TD Q7DAYS [facility] Last Admin: 04/21/18 08:34 Dose: 0.3 mg Enoxaparin Sodium (Lovenox) 40 mg SC 0900 [facility] Last Admin: 04/26/18 08:13 Dose: 40 mg Folic Acid (Folvite) 1 mg PO DAILY [facility] Labetalol HCl (Normodyne) 20 mg SLOW IVP Q15MIN PRN PRN Reason: FOR SBP>180 IF HR>=70 Last Admin: 04/20/18 09:14 Dose: 20 mg Lactulose (Lactulose) 20 gm PO TID [facility] Levothyroxine Sodium (Synthroid) 50 mcg PO 0600 [facility] Discontinue Previous Narcotic Pain Medications And Benzodiazepines 1 each FS .ONE [facility] Stop: 05/13/18 13:46 Ccu Electrolyte (Replacement Protocol) 0 each FS PRN PRN PRN Reason: FOR ELECTROLYTE REPLACEMENT Sertraline HCl (Zoloft) 50 mg PO DAILY [facility] Thiamine HCl (Thiamine) 100 mg PO DAILY [facility]
[2018-04-26] MEDS: Acetaminophen 325 MG TAB PO PRN (12:25)
--- NOTE | 2018-04-26 15:35 | DIS ---
DATE OF ADMISSION: 04/10/2018 DATE OF DISCHARGE: 04/26/2018 DISCHARGE DISPOSITION: [facility]. PRIMARY DISCHARGE DIAGNOSES: Methicillin-susceptible Staphylococcus aureus bacteremia with pneumonia and urinary tract infection, sepsis secondary to above , hypertension, history of cirrhosis, hepatitis C, hypothyroidism, and deconditioning. PROCEDURES DONE DURING HOSPITALIZATION: CT brain done on the day of admission showed no acute intracranial abnormality. Left hip aspiration by fluoroscopic guidance was not successful after multiple attempts on 04/11/2018. He has had bronchoscopy done on 04/13/2018. He was intubated on 04/13/2018 for acute respiratory failure with hypoxemia. Echo with 2D Doppler showed EF of 60% to 65 %, mild concentric LVH was seen. CT chest done on 04/14/2018 showed multifocal infiltrates, bilateral pleural effusion, a small fluid collection beneath the left hemidiaphragm adjacent to the spleen. The patient had placement of right upper extremity PICC line done on 04/16/2018 by Interventional Radiology. Blood cultures x2 taken on 04/10/2018 grew Staph aureus, resistant to amoxicillin and Zosyn, but sensitive to all other antibiotics. Urine culture grew the same sensitivity pattern taken on 04/11/2018. A bronchoscopy culture showed yeast. Discharge white count of 13. On admission, had a white count of 21, which gone up to 31 on the 19 of April. Discharge hemoglobin and hematocrit were 12 and 40, platelet count 570. Sedimentation rate was 36. Discharge BUN and creatinine were 12 and 0.6. AST 63, ALT 28, alkaline phosphatase 197, total bilirubin 1.1 on the day of discharge. Albumin is 2.4. TSH 1.27. CRP was 22.7. Urine drug screen on admission was positive for opiates and tricyclics. INPATIENT CONSULTS: Dr. Tucker for pulmonology. Dr. Flores for Infectious Disease. DISCHARGE PLAN: The patient is to follow up with primary care physician in one week. He also needs weekly CBC, CRP, CMP, and sedimentation rate to be done and the results faxed to Dr. Flores. DISCHARGE MEDICATIONS: 1. Ancef 2 g three times daily until 06/24/2017. 2. Abilify 5 mg p.o. at bedtime. 3. Clonidine 0.3 mg p.o. three times daily. 4. Lactulose 30 g p.o. twice daily. 5. Protonix 40 mg p.o. daily. 6. Sertraline 50 mg p.o. daily. 7. Flomax 0.4 mg p.o. daily. 8. Folic acid 1 mg p.o. daily. 9. Synthroid 50 mcg p.o. daily. 10. Multivitamin one tablet once daily. 11. Thiamine 100 mg p.o. daily. 12. Ultram p.r.n. for pain. ALLERGIES: NO KNOWN DRUG ALLERGIES. BRIEF COURSE DURING HOSPITALIZATION: The patient initially was brought to the emergency room for complaints of left and right hip pain. He also had elevated white count and cultures grew MSSA bacteremia, this was 2/2. In view of his hip pain, the joints were aspirated with cultures not revealing any organism. The patient's urine grew MSSA bacteremia. The patient went into acute respiratory failure with hypoxemia and had to be intubated on the 13 of April. He was successfully extubated and was later transferred to [facility]. The patient was found to have bilateral pneumonia, presumed to be due to MSSA bacteremia. He was on oxacillin during his entire stay here, which has been switched over to Ancef 3 times daily until the 24 of June. Prior to discharge, he is on mechanical soft diet. The patient has deconditioning and needs to work with physical therapy at the skilled nursing. He is otherwise hemodynamically stable and will be shortly discharged. TIME SPENT: A total of 35 minutes was spent on discharge plan. Please see a [id number] documentation for the day of discharge on [employer]. Job ID: [id number] MTDD
[2018-04-27] MEDS ORDERED: Levothyroxine Sodium 50 MCG TAB PO SCH (06:00)
[2018-04-27] MEDS ORDERED: Folic Acid 1 MG TAB PO SCH (09:00)
[2018-05-12 11:14] LABS: Fungus Culture Final report (.)
== END 2018-04-26 12:29 | DRG 870 ==
LOC: ERS 18:05 → SURG A 20:43 → IMCU/EMU 04-13 12:49 → CCU 04-13 13:15 → IMCU/EMU 04-22 17:50 → ONC 04-25 07:12
PROVIDERS: ADMIT Family Medicine; ATTEND Family Medicine
PROC: 0B9D8ZX Drainage of Right Middle Lung Lobe, Via Natural or Artificial Opening Endoscopic, Diagnostic (ICD-10-PCS; principal; 2018-04-13)
PROC: 5A1955Z Respiratory Ventilation, Greater than 96 Consecutive Hours (ICD-10-PCS; 2018-04-13)
PROC: 0BH17EZ Insertion of Endotracheal Airway into Trachea, Via Natural or Artificial Opening (ICD-10-PCS; 2018-04-13)
PROC: 0BJ08ZZ Inspection of Tracheobronchial Tree, Via Natural or Artificial Opening Endoscopic (ICD-10-PCS; 2018-04-13)
PROC: 02HV33Z Insertion of Infusion Device into Superior Vena Cava, Percutaneous Approach (ICD-10-PCS; 2018-04-16)
PROC: B548ZZA Ultrasonography of Superior Vena Cava, Guidance (ICD-10-PCS; 2018-04-16)
DX: A41.01 Sepsis due to Methicillin susceptible Staphylococcus aureus (principal); J96.01 Acute respiratory failure with hypoxia; J18.9 Pneumonia, unspecified organism; E87.1 Hypo-osmolality and hyponatremia; G93.40 Encephalopathy, unspecified; N39.0 Urinary tract infection, site not specified; I10 Essential (primary) hypertension; Z86.73 Personal history of transient ischemic attack (TIA), and cerebral infarction without residual deficits; Z91.5 Personal history of self-harm; E78.5 Hyperlipidemia, unspecified; Z86.718 Personal history of other venous thrombosis and embolism; H40.9 Unspecified glaucoma; F32.9 Major depressive disorder, single episode, unspecified; F17.210 Nicotine dependence, cigarettes, uncomplicated; Z79.899 Other long term (current) drug therapy; B19.20 Unspecified viral hepatitis C without hepatic coma; E87.6 Hypokalemia; E03.9 Hypothyroidism, unspecified; F10.10 Alcohol abuse, uncomplicated; K72.90 Hepatic failure, unspecified without coma; D64.9 Anemia, unspecified; D47.3 Essential (hemorrhagic) thrombocythemia; M19.90 Unspecified osteoarthritis, unspecified site; K74.60 Unspecified cirrhosis of liver
CPT/HCPCS: 20610; 36415; 36569; 70450; 71045; 71250; 74018; 77002; 80048; 80053; 80076; 80202; 80306; 81001; 82140; 82805; 83605; 83735; 83880; 84100; 84443; 85025; 85060; 85610; 85652; 85730; 86140; 87040; 87070; 87077; 87086; 87102; 87186; 87205; 89051; 93306; 94002; 94003; 94640; 94660; 96365; C1751; G8978-GP-CM; G8978-GP-CN; G8979-GP-CK; G8979-GP-CL; G8987-GO-CM; G8988-GO-CK; G8996-GN-CN; G8997-GN-CM; J1200; J1630; J1642; J1644; J1650; J1720; J1940; J2060; J2185; J2543; J2700; J2704; J3010; J3370; J3411; J3475; J3480; J7042; J7050; J7620; S0028

== ENCOUNTER 2018-05-12 15:30 | Emergency (ER) | payer BC ==
[2018-05-12] MEDS ORDERED: Acetaminophen/Codeine 30-300mg Tablet ONE (17:18)
== END 2018-05-12 18:06 ==
LOC: ERS 15:30
DX: T80.219A Unspecified infection due to central venous catheter, initial encounter (principal); E78.5 Hyperlipidemia, unspecified; I10 Essential (primary) hypertension; F32.9 Major depressive disorder, single episode, unspecified; F17.210 Nicotine dependence, cigarettes, uncomplicated
CPT/HCPCS: 36569; 87071; 99284

== ENCOUNTER → 2018-05-13 | Day surgery (SDC) | payer BC ==
[~2018-05-13] MED LIST changes: +CEFAZOLIN 2 GM/50 ML BAG ONE; +Heparin 1,000 UNITS/ML VIAL ONE; -ISOVUE-370 76%-LOCM 1 ML ONE
--- NOTE | 2018-05-13 14:52 | SPC ---
ULTRASOUND GUIDED LEFT UPPER EXTREMITY PICC LINE PLACEMENT: DATE: 05/13/2018. HISTORY: Patient with infection needing long-term IV antibiotics. FLUOROSCOPY: Total fluoroscopy time 0.7 minutes, total dose of 1,646 mGy*^cm2. TECHNIQUE: After informed consent was obtained, the patient was placed on the angiography table in the supine po sition. The left upper extremity was meticulously prepped and draped in the usual sterile fashion. An appropriate access site was determined with ultrasound guidance. The skin and subcutaneous tissues were infiltrated with buffered 1% Lidocaine for local anesthesia. Utilizing concurrent real-time ultrasound guidance, the left brachial vein was accessed utilizing vern ropuncture technique, and a 5 [place] peel-away sheath was placed. The catheter was measured and cut to the appropriate length. The guidewire was placed into the IVC to confirm placement in the venous system. The catheter was measured and cut to the appropriate length. The catheter was placed over t he guidewire with the tip positioned overlying the distal SVC. The guidewire and peel-away sheath we re removed. Each port of the double lumen PICC line was accessed and aspirated/flushed easily. The catheter was secured to the skin utilizing a dry sterile dressing. The patient tolerated the procedu re well and without immediate complication. FINDINGS: Technically successful placement of a dual-lumen 5 [place] 36 cm PICC line via the left brachial vein. The tip of the catheter overlies the distal SVC. IMPRESSION: Technically successful left upper extremity PICC line placement. POS: [facility]
== END ==
LOC: ERS 09:40 → SDC 09:59
PROVIDERS: ATTEND Internal Medicine
PROC: B518ZZA Fluoroscopy of Superior Vena Cava, Guidance (ICD-10-PCS; principal; 2018-05-13)
PROC: 02HV33Z Insertion of Infusion Device into Superior Vena Cava, Percutaneous Approach (ICD-10-PCS; principal; 2018-05-13)
DX: B99.9 Unspecified infectious disease (principal)
CPT/HCPCS: 36569; C1751; J1644

== ENCOUNTER 2019-06-17 11:16 | Outpatient (CLI) | payer OTHER, MEDICAID ==
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
== END 2019-06-17 11:17 | disposition home or self-care (01) ==
LOC: CT 11:16
PROVIDERS: ATTEND Internal Medicine
DX: M25.552 Pain in left hip (principal); V89.2XXD Person injured in unspecified motor-vehicle accident, traffic, subsequent encounter
CPT/HCPCS: 72192

== ENCOUNTER 2019-06-28 19:02 | Emergency (ER) | payer OTHER ==
[2019-06-28] MEDS ORDERED: Fentanyl 100 MCG/2 ML VIAL ONE ×2 (20:21→21:58)
[2019-06-28 20:37] LABS: Actual Bicarbonate (HCO3a) 15.5 mEq/L (22-28); Analyzer IN Cardio ER; Base Excess (BEa) -7.5 mEq/L (-2.0 to +3.0); Calcium, Ionized 1.09 mmol/L (1.12-1.30); Carboxyhemoglobin (COHb) 0.7 gm% (0.0-3.0); Hemoglobin (Hb) 13.6 g/dL (14.0-18.0); O2 Tension (PaO2) 61.3 mmHg (> 80.0); Potassium - ABG Lab 4.26 mmol/L (3.70-5.30)
[2019-06-28 20:38] LABS: CO2 Tension 25.4 mmHg (35.0-45.0); Puncture Site RRA
--- NOTE | 2019-06-28 20:41 | PDOC.FPRHP ---
- Allergies/Adverse Reactions Allergies Allergy/AdvReac Type Severity Reaction Status Date / Time No Known Allergies Allergy Verified 04/10/18 21:56 - Home Medications Medication Instructions Recorded Confirmed Type Folic Acid [Folvite] 1 mg PO DAILY tab 09/26/17 04/10/18 Rx Levothyroxine Sodium [Synthroid] 50 mcg PO 0600 tab 09/26/17 04/10/18 Rx Multivit, Therapeutic [Theragran] 1 tab PO DAILY tab 09/26/17 04/10/18 Rx Thiamine 100 mg PO DAILY tab 09/26/17 04/10/18 Rx traMADol HCl [Ultram] 50 mg PO Q6H PRN tab 09/26/17 04/10/18 Rx ARIPiprazole [Abilify] 5 mg PO HS 02/13/18 04/10/18 History Lactulose 30 gm PO BID 02/13/18 04/10/18 History Pantoprazole [Protonix] 40 mg PO QAM 02/13/18 04/10/18 History Sertraline HCl 50 mg PO DAILY 02/13/18 04/10/18 History Tamsulosin HCl [Flomax] 0.4 mg PO QAM 02/13/18 04/10/18 History cloNIDine [Catapres] 0.3 mg PO TID 02/13/18 04/10/18 History Cefazolin [Ancef] 2 gm IVPB 0200,1000,1800 32 Days 04/26/18 Rx bag - History PMHx: PSHx: FHx: Social: - Vital signs BP: [] HR: [] RR: [] Tmax: [] Pox: []% on [] Wt: [] FMR H&P: Results - Labs Lab results: ABG pH 7.40 (7.35-7.45) 06/28/19 20:25 ABG pCO2 25.4 mmHg (35.0-45.0) L* 06/28/19 20:25 ABG pO2 61.3 mmHg (> 80.0) 06/28/19 20:25 FMR H&P: Upper Level - Plan Date/Time: 06/28/192040 I, [], have evaluated this patient and agree with findings/plan as outlined by business analytics intern resident. Pertinent changes/additions are listed here.
[2019-06-28] MEDS ORDERED: Norepinephrine 8 MG/0.9% NS 250 ML ONE (21:02)
--- NOTE | 2019-06-28 21:25 | RAD ---
Exam: Chest one view HISTORY:Cough Comparison: 06/28/2019 FINDINGS: Cardiac silhouette:Normal Aorta: Atherosclerotic Pulmonary vessels: Normal Costophrenic angles: Clear LUNGS: Worsening consolidation involving both lower lobes in the right upper lobe. Pneumothorax: None Osseous abnormalities: None IMPRESSION: Progression of airspace disease.
[2019-06-28] MEDS ORDERED: Rocuronium Bromide 10 MG/ML (10ML VIAL) ONE (21:46)
[2019-06-28] MEDS ORDERED: Rocuronium Bromide 50 MG/5 ML VIAL ONE (21:48)
[2019-06-28 21:50] LABS: Troponin I Less than 0.010 ng/mL (< 0.028)
--- NOTE | 2019-06-28 22:19 | RAD ---
Exam: Chest one view HISTORY:Dyspnea Comparison: 06/28/2019 FINDINGS: Cardiac silhouette:Stable cardiac silhouette Aorta: Stable atherosclerosis Pulmonary vessels: Normal Costophrenic angles: Clear LUNGS: Stable multi lobar consolidation Lines and tubes: Interval placement of a nasogastric and endotracheal tube. Pneumothorax: None Osseous abnormalities: None IMPRESSION: 1. Stable multi lobar consolidation. 2. Atherosclerosis. 3. Interval placement of endotracheal and nasogastric tube.
== END 2019-06-28 22:27 | disposition short-term general hospital (02) ==
LOC: ERS 19:02
DX: A40.3 Sepsis due to Streptococcus pneumoniae (principal); R65.21 Severe sepsis with septic shock; J96.01 Acute respiratory failure with hypoxia; K21.9 Gastro-esophageal reflux disease without esophagitis; I10 Essential (primary) hypertension; M10.9 Gout, unspecified; E78.5 Hyperlipidemia, unspecified; E78.00 Pure hypercholesterolemia, unspecified; F17.210 Nicotine dependence, cigarettes, uncomplicated; F31.9 Bipolar disorder, unspecified; Z86.718 Personal history of other venous thrombosis and embolism; Z86.73 Personal history of transient ischemic attack (TIA), and cerebral infarction without residual deficits; Z79.899 Other long term (current) drug therapy
CPT/HCPCS: 31500; 36415; 71045; 82805; 96365; 96366; 96368; 96374; 96375; 99292; J3010; J3370